=== PATIENT | male | born 1970 | race Caucasian/White ===

== ENCOUNTER → 2016-07-19 | Outpatient (CLI) | payer OTHER ==
--- NOTE | 2016-07-19 13:51 | REP ---
MRI LEFT SHOULDER: TECHNIQUE: Axial T2 fat sat, gradient echo, sagittal oblique T2 fat sat, coronal oblique T1, T2 fat sat. COMPARISON: 11/28/2015. There is ill-defined high signal in the supraspinatus tendon compatible with tendinopathy/tendonitis, appearing similar to the prior exam with probable fraying as well. This appears similar to the prior study. There is no other evidence of rotator cuff tendon tear. Acromioclavicular joint is well aligned. There is some diastasis likely postsurgical with mild fluid in the joint as seen on prior study. This is also unchanged. Biceps tendon is within the bicipital groove with mild surrounding fluid, unchanged. There is mild subacromial subdeltoid fluid unchanged. Deltoid muscle demonstrates no abnormal signal. There is no Hill-Sachs deformity. There is diffuse fraying of the entire labrum. This appears somewhat worse than on the prior study both anteriorly and posteriorly. Subchondral cystic changes are again seen in the humeral head. There is severe chondromalacia of the glenohumeral joint with mild subchondral marrow edema. There is a large spur of the inferior medial humeral head. Small joint effusion is seen at the glenohumeral joint. There is no paralabral cyst. IMPRESSION: Tendinopathy/tendonitis with fraying of the supraspinatus tendon unchanged. Acromioclavicular joint configuration is unchanged as well. There is again mild fluid around the biceps as well as subacromial subdeltoid fluid unchanged. There is diffuse fraying of the entire labrum, somewhat increased in the anterior and posterior labrum. Subchondral cystic changes humeral head. Severe chondromalacia again seen at the glenohumeral joint as on the prior study with subchondral marrow edema. Large spur of the humeral head again seen. Signed by Stefano Lindquist MD 07/19/2016 03:29 P
== END ==
LOC: M RAD 08:27
PROVIDERS: ATTEND Orthopaedic Surgery
DX: M75.02 Adhesive capsulitis of left shoulder (principal); M75.82 Other shoulder lesions, left shoulder; M94.212 Chondromalacia, left shoulder; M25.412 Effusion, left shoulder

== ENCOUNTER → 2016-07-20 | Outpatient (CLI) | payer OTHER ==
[2016-07-20 18:28] LABS: CHOLESTEROL LEVEL 183 MG/DL (<200); TRIGLYCERIDES LEVEL 333 MG/DL (<150)
== END ==
LOC: M WUC 09:47
PROVIDERS: ATTEND Family Medicine
DX: E78.5 Hyperlipidemia, unspecified (principal); E11.9 Type 2 diabetes mellitus without complications

== ENCOUNTER → 2016-07-30 | Outpatient (CLI) | payer OTHER | LOC: M WUC 18:14 | PROVIDERS: ATTEND Family Medicine | DX: R07.9 Chest pain, unspecified (principal) ==

== ENCOUNTER → 2016-12-15 | Outpatient (CLI) | payer OTHER ==
[2016-12-15 17:53] LABS: ALBUMIN 4.1 GM/DL (3.2-5.2); ALBUMIN/GLOBULIN RATIO 1.41 (1.00-1.93); ALKALINE PHOSPHATASE 97 U/L (45-117); ALT/SGPT 59 U/L (12-78); ANION GAP 8 MEQ/L (8-16); AST/SGOT 33 U/L (15-37); BILIRUBIN,TOTAL 0.4 MG/DL (0.2-1.0); BLOOD UREA NITROGEN 12 MG/DL (7-18); CALCIUM LEVEL 8.7 MG/DL (8.5-10.1); CARBON DIOXIDE LEVEL 30 MEQ/L (21-32); CHLORIDE LEVEL 104 MEQ/L (98-107); FERRITIN 52 NG/ML (26-388); GLOMERULAR FILTRATION RATE > 60.0 (>60); GLUCOSE, FASTING 101 MG/DL (70-105); PERCENT SATURATION 19.5 % (19.7-50.0); SODIUM LEVEL 142 MEQ/L (136-145); TOTAL IRON BINDING CAPACITY 343 UG/DL (250-450)
[2016-12-15 18:14] LABS: BASO % 0.7 % (0.0-1.0); EOS # 0.1 K/mm3 (0.0-0.50); EOS % 2.3 % (0.0-3.0); LARGE UNSTAINED CELL # 0.1 K/mm3 (0.0-0.4); LARGE UNSTAINED CELL % 2.6 % (0.0-4.0); LYMPH # 1.8 K/mm3 (1.5-4.5); LYMPH % 36.9 % (24.0-44.0); MEAN CORPUSCULAR HEMOGLOBIN 31.8 pg (27.0-33.0); MEAN CORPUSCULAR HGB CONC 34.1 g/dl (32.0-36.5); MEAN CORPUSCULAR VOLUME 93.3 fl (80.0-96.0); MONO # 0.3 K/mm3 (0.0-0.8); MONO % 6.3 % (0.0-5.0); NEUTROPHILS # 2.5 K/mm3 (1.8-7.7); NEUTROPHILS % 51.2 % (36.0-66.0); PLATELET COUNT, AUTOMATED 234 k/mm3 (150-450); RED CELL DISTRIBUTION WIDTH 13.3 % (11.5-14.5); WHITE BLOOD COUNT 4.9 K/mm3 (4.0-10.0)
[2016-12-16 10:17] LABS: VITAMIN B12 LEVEL 1008 PG/ML (247-911)
== END ==
LOC: M WUC 10:05
PROVIDERS: ATTEND Family Medicine
DX: I10 Essential (primary) hypertension (principal); E11.9 Type 2 diabetes mellitus without complications; E53.8 Deficiency of other specified B group vitamins

== ENCOUNTER → 2017-01-27 | Outpatient (CLI) | payer OTHER ==
--- NOTE | 2017-01-27 19:14 | REP ---
REASON: Cough times two weeks. COMPARISON: 03/10/2014. FINDINGS: The superior mediastinal structures are midline. The cardiac silhouette is unremarkable in size, shape, and position. The diaphragmatic surfaces of the lungs are regular, and the costophrenic angles are clear. The pulmonary ramirez are clear. The imaged osseous structures are intact. No significant change from the prior exam. IMPRESSION: There is no acute cardiopulmonary disease. Signed by Elgin Cedeño DO 01/27/2017 07:30 P
== END ==
LOC: M WUC 18:31
PROVIDERS: ATTEND Physician Assistant
DX: R05 Cough (principal)

== ENCOUNTER → 2017-04-28 | Outpatient (REF) | payer OTHER ==
[2017-04-28 14:10] LABS: C REACTIVE PROTEIN QUANTITATIV < 0.30 MG/DL (0.00-0.30); CHOLESTEROL LEVEL 194 MG/DL (<200); CHOLESTEROL RISK RATIO 5.878 (<5); CPK CREATINE PHOSPHOKINASE 335 U/L (39-308); FREE T4 0.83 NG/DL (0.76-1.46); HDL CHOLESTEROL 33 MG/DL (>40); MAGNESIUM LEVEL 2.1 MG/DL (1.8-2.4); NON-HDL-C 161 MG/DL; NT-PRO BNP < 5 PG/ML (<125); TRIGLYCERIDES LEVEL 419 MG/DL (<150)
[2017-04-28 14:48] LABS: ESTIMATED AVERAGE GLUCOSE 163 MG/DL (60-110); HEMOGLOBIN A1c 7.3 %
[2017-04-28 16:23] LABS: APPEARANCE, URINE CLEAR (CLEAR); BACTERIA, URINE AUTO NEGATIVE (NEGATIVE); BILIRUBIN, URINE AUTO NEGATIVE (NEGATIVE); BLOOD, URINE BLOOD NEGATIVE (NEGATIVE); COLOR, URINE YELLOW (YELLOW); GLUCOSE, URINE (UA) AUTO NEGATIVE (NEGATIVE); KETONE, URINE AUTO NEGATIVE (NEGATIVE); LEUKOCYTE ESTERASE, URINE AUTO TRACE (NEGATIVE); MUCUS, URINE SMALL (NEGATIVE); NITRITE, URINE AUTO NEGATIVE (NEGATIVE); PROTEIN, URINE AUTO NEGATIVE (NEGATIVE); RBC, URINE AUTO 4 /HPF (0-3); SPECIFIC GRAVITY URINE AUTO 1.026 (1.002-1.035); SQUAMOUS EPITHELIAL CELL UR AU 2 /HPF (0-6); UROBILINOGEN, URINE AUTO 0.2 mg/dL (0.0-2.0); WBC, URINE AUTO 6 /HPF (0-3)
[2017-04-28 16:48] LABS: MALB URINE SIEMENS 25.1 MG/L; MAU/CREAT RATIO 16.6 MCG/MG (0.0-30.0)
== END ==
LOC: M SFHCPLAZ 08:12
DX: E11.42 Type 2 diabetes mellitus with diabetic polyneuropathy (principal); E78.5 Hyperlipidemia, unspecified; E11.9 Type 2 diabetes mellitus without complications
CPT/HCPCS: 84443

== ENCOUNTER → 2017-06-13 | Outpatient (CLI) | payer OTHER | LOC: M PAIN 13:00 | DX: G89.29 Other chronic pain (principal); M47.816 Spondylosis without myelopathy or radiculopathy, lumbar region; M51.16 Intervertebral disc disorders with radiculopathy, lumbar region; E11.40 Type 2 diabetes mellitus with diabetic neuropathy, unspecified; I10 Essential (primary) hypertension; E78.5 Hyperlipidemia, unspecified; K21.9 Gastro-esophageal reflux disease without esophagitis; J44.9 Chronic obstructive pulmonary disease, unspecified; E66.01 Morbid (severe) obesity due to excess calories; Z68.42 Body mass index [BMI] 45.0-49.9, adult; I73.00 Raynaud's syndrome without gangrene; M19.049 Primary osteoarthritis, unspecified hand; J30.9 Allergic rhinitis, unspecified; Z79.82 Long term (current) use of aspirin; Z79.84 Long term (current) use of oral hypoglycemic drugs; Z79.1 Long term (current) use of non-steroidal anti-inflammatories (NSAID); Z79.899 Other long term (current) drug therapy; Z88.8 Allergy status to other drugs, medicaments and biological substances; Z87.891 Personal history of nicotine dependence | CPT/HCPCS: G0463 ==

== ENCOUNTER → 2017-07-14 | Outpatient (CLI) | payer OTHER ==
[~2017-07-14] MED LIST: ISOVUE-M 300 61% 15ML VIAL (Q9967) As Ordered; LIDOCAINE 1% SDV INJ 30 ML VIAL As Ordered; diazePAM 5 MG TAB As Ordered; methylPREDNISolone SUSP 40 MG/ML (DEPO-medrol) VIAL (J1030) As Ordered; oxyCODONE 5MG TAB As Ordered
[2017-07-14 10:25] LABS: BEDSIDE GLUCOSE 127 MG/DL (70-105)
== END ==
LOC: M PAIN 10:10
DX: G89.29 Other chronic pain (principal); M51.14 Intervertebral disc disorders with radiculopathy, thoracic region; I10 Essential (primary) hypertension; E11.9 Type 2 diabetes mellitus without complications; E78.5 Hyperlipidemia, unspecified; K21.9 Gastro-esophageal reflux disease without esophagitis; J44.9 Chronic obstructive pulmonary disease, unspecified; M19.012 Primary osteoarthritis, left shoulder; I73.00 Raynaud's syndrome without gangrene; M19.049 Primary osteoarthritis, unspecified hand; E66.01 Morbid (severe) obesity due to excess calories; Z68.42 Body mass index [BMI] 45.0-49.9, adult; Z79.82 Long term (current) use of aspirin; Z79.84 Long term (current) use of oral hypoglycemic drugs; Z79.899 Other long term (current) drug therapy; Z88.8 Allergy status to other drugs, medicaments and biological substances; Z87.891 Personal history of nicotine dependence
CPT/HCPCS: J1030

== ENCOUNTER → 2017-09-02 | Outpatient (REF) | payer OTHER ==
[2017-09-02 10:53] LABS: ESTIMATED AVERAGE GLUCOSE 166 MG/DL (60-110); HEMOGLOBIN A1c 7.4 %
[2017-09-02 11:09] LABS: ALBUMIN/GLOBULIN RATIO 1.33 (1.00-1.93); ALKALINE PHOSPHATASE 94 U/L (45-117); ALT/SGPT 54 U/L (12-78); ANION GAP 6 MEQ/L (8-16); AST/SGOT 34 U/L (7-37); BILIRUBIN,TOTAL 0.3 MG/DL (0.2-1.0); BLOOD UREA NITROGEN 13 MG/DL (7-18); CALCIUM LEVEL 8.7 MG/DL (8.5-10.1); CARBON DIOXIDE LEVEL 31 MEQ/L (21-32); CHLORIDE LEVEL 105 MEQ/L (98-107); CHOLESTEROL LEVEL 146 MG/DL (<200); CHOLESTEROL RISK RATIO 4.424 (<5); CPK CREATINE PHOSPHOKINASE 421 U/L (39-308); CREATININE FOR GFR 0.71 MG/DL (0.70-1.30); GLOMERULAR FILTRATION RATE > 60.0 (>60); GLUCOSE, FASTING 124 MG/DL (70-100); HDL CHOLESTEROL 33 MG/DL (>40); LDL CHOLESTEROL 63.8 MG/DL (<100); MAGNESIUM LEVEL 2.1 MG/DL (1.8-2.4); NON-HDL-C 113 MG/DL; POTASSIUM SERUM 4.6 MEQ/L (3.5-5.1); SODIUM LEVEL 142 MEQ/L (136-145); TRIGLYCERIDES LEVEL 246 MG/DL (<150)
== END ==
LOC: M SFHCPLAZ 08:12
DX: E78.5 Hyperlipidemia, unspecified (principal); I10 Essential (primary) hypertension; E11.8 Type 2 diabetes mellitus with unspecified complications

== ENCOUNTER → 2017-09-08 | Outpatient (CLI) | payer OTHER | LOC: M PAIN 10:30 | DX: M53.3 Sacrococcygeal disorders, not elsewhere classified (principal); M47.816 Spondylosis without myelopathy or radiculopathy, lumbar region; M54.6 Pain in thoracic spine; G89.29 Other chronic pain; E11.40 Type 2 diabetes mellitus with diabetic neuropathy, unspecified; I10 Essential (primary) hypertension; E78.5 Hyperlipidemia, unspecified; J44.9 Chronic obstructive pulmonary disease, unspecified; I73.00 Raynaud's syndrome without gangrene; M19.049 Primary osteoarthritis, unspecified hand; E66.01 Morbid (severe) obesity due to excess calories; Z68.42 Body mass index [BMI] 45.0-49.9, adult; Z79.82 Long term (current) use of aspirin; Z79.84 Long term (current) use of oral hypoglycemic drugs; Z79.891 Long term (current) use of opiate analgesic; Z79.899 Other long term (current) drug therapy; Z88.8 Allergy status to other drugs, medicaments and biological substances; Z87.891 Personal history of nicotine dependence | CPT/HCPCS: G0463 ==

== ENCOUNTER → 2017-09-24 | Outpatient (CLI) | payer OTHER ==
[~2017-09-24] MED LIST changes: +BUPIVACAINE HCL 0.25% 30 ML VIAL As Ordered; +TRIAMCINOLONE ACETONIDE SUSP 40 MG/ML VIAL (J3301) As Ordered; -methylPREDNISolone SUSP 40 MG/ML (DEPO-medrol) VIAL (J1030) As Ordered
== END ==
LOC: M PAIN 14:45
DX: G89.29 Other chronic pain (principal); M46.1 Sacroiliitis, not elsewhere classified; M53.88 Other specified dorsopathies, sacral and sacrococcygeal region; I10 Essential (primary) hypertension; E78.5 Hyperlipidemia, unspecified; J44.9 Chronic obstructive pulmonary disease, unspecified; E11.42 Type 2 diabetes mellitus with diabetic polyneuropathy; M19.012 Primary osteoarthritis, left shoulder; I73.00 Raynaud's syndrome without gangrene; M19.049 Primary osteoarthritis, unspecified hand; K21.9 Gastro-esophageal reflux disease without esophagitis; E66.01 Morbid (severe) obesity due to excess calories; Z68.42 Body mass index [BMI] 45.0-49.9, adult; Z79.82 Long term (current) use of aspirin; Z79.51 Long term (current) use of inhaled steroids; Z79.84 Long term (current) use of oral hypoglycemic drugs; Z88.8 Allergy status to other drugs, medicaments and biological substances; Z87.891 Personal history of nicotine dependence
CPT/HCPCS: J3301

== ENCOUNTER → 2017-10-13 | Outpatient (CLI) | payer OTHER | LOC: M CARPUL 14:54 | DX: J44.9 Chronic obstructive pulmonary disease, unspecified (principal); R06.09 Other forms of dyspnea | CPT/HCPCS: 94060 ==

== ENCOUNTER → 2017-11-17 | Outpatient (CLI) | payer OTHER | LOC: M PAIN 15:15 | DX: M54.2 Cervicalgia (principal); M53.3 Sacrococcygeal disorders, not elsewhere classified; M79.1 Myalgia; I10 Essential (primary) hypertension; E78.5 Hyperlipidemia, unspecified; E66.01 Morbid (severe) obesity due to excess calories; Z68.42 Body mass index [BMI] 45.0-49.9, adult; K21.9 Gastro-esophageal reflux disease without esophagitis; J44.9 Chronic obstructive pulmonary disease, unspecified; E11.42 Type 2 diabetes mellitus with diabetic polyneuropathy; I73.00 Raynaud's syndrome without gangrene; M51.36 Other intervertebral disc degeneration, lumbar region; M51.34 Other intervertebral disc degeneration, thoracic region; Z87.891 Personal history of nicotine dependence; Z90.49 Acquired absence of other specified parts of digestive tract; Z79.899 Other long term (current) drug therapy; Z79.84 Long term (current) use of oral hypoglycemic drugs; Z88.1 Allergy status to other antibiotic agents; Z88.8 Allergy status to other drugs, medicaments and biological substances | CPT/HCPCS: G0463 ==

== ENCOUNTER → 2017-12-22 | Outpatient (CLI) | payer OTHER | LOC: M SMT 09:04 | DX: M17.12 Unilateral primary osteoarthritis, left knee (principal) | CPT/HCPCS: 73564 ==

== ENCOUNTER → 2018-01-16 | Outpatient (CLI) | payer OTHER ==
[~2018-01-16] MED LIST changes: +BUPIVACAINE HCL 0.25% 10 ML VIAL As Ordered; -ISOVUE-M 300 61% 15ML VIAL (Q9967) As Ordered; -LIDOCAINE 1% SDV INJ 30 ML VIAL As Ordered
[2018-01-16 09:20] LABS: BEDSIDE GLUCOSE 136 MG/DL (70-105)
== END ==
LOC: M PAIN 09:00
DX: M79.18 Myalgia, other site (principal); M54.6 Pain in thoracic spine; I10 Essential (primary) hypertension; E78.5 Hyperlipidemia, unspecified; K21.9 Gastro-esophageal reflux disease without esophagitis; J44.9 Chronic obstructive pulmonary disease, unspecified; E11.42 Type 2 diabetes mellitus with diabetic polyneuropathy; M19.012 Primary osteoarthritis, left shoulder; I73.00 Raynaud's syndrome without gangrene; M19.049 Primary osteoarthritis, unspecified hand; E66.01 Morbid (severe) obesity due to excess calories; Z68.42 Body mass index [BMI] 45.0-49.9, adult; Z79.84 Long term (current) use of oral hypoglycemic drugs; Z79.891 Long term (current) use of opiate analgesic; Z79.51 Long term (current) use of inhaled steroids; Z79.82 Long term (current) use of aspirin; Z79.899 Other long term (current) drug therapy; Z88.8 Allergy status to other drugs, medicaments and biological substances; Z87.891 Personal history of nicotine dependence
CPT/HCPCS: J3301

== ENCOUNTER → 2018-02-02 | Outpatient (REF) | payer OTHER ==
[2018-02-02 12:01] LABS: BASO # 0.1 10^3/uL (0.0-0.2); BASO % 0.8 % (0.0-1.0); EOS # 0.1 10^3/uL (0.0-0.50); EOS % 1.3 % (0.0-3.0); HEMATOCRIT 45.5 % (42.0-52.0); IMMATURE GRANULOCYTE % 0.6 % (0-3.0); LYMPH # 2.4 10^3/uL (1.5-4.5); LYMPH % 34.5 % (24.0-44.0); MONO # 0.5 10^3/uL (0.0-0.8); MONO % 7.1 % (0.0-5.0); NEUTROPHILS # 3.9 10^3/uL (1.8-7.7); NEUTROPHILS % 55.7 % (36.0-66.0); PLATELET COUNT, AUTOMATED 290 10^3/uL (150-450); RED BLOOD COUNT 4.84 10^6/uL (4.30-6.10); RED CELL DISTRIBUTION WIDTH 13.2 % (11.5-14.5); RETIC HEMOGLOBIN EQUIVALENT 36.9 pg (24-36); RETICULOCYTE # 84.7 10^9/L (17-77); RETICULOCYTE % 1.8 % (0.5-1.5); WHITE BLOOD COUNT 7.1 10^3/uL (4.0-10.0)
[2018-02-02 12:37] LABS: ALBUMIN/GLOBULIN RATIO 1.21 (1.00-1.93); ALKALINE PHOSPHATASE 105 U/L (45-117); ALT/SGPT 52 U/L (12-78); ANION GAP 10 MEQ/L (8-16); AST/SGOT 27 U/L (7-37); BILIRUBIN,TOTAL 0.4 MG/DL (0.2-1.0); BLOOD UREA NITROGEN 17 MG/DL (7-18); CALCIUM LEVEL 9.2 MG/DL (8.5-10.1); CARBON DIOXIDE LEVEL 28 MEQ/L (21-32); CHLORIDE LEVEL 102 MEQ/L (98-107); CREATININE FOR GFR 0.73 MG/DL (0.70-1.30); GLOMERULAR FILTRATION RATE > 60.0 (>60); GLUCOSE, FASTING 110 MG/DL (70-100); MAGNESIUM LEVEL 1.7 MG/DL (1.8-2.4); POTASSIUM SERUM 4.3 MEQ/L (3.5-5.1); SODIUM LEVEL 140 MEQ/L (136-145); TOTAL PROTEIN 7.3 GM/DL (6.4-8.2); URIC ACID 5.2 MG/DL (3.5-7.2)
[2018-02-02 13:17] LABS: ESTIMATED AVERAGE GLUCOSE 154 MG/DL (60-110)
[2018-02-02 14:03] LABS: APPEARANCE, URINE CLEAR (CLEAR); BACTERIA, URINE AUTO NEGATIVE (NEGATIVE); BILIRUBIN, URINE AUTO NEGATIVE (NEGATIVE); BLOOD, URINE BLOOD NEGATIVE (NEGATIVE); CALCIUM OXALATE CRYSTALS SMALL; COLOR, URINE YELLOW (YELLOW); GLUCOSE, URINE (UA) AUTO NEGATIVE (NEGATIVE); KETONE, URINE AUTO NEGATIVE (NEGATIVE); LEUKOCYTE ESTERASE, URINE AUTO NEGATIVE (NEGATIVE); MUCUS, URINE SMALL (NEGATIVE); NITRITE, URINE AUTO NEGATIVE (NEGATIVE); PROTEIN, URINE AUTO NEGATIVE (NEGATIVE); RBC, URINE AUTO 0 /HPF (0-3); SPECIFIC GRAVITY URINE AUTO 1.021 (1.002-1.035); SQUAMOUS EPITHELIAL CELL UR AU 0 /HPF (0-6); UROBILINOGEN, URINE AUTO 0.2 mg/dL (0.0-2.0); WBC, URINE AUTO 0 /HPF (0-3)
[2018-02-02 14:27] LABS: MALB URINE SIEMENS 35.7 MG/L
[2018-02-02 14:30] LABS: MAU/CREAT RATIO 26.3 MCG/MG (0.0-30.0)
== END ==
LOC: M SFHCPLAZ 09:33
DX: E53.8 Deficiency of other specified B group vitamins (principal); I10 Essential (primary) hypertension; E11.8 Type 2 diabetes mellitus with unspecified complications

== ENCOUNTER → 2018-02-06 | Outpatient (CLI) | payer OTHER | LOC: M PAIN 10:00 | DX: M47.816 Spondylosis without myelopathy or radiculopathy, lumbar region (principal); E11.40 Type 2 diabetes mellitus with diabetic neuropathy, unspecified; I10 Essential (primary) hypertension; E78.5 Hyperlipidemia, unspecified; K21.9 Gastro-esophageal reflux disease without esophagitis; J44.9 Chronic obstructive pulmonary disease, unspecified; M19.012 Primary osteoarthritis, left shoulder; I73.00 Raynaud's syndrome without gangrene; M19.049 Primary osteoarthritis, unspecified hand; Z79.84 Long term (current) use of oral hypoglycemic drugs; Z79.82 Long term (current) use of aspirin; Z79.51 Long term (current) use of inhaled steroids; Z79.899 Other long term (current) drug therapy; Z88.8 Allergy status to other drugs, medicaments and biological substances; Z87.891 Personal history of nicotine dependence | CPT/HCPCS: G0463 ==

== ENCOUNTER → 2018-02-20 | Outpatient (CLI) | payer OTHER | LOC: M PLARAD 07:32 | DX: M50.21 Other cervical disc displacement, high cervical region (principal); M50.221 Other cervical disc displacement at C4-C5 level; M50.222 Other cervical disc displacement at C5-C6 level; M50.23 Other cervical disc displacement, cervicothoracic region; M48.02 Spinal stenosis, cervical region | CPT/HCPCS: 72141 ==

== ENCOUNTER → 2018-03-13 | Outpatient (CLI) | payer OTHER | LOC: M PLARAD 15:17 | DX: M17.11 Unilateral primary osteoarthritis, right knee (principal); S83.231A Complex tear of medial meniscus, current injury, right knee, initial encounter; X58.XXXA Exposure to other specified factors, initial encounter; Y92.9 Unspecified place or not applicable; M25.461 Effusion, right knee | CPT/HCPCS: 73721 ==

== ENCOUNTER → 2018-03-19 | Outpatient (CLI) | payer OTHER ==
[~2018-03-19] MED LIST changes: -BUPIVACAINE HCL 0.25% 10 ML VIAL As Ordered; -BUPIVACAINE HCL 0.25% 30 ML VIAL As Ordered; +BUPIVACAINE HCL 0.25% 30 ML VIAL As Ordered ONE; +ISOVUE-M 300 61% 15ML VIAL (Q9967) As Ordered ONE; +LIDOCAINE 1% SDV INJ 30 ML VIAL As Ordered ONE; -TRIAMCINOLONE ACETONIDE SUSP 40 MG/ML VIAL (J3301) As Ordered; -diazePAM 5 MG TAB As Ordered; -oxyCODONE 5MG TAB As Ordered
--- NOTE | 2018-03-19 13:54 | REP ---
Partial lumbar spine series: Three views . History: Injection procedure for pain. 35 seconds of fluoroscopy time is reported. Findings: A sequence of three fluoroscopically obtained last image hold procedural spot radiographs of the lumbar spine document needle position and contrast injection associated with injection procedure. Electronically Signed by Vern Goodrihc MD 03/19/2018 01:45 P
--- NOTE | 2018-04-08 | ECWPNPC ---
PATIENT NAME: SRINATH GUPTA : 1970 GENDER: MALE VISIT DATE: 03/19/2018 DISCHARGE DATE: 03/19/18 1143 VISIT LOCKED DATE TIME: PHYSICIAN: AGUEDA MORALES MD RESOURCE: AGUEDA MORALES MD REASON FOR APPOINTMENT 1. BILAT. L4/5-L5/S1 DIAGNOSTIC LUMBAR BLOCK HISTORY OF PRESENT ILLNESS DEPRESSION SCREENING: PHQ-2 IN LAST TWO WEEKS HAVE YOU BEEN BOTHERED BY LITTLE INTEREST OR PLEASURE IN DOING THINGSNO FEELING DOWN, DEPRESSED, OR HOPELESSNO HISTORY OF PRESENT ILLNESS: PAIN THE PATIENT DESCRIBES THE PAIN... FALL RISK SCREENING: SCREENING :NO FALLS IN THE PAST YEAR CURRENT MEDICATIONS TAKING ZANAFLEX 4 MG TABLET 1 TABLET NEEDED ORALLY FOR SPASMS AND PAIN EVERY 6 HOURS NEEDED MDD3, NOTES: 03/18/181999 TAKING GABAPENTIN 100MG CAPSULE 1 CAPSULE ORALLY THREE TIMES A DAY, NOTES: 03/18/181999 TAKING FLUOXETINE HCL 40MG CAPSULE 1 TABLET IN THE MORNING ORALLY ONCE A DAY, NOTES: 03/18/18329 TAKING METFORMIN HCL ER 500MG TABLET EXTENDED RELEASE 24 HOUR TAKE THREE TABLETS BY MOUTH IN THE MORNING AND TWO TABLETS IN THE EVENING ORALLY DIRECTED, NOTES: 03/18/181999 TAKING MULTIVITAMINS 1000 MG TABLET 1 TAB ORALLY ONCE A DAY, NOTES: 03/18/18329 TAKING ASPIRIN 81 MG TABLET DELAYED RELEASE 1 TABLET ORALLY ONCE A DAY, NOTES: 03/18/181999 TAKING VITAMIN B12 1 MG TABLET 1 TABLET ORALLY ONCE A DAY, NOTES: 03/18/18329 TAKING NASACORT ALLERGY 24HR 55 MCG/ACT AEROSOL 1 PUFF IN EACH NOSTRIL NASALLY ONCE A DAY, NOTES: WEEKS AGO TAKING COMBIVENT RESPIMAT 20-100 MCG/ACT AEROSOL 1 PUFF INHALATION FOUR TIMES DAILY, NEEDED, NOTES: 03/17/18 TAKING METHOCARBAMOL 500 MG TABLET 1.5 TABLETS ORALLY THREE TIMES A DAY, NOTES: 03/18/181999 TAKING TIZANIDINE HCL 4 MG TABLET 1 TABLET NEEDED ORALLY THREE TIMES A DAY, NOTES: 03/18/181999 TAKING CHLORTHALIDONE 25MG TABLET 1 TABLET IN THE MORNING WITH FOOD ORALLY EVERY MORNING, NOTES: 03/18/18329 TAKING LOSARTAN POTASSIUM 100 MG TABLET 1 TABLET ORALLY ONCE A DAY, NOTES: 03/18/18329 TAKING PEPCID 20MG TABLET 1 TABLET ORALLY TWICE A DAY, NOTES: 03/18/181999 TAKING ATORVASTATIN CALCIUM 80 MG TABLET 1 TABLET ORALLY ONCE A DAY, NOTES: 03/18/18329 TAKING NORCO 10-325 MG TABLET 1 TABLET NEEDED ORALLY FOR PAIN (THIS PRESCRIPTION SHOULD LAST 1 MONTH) EVERY 6 HOURS NEEDED MDD2, NOTES: 03/18/18329 TAKING INVOKANA 100 MG TABLET 1 TABLET ORALLY ONCE A DAY, NOTES: 03/18/18329 TAKING MELOXICAM 7.5 MG TABLET 1 TAB ORALLY BID, NOTES: 03/18/181999 TAKING ANORO ELLIPTA UMECLIDINIUM 62.5 MCG AND VILANTEROL 25 MCG INHALATION POWDER 1 INHALATION ORAL ONCE DAILY, NOTES: 03/18/18329 TAKING CYMBALTA 20 MG CAPSULE DELAYED RELEASE PARTICLES 1 CAPSULE ORALLY AT BEDTIME, NOTES: 03/18/181999 TAKING GLIMEPIRIDE 1 MG TABLET 1 TABLET ORALLY BID, NOTES: 03/18/181999 NOT-TAKING MAGNESIUM 250 MG TABLET 1 TABLET WITH A MEAL ORALLY ONCE A DAY NOT-TAKING DOXYCYCLINE MONOHYDRATE 100 MG CAPSULE 1 CAPSULE ORALLY BID NOT-TAKING NYSTATIN 382031 UNIT/GM POWDER 1 APPLICATION TO AFFECTED AREA EXTERNALLY TWICE A DAY NOT-TAKING MICONAZOLE NITRATE 2 % CREAM 1 APPLICATION TO AFFECTED AREA EXTERNALLY TWICE A DAY NOT-TAKING CANAGLIFLOZIN 300 MG TABLET 1 TABLET ORALLY EVERY MORNING, NOTES: DUPLICATE NOT-TAKING LIPITOR 80MG TABLET 1 TABLET ORALLY ONCE A DAY, NOTES: DUPLICATE MEDICATION LIST REVIEWED AND RECONCILED WITH THE PATIENT PAST MEDICAL HISTORY HYPERTENSION-08/2016 NST LOW RISK, GOOD EXERCISE TOLERANCE-ANTECOL/ MILD CONCENTRIC SSS-QHZ-ZPCIRAJ HYPERLIPIDEMIA 2B GERD COPD-02/2012 FEV1 3.83 OBESITY, MORBID PRIOR NICOTINE ADDICTION-SMOKED 20 YEARS 1 04/08 PPD, QUIT IN 2006 T2DM NID C PERIPHERAL NEUROPATHY BLE PERIPHERAL EDEMA 2 MEDICAL NON-COMPLIANCE L SHOULDER OA 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 -CHELSEA, -SSA/SSB BY XRAY L2/3, 4/5, / BULGES ALL C MINIMAL SAC COMPRESSION BY 03/2014 MRI THORACIC [id number] 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 CTS-08/10/14 BUE NCS C SEVERE R, MODERATE-SEVERE L CTS-ILDA S/P 10/2014 CTR-PETER VAN HAND OSTEOARTHRITIS ALLERGIC RHINITIS-03/2016 - ZONE 1 PANEL 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 COMPRESSION BY 11/2015 MRI-BOLLA MILD CONCENTRIC LVH, CVP 10, NORMAL VIRIDIANA/SYS FUNCTION BY 08/2016 TTE-ANTECOL ALLERGIES TRILIPIX: AGITATION: SIDE EFFECTS TRIPLE ANTIBIOTIC: RASH /SWELLING: ALLERGY NIACIN: BURNING: ALLERGY SURGICAL HISTORY CHOLECYSTECTOMY 2007 APPENDECTOMY 1993 L SHOULDER ATROSCOPIC DEBRIDEMENT, CAPSULAR RELEASE, ACROMIOPLASTY, SYNOVECTOMY-SETTER 11/25/13 UMBILCIAL HERNIA REPAIR-FANI 01/18/14 B CTR-SHAHIDA MARCUS 10/2014 FAMILY HISTORY FATHER: 68 YRS, T2DM, 2 COPD, DIAGNOSED WITH HYPERTENSION MOTHER: 61 YRS, CORONARY ARTERY DISEASE, STROKE, DIAGNOSED WITH HYPERTENSION SIBLINGS: 2 SISTERS WITH DIABETES ONE WITH HEMA, ONE BROTHER OF CIRRHOSIS MATERNAL GRAND FATHER: STROKE MATERNAL GRAND MOTHER: STROKE 1 BROTHER(S) , 4 SISTER(S) . SOCIAL HISTORY GENERAL: TOBACCO USE ARE YOU A:FORMER SMOKER HOW LONG HAS IT BEEN SINCE YOU LAST SMOKED?5-10 YEARS BMI CARE GOAL FOLLOW-UP ABOVE NORMAL BMI FOLLOW-UP GIVING ENCOURAGEMENT TO EXERCISE. ALCOHOL SCREENING DID YOU HAVE A DRINK CONTAINING ALCOHOL IN THE PAST YEAR?YES HOW OFTEN DID YOU HAVE SIX OR MORE DRINKS ON ONE OCCASION IN THE PAST YEAR?NEVER (0 POINTS) HOW MANY DRINKS DID YOU HAVE ON A TYPICAL DAY WHEN YOU WERE DRINKING IN THE PAST YEAR?1 OR 2 (0 POINTS) HOW OFTEN DID YOU HAVE A DRINK CONTAINING ALCOHOL IN THE PAST YEAR?MONTHLY OR LESS (1 POINT) POINTS1 INTERPRETATIONNEGATIVE RECREATIONAL DRUG USE DRUG USE?NO CAFFEINE CAFFEINE USE?YES SEXUAL HX HAD SEX IN THE LAST 12 MONTHS (VAGINAL, ORAL, OR ANAL)?NO HAVE YOU EVER HAD AN STD?NO HIV / HEP-C SCREENING HIV TEST OFFERED TO PATIENT:YES DATE OFFERED:07/30/2016 TEST ACCEPTED:NO HEP-C TEST OFFERED TO PATIENT:YES DATE OFFERED:07/30/2016 REASON:PATIENT DECLINED TEST ACCEPTED:NO REASON:PATIENT DECLINED CONFUCIANISM [id number] YAZIDISM LANGUAGE LANGUAGES SPOKEN:ESTONIAN EDUCATION LEVEL OF EDUCATION:NOT FINISHED HIGH SCHOOL 10TH GRADE LEARNING BARRIERS / SPECIAL NEEDS CHANGE FROM LAST VISIT?NO BARRIERS TO LEARNING?NO HEARING IMPAIRED?NO VISION IMPAIRED?NO COGNITIVELY IMPAIRED?NO READINESS TO LEARN?NO LEARNING PREFERENCES?NO LEARNING CAPABILITIES PRESENT?NO EMOTIONAL BARRIERS?NO SPECIAL DEVICES?NO CAR RESTORER NEEDED?NO DOMESTIC VIOLENCE DO YOU FEEL SAFE IN YOUR ENVIRONMENT?YES 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 DIET: SUPPOSED TO BEING A HEART HEALTHY DIET. EXERCISE: WALKS, BIKES. MARITAL STATUS: , ONE CHILD. PAIN CLINIC PFS, CLERGY, PUBLIC HEALTH REFERRALS HAS THE PATIENT BEEN EDUCATED REGARDING HIS/HER PLAN OF CARE?YES HAS THE PATIENT BEEN EDUCATED REGARDING PAIN, THE RISK FOR PAIN, THE IMPORTANCE OF EFFECTIVE PAIN MANAGEMENT, AND THE PAIN ASSESSMENT PROCESS?YES ADVANCE DIRECTIVE ADVANCE DIRECTIVE DISCUSSED WITH PATIENT:YES PT DECLINES HCP INFORMATION AT THIS TIME. 03/19/18924 JS MOVED FROM [facility] IN 2005-BORN THEREREVIEWED WITH PT 02/06/18 1031 BVREVIEWED WITH PATIENT 03/19/18924 IVONNE. HOSPITALIZATION/MAJOR DIAGNOSTIC PROCEDURE ABOVE REVIEW OF SYSTEMS REVIEWED BY: PROVIDER: . CONSTITUTIONAL: ANY CHANGE IN YOUR MEDICAL CONDITION? NO . CHILLS NO . FEVER NO . INFECTION: DO YOU HAVE NEW INFECTIONS? NO . DO YOU HAVE HISTORY OF MRSA? NO . MUSCULOSKELETAL: ANY NEW PATTERNS OF PAIN OR NUMBNESS? STATES PAIN TO LOWER BACK 6/10 AT THIS TIME. PAIN TO MID-BACK 7/10 AT THIS TIME . GASTROENTEROLOGY: ANY NEW CHANGE IN BOWEL CONTROL? NO . GENITOURINARY: ANY NEW CHANGE IN BLADDER CONTROL? NO . IS THERE A CHANCE YOU COULD BE ? NO . HEMATOLOGY/LYMPH: DO YOU TAKE ANY BLOOD THINNERS? (FOR EXAMPLE- COUMADIN, PLAVIX, AGGRENOX, PLATEL, PRADAXA, OR XARELTO) NO . WHEN WAS YOUR LAST DOSE? DATE: TIME: . NEUROLOGY: HAVE YOU FALLEN IN THE PAST 6 MONTHS? NO . ANY NEW EXTREMITY NUMBNESS OR WEAKNESS? NO . CARDIOLOGY: DO YOU HAVE A PACEMAKER OR DEFIBRILLATOR? NO . RESPIRATORY: HAVE YOU BEEN SICK IN THE PAST WEEK? NO . FEVER NO . FLU LIKE SYMPTOMS? NO . COUGH NO . INTEGUMENTARY: DO YOU HAVE ANY RASHES OR OPEN SORES? NO . ALLERGIC/IMMUNO: ARE YOU ALLERGIC TO SHELLFISH OR IV DYE? NO . ANY NEW ALLERGIES? NO . PSYCHIATRIC: DO YOU HAVE THOUGHTS OF HURTING YOURSELF OR SOMEONE ELSE? NO . ARE YOU ABUSED, NEGLECTED, OR IN AN UNSAFE ENVIRONMENT? NO . ENDOCRINOLOGY: ARE YOU DIABETIC? YES, FSBS 144 THIS AM . OTHER: DO YOU NEED ANY PRESCRIPTIONS? NO . IF YES, PLEASE LIST: ____ . ANY NEW PROBLEMS WITH YOUR MEDICATIONS? NO . WHEN DID YOU LAST EAT? ____03/18/182199 . WHEN DID YOU LAST DRINK? ____03/18/182199 . WHAT DID YOU LAST DRINK? ____COFFEE . NAME OF PERSON DRIVING YOU HOME? ____MARIANA GUPTA . DO YOU HAVE ANY OTHER QUESTIONS OR CONCERNS NO . VITAL SIGNS WT 337.6 LBS, HT 70.00", BMI 48.44 INDEX, BP 150/89 MM HG, HR 96 /MIN, RR 18 /MIN, TEMP 96.5 F, OXYGEN SAT % 96%, BLOOD GLUCOSE LEVEL 144 THIS AM, SAFE IN ENV? (Y/N) YES, NA INITIALS SC 09:09, REVIEWED BY: IVONNE. ASSESSMENTS SPONDYLOSIS OF LUMBAR REGION WITHOUT MYELOPATHY OR RADICULOPATHY - M47.816 (PRIMARY) SPONDYLOSIS OF LUMBOSACRAL REGION WITHOUT MYELOPATHY OR RADICULOPATHY - M47.817 PROCEDURES PN LUMBAR FACET BLOCK DIAGNOSTIC PRE PROCEDURE DIAGNOSIS 1. LUMBAR SPONDYLOSIS. 2. LUMBOSACRAL SPONDYLOSIS POST PROCEDURE DIAGNOSIS 1. LUMBAR SPONDYLOSIS. 2. LUMBOSACRAL SPONDYLOSIS PROCEDURE BILATERAL L4-L5 AND BILATERAL L5-S1 FACET DIAGNOSTIC BLOCK NUMBER [address] AGUEDA MORALES RAMP SERVICE MAN NONE ANESTHESIA LOCAL PRE PROCEDURE NOTE PATIENT WITH A HISTORY OF CHRONIC LOW BACK PAIN. I EVALUATED THE PATIENT AND REVIEWED THE CHART. I WENT OVER THE RISKS, ALTERNATIVES, AND BENEFITS ASSOCIATED WITH THIS PROCEDURE. THE PATIENT WOULD LIKE TO PROCEED AND GAVE CONSENT TO PERFORM THE PROCEDURE. AGREED WITH THE PATIENT WE ARE DOING THIS PROCEDURE TO DETERMINE IF THE PATIENT IS A CANDIDATE FOR A RADIOFREQUENCY ABLATION OF THE FACETS JOINTS. THE PATIENT DENIES UNEXPLAINABLE WEIGHT LOSS, FEVER, CHILLS, OR NEW CHANGES IN URINARY OR BOWEL CONTROL DESCRIPTION OF PROCEDURE THE PATIENT WAS BROUGHT TO THE PROCEDURE ROOM AND PLACED IN THE PRONE POSITION. THE LUMBOSACRAL AREA WAS CLEANED WITH CHLORAPREP SOLUTION AND DRAPED ASEPTICALLY. THE PROCEDURE WAS DONE UNDER STERILE CONDITIONS. I CHECKED LATERALITY AND THE LEVEL WHERE THE PROCEDURE WAS GOING TO BE PERFORMED WITH THE PATIENT AND THE SUPPORTING STAFF AT THE MOMENT OF THE TIME OUT IN THE PROCEDURE ROOM. UNDER FLUOROSCOPIC GUIDANCE, TARGETS WERE SELECTED AT THE INTERSECTION OF THE RIGHT AND LEFT TRANSVERSE PROCESS OF L4, L5 AND ALA OF S1 WITH ITS RESPECTIVE SUPERIOR ARTICULAR PROCESS. LIDOCAINE WAS USED TO NUMB THE SKIN AND THE SUBCUTANEOUS TISSUE BELOW IT. SPINAL NEEDLE, 22-GAUGE WAS ADVANCED UNDER FLUOROSCOPIC GUIDANCE AND FOLLOWING PATIENT FEEDBACK UNTIL THE TARGETS WERE REACHED. POSITION OF THE NEEDLES WAS VERIFIED WITH AP AND LATERAL VIEWS. AFTER PROPER POSITION OF THE NEEDLES WAS ACHIEVED, ISOVUE-M DYE 30% 0.1 ML WAS INJECTED AT EACH SITE SHOWING ADEQUATE SPREAD OF THE DYE. THEN A SOLUTION OF 0.4 ML OF BUPIVACAINE 0.25%, WAS INJECTED AT EACH SITE. THERE WAS NO EVIDENCE OF BLOOD, PARESTHESIA OR CEREBROSPINAL FLUID DURING THE PROCEDURE. THE PATIENT WAS SENT TO THE RECOVERY ROOM. THE PATIENT WAS MOVING THE EXTREMITIES AND DOING WELL. THERE WAS NO COMPLICATION DURING THE PROCEDURE. FLUOROSCOPY TIME WAS 35 SECONDS POST PROCEDURE NOTE THE PATIENT WILL DOCUMENT HIS PAIN LEVEL AND RESPONSE TO THIS PROCEDURE EVERY 30 MINUTES. THE PATIENT WILL BE SEEN IN A FOLLOW UP IN THE NEXT FEW WEEKS. FURTHER DETERMINATION FOR HIS CASE WILL BE DONE AT THE NEXT VISIT. INSTRUCTIONS WERE GIVEN, QUESTIONS WERE ANSWERED, AND THE PATIENT EXPRESSED UNDERSTANDING AND AGREED WITH THE PLAN. I, KHRIS MCGEE, DOCUMENTED THE ABOVE INFORMATION ACTING A SCRIBE FOR DR. MORALES. I HAVE REVIEWED THE ABOVE DOCUMENT, WRITTEN BY KHRIS MCGEE SCRIBE AND I VERIFY THAT IT IS ACCURATE DIAGNOSTIC IMAGING [facility] FACET BLOCK (PAIN)[id number] PROCEDURE CODES 6045F RADXPS IN END [id number] PXD 60079 INJ PARAVERT F JNT L/S 1 LEV, MODIFIERS: 50 [id number] INJ PARAVERT F JNT L/S 2 LEV, MODIFIERS: 50 DISPOSITION & COMMUNICATION FOLLOW UP 3 WEEKS ELECTRONICALLY SIGNED BY AGUEDA MORALES MD, MD ON 04/07/2018 AT 04:38 PM EST DISCLAIMER : THIS IS A VISIT SUMMARY EXTRACTED FROM THE [facility] CHART. IT IS NOT A COPY OF THE [employer] PROGRESS NOTE. MTDD
== END ==
LOC: M PAIN 08:45
PROVIDERS: ATTEND Anesthesiology
DX: M47.816 Spondylosis without myelopathy or radiculopathy, lumbar region (principal); M47.817 Spondylosis without myelopathy or radiculopathy, lumbosacral region; I10 Essential (primary) hypertension; E78.5 Hyperlipidemia, unspecified; K21.9 Gastro-esophageal reflux disease without esophagitis; J44.9 Chronic obstructive pulmonary disease, unspecified; E66.01 Morbid (severe) obesity due to excess calories; E11.42 Type 2 diabetes mellitus with diabetic polyneuropathy; I73.00 Raynaud's syndrome without gangrene; M19.012 Primary osteoarthritis, left shoulder; J30.2 Other seasonal allergic rhinitis; Z68.42 Body mass index [BMI] 45.0-49.9, adult; Z87.891 Personal history of nicotine dependence; Z79.84 Long term (current) use of oral hypoglycemic drugs; Z79.899 Other long term (current) drug therapy; Z79.82 Long term (current) use of aspirin; Z88.8 Allergy status to other drugs, medicaments and biological substances; Z88.1 Allergy status to other antibiotic agents
CPT/HCPCS: 64493; 64494; Q9967

== ENCOUNTER 2018-05-05 07:50 | Outpatient (RCR) | payer OTHER | END 2018-05-07 | LOC: M PT 07:50 | PROVIDERS: ATTEND Physician Assistant | DX: S83.232D Complex tear of medial meniscus, current injury, left knee, subsequent encounter (principal); X58.XXXD Exposure to other specified factors, subsequent encounter ==

== ENCOUNTER → 2018-06-12 | Outpatient (REF) | payer BC, OTHER ==
[2018-06-12 13:10] LABS: HEMOGLOBIN A1c 6.7 %
== END ==
LOC: M SFHCPLAZ 08:51
PROVIDERS: ATTEND Physician Assistant Medical
DX: E11.8 Type 2 diabetes mellitus with unspecified complications (principal); E53.8 Deficiency of other specified B group vitamins

== ENCOUNTER → 2018-07-08 | Outpatient (CLI) | payer BC, OTHER ==
[2018-07-08 13:17] LABS: BLOOD UREA NITROGEN 9 MG/DL (7-18); CALCIUM LEVEL 8.9 MG/DL (8.5-10.1); CARBON DIOXIDE LEVEL 28 MEQ/L (21-32); CHLORIDE LEVEL 105 MEQ/L (98-107); CREATININE FOR GFR 0.66 MG/DL (0.70-1.30); GLOMERULAR FILTRATION RATE > 60.0 (>60); GLUCOSE, FASTING 102 MG/DL (70-100); POTASSIUM SERUM 4.3 MEQ/L (3.5-5.1); SODIUM LEVEL 139 MEQ/L (136-145)
--- NOTE | 2018-07-08 13:44 | ECGEPIP ---
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
== END ==
LOC: M LAB 11:37
PROVIDERS: ATTEND Orthopaedic Surgery
DX: Z01.812 Encounter for preprocedural laboratory examination (principal); M17.12 Unilateral primary osteoarthritis, left knee

== ENCOUNTER → 2018-07-30 | Outpatient (CLI) | payer BC, OTHER | LOC: M PAIN 11:00 | PROVIDERS: ATTEND Nurse Practitioner Family | DX: M47.816 Spondylosis without myelopathy or radiculopathy, lumbar region (principal); M47.817 Spondylosis without myelopathy or radiculopathy, lumbosacral region; Z53.29 Procedure and treatment not carried out because of patient's decision for other reasons ==

== ENCOUNTER → 2018-08-06 | Outpatient (CLI) | payer BC, OTHER ==
--- NOTE | 2018-08-22 23:20 | ECWPNPC ---
PATIENT NAME: SRINATH GUPTA : 1970 GENDER: MALE VISIT DATE: 08/06/2018 DISCHARGE DATE: 08/06/18 1033 VISIT LOCKED DATE TIME: PHYSICIAN: BOOKER DEAN RESOURCE: BOOKER DEAN REASON FOR APPOINTMENT 1. ARMOND/ POST PROC HISTORY OF PRESENT ILLNESS GENERAL: HERE FOR POST PROCEDURE F/U.HAD BILAT.L4/5-L5/S1 DX LUMBAR FACET BLOCK ON 03/09/19.REPORTING >80 % REDUCTION IN PAIN FOR >24HRS.RATING PAIN VAS 5/10.DISCUSSED MEDICATION AND TREATMENT OPTIONS.DESCRIBES LOW BACK PAIN CONTINUOUS,ACHING AND SHARP.PAIN AWAKENS HIM FROM SLEEP. HISTORY OF PRESENT ILLNESS: PAIN THE PATIENT DESCRIBES THE PAIN... FALL RISK SCREENING: SCREENING :NO FALLS REPORTED IN THE LAST YEAR CURRENT MEDICATIONS TAKING ASPIRIN 81 MG TABLET DELAYED RELEASE 1 TABLET ORALLY ONCE A DAY TAKING ATORVASTATIN CALCIUM 80 MG TABLET 1 TABLET ORALLY ONCE A DAY TAKING METFORMIN HCL ER 500 MG TABLET EXTENDED RELEASE 24 HOUR 3 TABLETS IN AM, 2 IN PM ORALLY TWICE A DAY TAKING GLIMEPIRIDE 1 MG TABLET 1 TABLET ORALLY BID TAKING CANAGLIFLOZIN 300 MG TABLET 1 TABLET ORALLY EVERY MORNING, NOTES: (INVOKANA) TAKING COMBIVENT RESPIMAT 20-100 MCG/ACT AEROSOL 1 PUFF INHALATION FOUR TIMES DAILY, NEEDED TAKING PEPCID 20MG TABLET 1 TABLET ORALLY TWICE A DAY TAKING NASACORT ALLERGY 24HR 55 MCG/ACT AEROSOL 1 PUFF IN EACH NOSTRIL NASALLY ONCE A DAY TAKING MULTIVITAMINS 1000 MG TABLET 1 TAB ORALLY ONCE A DAY TAKING VITAMIN B12 1 MG TABLET 1 TABLET ORALLY ONCE A DAY TAKING GLUCOMETER DIRECTED _ ONCE DAILY TAKING GLUCOMETER 1 STRIP _ DAILY TAKING GLUCOMETER 1 LANCET SUBCUTANEOUSLY DAILY TAKING FLUOXETINE HCL 40MG CAPSULE 1 TABLET IN THE MORNING ORALLY ONCE A DAY TAKING METHOCARBAMOL 500 MG TABLET 1.5 TABLETS ORALLY THREE TIMES A DAY TAKING CYMBALTA 20 MG CAPSULE DELAYED RELEASE PARTICLES 1 CAPSULE ORALLY AT BEDTIME TAKING CHLORTHALIDONE 25MG TABLET 1 TABLET IN THE MORNING WITH FOOD ORALLY EVERY MORNING TAKING MELOXICAM 7.5 MG TABLET 1 TAB ORALLY BID TAKING ANORO ELLIPTA UMECLIDINIUM 62.5 MCG AND VILANTEROL 25 MCG INHALATION POWDER 1 INHALATION ORAL ONCE DAILY TAKING NORCO 10-325 MG TABLET 1 TABLET NEEDED ORALLY FOR PAIN (THIS PRESCRIPTION SHOULD LAST 1 MONTH) EVERY 6 HOURS NEEDED MDD2 TAKING TIZANIDINE HCL 4 MG TABLET 1 TABLET NEEDED ORALLY THREE TIMES A DAY TAKING LOSARTAN POTASSIUM 100 MG TABLET 1 TABLET ORALLY ONCE A DAY NOT-TAKING PHYSICAL THERAPY EVALUATE AND TREAT PHYSICAL THERAPY MECHANICAL EVAL & TX S83.232, MEDIAL MENISCAL TEAR (LEFT) 3 X/ X MEDICATION LIST REVIEWED AND RECONCILED WITH THE PATIENT PAST MEDICAL HISTORY HYPERTENSION-08/2016 NST LOW RISK, GOOD EXERCISE TOLERANCE-ANTECOL//08/2016 MILD CONCENTRIC [id number] HYPERLIPIDEMIA 2B GERD COPD-02/2012 FEV1 3.83 OBESITY, MORBID PRIOR NICOTINE ADDICTION-SMOKED 20 YEARS 1 04/08 PPD, QUIT IN 2006 T2DM NID C PERIPHERAL NEUROPATHY BLE PERIPHERAL EDEMA 2 MEDICAL NON-COMPLIANCE L SHOULDER OA 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 -[facility]HELSEA, -SSA/SSB BY XRAY L2/3, 4/5, 08/05 BULGES ALL C MINIMAL SAC COMPRESSION BY 03/2014 MRI THORACIC [id number] 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 CTS-08/10/14 BUE NCS C SEVERE R, MODERATE-SEVERE L CTS-GONSALES S/P 10/2014 [facility] HAND OSTEOARTHRITIS ALLERGIC RHINITIS-03/2016 - ZONE 1 PANEL 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 COMPRESSION BY 11/2015 MRI-[facility] MILD CONCENTRIC LVH, CVP 10, NORMAL VIRIDIANA/SYS FUNCTION BY 08/2016 TTE-ANTECOL ALLERGIES TRILIPIX: AGITATION - SIDE EFFECTS TRIPLE ANTIBIOTIC: RASH /SWELLING - ALLERGY NIACIN: BURNING - ALLERGY SURGICAL HISTORY CHOLECYSTECTOMY 2006 APPENDECTOMY 1993 L SHOULDER ATROSCOPIC DEBRIDEMENT, CAPSULAR RELEASE, ACROMIOPLASTY, SYNOVECTOMY-SETTER 11/25/13 UMBILCIAL HERNIA REPAIR-FANI 01/18/14 B [facility] 10/2014 LEFT KNEE TORN MANISCUS REPAIR 07/2018 FAMILY HISTORY FATHER: 68 YRS, T2DM, 2 COPD, DIAGNOSED WITH HYPERTENSION MOTHER: 61 YRS, CORONARY ARTERY DISEASE, STROKE, HYPERTENSION SIBLINGS: 2 SISTERS WITH DIABETES ONE WITH HEMA, ONE BROTHER OF CIRRHOSIS MATERNAL GRAND FATHER: STROKE MATERNAL GRAND MOTHER: STROKE 1 BROTHER(S) , 4 SISTER(S) . SOCIAL HISTORY GENERAL: TOBACCO USE ARE YOU A:FORMER SMOKER HOW LONG HAS IT BEEN SINCE YOU LAST SMOKED?5-10 YEARS HIV / HEP-C SCREENING HIV TEST OFFERED TO PATIENT:YES DATE OFFERED:07/30/2016 TEST ACCEPTED:NO REASON:PATIENT DECLINED HEP-C TEST OFFERED TO PATIENT:YES DATE OFFERED:07/30/2016 TEST ACCEPTED:NO REASON:PATIENT DECLINED EDUCATION LEVEL OF EDUCATION:NOT FINISHED HIGH SCHOOL 10TH GRADE DIET: SUPPOSED TO BEING A HEART HEALTHY DIET. LANGUAGE LANGUAGES SPOKEN:CYPRIOT DOMESTIC VIOLENCE DO YOU FEEL SAFE IN YOUR ENVIRONMENT?YES BMI CARE GOAL FOLLOW-UP ABOVE NORMAL BMI FOLLOW-UP GIVING ENCOURAGEMENT TO EXERCISE. RECREATIONAL DRUG USE DRUG USE?NO EXERCISE: WALKS, BIKES. LEARNING BARRIERS / SPECIAL NEEDS CHANGE FROM LAST VISIT?NO BARRIERS TO LEARNING?NO HEARING IMPAIRED?NO VISION IMPAIRED?NO COGNITIVELY IMPAIRED?NO READINESS TO LEARN?NO LEARNING PREFERENCES?NO LEARNING CAPABILITIES PRESENT?NO EMOTIONAL BARRIERS?NO SPECIAL DEVICES?NO WATCH PARTS INSPECTOR NEEDED?NO PAIN CLINIC PFS, CLERGY, PUBLIC HEALTH REFERRALS WAS THE PROVIDER NOTIFIED OF ANY PERTINENT INFO?YES HAS THE PATIENT BEEN EDUCATED REGARDING HIS/HER PLAN OF CARE?YES HAS THE PATIENT BEEN EDUCATED REGARDING PAIN, THE RISK FOR PAIN, THE IMPORTANCE OF EFFECTIVE PAIN MANAGEMENT, AND THE PAIN ASSESSMENT PROCESS?YES LATEX QUESTIONNAIRE LATEX ALLERGY : HAVE YOU EVER DEVELOPED ANY TYPE OF REACTION AFTER HANDLING LATEX PRODUCTS SUCH RUBBER GLOVES, CONDOMS, DIAPHRAGMS, BALLOONS, SOCKS, OR UNDERWEAR?NO LATEX ALLERGY : HAVE YOU EVER DEVELOPED ANY TYPE OF REACTION DURING OR AFTER DENTAL APPOINTMENT, VAGINAL/RECTAL EXAMINATION, SURGICAL PROCEDURE, OR ANY OTHER EXPOSURE?NO LATEX RISK : HAVE YOU EVER HAD ANY DIFFICULTY BREATHING OR HIVES AFTER EATING OR HANDLING ANY FRUITS, OR VEGETABLES; SUCH KIWI, BANANAS, STONE FRUITS, OR CHESTNUTSNO LATEX RISK : DO YOU HAVE A PREVIOUS PERSONAL HISTORY OF MORE THAN NINE SURGERIES, SPINA BIFIDA, OR REPEATED CATHERTIZATIONS? NO LATEX RISK : ARE YOU FREQUENTLY EXPOSED TO LATEX PRODUCTS IN YOUR OCCUPATION?NO DATE ASKED : 08/06/2018 CAFFEINE CAFFEINE USE?YES ADVANCE DIRECTIVE ADVANCE DIRECTIVE DISCUSSED WITH PATIENT:YES PT DECLINES HCP INFORMATION AT THIS TIME. 03/19/18 0925 CONGREGATION [id number] TENRIISM MARITAL STATUS: , ONE CHILD. 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 SEXUAL HX HAD SEX IN THE LAST 12 MONTHS (VAGINAL, ORAL, OR ANAL)?NO HAVE YOU EVER HAD AN STD?NO MOVED FROM [facility] IN 2005-BORN THEREREVIEWED WITH PT 02/06/18 1031 BVREVIEWED WITH PATIENT 03/19/18 0911 JS. HOSPITALIZATION/MAJOR DIAGNOSTIC PROCEDURE ABOVE REVIEW OF SYSTEMS REVIEWED BY: PROVIDER: BOOKER NIEVES . CONSTITUTIONAL: ANY CHANGE IN YOUR MEDICAL CONDITION? NO . CHILLS NO . FEVER NO . INFECTION: DO YOU HAVE NEW INFECTIONS? NO . DO YOU HAVE HISTORY OF MRSA? NO . MUSCULOSKELETAL: ANY NEW PATTERNS OF PAIN OR NUMBNESS? NO . GASTROENTEROLOGY: ANY NEW CHANGE IN BOWEL CONTROL? NO . GENITOURINARY: ANY NEW CHANGE IN BLADDER CONTROL? NO . IS THERE A CHANCE YOU COULD BE ? NO . HEMATOLOGY/LYMPH: DO YOU TAKE ANY BLOOD THINNERS? (FOR EXAMPLE- COUMADIN, PLAVIX, AGGRENOX, PLATEL, PRADAXA, OR XARELTO) NO . WHEN WAS YOUR LAST DOSE? DATE: TIME: . NEUROLOGY: HAVE YOU FALLEN IN THE PAST 12 MONTHS? NO . ANY NEW EXTREMITY NUMBNESS OR WEAKNESS? NO . CARDIOLOGY: DO YOU HAVE A PACEMAKER OR DEFIBRILLATOR? NO . RESPIRATORY: HAVE YOU BEEN SICK IN THE PAST WEEK? NO . FEVER NO . FLU LIKE SYMPTOMS? NO . COUGH NO . INTEGUMENTARY: DO YOU HAVE ANY RASHES OR OPEN SORES? NO . ALLERGIC/IMMUNO: ARE YOU ALLERGIC TO IV DYE? NO . ANY NEW ALLERGIES? NO . PSYCHIATRIC: DO YOU HAVE THOUGHTS OF HURTING YOURSELF OR SOMEONE ELSE? NO . ARE YOU ABUSED, NEGLECTED, OR IN AN UNSAFE ENVIRONMENT? NO . ENDOCRINOLOGY: ARE YOU DIABETIC? YES . OTHER: DO YOU NEED ANY PRESCRIPTIONS? NO . IF YES, PLEASE LIST: ____ . ANY NEW PROBLEMS WITH YOUR MEDICATIONS? NO . WHEN DID YOU LAST EAT? ____ . WHEN DID YOU LAST DRINK? ____ . WHAT DID YOU LAST DRINK? ____ . NAME OF PERSON DRIVING YOU HOME? ____ . DO YOU HAVE ANY OTHER QUESTIONS OR CONCERNS NO . VITAL SIGNS WT 329 LBS, HT 70.00", BMI 47.20 INDEX, BP 144/71 MM HG, HR 76 /MIN, RR 18 /MIN, TEMP 95.8 F, OXYGEN SAT % 97%, SAFE IN ENV? (Y/N) Y, NA INITIALS AW 0946, REVIEWED BY: MONSERRAT. EXAMINATION GENERAL EXAMINATION: GENERAL APPEARANCE: AWAKE,ALERT ,PLEAASANT . PSYCH AFFECT NORMAL . LUNGS: LUNG BACH ARE CLEAR TO AUSCULTATION BILATERALLY. GOOD MOVEMENT OF AIR . HEART: S1, S2 IN A REGULAR RATE AND RHYTHM. NO SIGNIFICANT MURMURS, RUBS OR GALLOPS NOTED . LUMBAR SACRAL SPINEPALPATION:TENDER OVER BILAT. L4/5-L5/S1 LUMBAR FACETS WITH FACET LOADING.. DIAGNOSTIC TESTS REVIEWED MRI L/S SPINE -03/10/14. ASSESSMENTS SPONDYLOSIS OF LUMBAR REGION WITHOUT MYELOPATHY OR RADICULOPATHY - M47.816 (PRIMARY) TREATMENT SPONDYLOSIS OF LUMBAR REGION WITHOUT MYELOPATHY OR RADICULOPATHY REFILL NORCO TABLET, 10-325 MG, 1 TABLET NEEDED, ORALLY FOR PAIN (THIS PRESCRIPTION SHOULD LAST 1 MONTH), EVERY 6 HOURS NEEDED MDD2, 30 DAYS, 60, REFILLS 0 NOTES: R VS L DX L4/5-L5/S1 LFB, ISTOP REGISTRY REVIEWED AND DEMONSTRATES COMPLLIANCE. (REF # [id number] ) BRINGS IN MEDICATIONS WHICH IS APPROPRIATE FOR WHAT WAS DISPENSED. RECENT URINE TOXICOLOGY REVIEWED. NO UNAUTHORIZED MEDICATIONS. NO ILLICIT SUBSTANCES AND PRESCRIBED MEDICATIONS WERE PRESENT. , RISKS AND BENEFITS OF NARCOTIC/OPIOD MEDICATIONS WERE REVIEWED WITH PATIENT - THIS INCLUDES BUT IS NOT LIMITED TO RISK OF DEPENDANCE/DEVELOPMENT OF ADDICTION, MOOD DISTURBANCE AND DEPRESSION, OSTEOPOROSIS, HORMONAL AND LABIDAL CHANGES, RESPIRATORY DEPRESSION AND . PATIENT IS ADVISED NOT TO DRIVE OR DRINK ALCOHOL WHILE ON THESE MEDICATIONS. PROCEDURE CODES FA211 ESTABILISHED PATIENT [facility] FACILITY CHARGE DISPOSITION & COMMUNICATION FOLLOW UP POST (REASON: R VS L DX L4/5-L5/S1 LFB) ELECTRONICALLY SIGNED BY LIZBETH GUTIERREZ ON 08/22/2018 AT 12:33 PM EDT DISCLAIMER : THIS IS A VISIT SUMMARY EXTRACTED FROM THE [employer] CHART. IT IS NOT A COPY OF THE [employer] PROGRESS NOTE. PAT
== END ==
LOC: M PAIN 09:30
PROVIDERS: ATTEND Nurse Practitioner Family
DX: M47.816 Spondylosis without myelopathy or radiculopathy, lumbar region (principal); I10 Essential (primary) hypertension; E78.5 Hyperlipidemia, unspecified; K21.9 Gastro-esophageal reflux disease without esophagitis; J44.9 Chronic obstructive pulmonary disease, unspecified; E11.9 Type 2 diabetes mellitus without complications; M19.90 Unspecified osteoarthritis, unspecified site; Z87.891 Personal history of nicotine dependence; Z88.1 Allergy status to other antibiotic agents; Z88.8 Allergy status to other drugs, medicaments and biological substances; E66.01 Morbid (severe) obesity due to excess calories; Z68.42 Body mass index [BMI] 45.0-49.9, adult; Z79.82 Long term (current) use of aspirin; Z79.84 Long term (current) use of oral hypoglycemic drugs; Z79.899 Other long term (current) drug therapy

== ENCOUNTER → 2018-08-28 | Outpatient (CLI) | payer BC, OTHER ==
--- NOTE | 2018-08-28 09:00 | REP ---
Chest two views HISTORY: Cough Comparison: 01/27/2017 The lungs are clear. The heart is normal in size. The pulmonary vasculature is normal in appearance. The bony structure is intact. IMPRESSION: No acute disease. Electronically Signed by Sean Colvin MD 08/28/2018 08:52 A
[2018-08-28 12:43] LABS: BASO # 0.1 10^3/uL (0.0-0.2); BASO % 0.9 % (0.0-1.0); EOS # 0.1 10^3/uL (0.0-0.50); EOS % 1.5 % (0.0-3.0); LYMPH # 2.6 10^3/uL (1.5-4.5); LYMPH % 37.9 % (24.0-44.0); MEAN CORPUSCULAR HEMOGLOBIN 31.4 pg (27.0-33.0); MEAN CORPUSCULAR HGB CONC 33.3 g/dl (32.0-36.5); MEAN CORPUSCULAR VOLUME 94.3 fl (80.0-96.0); MONO # 0.5 10^3/uL (0.0-0.8); MONO % 7.3 % (0.0-5.0); NEUTROPHILS # 3.5 10^3/uL (1.8-7.7); NEUTROPHILS % 52.1 % (36.0-66.0); PLATELET COUNT, AUTOMATED 282 10^3/uL (150-450); RED BLOOD COUNT 5.09 10^6/uL (4.30-6.10); WHITE BLOOD COUNT 6.8 10^3/uL (4.0-10.0)
[2018-08-28 12:52] LABS: ALBUMIN 4.1 GM/DL (3.2-5.2); ALT/SGPT 48 U/L (12-78); BILIRUBIN,TOTAL 0.3 MG/DL (0.2-1.0); BLOOD UREA NITROGEN 11 MG/DL (7-18); CALCIUM LEVEL 9.4 MG/DL (8.5-10.1); CARBON DIOXIDE LEVEL 32 MEQ/L (21-32); CHLORIDE LEVEL 102 MEQ/L (98-107); CHOLESTEROL LEVEL 169 MG/DL (<200); CPK CREATINE PHOSPHOKINASE 154 U/L (39-308); CREATININE FOR GFR 0.77 MG/DL (0.70-1.30); FREE T4 0.71 NG/DL (0.76-1.46); GLOMERULAR FILTRATION RATE > 60.0 (>60); GLUCOSE, FASTING 138 MG/DL (70-100); HDL CHOLESTEROL 34 MG/DL (>40); NON-HDL-C 135 MG/DL; SODIUM LEVEL 139 MEQ/L (136-145); TOTAL PROTEIN 7.4 GM/DL (6.4-8.2); TRIGLYCERIDES LEVEL 404 MG/DL (<150)
[2018-08-28 12:53] LABS: VITAMIN B12 LEVEL 972 PG/ML (247-911)
[2018-08-28 13:38] LABS: MALB URINE SIEMENS 78.7 MG/L; MAU/CREAT RATIO 27.3 MCG/MG (0.0-30.0)
== END ==
LOC: M WUC 08:30
PROVIDERS: ATTEND Physician Assistant Medical
DX: R05 Cough (principal); I10 Essential (primary) hypertension; F41.9 Anxiety disorder, unspecified; E11.8 Type 2 diabetes mellitus with unspecified complications; E53.8 Deficiency of other specified B group vitamins

== ENCOUNTER → 2018-12-21 | Outpatient (REF) | payer BC ==
[2018-12-21 11:13] LABS: BASO # 0.1 10^3/uL (0.0-0.2); EOS # 0.1 10^3/uL (0.0-0.5); HEMOGLOBIN 14.8 g/dl (13.5-17.5); LYMPH # 2.5 10^3/uL (1.5-5.0); LYMPH % 40.6 % (24.0-44.0); MEAN CORPUSCULAR HGB CONC 33.6 g/dl (32.0-36.5); MEAN CORPUSCULAR VOLUME 95.2 fl (80.0-96.0); MONO # 0.5 10^3/uL (0.0-0.8); MONO % 7.7 % (0.0-5.0); NEUTROPHILS % 48.4 % (36.0-66.0); PLATELET COUNT, AUTOMATED 271 10^3/uL (150-450); RED BLOOD COUNT 4.62 10^6/uL (4.30-6.10); WHITE BLOOD COUNT 6.1 10^3/uL (4.0-10.0)
[2018-12-21 11:45] LABS: HEMOGLOBIN A1c 6.6 %
== END ==
LOC: M SFHCPLAZ 08:45
PROVIDERS: ATTEND Physician Assistant Medical
DX: E11.8 Type 2 diabetes mellitus with unspecified complications (principal); I10 Essential (primary) hypertension

== ENCOUNTER → 2018-12-24 | Outpatient (CLI) | payer BC | LOC: M PAIN 14:30 | PROVIDERS: ATTEND Nurse Practitioner Family | DX: M47.816 Spondylosis without myelopathy or radiculopathy, lumbar region (principal); G89.29 Other chronic pain; I10 Essential (primary) hypertension; E78.5 Hyperlipidemia, unspecified; K21.9 Gastro-esophageal reflux disease without esophagitis; J44.9 Chronic obstructive pulmonary disease, unspecified; E11.42 Type 2 diabetes mellitus with diabetic polyneuropathy; Z87.891 Personal history of nicotine dependence; Z88.1 Allergy status to other antibiotic agents; Z88.8 Allergy status to other drugs, medicaments and biological substances; E66.01 Morbid (severe) obesity due to excess calories; Z68.42 Body mass index [BMI] 45.0-49.9, adult; Z79.82 Long term (current) use of aspirin; Z79.51 Long term (current) use of inhaled steroids; Z79.84 Long term (current) use of oral hypoglycemic drugs; Z79.899 Other long term (current) drug therapy ==

== ENCOUNTER → 2019-02-21 | Outpatient (CLI) | payer BC ==
[2019-02-21 17:55] LABS: ALBUMIN 4.2 GM/DL (3.2-5.2); ALT/SGPT 56 U/L (12-78); BILIRUBIN,TOTAL 0.4 MG/DL (0.2-1.0); BLOOD UREA NITROGEN 12 MG/DL (7-18); CALCIUM LEVEL 9.5 MG/DL (8.5-10.1); CARBON DIOXIDE LEVEL 31 MEQ/L (21-32); CHLORIDE LEVEL 105 MEQ/L (98-107); CPK CREATINE PHOSPHOKINASE 400 U/L (39-308); CREATININE FOR GFR 0.83 MG/DL (0.70-1.30); FREE T4 0.84 NG/DL (0.76-1.46); GLOMERULAR FILTRATION RATE > 60.0 (>60); GLUCOSE, FASTING 110 MG/DL (70-100); POTASSIUM SERUM 4.4 MEQ/L (3.5-5.1); SODIUM LEVEL 142 MEQ/L (136-145); THYROID STIMULATING HORMONE 0.971 uIU/ML (0.358-3.740); TOTAL PROTEIN 7.5 GM/DL (6.4-8.2)
== END ==
LOC: M WUC 12:14
PROVIDERS: ATTEND Physician Assistant Medical
DX: E78.5 Hyperlipidemia, unspecified (principal); F41.9 Anxiety disorder, unspecified

== ENCOUNTER → 2019-03-25 | Outpatient (CLI) | payer BC ==
--- NOTE | 2019-03-26 02:52 | ECWPNPC ---
PATIENT NAME: SRINATH GUPTA : 1970 GENDER: MALE VISIT DATE: 03/25/2019 DISCHARGE DATE: 03/25/19 1517 VISIT LOCKED DATE TIME: PHYSICIAN: BOOKER DEAN RESOURCE: BOOKER DEAN REASON FOR APPOINTMENT 1. NON COMP MEDS HISTORY OF PRESENT ILLNESS HISTORY OF PRESENT ILLNESS: PAIN THE PATIENT DESCRIBES THE PAIN... HERE FOR F/U OF CHRONIC LOW BACK PAIN/RIGHT POSTERIOR THIGH PAIN.CANCELLED 2ND LFBDX RIGHT ON 02/23/19.STATES THEY ARE HAVING INSURANCE ISSUES AND DOESNT WANT TO PURSUE RADIOFREQUENCY AT THIS TIME.FINDING MEDICATION SOMEWHAT EFFECTIVE.DENIES SIDE EFFECTS.F. FALL RISK SCREENING: SCREENING :NO FALLS REPORTED IN THE LAST YEAR CURRENT MEDICATIONS TAKING ASPIRIN 81 MG TABLET DELAYED RELEASE 1 TABLET ORALLY ONCE A DAY TAKING MULTIVITAMINS 1000 MG TABLET 1 TAB ORALLY ONCE A DAY TAKING GLUCOMETER 1 STRIP _ DAILY TAKING GLUCOMETER 1 LANCET SUBCUTANEOUSLY DAILY TAKING GLUCOMETER DIRECTED _ ONCE DAILY TAKING METHOCARBAMOL 500 MG TABLET 1.5 TABLETS ORALLY THREE TIMES A DAY TAKING MELOXICAM 7.5 MG TABLET 1 TAB ORALLY BID TAKING ATORVASTATIN CALCIUM 80 MG TABLET 1 TABLET ORALLY ONCE A DAY TAKING CYMBALTA 20 MG CAPSULE DELAYED RELEASE PARTICLES 1 CAPSULE ORALLY AT BEDTIME TAKING COMBIVENT RESPIMAT 20-100 MCG/ACT AEROSOL 1 PUFF INHALATION FOUR TIMES DAILY, NEEDED TAKING ANORO ELLIPTA UMECLIDINIUM 62.5 MCG AND VILANTEROL 25 MCG INHALATION POWDER 1 INHALATION ORAL ONCE DAILY TAKING CHLORTHALIDONE 25 MG TABLET 1 TABLET IN THE MORNING WITH FOOD ORALLY EVERY MORNING TAKING LOSARTAN POTASSIUM 100 MG TABLET 1 TABLET ORALLY ONCE A DAY TAKING METFORMIN HCL ER 500 MG TABLET EXTENDED RELEASE 24 HOUR 3 TABLETS IN AM, 2 IN PM ORALLY BID TAKING INVOKANA 100 MG TABLET 1 TABLET ORALLY ONCE A DAY TAKING DICLOFENAC SODIUM 1 % GEL 1 APPLICATION TO AFFECTED AREA TRANSDERMAL EVERY 4 HOURS NEEDED TAKING TIZANIDINE HCL 4 MG TABLET 1 TABLET NEEDED ORALLY THREE TIMES A DAY TAKING GLIMEPIRIDE 1 MG TABLET 1 TABLET ORALLY BID TAKING CHLORTHALIDONE 25MG TABLET 1 TABLET IN THE MORNING WITH FOOD ORALLY EVERY MORNING, NOTES: DUPLICATE TAKING FLUOXETINE HCL 40 MG CAPSULE 1 TABLET IN THE MORNING ORALLY ONCE A DAY TAKING NORCO 10-325 MG TABLET 1 TABLET NEEDED ORALLY FOR PAIN (THIS PRESCRIPTION SHOULD LAST 1 MONTH) EVERY 6 HOURS NEEDED MDD2 TAKING FAMOTIDINE 20 MG TABLET 1 TABLET AT BEDTIME NEEDED ORALLY ONCE A DAY NOT-TAKING VITAMIN B12 1 MG TABLET 1 TABLET ORALLY ONCE A DAY NOT-TAKING NASACORT ALLERGY 24HR 55 MCG/ACT AEROSOL 1 PUFF IN EACH NOSTRIL NASALLY ONCE A DAY NOT-TAKING PEPCID 20MG TABLET 1 TABLET ORALLY TWICE A DAY NOT-TAKING FLUOXETINE HCL 40MG CAPSULE 1 TABLET IN THE MORNING ORALLY ONCE A DAY, NOTES: DUPLICATE NOT-TAKING PEPCID 20MG TABLET 1 TABLET ORALLY TWICE A DAY, NOTES: DUPLICATE NOT-TAKING ATORVASTATIN CALCIUM 80 MG TABLET 1 TABLET ORALLY ONCE A DAY, NOTES: DUPLICATE MEDICATION LIST REVIEWED AND RECONCILED WITH THE PATIENT PAST MEDICAL HISTORY HYPERTENSION-08/2016 NST LOW RISK, GOOD EXERCISE TOLERANCE-ANTECOL//08/2016 MILD CONCENTRIC [id number] HYPERLIPIDEMIA 2B GERD COPD-02/2012 FEV1 3.83 OBESITY, MORBID PRIOR NICOTINE ADDICTION-SMOKED 20 YEARS 1 04/08 PPD, QUIT IN 2006 T2DM NID C PERIPHERAL NEUROPATHY BLE PERIPHERAL EDEMA 2 MEDICAL NON-COMPLIANCE L SHOULDER OA 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 -CHELSEA, -SSA/SSB BY XRAY/ L2/3, 4/5, 08/05 BULGES ALL C MINIMAL SAC COMPRESSION BY 03/2014 MRI THORACIC [id number] 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 CTS-08/10/14 BUE NCS C SEVERE R, MODERATE-SEVERE L CTS-GONSALES S/P 10/2014 [facility] HAND OSTEOARTHRITIS ALLERGIC RHINITIS-03/2016 - ZONE 1 PANEL 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 COMPRESSION BY 11/2015 MRI-[facility] MILD CONCENTRIC LVH, CVP 10, NORMAL VIRIDIANA/SYS FUNCTION BY 08/2016 TTE-ANTECOL ALLERGIES TRILIPIX: AGITATION - SIDE EFFECTS TRIPLE ANTIBIOTIC: RASH /SWELLING - ALLERGY NIACIN: BURNING - ALLERGY SURGICAL HISTORY CHOLECYSTECTOMY 2007 APPENDECTOMY 1993 L SHOULDER ATROSCOPIC DEBRIDEMENT, CAPSULAR RELEASE, ACROMIOPLASTY, SYNOVECTOMY-YESENIA 11/25/13 UMBILCIAL HERNIA REPAIR-FNAI 01/18/14 B [facility] 10/2014 LEFT KNEE TORN MANISCUS REPAIR 07/2018 FAMILY HISTORY FATHER: 68 YRS, T2DM, 2 COPD, DIAGNOSED WITH HYPERTENSION MOTHER: 61 YRS, CORONARY ARTERY DISEASE, STROKE, HYPERTENSION SIBLINGS: 2 SISTERS WITH DIABETES ONE WITH HEMA, ONE BROTHER OF CIRRHOSIS MATERNAL GRAND FATHER: STROKE MATERNAL GRAND MOTHER: STROKE 1 BROTHER(S) , 4 SISTER(S) . SOCIAL HISTORY GENERAL: TOBACCO USE ARE YOU A:FORMER SMOKER HOW LONG HAS IT BEEN SINCE YOU LAST SMOKED?5-10 YEARS HIV / HEP-C SCREENING HIV TEST OFFERED TO PATIENT:YES DATE OFFERED:07/30/2016 TEST ACCEPTED:NO HEP-C TEST OFFERED TO PATIENT:YES DATE OFFERED:07/30/2016 REASON:PATIENT DECLINED TEST ACCEPTED:NO REASON:PATIENT DECLINED EDUCATION LEVEL OF EDUCATION:NOT FINISHED HIGH SCHOOL 10TH GRADE DIET: SUPPOSED TO BEING A HEART HEALTHY DIET. LANGUAGE LANGUAGES SPOKEN:YAKUT DOMESTIC VIOLENCE DO YOU FEEL SAFE IN YOUR ENVIRONMENT?YES BMI CARE GOAL FOLLOW-UP ABOVE NORMAL BMI FOLLOW-UP GIVING ENCOURAGEMENT TO EXERCISE. RECREATIONAL DRUG USE DRUG USE?NO EXERCISE: WALKS, BIKES. LEARNING BARRIERS / SPECIAL NEEDS CHANGE FROM LAST VISIT?NO BARRIERS TO LEARNING?NO HEARING IMPAIRED?NO VISION IMPAIRED?NO COGNITIVELY IMPAIRED?NO READINESS TO LEARN?NO LEARNING PREFERENCES?NO LEARNING CAPABILITIES PRESENT?NO EMOTIONAL BARRIERS?NO SPECIAL DEVICES?NO AUTOMATIC TIRE TESTER NEEDED?NO PAIN CLINIC PFS, CLERGY, PUBLIC HEALTH REFERRALS WAS THE PROVIDER NOTIFIED OF ANY PERTINENT INFO?YES HAS THE PATIENT BEEN EDUCATED REGARDING HIS/HER PLAN OF CARE?YES HAS THE PATIENT BEEN EDUCATED REGARDING PAIN, THE RISK FOR PAIN, THE IMPORTANCE OF EFFECTIVE PAIN MANAGEMENT, AND THE PAIN ASSESSMENT PROCESS?YES LATEX QUESTIONNAIRE LATEX ALLERGY : HAVE YOU EVER DEVELOPED ANY TYPE OF REACTION AFTER HANDLING LATEX PRODUCTS SUCH RUBBER GLOVES, CONDOMS, DIAPHRAGMS, BALLOONS, SOCKS, OR UNDERWEAR?NO LATEX ALLERGY : HAVE YOU EVER DEVELOPED ANY TYPE OF REACTION DURING OR AFTER DENTAL APPOINTMENT, VAGINAL/RECTAL EXAMINATION, SURGICAL PROCEDURE, OR ANY OTHER EXPOSURE?NO DATE ASKED : 08/06/2018 LATEX RISK : HAVE YOU EVER HAD ANY DIFFICULTY BREATHING OR HIVES AFTER EATING OR HANDLING ANY FRUITS, OR VEGETABLES; SUCH KIWI, BANANAS, STONE FRUITS, OR CHESTNUTSNO LATEX RISK : DO YOU HAVE A PREVIOUS PERSONAL HISTORY OF MORE THAN NINE SURGERIES, SPINA BIFIDA, OR REPEATED CATHERIZATIONS? NO LATEX RISK : ARE YOU FREQUENTLY EXPOSED TO LATEX PRODUCTS IN YOUR OCCUPATION?NO CAFFEINE CAFFEINE USE?YES ADVANCE DIRECTIVE ADVANCE DIRECTIVE DISCUSSED WITH PATIENT:YES PT DECLINES HCP INFORMATION AT THIS TIME. BV SCIENTOLOGY [id number] LUTHERAN MARITAL STATUS: , ONE CHILD. 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 SEXUAL HX HAD SEX IN THE LAST 12 MONTHS (VAGINAL, ORAL, OR ANAL)?NO HAVE YOU EVER HAD AN STD?NO MOVED FROM [facility] IN 2005-BORN THEREREVIEWED WITH PT 02/06/18 1031 BVREVIEWED WITH PATIENT 03/19/18 0925 JSREVIEWED WITH PATIENT 12/24/18 1446 JSREVIEWED WITH PATIENT 03/25/19 1500 BV. HOSPITALIZATION/MAJOR DIAGNOSTIC PROCEDURE ABOVE REVIEW OF SYSTEMS REVIEWED BY: PROVIDER: BOOKER NIEVES . CONSTITUTIONAL: ANY CHANGE IN YOUR MEDICAL CONDITION? NO . CHILLS NO . FEVER NO . INFECTION: DO YOU HAVE NEW INFECTIONS? NO . DO YOU HAVE HISTORY OF MRSA? NO . MUSCULOSKELETAL: ANY NEW PATTERNS OF PAIN OR NUMBNESS? NO . GASTROENTEROLOGY: ANY NEW CHANGE IN BOWEL CONTROL? NO . GENITOURINARY: ANY NEW CHANGE IN BLADDER CONTROL? NO . IS THERE A CHANCE YOU COULD BE ? NO . HEMATOLOGY/LYMPH: DO YOU TAKE ANY BLOOD THINNERS? (FOR EXAMPLE- COUMADIN, PLAVIX, AGGRENOX, PLATEL, PRADAXA, OR XARELTO) NO . WHEN WAS YOUR LAST DOSE? DATE: TIME: . NEUROLOGY: HAVE YOU FALLEN IN THE PAST 12 MONTHS? NO . ANY NEW EXTREMITY NUMBNESS OR WEAKNESS? NO . CARDIOLOGY: DO YOU HAVE A PACEMAKER OR DEFIBRILLATOR? NO . RESPIRATORY: HAVE YOU BEEN SICK IN THE PAST WEEK? NO . FEVER NO . FLU LIKE SYMPTOMS? NO . COUGH NO . INTEGUMENTARY: DO YOU HAVE ANY RASHES OR OPEN SORES? NO . ALLERGIC/IMMUNO: ARE YOU ALLERGIC TO IV DYE? NO . ANY NEW ALLERGIES? NO . PSYCHIATRIC: DO YOU HAVE THOUGHTS OF HURTING YOURSELF OR SOMEONE ELSE? NO . ARE YOU ABUSED, NEGLECTED, OR IN AN UNSAFE ENVIRONMENT? NO . ENDOCRINOLOGY: ARE YOU DIABETIC? NO . OTHER: DO YOU NEED ANY PRESCRIPTIONS? NO . IF YES, PLEASE LIST: ____ . ANY NEW PROBLEMS WITH YOUR MEDICATIONS? NO . WHEN DID YOU LAST EAT? ____ . WHEN DID YOU LAST DRINK? ____ . WHAT DID YOU LAST DRINK? ____ . NAME OF PERSON DRIVING YOU HOME? ____ . DO YOU HAVE ANY OTHER QUESTIONS OR CONCERNS NO . VITAL SIGNS WT 326.6 LBS, HT 70.00", BMI 46.86 INDEX, BP 150/91 MM HG, HR 86 /MIN, RR 20 /MIN, TEMP 98.9 F, OXYGEN SAT % 97%, NA INITIALS SC 15:04. EXAMINATION GENERAL EXAMINATION: GENERAL AWAKE,ALERT ,PLEASANT . PSYCH AFFECT NORMAL . LUNGS: LUNG BACH ARE CLEAR TO AUSCULTATION BILATERALLY. GOOD MOVEMENT OF AIR . HEART: S1, S2 IN A REGULAR RATE AND RHYTHM. NO SIGNIFICANT MURMURS, RUBS OR GALLOPS NOTED . ASSESSMENTS SPONDYLOSIS OF LUMBAR REGION WITHOUT MYELOPATHY OR RADICULOPATHY - M47.816 TREATMENT SPONDYLOSIS OF LUMBAR REGION WITHOUT MYELOPATHY OR RADICULOPATHY CONTINUE METHOCARBAMOL TABLET, 500 MG, 1.5 TABLETS, ORALLY, THREE TIMES A DAY CONTINUE TIZANIDINE HCL TABLET, 4 MG, 1 TABLET NEEDED, ORALLY, THREE TIMES A DAY REFILL NORCO TABLET, 10-325 MG, 1 TABLET NEEDED, ORALLY FOR PAIN (THIS PRESCRIPTION SHOULD LAST 1 MONTH), EVERY 6 HOURS NEEDED MDD2, 30 DAYS, 60, REFILLS 0 NOTES: ISTOP REGISTRY REVIEWED AND DEMONSTRATES COMPLLIANCE. FORGOT TO BRING IN MEDICATION AND PATIENT WAS ADVISED TO BRING IN AT EVERY CLINIC VISIT WITH ME PER CLINIC POLICY. RECENT URINE TOXICOLOGY REVIEWED. NO UNAUTHORIZED MEDICATIONS. NO ILLICIT SUBSTANCES AND PRESCRIBED MEDICATIONS WERE PRESENT. PROCEDURE CODES FA211 ESTABILISHED PATIENT [facility] CHARGE DISPOSITION & COMMUNICATION FOLLOW UP 3 MONTHS (REASON: MEDICINE MANAGEMENT/LBP) ELECTRONICALLY SIGNED BY LIZBETH GUTIERREZ ON 03/25/2019 AT 03:38 PM EST DISCLAIMER : THIS IS A VISIT SUMMARY EXTRACTED FROM THE [employer] CHART. IT IS NOT A COPY OF THE [employer] PROGRESS NOTE. PAT
== END ==
LOC: M PAIN 14:30
PROVIDERS: ATTEND Nurse Practitioner Family
DX: M47.816 Spondylosis without myelopathy or radiculopathy, lumbar region (principal)

== ENCOUNTER → 2019-04-27 | Outpatient (REF) | payer BC ==
[2019-04-27 10:59] LABS: FREE T4 0.95 NG/DL (0.76-1.46); PROLACTIN 8.5 NG/ML (2.1-17.7); THYROID STIMULATING HORMONE 0.864 uIU/ML (0.358-3.740)
[2019-04-27 11:00] LABS: FOLLICLE STIMULATING HORMONE 7.6 mIU/mL (1.4-18.1)
[2019-04-29 00:07] LABS: TESTOSTERONE FREE (DIRECT) 7.4 pg/mL (6.8-21.5)
== END ==
LOC: M SFHCPLAZ 08:15
PROVIDERS: ATTEND Physician Assistant Medical
DX: E11.8 Type 2 diabetes mellitus with unspecified complications (principal); E78.5 Hyperlipidemia, unspecified; R68.82 Decreased libido

== ENCOUNTER → 2019-07-26 | Outpatient (CLI) | payer BC ==
--- NOTE | 2019-07-28 02:44 | ECWPNPC ---
PATIENT NAME: SRINATH GUPTA : 1970 GENDER: MALE VISIT DATE: 07/26/2019 DISCHARGE DATE: 07/26/19 1042 VISIT LOCKED DATE TIME: PHYSICIAN: BOOKER DEAN RESOURCE: BOOKER DEAN REASON FOR APPOINTMENT 1. LUMBAGO & LEG PAIN-[phone] HISTORY OF PRESENT ILLNESS HISTORY OF PRESENT ILLNESS: PATIENT HAS AGREED TO TELEMED VIRTUAL ZOOM VISIT. THIS IS A ROUTINE FOLLOW-UP OF CHRONIC LOW BACK PAIN. STATES PAIN HAS INCREASED OVER THE PAST FEW WEEKS. RATING PAIN LEVEL A 7/10 VAS. IS NOT GETTING MUCH RELIEF FROM HIS CURRENT CHRONIC PAIN MEDICATIONS HE USUALLY DOES. 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 PATIENT IS INTERESTED IN TRYING PROCEDURE. DENIES RECENT INJURY OR ILLNESS. DISCUSSED MEDICATION AND TREATMENT OPTIONS. PAIN THE PATIENT DESCRIBES THE PAIN... FALL RISK SCREENING: SCREENING :NO FALLS REPORTED IN THE LAST YEAR CURRENT MEDICATIONS TAKING PEPCID 20MG TABLET 1 TABLET ORALLY TWICE A DAY TAKING METHOCARBAMOL 500 MG TABLET 1.5 TABLETS ORALLY THREE TIMES A DAY TAKING TIZANIDINE HCL 4 MG TABLET 1 TABLET NEEDED ORALLY THREE TIMES A DAY TAKING COMBIVENT RESPIMAT 20-100 MCG/ACT AEROSOL 1 PUFF INHALATION FOUR TIMES DAILY, NEEDED TAKING METFORMIN HCL ER 500 MG TABLET EXTENDED RELEASE 24 HOUR 3 TABLETS IN AM, 2 IN PM ORALLY BID TAKING ASPIRIN 81 MG TABLET DELAYED RELEASE 1 TABLET ORALLY ONCE A DAY TAKING MULTIVITAMINS 1000 MG TABLET 1 TAB ORALLY ONCE A DAY TAKING GLUCOMETER 1 STRIP _ DAILY TAKING GLUCOMETER 1 LANCET SUBCUTANEOUSLY DAILY TAKING GLUCOMETER DIRECTED _ ONCE DAILY TAKING CHLORTHALIDONE 25MG TABLET 1 TABLET IN THE MORNING WITH FOOD ORALLY EVERY MORNING, NOTES: DUPLICATE TAKING FAMOTIDINE 20 MG TABLET 1 TABLET ORALLY TWICE DAILY TAKING DICLOFENAC SODIUM 1 % GEL 1 APPLICATION TO AFFECTED AREA TRANSDERMAL EVERY 4 HOURS NEEDED TAKING INVOKANA 100 MG TABLET 1 TABLET ORALLY ONCE A DAY TAKING ATORVASTATIN CALCIUM 80 MG TABLET 1 TABLET ORALLY ONCE A DAY TAKING LOSARTAN POTASSIUM 100 MG TABLET 1 TABLET ORALLY ONCE A DAY TAKING NYSTATIN 546127 UNIT/GM POWDER 1 APPLICATION TO AFFECTED AREA EXTERNALLY TWICE A DAY TAKING MICONAZOLE NITRATE 2 % CREAM 1 APPLICATION TO AFFECTED AREA EXTERNALLY TWICE A DAY TAKING FLUOXETINE HCL 20 MG TABLET 1 TABLET ORALLY ONCE A DAY TAKING CYMBALTA 30 MG CAPSULE DELAYED RELEASE PARTICLES 1 CAPSULE ORALLY ONCE A DAY TAKING GLIMEPIRIDE 1 MG TABLET 1 TABLET ORALLY BID TAKING ANORO ELLIPTA UMECLIDINIUM 62.5 MCG AND VILANTEROL 25 MCG INHALATION POWDER 1 INHALATION ORAL ONCE DAILY TAKING NORCO 10-325 MG TABLET 1 TABLET NEEDED ORALLY FOR PAIN (THIS PRESCRIPTION SHOULD LAST 1 MONTH) EVERY 6 HOURS NEEDED MDD2 TAKING MELOXICAM 7.5 MG TABLET 1 TAB ORALLY BID NOT-TAKING VITAMIN B12 1 MG TABLET 1 TABLET ORALLY ONCE A DAY NOT-TAKING NASACORT ALLERGY 24HR 55 MCG/ACT AEROSOL 1 PUFF IN EACH NOSTRIL NASALLY ONCE A DAY DISCONTINUED CHLORTHALIDONE 25 MG TABLET 1 TABLET IN THE MORNING WITH FOOD ORALLY EVERY MORNING MEDICATION LIST REVIEWED AND RECONCILED WITH THE PATIENT PAST MEDICAL HISTORY HYPERTENSION-08/2016 NST LOW RISK, GOOD EXERCISE TOLERANCE-ANTECOL//08/2016 MILD CONCENTRIC [id number] HYPERLIPIDEMIA 2B GERD COPD-02/2012 FEV1 3.83 OBESITY, MORBID PRIOR NICOTINE ADDICTION-SMOKED 20 YEARS 1 / PPD, QUIT IN 2006 T2DM NID C PERIPHERAL NEUROPATHY BLE PERIPHERAL EDEMA 2 MEDICAL NON-COMPLIANCE L SHOULDER OA 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 -[facility]HELSEA, -SSA/SSB BY XRAY L2/3, 4/5, 08/05 BULGES ALL C MINIMAL SAC COMPRESSION BY 03/2014 MRI THORACIC [id number] 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 CTS-08/10/14 BUE NCS C SEVERE R, MODERATE-SEVERE L CTS-GONSALES S/P 10/2014 [facility] HAND OSTEOARTHRITIS ALLERGIC RHINITIS-03/2016 - ZONE 1 PANEL 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 COMPRESSION BY 11/2015 MRI-[facility] MILD CONCENTRIC LVH, CVP 10, NORMAL VIRIDIANA/SYS FUNCTION BY 08/2016 TTE-ANTECOL ALLERGIES TRILIPIX: AGITATION - SIDE EFFECTS TRIPLE ANTIBIOTIC: RASH /SWELLING - ALLERGY NIACIN: BURNING - ALLERGY SURGICAL HISTORY CHOLECYSTECTOMY 2006 APPENDECTOMY 1993 L SHOULDER ATROSCOPIC DEBRIDEMENT, CAPSULAR RELEASE, ACROMIOPLASTY, SYNOVECTOMY-YESENIA 11/25/13 UMBILCIAL HERNIA REPAIR-FANI 01/18/14 B [facility] 10/2014 LEFT KNEE TORN MANISCUS REPAIR 07/2018 FAMILY HISTORY FATHER: 68 YRS, T2DM, 2 COPD, DIAGNOSED WITH HYPERTENSION MOTHER: 61 YRS, CORONARY ARTERY DISEASE, STROKE, HYPERTENSION SIBLINGS: 2 SISTERS WITH DIABETES ONE WITH HEMA, ONE BROTHER OF CIRRHOSIS MATERNAL GRAND FATHER: STROKE MATERNAL GRAND MOTHER: STROKE 1 BROTHER(S) , 4 SISTER(S) . SOCIAL HISTORY GENERAL: TOBACCO USE ARE YOU A:FORMER SMOKER HOW LONG HAS IT BEEN SINCE YOU LAST SMOKED?> 10 YEARS LATEX QUESTIONNAIRE LATEX ALLERGY : HAVE YOU EVER DEVELOPED ANY TYPE OF REACTION AFTER HANDLING LATEX PRODUCTS SUCH RUBBER GLOVES, CONDOMS, DIAPHRAGMS, BALLOONS, SOCKS, OR UNDERWEAR?NO LATEX ALLERGY : HAVE YOU EVER DEVELOPED ANY TYPE OF REACTION DURING OR AFTER DENTAL APPOINTMENT, VAGINAL/RECTAL EXAMINATION, SURGICAL PROCEDURE, OR ANY OTHER EXPOSURE?NO DATE ASKED : 08/06/2018 LATEX RISK : HAVE YOU EVER HAD ANY DIFFICULTY BREATHING OR HIVES AFTER EATING OR HANDLING ANY FRUITS, OR VEGETABLES; SUCH KIWI, BANANAS, STONE FRUITS, OR CHESTNUTSNO LATEX RISK : DO YOU HAVE A PREVIOUS PERSONAL HISTORY OF MORE THAN NINE SURGERIES, SPINA BIFIDA, OR REPEATED CATHERIZATIONS? NO LATEX RISK : ARE YOU FREQUENTLY EXPOSED TO LATEX PRODUCTS IN YOUR OCCUPATION?NO BMI CARE GOAL FOLLOW-UP ABOVE NORMAL BMI FOLLOW-UP GIVING ENCOURAGEMENT TO EXERCISE. ALCOHOL SCREENING DID YOU HAVE A DRINK CONTAINING ALCOHOL IN THE PAST YEAR?YES HOW OFTEN DID YOU HAVE SIX OR MORE DRINKS ON ONE OCCASION IN THE PAST YEAR?NEVER (0 POINTS) HOW MANY DRINKS DID YOU HAVE ON A TYPICAL DAY WHEN YOU WERE DRINKING IN THE PAST YEAR?1 OR 2 (0 POINTS) HOW OFTEN DID YOU HAVE A DRINK CONTAINING ALCOHOL IN THE PAST YEAR?MONTHLY OR LESS (1 POINT) POINTS1 INTERPRETATIONNEGATIVE RECREATIONAL DRUG USE DRUG USE?NO CAFFEINE CAFFEINE USE?YES SEXUAL HX HAD SEX IN THE LAST 12 MONTHS (VAGINAL, ORAL, OR ANAL)?NO HAVE YOU EVER HAD AN STD?NO HIV / HEP-C SCREENING HIV TEST OFFERED TO PATIENT:YES DATE OFFERED:07/30/2016 TEST ACCEPTED:NO HEP-C TEST OFFERED TO PATIENT:YES DATE OFFERED:07/30/2016 REASON:PATIENT DECLINED TEST ACCEPTED:NO REASON:PATIENT DECLINED SPIRITISM [id number] SCIENTOLOGIST LANGUAGE LANGUAGES SPOKEN:SAMI EDUCATION LEVEL OF EDUCATION:NOT FINISHED HIGH SCHOOL 10TH GRADE LEARNING BARRIERS / SPECIAL NEEDS CHANGE FROM LAST VISIT?NO BARRIERS TO LEARNING?NO HEARING IMPAIRED?NO VISION IMPAIRED?NO COGNITIVELY IMPAIRED?NO READINESS TO LEARN?NO LEARNING PREFERENCES?NO LEARNING CAPABILITIES PRESENT?NO EMOTIONAL BARRIERS?NO SPECIAL DEVICES?NO NETWORK OPERATIONS TECHNICIAN NEEDED?NO DOMESTIC VIOLENCE DO YOU FEEL SAFE IN YOUR ENVIRONMENT?YES 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 DIET: SUPPOSED TO BEING A HEART HEALTHY DIET. EXERCISE: WALKS, BIKES. MARITAL STATUS: , ONE CHILD. NEW PATIENT PAIN DIARY TODAY'S VISIT 07/26/19 PATIENT DESCRIBES PAIN :HAVE IT ALL THE TIME, STABBING FROM 0-10, WHAT LEVEL IS YOUR PAIN TODAY?7 PRECIPITATING FACTORS DRIVING, SITTING ALLEVIATING FACTORS STANDING, OR LAYING DOWN IMPACT ON FUNCTION YES PAIN CLINIC PFS, CLERGY, PUBLIC HEALTH REFERRALS WAS THE PROVIDER NOTIFIED OF ANY PERTINENT INFO?YES HAS THE PATIENT BEEN EDUCATED REGARDING HIS/HER PLAN OF CARE?YES HAS THE PATIENT BEEN EDUCATED REGARDING PAIN, THE RISK FOR PAIN, THE IMPORTANCE OF EFFECTIVE PAIN MANAGEMENT, AND THE PAIN ASSESSMENT PROCESS?YES ADVANCE DIRECTIVE ADVANCE DIRECTIVE DISCUSSED WITH PATIENT:YES PT DECLINES HCP INFORMATION AT THIS TIME. MOVED FROM [facility] IN 2005-BORN THEREREVIEWED WITH PT 02/06/18 1031 BVREVIEWED WITH PATIENT 03/19/18 0925 JSREVIEWED WITH PATIENT 12/24/18 1446 JSREVIEWED WITH PATIENT 03/25/19 1500 BV. HOSPITALIZATION/MAJOR DIAGNOSTIC PROCEDURE ABOVE REVIEW OF SYSTEMS REVIEWED BY: PROVIDER: BOOKER NIEVES . CONSTITUTIONAL: ANY CHANGE IN YOUR MEDICAL CONDITION? NO . CHILLS NO . FEVER NO . INFECTION: DO YOU HAVE NEW INFECTIONS? NO . DO YOU HAVE HISTORY OF MRSA? NO . MUSCULOSKELETAL: ANY NEW PATTERNS OF PAIN OR NUMBNESS? NO . GASTROENTEROLOGY: ANY NEW CHANGE IN BOWEL CONTROL? NO . GENITOURINARY: ANY NEW CHANGE IN BLADDER CONTROL? NO . IS THERE A CHANCE YOU COULD BE ? NO . HEMATOLOGY/LYMPH: DO YOU TAKE ANY BLOOD THINNERS? (FOR EXAMPLE- COUMADIN, PLAVIX, AGGRENOX, PLATEL, PRADAXA, OR XARELTO) NO . WHEN WAS YOUR LAST DOSE? DATE: TIME: . NEUROLOGY: HAVE YOU FALLEN IN THE PAST 12 MONTHS? NO . ANY NEW EXTREMITY NUMBNESS OR WEAKNESS? NO . CARDIOLOGY: DO YOU HAVE A PACEMAKER OR DEFIBRILLATOR? NO . RESPIRATORY: HAVE YOU BEEN SICK IN THE PAST WEEK? NO . FEVER NO . FLU LIKE SYMPTOMS? NO . COUGH NO . INTEGUMENTARY: DO YOU HAVE ANY RASHES OR OPEN SORES? NO . ALLERGIC/IMMUNO: ARE YOU ALLERGIC TO IV DYE? NO . ANY NEW ALLERGIES? NO . PSYCHIATRIC: DO YOU HAVE THOUGHTS OF HURTING YOURSELF OR SOMEONE ELSE? NO . ARE YOU ABUSED, NEGLECTED, OR IN AN UNSAFE ENVIRONMENT? NO . ENDOCRINOLOGY: ARE YOU DIABETIC? YES . OTHER: DO YOU NEED ANY PRESCRIPTIONS? YES, NORCO, TIZANIDINE . IF YES, PLEASE LIST: ____ . ANY NEW PROBLEMS WITH YOUR MEDICATIONS? NO . WHEN DID YOU LAST EAT? ____ . WHEN DID YOU LAST DRINK? ____ . WHAT DID YOU LAST DRINK? ____ . NAME OF PERSON DRIVING YOU HOME? ____ . DO YOU HAVE ANY OTHER QUESTIONS OR CONCERNS NO . EXAMINATION GENERAL EXAMINATION: GENERALNO ACUTE DISTRESS, WELL NOURISHED AND HYDRATED. PSYCHAPPROPRIATE MOOD AND AFFECT . FACE:UNREMARKABLE. ASSESSMENTS SPONDYLOSIS OF LUMBAR REGION WITHOUT MYELOPATHY OR RADICULOPATHY - M47.816 (PRIMARY) CHRONIC PRESCRIPTION OPIATE USE - Z79.891 TREATMENT SPONDYLOSIS OF LUMBAR REGION WITHOUT MYELOPATHY OR RADICULOPATHY REFILL TIZANIDINE HCL TABLET, 4 MG, 1 TABLET NEEDED, ORALLY, THREE TIMES A DAY, 30 DAYS, 90 TABLET, REFILLS 3 INCREASE CYMBALTA CAPSULE DELAYED RELEASE PARTICLES, 60 MG, 1 CAPSULE, ORALLY, ONCE A DAY, 30 DAY(S), 30, REFILLS 3 REFILL NORCO TABLET, 10-325 MG, 1 TABLET NEEDED, ORALLY FOR PAIN (THIS PRESCRIPTION SHOULD LAST 1 MONTH), EVERY 6 HOURS NEEDED MDD2, 30 DAYS, 60, REFILLS 0 CONTINUE MELOXICAM TABLET, 7.5 MG, 1 TAB, ORALLY, BID NOTES: WE WILL EVALUATE FOR PROCEDURE IN 4-6 WEEKS. TODAY DUE TO INCREASE IN PAIN I'VE ADVISED HIM TO INCREASE CYMBALTA TO 60 MG DAILY. TOTAL TIME SPENT DURING TELEMED VISIT WAS APPROXIMATELY 11 MINUTES. , ISTOP REGISTRY REVIEWED AND DEMONSTRATES COMPLLIANCE. RECENT URINE TOXICOLOGY REVIEWED. NO UNAUTHORIZED MEDICATIONS. NO ILLICIT SUBSTANCES AND PRESCRIBED MEDICATIONS WERE PRESENT. DISPOSITION & COMMUNICATION FOLLOW UP 4-6WKS PRE PROC IN OFFICE VISIT (REASON: LOW BACK PAIN) ELECTRONICALLY SIGNED BY LIZBETH GUTIERREZ ON 07/27/2019 AT 08:35 AM EDT DISCLAIMER : THIS IS A VISIT SUMMARY EXTRACTED FROM THE [employer] CHART. IT IS NOT A COPY OF THE [employer] PROGRESS NOTE. BRIED
== END ==
LOC: M PAIN 09:30 → M TMPAIN 09:30
PROVIDERS: ATTEND Nurse Practitioner Family
DX: M47.816 Spondylosis without myelopathy or radiculopathy, lumbar region (principal); E11.9 Type 2 diabetes mellitus without complications; I10 Essential (primary) hypertension; Z79.891 Long term (current) use of opiate analgesic; Z79.82 Long term (current) use of aspirin; Z79.84 Long term (current) use of oral hypoglycemic drugs; Z79.899 Other long term (current) drug therapy; Z88.8 Allergy status to other drugs, medicaments and biological substances; Z87.891 Personal history of nicotine dependence

== ENCOUNTER → 2019-10-05 | Outpatient (CLI) | payer BC ==
--- NOTE | 2019-10-08 01:45 | ECWPNPC ---
PATIENT NAME: SRINATH GUPTA : 1970 GENDER: MALE VISIT DATE: 10/05/2019 DISCHARGE DATE: 10/05/19 1519 VISIT LOCKED DATE TIME: PHYSICIAN: BOOKER DEAN RESOURCE: BOOKER DEAN REASON FOR APPOINTMENT 1. PRE PROC IN OFFICE. HISTORY OF PRESENT ILLNESS PAIN CENTER INTAKE QUESTIONS: DO YOU HAVE A HISTORY OF MRSA? :NO DO YOU TAKE A BLOOD THINNERS? :NO DO YOU HAVE ANY BLEEDING DISORDERS? :NO ANY NEW NUMBNESS OR WEAKNESS IN YOUR LEGS OR ARMS? :NO ANY PACEMAKER,DEFIBRILLATOR, OR DORSAL COLUMN STIMULATOR? :NO DO YOU HAVE ANY RASHES OR OPEN SORES? :NO ARE YOU ALLERGIC TO IV DYE? :NO ARE YOU DIABETIC? :NO ANY NEW PROBLEMS WITH YOUR MEDICATIONS? :NO HAVE YOU RECEIVED A VACCINE IN THE PAST 30 DAYS? :NO DO YOU PLAN TO RECEIVE A VACCINE IN THE NEXT 21 DAYS? :NO DO YOU NEED ANY PRESCRIPTION? :NO DO YOU TAKE ANY IMMUNOSUPPRESSIVE MEDICATIONS? :NO IS THERE A CHANCE YOU COULD BE ? :NO ARE YOU BREAST FEEDING? :NO GENERAL: PATIENT IS BEING SEEN TODAY ON AN URGENT BASIS TO CONSIDER INJECTION THERAPY FOR INCREASE IN HIS LOW BACK PAIN. FINDING IT DIFFICULT TO DO HIS JOB DUE TO SEVERE BACK PAIN. 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 REVIEWED MRI AND DISCUSSED TREATMENT OPTIONS. WE HAD DISCUSSED AT ONE POINT DOING RADIOFREQUENCY BUT UNFORTUNATELY THIS IS EXPENSIVE FOR HIM. STATES HIS INSURANCE DOES NOT COVER THIS PROCEDURE. -. FALL RISK SCREENING: SCREENING :NO FALLS REPORTED IN THE LAST YEAR PAIN SCREENING: PATIENT HAS A COMPLAINT OF ACUTE OR CHRONIC PAIN :YES LOCATION OF PAIN: OWER BACK INTENSITY OF PAIN (SCALE OF 1 TO 10):7 WHAT DOES YOUR PAIN FEEL LIKE:CONTINOUS, STABBING, THROBBING, SHOOTING PAIN IS INCREASED BY:OTHERS PROLONGED SITTIG IS THE WORSE NURSING NOTE: -. CURRENT MEDICATIONS TAKING NASACORT ALLERGY 24HR 55 MCG/ACT AEROSOL 1 PUFF IN EACH NOSTRIL NASALLY ONCE A DAY TAKING PEPCID 20MG TABLET 1 TABLET ORALLY TWICE A DAY TAKING METHOCARBAMOL 500 MG TABLET 1.5 TABLETS ORALLY THREE TIMES A DAY TAKING TIZANIDINE HCL 4 MG TABLET 1 TABLET NEEDED ORALLY THREE TIMES A DAY TAKING MELOXICAM 7.5 MG TABLET 1 TAB ORALLY BID TAKING CHLORTHALIDONE 25 MG TABLET 1 TABLET IN THE MORNING WITH FOOD ORALLY EVERY MORNING TAKING LOSARTAN POTASSIUM 100 MG TABLET 1 TABLET ORALLY ONCE A DAY TAKING METFORMIN HCL ER 500 MG TABLET EXTENDED RELEASE 24 HOUR 3 TABLETS IN AM, 2 IN PM ORALLY BID TAKING INVOKANA 100 MG TABLET 1 TABLET ORALLY ONCE A DAY TAKING DICLOFENAC SODIUM 1 % GEL 1 APPLICATION TO AFFECTED AREA TRANSDERMAL EVERY 4 HOURS NEEDED TAKING CYMBALTA 20 MG CAPSULE DELAYED RELEASE PARTICLES 2 CAPSULES ORALLY AT BEDTIME TAKING ASPIRIN 81 MG TABLET DELAYED RELEASE 1 TABLET ORALLY ONCE A DAY TAKING MULTIVITAMINS 1000 MG TABLET 1 TAB ORALLY ONCE A DAY TAKING GLUCOMETER 1 STRIP _ DAILY TAKING GLUCOMETER 1 LANCET SUBCUTANEOUSLY DAILY TAKING GLUCOMETER DIRECTED _ ONCE DAILY TAKING CHLORTHALIDONE 25MG TABLET 1 TABLET IN THE MORNING WITH FOOD ORALLY EVERY MORNING, NOTES: DUPLICATE TAKING NYSTATIN [id number] UNIT/GM POWDER 1 APPLICATION TO AFFECTED AREA EXTERNALLY TWICE A DAY TAKING MICONAZOLE NITRATE 2 % CREAM 1 APPLICATION TO AFFECTED AREA EXTERNALLY TWICE A DAY TAKING FLUOXETINE HCL 40 MG CAPSULE 1 TABLET ORALLY ONCE A DAY TAKING GLIMEPIRIDE 1 MG TABLET 1 TABLET ORALLY BID TAKING CYMBALTA 60 MG CAPSULE DELAYED RELEASE PARTICLES 1 CAPSULE ORALLY ONCE A DAY TAKING COMBIVENT RESPIMAT 20-100 MCG/ACT AEROSOL 1 PUFF INHALATION FOUR TIMES DAILY, NEEDED TAKING ANORO ELLIPTA UMECLIDINIUM 62.5 MCG AND VILANTEROL 25 MCG INHALATION POWDER 1 INHALATION ORAL ONCE DAILY TAKING MUCINEX 600 MG TABLET EXTENDED RELEASE 12 HOUR 1 TABLET NEEDED ORALLY EVERY 12 HRS TAKING SINGULAIR 10 MG TABLET 1 TABLET ORALLY QHS TAKING ALBUTEROL SULFATE (2.5 MG/3ML) 0.083% NEBULIZATION SOLUTION 3 ML NEEDED INHALATION EVERY 8 HRS TAKING OMEPRAZOLE 40 MG CAPSULE DELAYED RELEASE 1 CAPSULE 30 MINUTES BEFORE MORNING MEAL ORALLY ONCE A DAY TAKING MAY HAVE - - NEBULIZER FOR COPD EXACERBATION ORALLY EVERY 6 HOURS NEEDED TAKING NORCO 10-325 MG TABLET 1 TABLET NEEDED ORALLY FOR PAIN (THIS PRESCRIPTION SHOULD LAST 1 MONTH) EVERY 6 HOURS NEEDED MDD2 TAKING ATORVASTATIN CALCIUM 80 MG TABLET 1 TABLET ORALLY ONCE A DAY MEDICATION LIST REVIEWED AND RECONCILED WITH THE PATIENT PAST MEDICAL HISTORY HYPERTENSION-08/2016 NST LOW RISK, GOOD EXERCISE TOLERANCE-ANTECOL/ MILD CONCENTRIC [id number] HYPERLIPIDEMIA 2B GERD COPD-02/2012 FEV1 3.83 OBESITY, MORBID PRIOR NICOTINE ADDICTION-SMOKED 20 YEARS 1 04/08 PPD, QUIT IN 2007 T2DM NID C PERIPHERAL NEUROPATHY BLE PERIPHERAL EDEMA 2 MEDICAL NON-COMPLIANCE L SHOULDER OA 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 -CHELSEA, -SSA/SSB BY XRAY/03/2014 L2/3, 4/5, 5/1 BULGES ALL C MINIMAL SAC COMPRESSION BY 03/2014 MRI THORACIC [id number] 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 CTS-08/10/14 BUE NCS C SEVERE R, MODERATE-SEVERE L CTS-GONSALES S/P 10/2014 [facility] HAND OSTEOARTHRITIS ALLERGIC RHINITIS-03/2016 - ZONE 1 PANEL 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 COMPRESSION BY 11/2015 MRI-[facility] MILD CONCENTRIC LVH, CVP 10, NORMAL VIRIDIANA/SYS FUNCTION BY 08/2016 TTE-ANTECOL ALLERGIES TRILIPIX: AGITATION - SIDE EFFECTS TRIPLE ANTIBIOTIC: RASH /SWELLING - ALLERGY NIACIN: BURNING - ALLERGY SURGICAL HISTORY CHOLECYSTECTOMY 2006 APPENDECTOMY 1993 L SHOULDER ATROSCOPIC DEBRIDEMENT, CAPSULAR RELEASE, ACROMIOPLASTY, SYNOVECTOMY-SETTER 11/25/13 UMBILCIAL HERNIA REPAIR-FANI 01/18/14 B [facility] 10/2014 LEFT KNEE TORN MANISCUS REPAIR 07/2018 FAMILY HISTORY FATHER: 68 YRS, T2DM, 2 COPD, DIAGNOSED WITH HYPERTENSION MOTHER: 61 YRS, CORONARY ARTERY DISEASE, STROKE, HYPERTENSION SIBLINGS: 2 SISTERS WITH DIABETES ONE WITH HEMA, ONE BROTHER OF CIRRHOSIS MATERNAL GRAND FATHER: STROKE MATERNAL GRAND MOTHER: STROKE 1 BROTHER(S) , 4 SISTER(S) . HOSPITALIZATION/MAJOR DIAGNOSTIC PROCEDURE ABOVE REVIEW OF SYSTEMS CONSTITUTIONAL: ANY RECENT FEVER NO . CHILLS NO . WEIGHT CHANGE OF UNKNOWN REASONS NO . GASTROENTEROLOGY: NEW UNEXPLAINABLE CHANGES IN BOWEL CONTROL NO . CONSTIPATION NO . GENITOURINARY: ANY NEW CHANGE IN BLADDER CONTROL? NO . NEUROLOGY: NEW ONSET DIZZINESS OR NEUROLOGICAL CHANGES NOT MENTIONED NO . NEW NUMBNESS OR PAIN PATTERNS NOT MENTIONED AND PERTINENT TO TODAY'S VISIT NO . CARDIOLOGY: NEW CHEST PRESSURE NO . NEW CHEST PAIN NO . RESPIRATORY: UNEXPLAINABLE COUGH NO . NEW SHORTNESS OF BREATH NO . VITAL SIGNS WT 346.6 LBS, HT 70.00", BMI 49.73 INDEX, BP 161/75 MM HG, HR 77 /MIN, RR 18 /MIN, TEMP 96.0 F, OXYGEN SAT % 96%, NA INITIALS AW 1432. EXAMINATION GENERAL EXAMINATION: GENERAL AWAKE,ALERT ,PLEAASANT . PSYCH AFFECT NORMAL . LUNGS: LUNG BACH ARE CLEAR TO AUSCULTATION BILATERALLY. GOOD MOVEMENT OF AIR . HEART: S1, S2 IN A REGULAR RATE AND RHYTHM. NO SIGNIFICANT MURMURS, RUBS OR GALLOPS NOTED . LUMBAR:PALPATION:TENDER OVER BILAT. L4/5-L5/S1 L>R LUMBAR FACETS WITH FACET LOADING.. DIAGNOSTIC TESTS REVIEWEDMRI L/S SPINE -11/17/15. 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 BRINGS IN MEDICATIONS WHICH IS APPROPRIATE FOR WHAT WAS DISPENSED. RECENT URINE TOXICOLOGY REVIEWED. NO UNAUTHORIZED MEDICATIONS. NO ILLICIT SUBSTANCES AND PRESCRIBED MEDICATIONS WERE PRESENT. URINE TOX TODAY , RISKS OF NARCOTIC/OPIOD MEDICATIONS INCLUDES BUT IS NOT LIMITED TO RISK OF DEPENDANCE/DEVELOPMENT OF ADDICTION, MOOD DISTURBANCE AND DEPRESSION, OSTEOPOROSIS, HORMONAL AND LABIDAL CHANGES, RESPIRATORY DEPRESSION AND . PATIENT IS ADVISED NOT TO DRIVE OR DRINK ALCOHOL WHILE ON THESE MEDICATIONS. PROCEDURE CODES [id number] ESTABILISHED PATIENT [facility] FACILITY CHARGE DISPOSITION & COMMUNICATION FOLLOW UP POST PROC (REASON: BILATERAL L4-5, L5-S1 THERAPEUTIC LUMBAR FACET BLOCK) ELECTRONICALLY SIGNED BY LIZBETH GUTIERREZ ON 10/07/2019 AT 12:43 PM EDT DISCLAIMER : THIS IS A VISIT SUMMARY EXTRACTED FROM THE [employer] CHART. IT IS NOT A COPY OF THE [employer] PROGRESS NOTE. MTDD
== END ==
LOC: M PAIN 14:30
PROVIDERS: ATTEND Nurse Practitioner Family
DX: E78.5 Hyperlipidemia, unspecified (principal)

== ENCOUNTER → 2019-10-21 | Outpatient (CLI) | payer BC | LOC: M LABSMTC 14:10 | PROVIDERS: ATTEND Anesthesiology | DX: Z11.59 Encounter for screening for other viral diseases (principal) | CPT/HCPCS: C9803; U0003 ==

== ENCOUNTER → 2019-10-26 | Outpatient (CLI) | payer BC ==
[~2019-10-26] MED LIST changes: -BUPIVACAINE HCL 0.25% 30 ML VIAL As Ordered ONE; +BUPIVACAINE HCL 0.25% 30ML VIAL As Ordered ONE; -ISOVUE-M 300 61% 15ML VIAL (Q9967) As Ordered ONE; +ISOVUE-M 300 61% 15ML VIAL As Ordered ONE; +LIDOCAINE 1% SDV 30ML VIAL As Ordered ONE; -LIDOCAINE 1% SDV INJ 30 ML VIAL As Ordered ONE; +TRIAMCINOLONE ACETONIDE SUSP 40 MG/ML VIAL (J3301) As Ordered ONE; +diazePAM 5 MG TAB As Ordered ONE; +oxyCODONE 5MG TAB As Ordered ONE
--- NOTE | 2019-10-26 11:05 | REP ---
Partial lumbar spine series: Four views . History: Injection procedure for pain. 38 seconds of fluoroscopy time is reported. Findings: A sequence of four fluoroscopically obtained last image hold procedural spot radiographs of the lumbar spine document needle position and contrast injection associated with injection procedure. Electronically Signed by Vern Goodrich MD 10/26/2019 10:56 A
--- NOTE | 2019-10-27 01:36 | ECWPNPC ---
PATIENT NAME: SRINATH GUPTA : 1970 GENDER: MALE VISIT DATE: 10/26/2019 DISCHARGE DATE: 10/26/19 1014 VISIT LOCKED DATE TIME: PHYSICIAN: AGUEDA MORALES MD RESOURCE: AGUEDA MORALES MD REASON FOR APPOINTMENT 1. STACIA LFBT L4/L5, L5/S1- PAT COMPLETED WITH , STATES SHE WILL BE WITH PATIENT. HISTORY OF PRESENT ILLNESS GENERAL: - - -. FALL RISK SCREENING: SCREENING :NO FALLS REPORTED IN THE LAST YEAR PAIN SCREENING: PATIENT HAS A COMPLAINT OF ACUTE OR CHRONIC PAIN :YES LOCATION OF PAIN: LOW BACK, RADIATES TO LEFT/RIGHT LEG INTENSITY OF PAIN (SCALE OF 1 TO 10):5 WHAT DOES YOUR PAIN FEEL LIKE: "PAIN IN THE ASS" DURATION:INTERMITTENT, AWAKENS FROM SLEEP NURSING NOTE: - - -. PAIN CENTER INTAKE QUESTIONS: DO YOU HAVE A HISTORY OF MRSA? :NO DO YOU TAKE A BLOOD THINNERS? :NO DO YOU HAVE ANY BLEEDING DISORDERS? :NO ANY NEW NUMBNESS OR WEAKNESS IN YOUR LEGS OR ARMS? :NO ANY PACEMAKER,DEFIBRILLATOR, OR DORSAL COLUMN STIMULATOR? :NO DO YOU HAVE ANY RASHES OR OPEN SORES? :NO ARE YOU ALLERGIC TO IV DYE? :NO ARE YOU DIABETIC? :YES ANY NEW PROBLEMS WITH YOUR MEDICATIONS? :NO HAVE YOU RECEIVED A VACCINE IN THE PAST 30 DAYS? :NO DO YOU PLAN TO RECEIVE A VACCINE IN THE NEXT 21 DAYS? :NO DO YOU TAKE ANY IMMUNOSUPPRESSIVE MEDICATIONS? :NO ANY HISTORY OF SEIZURES? :NO ANY HISTORY OF CARDIAC ISSUES OR EVENTS? :NO DO YOU HAVE SLEEP APNEA? :NO ANY RECENT HEAD INJURY? :NO DO YOU HAVE ANY NEW INFECTIONS? :NO IS THERE A CHANCE YOU COULD BE ? :NO ARE YOU BREAST FEEDING? :NO WHEN DID YOU LAST EAT? : 10/25 1999 MAC AND CHEESE WHEN DID YOU LAST DRINK? : 10/25 1999 WHAT DID YOU LAST DRINK? : WATER WITH MEDICATIONS NAME OF PERSON DRIVING YOU HOME? : DO YOU HAVE ANY OTHER QUESTIONS OR CONCERNS? : NO CURRENT MEDICATIONS TAKING NASACORT ALLERGY 24HR 55 MCG/ACT AEROSOL 1 PUFF IN EACH NOSTRIL NASALLY ONCE A DAY, NOTES: 7 AM TAKING METHOCARBAMOL 500 MG TABLET 1.5 TABLETS ORALLY THREE TIMES A DAY, NOTES: 10/24 PM TAKING TIZANIDINE HCL 4 MG TABLET 1 TABLET NEEDED ORALLY THREE TIMES A DAY, NOTES: 10/24 PM TAKING CHLORTHALIDONE 25 MG TABLET 1 TABLET IN THE MORNING WITH FOOD ORALLY EVERY MORNING, NOTES: 10/24 PM TAKING LOSARTAN POTASSIUM 100 MG TABLET 1 TABLET ORALLY ONCE A DAY, NOTES: 10/24 PM TAKING METFORMIN HCL ER 500 MG TABLET EXTENDED RELEASE 24 HOUR 3 TABLETS IN AM, 2 IN PM ORALLY BID, NOTES: 10/24 PM TAKING DICLOFENAC SODIUM 1 % GEL 1 APPLICATION TO AFFECTED AREA TRANSDERMAL EVERY 4 HOURS NEEDED, NOTES: 10/24 PM TAKING CYMBALTA 20 MG CAPSULE DELAYED RELEASE PARTICLES 2 CAPSULES ORALLY AT BEDTIME, NOTES: 10/24 PM TAKING ASPIRIN 81 MG TABLET DELAYED RELEASE 1 TABLET ORALLY ONCE A DAY, NOTES: 10/24 PM TAKING MULTIVITAMINS 1000 MG TABLET 1 TAB ORALLY ONCE A DAY, NOTES: 10/24 PM TAKING GLUCOMETER 1 STRIP _ DAILY, NOTES: 10/24 PM TAKING GLUCOMETER 1 LANCET SUBCUTANEOUSLY DAILY, NOTES: 10/24 PM TAKING GLUCOMETER DIRECTED _ ONCE DAILY, NOTES: 10/24 PM TAKING NYSTATIN [id number] UNIT/GM POWDER 1 APPLICATION TO AFFECTED AREA EXTERNALLY TWICE A DAY, NOTES: FEW WEEKS AGO TAKING MICONAZOLE NITRATE 2 % CREAM 1 APPLICATION TO AFFECTED AREA EXTERNALLY TWICE A DAY, NOTES: FE WEEKS AGO TAKING GLIMEPIRIDE 1 MG TABLET 1 TABLET ORALLY BID, NOTES: 10/24 PM TAKING CYMBALTA 60 MG CAPSULE DELAYED RELEASE PARTICLES 1 CAPSULE ORALLY ONCE A DAY, NOTES: 10/24 PM TAKING COMBIVENT RESPIMAT 20-100 MCG/ACT AEROSOL 1 PUFF INHALATION FOUR TIMES DAILY, NEEDED, NOTES: 10/24 PM TAKING ANORO ELLIPTA UMECLIDINIUM 62.5 MCG AND VILANTEROL 25 MCG INHALATION POWDER 1 INHALATION ORAL ONCE DAILY, NOTES: 10/24 PM TAKING MUCINEX 600 MG TABLET EXTENDED RELEASE 12 HOUR 1 TABLET NEEDED ORALLY EVERY 12 HRS, NOTES: 10/24 PM TAKING ALBUTEROL SULFATE (2.5 MG/3ML) 0.083% NEBULIZATION SOLUTION 3 ML NEEDED INHALATION EVERY 8 HRS, NOTES: AWHILE TAKING MAY HAVE - - NEBULIZER FOR COPD EXACERBATION ORALLY EVERY 6 HOURS NEEDED, NOTES: AWHILE TAKING ATORVASTATIN CALCIUM 80 MG TABLET 1 TABLET ORALLY ONCE A DAY, NOTES: 10/24 PM TAKING PEPCID 20MG TABLET 1 TABLET ORALLY TWICE A DAY, NOTES: 10/24 PM TAKING OMEPRAZOLE 40 MG CAPSULE DELAYED RELEASE 1 CAPSULE 30 MINUTES BEFORE MORNING MEAL ORALLY ONCE A DAY, NOTES: 10/24 PM TAKING INVOKANA 100 MG TABLET 1 TABLET ORALLY ONCE A DAY, NOTES: 10/24 PM TAKING MELOXICAM 7.5 MG TABLET 1 TAB ORALLY BID, NOTES: 10/24 PM TAKING SINGULAIR 10 MG TABLET 1 TABLET ORALLY QHS, NOTES: 10/24 PM TAKING NORCO 10-325 MG TABLET 1 TABLET NEEDED ORALLY FOR PAIN (THIS PRESCRIPTION SHOULD LAST 1 MONTH) EVERY 6 HOURS NEEDED MDD2, NOTES: 10/24 PM NOT-TAKING FLUOXETINE HCL 40 MG CAPSULE 1 TABLET ORALLY ONCE A DAY DISCONTINUED CHLORTHALIDONE 25MG TABLET 1 TABLET IN THE MORNING WITH FOOD ORALLY EVERY MORNING, NOTES: DUPLICATE MEDICATION LIST REVIEWED AND RECONCILED WITH THE PATIENT PAST MEDICAL HISTORY HYPERTENSION-08/2016 NST LOW RISK, GOOD EXERCISE TOLERANCE-ANTECOL//08/2016 MILD CONCENTRIC [id number] HYPERLIPIDEMIA 2B GERD COPD-02/2012 FEV1 3.83 OBESITY, MORBID PRIOR NICOTINE ADDICTION-SMOKED 20 YEARS 1 1/2 PPD, QUIT IN 2006 T2DM NID C PERIPHERAL NEUROPATHY BLE PERIPHERAL EDEMA 2 MEDICAL NON-COMPLIANCE L SHOULDER OA 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 -CHELSEA, -SSA/SSB BY XRAY/ L2/3, 4/5, 08/05 BULGES ALL C MINIMAL SAC COMPRESSION BY 03/2014 MRI THORACIC [id number] 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 CTS-08/10/14 BUE NCS C SEVERE R, MODERATE-SEVERE L CTS-GONSALES S/P 10/2014 [facility] HAND OSTEOARTHRITIS ALLERGIC RHINITIS-03/2016 - ZONE 1 PANEL 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 COMPRESSION BY 11/2015 MRI-BOLL[facility] MILD CONCENTRIC LVH, CVP 10, NORMAL VIRIDIANA/SYS FUNCTION BY 08/2016 TTE-ANTECOL ALLERGIES TRILIPIX: AGITATION - SIDE EFFECTS TRIPLE ANTIBIOTIC: RASH /SWELLING - ALLERGY NIACIN: BURNING - ALLERGY SURGICAL HISTORY CHOLECYSTECTOMY 2007 APPENDECTOMY 1993 L SHOULDER ATROSCOPIC DEBRIDEMENT, CAPSULAR RELEASE, ACROMIOPLASTY, SYNOVECTOMY-SETTER 11/25/13 UMBILCIAL HERNIA REPAIR-FANI 01/18/14 B [facility] 10/2014 LEFT KNEE TORN MANISCUS REPAIR 07/2018 FAMILY HISTORY FATHER: 68 YRS, T2DM, 2 COPD, DIAGNOSED WITH HYPERTENSION MOTHER: 61 YRS, CORONARY ARTERY DISEASE, STROKE, HYPERTENSION SIBLINGS: 2 SISTERS WITH DIABETES ONE WITH HEMA, ONE BROTHER OF CIRRHOSIS MATERNAL GRAND FATHER: STROKE MATERNAL GRAND MOTHER: STROKE 1 BROTHER(S) , 4 SISTER(S) . SOCIAL HISTORY GENERAL: TOBACCO USE ARE YOU A:FORMER SMOKER HOW LONG HAS IT BEEN SINCE YOU LAST SMOKED?> 10 YEARS LATEX QUESTIONNAIRE LATEX ALLERGY : HAVE YOU EVER DEVELOPED ANY TYPE OF REACTION AFTER HANDLING LATEX PRODUCTS SUCH RUBBER GLOVES, CONDOMS, DIAPHRAGMS, BALLOONS, SOCKS, OR UNDERWEAR?NO LATEX ALLERGY : HAVE YOU EVER DEVELOPED ANY TYPE OF REACTION DURING OR AFTER DENTAL APPOINTMENT, VAGINAL/RECTAL EXAMINATION, SURGICAL PROCEDURE, OR ANY OTHER EXPOSURE?NO LATEX RISK : HAVE YOU EVER HAD ANY DIFFICULTY BREATHING OR HIVES AFTER EATING OR HANDLING ANY FRUITS, OR VEGETABLES; SUCH KIWI, BANANAS, STONE FRUITS, OR CHESTNUTSNO LATEX RISK : DO YOU HAVE A PREVIOUS PERSONAL HISTORY OF MORE THAN NINE SURGERIES, SPINA BIFIDA, OR REPEATED CATHERIZATIONS? NO LATEX RISK : ARE YOU FREQUENTLY EXPOSED TO LATEX PRODUCTS IN YOUR OCCUPATION?NO DATE ASKED : 10/25/2019 BMI CARE GOAL FOLLOW-UP ABOVE NORMAL BMI FOLLOW-UP GIVING ENCOURAGEMENT TO EXERCISE. ALCOHOL SCREENING DID YOU HAVE A DRINK CONTAINING ALCOHOL IN THE PAST YEAR?YES HOW OFTEN DID YOU HAVE SIX OR MORE DRINKS ON ONE OCCASION IN THE PAST YEAR?NEVER (0 POINTS) HOW MANY DRINKS DID YOU HAVE ON A TYPICAL DAY WHEN YOU WERE DRINKING IN THE PAST YEAR?1 OR 2 (0 POINTS) HOW OFTEN DID YOU HAVE A DRINK CONTAINING ALCOHOL IN THE PAST YEAR?MONTHLY OR LESS (1 POINT) POINTS1 INTERPRETATIONNEGATIVE RECREATIONAL DRUG USE DRUG USE?NO CAFFEINE CAFFEINE USE?YES SEXUAL HX HAD SEX IN THE LAST 12 MONTHS (VAGINAL, ORAL, OR ANAL)?NO HAVE YOU EVER HAD AN STD?NO HIV / HEP-C SCREENING HIV TEST OFFERED TO PATIENT:YES DATE OFFERED:07/30/2016 TEST ACCEPTED:NO HEP-C TEST OFFERED TO PATIENT:YES DATE OFFERED:07/30/2016 REASON:PATIENT DECLINED TEST ACCEPTED:NO REASON:PATIENT DECLINED MORAVIAN [id number] LANGUAGE LANGUAGES SPOKEN:[place] CITIZ[place] EDUCATION LEVEL OF EDUCATION:NOT FINISHED HIGH SCHOOL 10TH GRADE LEARNING BARRIERS / SPECIAL NEEDS CHANGE FROM LAST VISIT?NO BARRIERS TO LEARNING?NO HEARING IMPAIRED?NO VISION IMPAIRED?NO COGNITIVELY IMPAIRED?NO READINESS TO LEARN?NO LEARNING PREFERENCES?NO LEARNING CAPABILITIES PRESENT?NO EMOTIONAL BARRIERS?NO SPECIAL DEVICES?NO TECHNOLOGY TRAINING ASSOCIATE NEEDED?NO DOMESTIC VIOLENCE DO YOU FEEL SAFE IN YOUR ENVIRONMENT?YES OCCUPATION: [employer]. DIET: SUPPOSED TO BEING A HEART HEALTHY DIET. EXERCISE: WALKS, BIKES. MARITAL STATUS: , ONE CHILD. PAIN CLINIC PFS, CLERGY, PUBLIC HEALTH REFERRALS WAS THE PROVIDER NOTIFIED OF ANY PERTINENT INFO?YES HAS THE PATIENT BEEN EDUCATED REGARDING HIS/HER PLAN OF CARE?YES HAS THE PATIENT BEEN EDUCATED REGARDING PAIN, THE RISK FOR PAIN, THE IMPORTANCE OF EFFECTIVE PAIN MANAGEMENT, AND THE PAIN ASSESSMENT PROCESS?YES ADVANCE DIRECTIVE ADVANCE DIRECTIVE DISCUSSED WITH PATIENT:YES PT DECLINES HCP INFORMATION AT THIS TIME. MOVED FROM [facility] IN 2005-BORN THEREREVIEWED WITH PT 02/06/18 1031 BVREVIEWED WITH PATIENT 03/19/18 0925 JSREVIEWED WITH PATIENT 12/24/18 1446 JSREVIEWED WITH PATIENT 03/25/19 1500 BV. HOSPITALIZATION/MAJOR DIAGNOSTIC PROCEDURE ABOVE VITAL SIGNS WT 343.6 LBS, HT 70.00", BMI 49.30 INDEX, BP 161/88 MM HG, HR 83 /MIN, RR 18 /MIN, TEMP 96.2 F, OXYGEN SAT % 94%, NA INITIALS AW 0840, REVIEWED BY: MT. EXAMINATION GENERAL EXAMINATION: THE PATIENT IS ALERT, ORIENTED TIMES THREE AND COOPERATIVE. HEART SHOWS REGULAR RHYTHM, NO MURMURS AND NO GALLOPS. LUNGS ARE CLEAR TO AUSCULTATION. ASSESSMENTS SPONDYLOSIS WITHOUT MYELOPATHY OR RADICULOPATHY, LUMBAR REGION - M47.816 (PRIMARY) SPONDYLOSIS WITHOUT MYELOPATHY OR RADICULOPATHY, LUMBOSACRAL REGION - M47.817 TREATMENT SPONDYLOSIS WITHOUT MYELOPATHY OR RADICULOPATHY, LUMBAR REGION [facility] FACET BLOCK (PAIN)[id number] MEDICATION: VALIUM TAB 10MG ORALLY (DIAZEPAM)CARLA SUGGS RN 10/26/2019 9:11:54 AM > VERIFIED KARLI ORTIZ 10/26/2019 9:16:47 AM > VALIUM 10MG LOT# [id number]. EXP: 05/28. ADMINSTERED AT 0915. MEDICATION: OXYCODONE HCL TAB 10MG ORALLYCARLA SUGGS RN 10/26/2019 9:12:16 AM > VERIFIED KARLI ORTIZ 10/26/2019 9:15:02 AM > OXYCODONE 10MG LOT# [id number] EXP: 05/2021. ADMINISTERED AT 0915. SPONDYLOSIS WITHOUT MYELOPATHY OR RADICULOPATHY, LUMBOSACRAL REGION [facility] FACET BLOCK (PAIN)[id number] OTHERS NOTES: PRE PROCEDURE PHONE CALL COMPLETED WITH 10/25/2019 1605 NLJ. PROCEDURES PAIN NURSING RECORD PRE-PROCEDURE IV SITE N/A, PRE-PROCEDURE ORAL MEDICATIONS YES PATIENT GIVEN 10MG OF OXYCODONE AND VALIUM 10MG PROCEDURE IN ROOM 0922 , PHYSICIAN IN ROOM 0939, START 0943, FINISH 0951, PHYSICIAN OUT OF ROOM 0953, OUT OF ROOM 0957 , STEROID KENALOG, O2 RA, ECG NORMAL SINUS, PATIENT SHIELDED YES, SAFETY STRAP YES, PREP CHLOROPREP, IV INFUSED N/A, DRESSING TEGADERM LOC: KARLI ORTIZ 10/26/2019 9:40:11 AM > , 1. ALERT, ORIENTED RESP: KARLI ORTIZ 10/26/2019 9:40:15 AM > , 1. REGULAR, NO DYSPNEA COLOR: KARLI ORTIZ 10/26/2019 9:40:18 AM > , 1. PINK SKIN: KARLI ORTIZ 10/26/2019 9:40:21 AM > , 1. WARM, DRY POSITION: KARLI ORTIZ 10/26/2019 9:40:24 AM > , 1. PRONE VITALS: KARLI ORTIZ 10/26/2019 9:37:13 AM > 186/93, 79, 16, 94% RA KARLI ORTIZ 10/26/2019 9:39:41 AM > 173/89, 80, 16, 92% RA KARLI ORTIZ 10/26/2019 9:45:40 AM > 163/85, 79, 16, 93% RA KARLI ORTIZ 10/26/2019 9:51:09 AM > 160/87, 75, 16, 92% RA KARLI ORTIZ 10/26/2019 10:05:09 AM > POST PROCEDURE 132/97, 84, 16, 95% RA DISCHARGE: POST PAIN 05/17, DRESSING SITE DRY AND INTACT, IV N/A, GAIT STEADY, TEACHING COMPLETED, PATIENT ACKNOWLEDGES UNDERSTANDING YES, PATIENT DISCHARGED AT 1011 PN LUMBAR FACET BLOCK THERAPEUTIC PRE PROCEDURE DIAGNOSIS LUMBAR SPONDYLOSIS, LUMBOSACRAL SPONDYLOSIS POST PROCEDURE DIAGNOSIS LUMBAR SPONDYLOSIS, LUMBOSACRAL SPONDYLOSIS PROCEDURE BILATERAL L4-L5 AND BILATERAL L5-S1 LUMBAR FACET THERAPEUTIC BLOCK SURGEON DR. AGUEDA MORALES SYSTEMS DEVELOPER NONE ANESTHESIA LOCAL PRE PROCEDURE NOTE THE PATIENT HAS A HISTORY OF CHRONIC LOW BACK PAIN. I EVALUATED THE PATIENT AND REVIEWED THE CHART. I WENT OVER THE RISKS, ALTERNATIVES, AND BENEFITS ASSOCIATED WITH THIS PROCEDURE. I DISCUSSED THAT THE USE OF STEROIDS MAY CONTRIBUTE TO IMMUNOSUPPRESSION OF THE PATIENT'S BODY AGAINST INFECTIONS SUCH COVID-19. THE PATIENT IS AWARE OF THE POTENTIAL COMPLICATIONS ASSOCIATED WITH THIS VIRUS, INCLUDING, BUT NOT LIMITED TO, . I DISCUSSED THE USE OF DEXAMETHASONE INSTEAD OF KENALOG; HOWEVER, THE PATIENT WOULD LIKE TO MOVE FORWARD WITH KENALOG. THE PATIENT WOULD LIKE TO PROCEED AND GIVES CONSENT TO PERFORM THE PROCEDURE. THE PATIENT DENIES UNEXPLAINABLE WEIGHT LOSS, FEVER, CHILLS, OR NEW CHANGES IN URINARY OR BOWEL CONTROL. THE PATIENT IS COVID-19 NEGATIVE DESCRIPTION OF PROCEDURE THE PATIENT WAS BROUGHT TO THE PROCEDURE ROOM AND PLACED IN THE PRONE POSITION. THE LUMBOSACRAL AREA WAS CLEANED WITH CHLORAPREP SOLUTION AND DRAPED ASEPTICALLY. THE PROCEDURE WAS DONE UNDER STERILE CONDITIONS. A TIMEOUT WAS PERFORMED WHERE LATERALITY AND THE SITE OF THE PROCEDURE WERE CHECKED AND CONFIRMED WITH EVERYONE IN THE ROOM. UNDER FLUOROSCOPIC GUIDANCE, THE TARGET POINT WAS SELECTED AT THE RIGHT AND LEFT L4-L5 AND RIGHT AND LEFT L5-S1 FACET JOINTS. TARGET POINT WAS SELECTED AFTER LATERAL ROTATION AND TILT OF THE MAGNIFIER OF THE C-ARM. LIDOCAINE 0.5% WAS USED TO NUMB THE SKIN AND THE SUBCUTANEOUS TISSUE BELOW IT. SPINAL NEEDLES, 22-GAUGE, WERE ADVANCED UNDER FLUOROSCOPIC GUIDANCE AND FOLLOWING PATIENT FEEDBACK UNTIL THE TARGETS WERE TOUCHED. THE POSITION OF THE NEEDLES WAS VERIFIED WITH AP AND LATERAL VIEWS. AFTER PROPER POSITION OF THE NEEDLES WAS ACHIEVED, ISOVUE-M DYE 30%, 0.1 ML, WAS INJECTED SHOWING ADEQUATE SPREAD OF THE DYE. KENALOG 20 MG WAS INJECTED AT EACH SITE. THEN, A SOLUTION OF 1.0 ML OF BUPIVACAINE 0.125% OF WAS USED TO FLUSH EACH SITE. THE MEDICATION WAS VERIFIED WITH THE NURSE. THERE WAS NO EVIDENCE OF BLOOD, PARESTHESIA OR CEREBROSPINAL FLUID DURING THE PROCEDURE. THE PATIENT WAS SENT TO THE RECOVERY ROOM. THE PATIENT WAS MOVING THE EXTREMITIES AND DOING WELL. THERE WERE NO COMPLICATIONS DURING THE PROCEDURE. ESTIMATED BLOOD LOSS WAS LESS THAN 5 ML. FLUOROSCOPY TIME WAS 38 SECONDS POST PROCEDURE NOTE THE PATIENT WILL BE SEEN IN A FOLLOW UP IN THE NEXT FEW WEEKS. I AM LOOKING FOR LONG LASTING RELIEF FOR THE PATIENT WITH THIS INTERVENTION. INSTRUCTIONS WERE GIVEN, QUESTIONS WERE ANSWERED, AND THE PATIENT EXPRESSED UNDERSTANDING AND AGREES WITH THE PLAN. THE PATIENT IS AWARE TO STAY HOME FOR THE NEXT WEEK, IF POSSIBLE, DUE TO COVID-19. I, MOLLY DENTON, DOCUMENTED THE ABOVE INFORMATION ACTING A SCRIBE FOR DR. MORALES. I HAVE REVIEWED THE ABOVE DOCUMENT, WRITTEN BY MOLLY DENTON, LINE CAMERA OPERATOR, AND I VERIFY THAT IT IS ACCURATE PROCEDURE CODES [id number] INJ PARAVERT F JNT L/S 1 LEV, MODIFIERS: 50 [id number] INJ PARAVERT F JNT L/S 2 LEV, MODIFIERS: 50 DISPOSITION & COMMUNICATION FOLLOW UP F/UP WITH RECENTERER (REASON: POST LFBT STACIA L4-L5, L5-S1) ELECTRONICALLY SIGNED BY AGUEDA MORALES MD, ON 10/26/2019 AT 04:39 PM EDT DISCLAIMER : THIS IS A VISIT SUMMARY EXTRACTED FROM THE [employer] CHART. IT IS NOT A COPY OF THE [email or web address] PROGRESS NOTE. PAT
== END ==
LOC: M PAIN 08:30
PROVIDERS: ATTEND Anesthesiology
DX: M47.816 Spondylosis without myelopathy or radiculopathy, lumbar region (principal); M47.817 Spondylosis without myelopathy or radiculopathy, lumbosacral region
CPT/HCPCS: 64493; 64494; J3301; Q9967

== ENCOUNTER → 2019-11-11 | Outpatient (POV) | payer BC | LOC: M PAIN 09:00 | PROVIDERS: ATTEND Nurse Practitioner Family | DX: M46.1 Sacroiliitis, not elsewhere classified (principal) ==

== ENCOUNTER → 2019-12-17 | Outpatient (CLI) | payer BC | LOC: M PAIN 14:51 | PROVIDERS: ATTEND Nurse Practitioner Family | DX: M47.817 Spondylosis without myelopathy or radiculopathy, lumbosacral region (principal) ==

== ENCOUNTER → 2019-12-29 | Outpatient (CLI) | payer BC | LOC: M LABSMTC 13:51 | PROVIDERS: ATTEND Anesthesiology | DX: Z20.828 Contact with and (suspected) exposure to other viral communicable diseases (principal) | CPT/HCPCS: C9803; U0003 ==

== ENCOUNTER → 2020-01-03 | Outpatient (CLI) | payer BC ==
[~2020-01-03] MED LIST changes: -TRIAMCINOLONE ACETONIDE SUSP 40 MG/ML VIAL (J3301) As Ordered ONE; -diazePAM 5 MG TAB As Ordered ONE; -oxyCODONE 5MG TAB As Ordered ONE
--- NOTE | 2020-01-12 07:16 | REP ---
PARTIAL LUMBAR SPINE: 4-VIEWS HISTORY: Bilateral diagnostic facet block for pain. FLUROSCOPY TIME: 28 seconds reported. FINDINGS: A sequence of four [id number] fluoroscopically obtained spot radiographs of the lumbosacral spine document various needle positions and contrast injections associated with bilateral facet injection procedure. MTDD
== END ==
LOC: M PAIN 13:23
PROVIDERS: ATTEND Anesthesiology
DX: M47.816 Spondylosis without myelopathy or radiculopathy, lumbar region (principal); M47.817 Spondylosis without myelopathy or radiculopathy, lumbosacral region; G89.29 Other chronic pain; E11.40 Type 2 diabetes mellitus with diabetic neuropathy, unspecified; K21.9 Gastro-esophageal reflux disease without esophagitis; J44.9 Chronic obstructive pulmonary disease, unspecified; Z79.82 Long term (current) use of aspirin; Z79.51 Long term (current) use of inhaled steroids; Z79.84 Long term (current) use of oral hypoglycemic drugs; Z88.1 Allergy status to other antibiotic agents; Z88.8 Allergy status to other drugs, medicaments and biological substances
CPT/HCPCS: 64493; 64494; Q9967

== ENCOUNTER → 2020-01-18 | Outpatient (CLI) | payer BC ==
--- NOTE | 2020-01-21 04:41 | ECWPNPC ---
PATIENT NAME: SRINATH GUPTA : 1970 GENDER: MALE VISIT DATE: 01/18/2020 DISCHARGE DATE: 01/18/20 1159 VISIT LOCKED DATE TIME: PHYSICIAN: BOOKER DEAN PHYSICIAN PAGER NO: ACTIVE RESOURCE: BOOKER DEAN REASON FOR APPOINTMENT 1. POST PROC HISTORY OF PRESENT ILLNESS GENERAL: SRINATH IS BEING SEEN FOR POST PROCEDURE FOLLOW-UP. HAD BILATERAL DIAGNOSTIC LUMBAR FACET BLOCKS AT HIS LAST VISIT. REPORTING APPROXIMATELY 4 HOURS OF RIGHT LOW BACK PAIN IMPROVEMENT WHICH WAS SIGNIFICANT AND THEN PAIN RETURNED TO BASELINE. REPORTING NO IMPROVEMENT IN LEFT LOW BACK PAIN POST PROCEDURE. REVIEWED MRI AND DISCUSSED TREATMENT PLAN.-. FALL RISK SCREENING: SCREENING :NO FALLS REPORTED IN THE LAST YEAR PAIN SCREENING: PATIENT HAS A COMPLAINT OF ACUTE OR CHRONIC PAIN :NO NURSING NOTE: -. PAIN CENTER INTAKE QUESTIONS: DO YOU HAVE A HISTORY OF MRSA? :NO DO YOU TAKE A BLOOD THINNERS? :NO DO YOU HAVE ANY BLEEDING DISORDERS? :NO ANY NEW NUMBNESS OR WEAKNESS IN YOUR LEGS OR ARMS? :NO ANY PACEMAKER,DEFIBRILLATOR, OR DORSAL COLUMN STIMULATOR? :NO DO YOU HAVE ANY RASHES OR OPEN SORES? :NO ARE YOU ALLERGIC TO IV DYE? :NO ARE YOU DIABETIC? :YES ANY NEW PROBLEMS WITH YOUR MEDICATIONS? :NO HAVE YOU RECEIVED A VACCINE IN THE PAST 30 DAYS? :NO DO YOU PLAN TO RECEIVE A VACCINE IN THE NEXT 21 DAYS? :NO DO YOU NEED ANY PRESCRIPTION? :YES TIZANIDINE, HYDROCODONE DO YOU TAKE ANY IMMUNOSUPPRESSIVE MEDICATIONS? :NO IS THERE A CHANCE YOU COULD BE ? :NO ARE YOU BREAST FEEDING? :NO CURRENT MEDICATIONS TAKING NASACORT ALLERGY 24HR 55 MCG/ACT AEROSOL 1 PUFF IN EACH NOSTRIL NASALLY ONCE A DAY TAKING METHOCARBAMOL 500 MG TABLET 1.5 TABLETS ORALLY THREE TIMES A DAY TAKING TIZANIDINE HCL 4 MG TABLET 1 TABLET NEEDED ORALLY THREE TIMES A DAY TAKING CHLORTHALIDONE 25 MG TABLET 1 TABLET IN THE MORNING WITH FOOD ORALLY EVERY MORNING TAKING LOSARTAN POTASSIUM 100 MG TABLET 1 TABLET ORALLY ONCE A DAY TAKING METFORMIN HCL ER 500 MG TABLET EXTENDED RELEASE 24 HOUR 3 TABLETS IN AM, 2 IN PM ORALLY BID TAKING DICLOFENAC SODIUM 1 % GEL 1 APPLICATION TO AFFECTED AREA TRANSDERMAL EVERY 4 HOURS NEEDED TAKING CYMBALTA 20 MG CAPSULE DELAYED RELEASE PARTICLES 2 CAPSULES ORALLY AT BEDTIME TAKING ASPIRIN 81 MG TABLET DELAYED RELEASE 1 TABLET ORALLY ONCE A DAY TAKING MULTIVITAMINS 1000 MG TABLET 1 TAB ORALLY ONCE A DAY TAKING GLUCOMETER 1 STRIP _ DAILY TAKING GLUCOMETER 1 LANCET SUBCUTANEOUSLY DAILY TAKING GLUCOMETER DIRECTED _ ONCE DAILY TAKING NYSTATIN [id number] UNIT/GM POWDER 1 APPLICATION TO AFFECTED AREA EXTERNALLY TWICE A DAY TAKING MICONAZOLE NITRATE 2 % CREAM 1 APPLICATION TO AFFECTED AREA EXTERNALLY TWICE A DAY TAKING GLIMEPIRIDE 1 MG TABLET 1 TABLET ORALLY BID TAKING CYMBALTA 60 MG CAPSULE DELAYED RELEASE PARTICLES 1 CAPSULE ORALLY ONCE A DAY TAKING COMBIVENT RESPIMAT 20-100 MCG/ACT AEROSOL 1 PUFF INHALATION FOUR TIMES DAILY, NEEDED TAKING ANORO ELLIPTA UMECLIDINIUM 62.5 MCG AND VILANTEROL 25 MCG INHALATION POWDER 1 INHALATION ORAL ONCE DAILY TAKING MUCINEX 600 MG TABLET EXTENDED RELEASE 12 HOUR 1 TABLET NEEDED ORALLY EVERY 12 HRS TAKING ALBUTEROL SULFATE (2.5 MG/3ML) 0.083% NEBULIZATION SOLUTION 3 ML NEEDED INHALATION EVERY 8 HRS TAKING MAY HAVE - - NEBULIZER FOR COPD EXACERBATION ORALLY EVERY 6 HOURS NEEDED TAKING ATORVASTATIN CALCIUM 80 MG TABLET 1 TABLET ORALLY ONCE A DAY TAKING PEPCID 20MG TABLET 1 TABLET ORALLY TWICE A DAY TAKING OMEPRAZOLE 40 MG CAPSULE DELAYED RELEASE 1 CAPSULE 30 MINUTES BEFORE MORNING MEAL ORALLY ONCE A DAY TAKING INVOKANA 100 MG TABLET 1 TABLET ORALLY ONCE A DAY TAKING MELOXICAM 7.5 MG TABLET 1 TAB ORALLY BID TAKING SINGULAIR 10 MG TABLET 1 TABLET ORALLY QHS TAKING NORCO 10-325 MG TABLET 1 TABLET NEEDED ORALLY FOR PAIN (THIS PRESCRIPTION SHOULD LAST 1 MONTH) EVERY 6 HOURS NEEDED MDD2 NOT-TAKING FLUOXETINE HCL 40 MG CAPSULE 1 TABLET ORALLY ONCE A DAY MEDICATION LIST REVIEWED AND RECONCILED WITH THE PATIENT PAST MEDICAL HISTORY HYPERTENSION-08/2016 NST LOW RISK, GOOD EXERCISE TOLERANCE-ANTECOL/ MILD CONCENTRIC SQG-VLE-SDULXIF HYPERLIPIDEMIA 2B GERD COPD-02/2012 FEV1 3.83 OBESITY, MORBID PRIOR NICOTINE ADDICTION-SMOKED 20 YEARS 1 1/2 PPD, QUIT IN 2006 T2DM NID C PERIPHERAL NEUROPATHY BLE PERIPHERAL EDEMA 2 MEDICAL NON-COMPLIANCE L SHOULDER OA 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 -CHELSEA, -SSA/SSB BY XRAY L2/3, 4/5, 5/1 BULGES ALL C MINIMAL SAC COMPRESSION BY 03/2014 MRI THORACIC [id number] 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 CTS-08/10/14 BUE NCS C SEVERE R, MODERATE-SEVERE L CTS-GONSALES S/P 10/2014 [facility] HAND OSTEOARTHRITIS ALLERGIC RHINITIS-03/2016 - ZONE 1 PANEL 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 COMPRESSION BY 11/2015 MRI-[facility] MILD CONCENTRIC LVH, CVP 10, NORMAL VIRIDIANA/SYS FUNCTION BY 08/2016 TTE-ANTECOL ALLERGIES TRILIPIX: AGITATION - SIDE EFFECTS TRIPLE ANTIBIOTIC: RASH /SWELLING - ALLERGY NIACIN: BURNING - ALLERGY SURGICAL HISTORY CHOLECYSTECTOMY 2007 APPENDECTOMY 1993 L SHOULDER ATROSCOPIC DEBRIDEMENT, CAPSULAR RELEASE, ACROMIOPLASTY, SYNOVECTOMY-YESENIA 11/25/13 UMBILCIAL HERNIA REPAIR-FANI 01/18/14 B [facility] 10/2014 LEFT KNEE TORN MANISCUS REPAIR 07/2018 FAMILY HISTORY FATHER: 68 YRS, T2DM, 2 COPD, DIAGNOSED WITH HYPERTENSION MOTHER: 61 YRS, CORONARY ARTERY DISEASE, STROKE, HYPERTENSION SIBLINGS: 2 SISTERS WITH DIABETES ONE WITH HEMA, ONE BROTHER OF CIRRHOSIS MATERNAL GRAND FATHER: STROKE MATERNAL GRAND MOTHER: STROKE 1 BROTHER(S) , 4 SISTER(S) . SOCIAL HISTORY GENERAL: TOBACCO USE ARE YOU A:FORMER SMOKER HOW LONG HAS IT BEEN SINCE YOU LAST SMOKED?> 10 YEARS LATEX QUESTIONNAIRE LATEX ALLERGY : HAVE YOU EVER DEVELOPED ANY TYPE OF REACTION AFTER HANDLING LATEX PRODUCTS SUCH RUBBER GLOVES, CONDOMS, DIAPHRAGMS, BALLOONS, SOCKS, OR UNDERWEAR?NO LATEX ALLERGY : HAVE YOU EVER DEVELOPED ANY TYPE OF REACTION DURING OR AFTER DENTAL APPOINTMENT, VAGINAL/RECTAL EXAMINATION, SURGICAL PROCEDURE, OR ANY OTHER EXPOSURE?NO LATEX RISK : HAVE YOU EVER HAD ANY DIFFICULTY BREATHING OR HIVES AFTER EATING OR HANDLING ANY FRUITS, OR VEGETABLES; SUCH KIWI, BANANAS, STONE FRUITS, OR CHESTNUTSNO LATEX RISK : DO YOU HAVE A PREVIOUS PERSONAL HISTORY OF MORE THAN NINE SURGERIES, SPINA BIFIDA, OR REPEATED CATHERIZATIONS? NO LATEX RISK : ARE YOU FREQUENTLY EXPOSED TO LATEX PRODUCTS IN YOUR OCCUPATION?NO DATE ASKED : 01/18/2020 BMI CARE GOAL FOLLOW-UP ABOVE NORMAL BMI FOLLOW-UP GIVING ENCOURAGEMENT TO EXERCISE. ALCOHOL SCREENING DID YOU HAVE A DRINK CONTAINING ALCOHOL IN THE PAST YEAR?YES HOW OFTEN DID YOU HAVE SIX OR MORE DRINKS ON ONE OCCASION IN THE PAST YEAR?NEVER (0 POINTS) HOW MANY DRINKS DID YOU HAVE ON A TYPICAL DAY WHEN YOU WERE DRINKING IN THE PAST YEAR?1 OR 2 (0 POINTS) HOW OFTEN DID YOU HAVE A DRINK CONTAINING ALCOHOL IN THE PAST YEAR?MONTHLY OR LESS (1 POINT) POINTS1 INTERPRETATIONNEGATIVE RECREATIONAL DRUG USE DRUG USE?NO CAFFEINE CAFFEINE USE?YES SEXUAL HX HAD SEX IN THE LAST 12 MONTHS (VAGINAL, ORAL, OR ANAL)?NO HAVE YOU EVER HAD AN STD?NO HIV / HEP-C SCREENING HIV TEST OFFERED TO PATIENT:YES DATE OFFERED:07/30/2016 TEST ACCEPTED:NO HEP-C TEST OFFERED TO PATIENT:YES DATE OFFERED:07/30/2016 REASON:PATIENT DECLINED TEST ACCEPTED:NO REASON:PATIENT DECLINED TENRIISM [id number] JEWISH LANGUAGE LANGUAGES SPOKEN:CAMEROONIAN EDUCATION LEVEL OF EDUCATION:NOT FINISHED HIGH SCHOOL 10TH GRADE LEARNING BARRIERS / SPECIAL NEEDS CHANGE FROM LAST VISIT?NO BARRIERS TO LEARNING?NO HEARING IMPAIRED?NO VISION IMPAIRED?NO COGNITIVELY IMPAIRED?NO READINESS TO LEARN?NO LEARNING PREFERENCES?NO LEARNING CAPABILITIES PRESENT?NO EMOTIONAL BARRIERS?NO SPECIAL DEVICES?NO DAY HABILITATION SPECIALIST NEEDED?NO DOMESTIC VIOLENCE DO YOU FEEL SAFE IN YOUR ENVIRONMENT?YES 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 DIET: SUPPOSED TO BEING A HEART HEALTHY DIET. EXERCISE: WALKS, BIKES. MARITAL STATUS: , ONE CHILD. PAIN CLINIC PFS, CLERGY, PUBLIC HEALTH REFERRALS WAS THE PROVIDER NOTIFIED OF ANY PERTINENT INFO?YES HAS THE PATIENT BEEN EDUCATED REGARDING HIS/HER PLAN OF CARE?YES HAS THE PATIENT BEEN EDUCATED REGARDING PAIN, THE RISK FOR PAIN, THE IMPORTANCE OF EFFECTIVE PAIN MANAGEMENT, AND THE PAIN ASSESSMENT PROCESS?YES ADVANCE DIRECTIVE ADVANCE DIRECTIVE DISCUSSED WITH PATIENT:YES PT DECLINES HCP INFORMATION AT THIS TIME. MOVED FROM [facility] IN 2005-BORN THEREREVIEWED WITH PT 02/06/18 1031 BVREVIEWED WITH PATIENT 03/19/18 0925 JSREVIEWED WITH PATIENT 12/24/18 1446 JSREVIEWED WITH PATIENT 03/25/19 1500 BV. HOSPITALIZATION/MAJOR DIAGNOSTIC PROCEDURE ABOVE REVIEW OF SYSTEMS CONSTITUTIONAL: ANY RECENT FEVER NO . CHILLS NO . WEIGHT CHANGE OF UNKNOWN REASONS NO . GASTROENTEROLOGY: NEW UNEXPLAINABLE CHANGES IN BOWEL CONTROL NO . CONSTIPATION NO . GENITOURINARY: ANY NEW CHANGE IN BLADDER CONTROL? NO . NEUROLOGY: NEW ONSET DIZZINESS OR NEUROLOGICAL CHANGES NOT MENTIONED NO . NEW NUMBNESS OR PAIN PATTERNS NOT MENTIONED AND PERTINENT TO TODAY'S VISIT NO . CARDIOLOGY: NEW CHEST PRESSURE NO . NEW CHEST PAIN NO . RESPIRATORY: UNEXPLAINABLE COUGH NO . NEW SHORTNESS OF BREATH NO . VITAL SIGNS WT 341.8 LBS, HT 70.00", BMI 49.04 INDEX, BP 156/77 MM HG, HR 98 /MIN, RR 18 /MIN, TEMP 96.2 F, OXYGEN SAT % 94%, NA INITIALS AW 1121, REVIEWED BY: EM. EXAMINATION GENERAL EXAMINATION: GENERAL AWAKE,ALERT ,PLEAASANT . PSYCH AFFECT NORMAL . LUNGS: LUNG BACH ARE CLEAR TO AUSCULTATION BILATERALLY. GOOD MOVEMENT OF AIR . HEART: S1, S2 IN A REGULAR RATE AND RHYTHM. NO SIGNIFICANT MURMURS, RUBS OR GALLOPS NOTED . LUMBAR:PALPATION:TENDER OVER BILAT. L4/5-L5/S1 LUMBAR FACETS WITH FACET LOADING.. DIAGNOSTIC TESTS REVIEWEDMRI L/S SPINE -11/17/15. ASSESSMENTS SPONDYLOSIS OF LUMBAR REGION WITHOUT MYELOPATHY OR RADICULOPATHY - M47.816 (PRIMARY) TREATMENT SPONDYLOSIS OF LUMBAR REGION WITHOUT MYELOPATHY OR RADICULOPATHY REFILL TIZANIDINE HCL TABLET, 4 MG, 1 TABLET NEEDED, ORALLY, BEFORE BEDTIME, 30 DAYS, 30, REFILLS 0 REFILL NORCO TABLET, 10-325 MG, 1 TABLET NEEDED, ORALLY FOR PAIN (THIS PRESCRIPTION SHOULD LAST 1 MONTH), EVERY 6 HOURS NEEDED MDD2, 30 DAYS, 60, REFILLS 0 NOTES: RIGHT L4-5 L5-S1 LUMBAR FACET BLOCK DIAGNOSTIC #2 , ISTOP REGISTRY REVIEWED AND DEMONSTRATES COMPLLIANCE. (REF # ) BRINGS IN MEDICATIONS WHICH IS APPROPRIATE FOR WHAT WAS DISPENSED. RECENT URINE TOXICOLOGY REVIEWED. NO UNAUTHORIZED MEDICATIONS. NO ILLICIT SUBSTANCES AND PRESCRIBED MEDICATIONS WERE PRESENT. , RISKS OF NARCOTIC/OPIOD MEDICATIONS INCLUDES BUT IS NOT LIMITED TO RISK OF DEPENDANCE/DEVELOPMENT OF ADDICTION, MOOD DISTURBANCE AND DEPRESSION, OSTEOPOROSIS, HORMONAL AND LABIDAL CHANGES, RESPIRATORY DEPRESSION AND . PATIENT IS ADVISED NOT TO DRIVE OR DRINK ALCOHOL WHILE ON THESE MEDICATIONS. PROCEDURE CODES [id number] ESTABILISHED PATIENT [facility] FACILITY CHARGE DISPOSITION & COMMUNICATION FOLLOW UP POST PROCEDURE (REASON: RIGHT L4-5 L5-S1 LUMBAR FACET BLOCK DIAGNOSTIC #2) ELECTRONICALLY SIGNED BY LIZBETH GUTIERREZ ON 01/20/2020 AT 03:29 PM EDT DISCLAIMER : THIS IS A VISIT SUMMARY EXTRACTED FROM THE [facility] CHART. IT IS NOT A COPY OF THE [facility] PROGRESS NOTE. MTDD
== END ==
LOC: M PAIN 10:30
PROVIDERS: ATTEND Nurse Practitioner Family
DX: M47.816 Spondylosis without myelopathy or radiculopathy, lumbar region (principal); K21.9 Gastro-esophageal reflux disease without esophagitis; J44.9 Chronic obstructive pulmonary disease, unspecified; E11.40 Type 2 diabetes mellitus with diabetic neuropathy, unspecified; Z87.891 Personal history of nicotine dependence; Z88.1 Allergy status to other antibiotic agents; Z88.8 Allergy status to other drugs, medicaments and biological substances; E66.01 Morbid (severe) obesity due to excess calories; Z68.42 Body mass index [BMI] 45.0-49.9, adult; Z79.82 Long term (current) use of aspirin; Z79.51 Long term (current) use of inhaled steroids; Z79.84 Long term (current) use of oral hypoglycemic drugs; Z79.899 Other long term (current) drug therapy

== ENCOUNTER → 2020-01-21 | Outpatient (CLI) | payer BC ==
[2020-01-21 16:50] LABS: BASO # 0.1 10^3/uL (0.0-0.2); BASO % 1.3 % (0.0-1.0); EOS # 0.1 10^3/uL (0.0-0.5); EOS % 1.6 % (0.0-3.0); HEMATOCRIT 44.8 % (42.0-52.0); HEMOGLOBIN 14.6 g/dl (13.5-17.5); LYMPH # 2.1 10^3/uL (1.5-5.0); LYMPH % 34.7 % (24.0-44.0); MEAN CORPUSCULAR HEMOGLOBIN 31.2 pg (27.0-33.0); MEAN CORPUSCULAR HGB CONC 32.6 g/dl (32.0-36.5); MEAN CORPUSCULAR VOLUME 95.7 fl (80.0-96.0); MONO # 0.5 10^3/uL (0.0-0.8); MONO % 8.9 % (0.0-5.0); NEUTROPHILS # 3.2 10^3/uL (1.5-8.5); PLATELET COUNT, AUTOMATED 233 10^3/uL (150-450); RED BLOOD COUNT 4.68 10^6/uL (4.30-6.10); WHITE BLOOD COUNT 6.1 10^3/uL (4.0-10.0)
[2020-01-21 17:13] LABS: ALBUMIN 3.8 GM/DL (3.2-5.2); ALT/SGPT 68 U/L (12-78); BILIRUBIN,TOTAL 0.4 MG/DL (0.2-1.0); BLOOD UREA NITROGEN 13 MG/DL (7-18); CALCIUM LEVEL 8.9 MG/DL (8.5-10.1); CARBON DIOXIDE LEVEL 32 MEQ/L (21-32); CHLORIDE LEVEL 101 MEQ/L (98-107); CHOLESTEROL LEVEL 194 MG/DL (<200); CHOLESTEROL RISK RATIO 6.466 (<5); CREATININE FOR GFR 0.79 MG/DL (0.70-1.30); GLOMERULAR FILTRATION RATE > 60.0 (>60); GLUCOSE, FASTING 201 MG/DL (70-100); HDL CHOLESTEROL 30 MG/DL (>40); NON-HDL-C 164 MG/DL; POTASSIUM SERUM 4.5 MEQ/L (3.5-5.1); SODIUM LEVEL 140 MEQ/L (136-145); TOTAL PROTEIN 6.7 GM/DL (6.4-8.2); TRIGLYCERIDES LEVEL 910 MG/DL (<150)
[2020-01-21 17:16] LABS: HEMOGLOBIN A1c 7.4 %
== END ==
LOC: M WUC 10:45
PROVIDERS: ATTEND Physician Assistant Medical
DX: Z09 Encounter for follow-up examination after completed treatment for conditions other than malignant neoplasm (principal)

== ENCOUNTER → 2020-01-26 | Outpatient (CLI) | payer BC | LOC: M LABSMTC 14:19 | PROVIDERS: ATTEND Anesthesiology | DX: Z20.828 Contact with and (suspected) exposure to other viral communicable diseases (principal) | CPT/HCPCS: C9803; U0003 ==

== ENCOUNTER → 2020-01-31 | Outpatient (CLI) | payer BC ==
--- NOTE | 2020-01-31 17:51 | REP ---
INDICATION: RIGHT SIDED LUMBAR DIAGNOSTIC FACET BLOCK #2. COMPARISON: None. TECHNIQUE: Two views. 17.3 seconds of fluoroscopy time is reported. FINDINGS: A sequence of 2 last image hold fluoroscopically obtained spot radiographs of the lumbosacral junction document various needle positions and contrast injections associated with facet injection procedure. IMPRESSION: Procedural imaging. <Electronically signed by Christian Goodrich > 01/31/20 1952
--- NOTE | 2020-02-05 01:45 | ECWPNPC ---
PATIENT NAME: SRINATH GUPTA : 1970 GENDER: MALE VISIT DATE: 01/31/2020 DISCHARGE DATE: 01/31/201641 VISIT LOCKED DATE TIME: PHYSICIAN: AGUEDA MORALES MD PHYSICIAN PAGER NO: ACTIVE RESOURCE: AGUEDA MORALES MD REASON FOR APPOINTMENT 1. RIGHT L4-5 L5-S1 LUMBAR FACET BLOCK DIAGNOSTIC #2 HISTORY OF PRESENT ILLNESS GENERAL: -. FALL RISK SCREENING: SCREENING :ONE FALL WITH INJURY IN THE PAST YEAR LAST WINTER SLIPPED AND FELL ON ICE INJURING ANKLE AND KNEE. PAIN SCREENING: PATIENT HAS A COMPLAINT OF ACUTE OR CHRONIC PAIN :YES LOCATION OF PAIN:LOW BACK, LEG(S) BILATERAL LEG RIGHT GREATER THAN LEFT INTENSITY OF PAIN (SCALE OF 1 TO 10):7 WHAT DOES YOUR PAIN FEEL LIKE:ACHING, BURNING, CONTINOUS, SHARP, STABBING DURATION:CONTINOUS PAIN IS INCREASED BY:PROLONGED STANDING, ACTIVITIES PAIN IS DECREASED BY:OTHERS NOTHING MAKES THE PAIN BETTER PLAN/GOALS/TREATMENT/INTERVENTION/FOLLOW UP:SEE PLAN NURSING NOTE: -. PAIN CENTER INTAKE QUESTIONS: DO YOU HAVE A HISTORY OF MRSA? :NO DO YOU TAKE A BLOOD THINNERS? :NO DO YOU HAVE ANY BLEEDING DISORDERS? :NO ANY NEW NUMBNESS OR WEAKNESS IN YOUR LEGS OR ARMS? :NO ANY PACEMAKER,DEFIBRILLATOR, OR DORSAL COLUMN STIMULATOR? :NO DO YOU HAVE ANY RASHES OR OPEN SORES? :NO ARE YOU ALLERGIC TO IV DYE? :NO ARE YOU DIABETIC? :YES ANY NEW PROBLEMS WITH YOUR MEDICATIONS? :NO HAVE YOU RECEIVED A VACCINE IN THE PAST 30 DAYS? :NO DO YOU PLAN TO RECEIVE A VACCINE IN THE NEXT 21 DAYS? :NO DO YOU TAKE ANY IMMUNOSUPPRESSIVE MEDICATIONS? :NO ANY HISTORY OF SEIZURES? :NO ANY HISTORY OF CARDIAC ISSUES OR EVENTS? :NO DO YOU HAVE SLEEP APNEA? :NO ANY RECENT HEAD INJURY? :NO DO YOU HAVE ANY NEW INFECTIONS? :NO IS THERE A CHANCE YOU COULD BE ? :NO ARE YOU BREAST FEEDING? :NO WHEN DID YOU LAST EAT? : 01/31/2020 0100 WHEN DID YOU LAST DRINK? : 01/31/2020 0800 WHAT DID YOU LAST DRINK? : WATER NAME OF PERSON DRIVING YOU HOME? : MARIANA () DO YOU HAVE ANY OTHER QUESTIONS OR CONCERNS? : - CURRENT MEDICATIONS TAKING ASPIRIN 81 MG TABLET DELAYED RELEASE 1 TABLET ORALLY ONCE A DAY, NOTES: 01/31/202099 TAKING MULTIVITAMINS 1000 MG TABLET 1 TAB ORALLY ONCE A DAY, NOTES: 01/31/202099 TAKING GLUCOMETER 1 STRIP _ DAILY TAKING GLUCOMETER 1 LANCET SUBCUTANEOUSLY DAILY TAKING GLUCOMETER DIRECTED _ ONCE DAILY TAKING NYSTATIN [id number] UNIT/GM POWDER 1 APPLICATION TO AFFECTED AREA EXTERNALLY TWICE A DAY, NOTES: PRN TAKING MICONAZOLE NITRATE 2 % CREAM 1 APPLICATION TO AFFECTED AREA EXTERNALLY TWICE A DAY, NOTES: PRN TAKING GLIMEPIRIDE 1 MG TABLET 1 TABLET ORALLY BID, NOTES: 01/30/2020 1800 TAKING VITAMIN B12 1 MG TABLET 1 TABLET ORALLY ONCE A DAY, NOTES: 01/31/202099 TAKING NASACORT ALLERGY 24HR 55 MCG/ACT AEROSOL 1 PUFF IN EACH NOSTRIL NASALLY ONCE A DAY, NOTES: PRN TAKING METHOCARBAMOL 750 MG TABLET 1 TABLET ORALLY THREE TIMES A DAY, NOTES: 01/31/202099 TAKING NORCO 10-325 MG TABLET 1 TABLET NEEDED ORALLY FOR PAIN (THIS PRESCRIPTION SHOULD LAST 1 MONTH) EVERY 6 HOURS NEEDED MDD2, NOTES: 01/30/20202199 TAKING TIZANIDINE HCL 4 MG TABLET 1 TABLET NEEDED ORALLY THREE TIMES A DAY, NOTES: 01/29/20202199 TAKING MELOXICAM 7.5 MG TABLET 1 TAB ORALLY BID, NOTES: 01/29/20202199 TAKING FLUOXETINE HCL 40 MG CAPSULE 1 TABLET IN THE MORNING ORALLY ONCE A DAY, NOTES: 01/31/202099 TAKING CHLORTHALIDONE 25 MG TABLET 1 TABLET IN THE MORNING WITH FOOD ORALLY EVERY MORNING, NOTES: 01/31/202099 TAKING LOSARTAN POTASSIUM 100 MG TABLET 1 TABLET ORALLY ONCE A DAY, NOTES: 01/31/202099 TAKING DICLOFENAC SODIUM 1 % GEL 1 APPLICATION TO AFFECTED AREA TRANSDERMAL EVERY 4 HOURS NEEDED, NOTES: PRN TAKING COMBIVENT RESPIMAT 20-100 MCG/ACT AEROSOL 1 PUFF INHALATION FOUR TIMES DAILY, NEEDED, NOTES: 01/31/2020 0800 TAKING ANORO ELLIPTA UMECLIDINIUM 62.5 MCG AND VILANTEROL 25 MCG INHALATION POWDER 1 INHALATION ORAL ONCE DAILY, NOTES: 01/31/2020799 TAKING MUCINEX 600 MG TABLET EXTENDED RELEASE 12 HOUR 1 TABLET NEEDED ORALLY EVERY 12 HRS, NOTES: PRN TAKING SINGULAIR 10 MG TABLET 1 TABLET ORALLY QHS, NOTES: 01/30/20202199 TAKING ALBUTEROL SULFATE (2.5 MG/3ML) 0.083% NEBULIZATION SOLUTION 3 ML NEEDED INHALATION EVERY 8 HRS, NOTES: PRN TAKING MAY HAVE - - NEBULIZER FOR COPD EXACERBATION ORALLY EVERY 6 HOURS NEEDED TAKING PEPCID 20MG TABLET 1 TABLET ORALLY TWICE A DAY, NOTES: 01/31/202099 TAKING OMEPRAZOLE 40 MG CAPSULE DELAYED RELEASE 1 CAPSULE 30 MINUTES BEFORE MORNING MEAL ORALLY ONCE A DAY, NOTES: 01/31/202099 TAKING ATORVASTATIN CALCIUM 80 MG TABLET 1 TABLET ORALLY ONCE A DAY, NOTES: 01/31/202099 TAKING METFORMIN HCL ER 500 MG TABLET EXTENDED RELEASE 24 HOUR 3 TABLETS IN AM, 2 IN PM ORALLY BID, NOTES: 01/30/2020 1800 TAKING INVOKANA 100 MG TABLET 1 TABLET ORALLY ONCE A DAY, NOTES: 01/30/2020 0800 TAKING TRULICITY 0.75 MG/0.5ML SOLUTION PEN-INJECTOR 1 INJECTION SUBCUTANEOUS WEEK, NOTES: 01/30/2020 1800 TAKING GEMFIBROZIL 600 MG TABLET 1 TABLET 30 MINUTES BEFORE MORNING AND EVENING MEALS ORALLY TWICE A DAY, NOTES: 01/31/202099 TAKING DULOXETINE HCL 60 MG CAPSULE DELAYED RELEASE PARTICLES 1 CAPSULE ORALLY ONCE A DAY, NOTES: 01/31/202099 NOT-TAKING CYMBALTA 20 MG CAPSULE DELAYED RELEASE PARTICLES 2 CAPSULES ORALLY AT BEDTIME NOT-TAKING MAY HAVE - - DIRECTED 1 UNIT ORALLY EVERY 6 HOURS NEEDED MEDICATION LIST REVIEWED AND RECONCILED WITH THE PATIENT PAST MEDICAL HISTORY HYPERTENSION-08/2016 NST LOW RISK, GOOD EXERCISE TOLERANCE-ANTECOL/ MILD CONCENTRIC [id number] HYPERLIPIDEMIA 2B GERD COPD-02/2012 FEV1 3.83 OBESITY, MORBID PRIOR NICOTINE ADDICTION-SMOKED 20 YEARS 1 1/2 PPD, QUIT IN 2006 T2DM NID C PERIPHERAL NEUROPATHY BLE PERIPHERAL EDEMA 2 MEDICAL NON-COMPLIANCE L SHOULDER OA 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 -CHELSEA, -SSA/SSB BY XRAY L2/3, 4/5, 5/ BULGES ALL C MINIMAL SAC COMPRESSION BY 03/2014 MRI THORACIC [id number] 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 CTS-08/10/14 BUE NCS C SEVERE R, MODERATE-SEVERE L CTS-ILDA S/P 10/2014 [facility] [email or web address] OSTEOARTHRITIS ALLERGIC RHINITIS-03/2016 - ZONE 1 PANEL 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 COMPRESSION BY 11/2015 MRI-[facility] MILD CONCENTRIC LVH, CVP 10, NORMAL VIRIDIANA/SYS FUNCTION BY 08/2016 TTE-ANTECOL ALLERGIES TRILIPIX: AGITATION - SIDE EFFECTS TRIPLE ANTIBIOTIC: RASH /SWELLING - ALLERGY NIACIN: BURNING - ALLERGY SURGICAL HISTORY CHOLECYSTECTOMY 2007 APPENDECTOMY 1993 L SHOULDER ATROSCOPIC DEBRIDEMENT, CAPSULAR RELEASE, ACROMIOPLASTY, SYNOVECTOMY-YESENIA 11/25/13 UMBILCIAL HERNIA REPAIR-FANI 01/18/14 B [facility] 10/2014 LEFT KNEE TORN MANISCUS REPAIR 07/2018 FAMILY HISTORY FATHER: 68 YRS, T2DM, 2 COPD, DIAGNOSED WITH HYPERTENSION MOTHER: 61 YRS, CORONARY ARTERY DISEASE, STROKE, HYPERTENSION SIBLINGS: 2 SISTERS WITH DIABETES ONE WITH HEMA, ONE BROTHER OF CIRRHOSIS MATERNAL GRAND FATHER: STROKE MATERNAL GRAND MOTHER: STROKE 1 BROTHER(S) , 4 SISTER(S) . SOCIAL HISTORY GENERAL: TOBACCO USE ARE YOU A:FORMER SMOKER HOW LONG HAS IT BEEN SINCE YOU LAST SMOKED?> 10 YEARS LATEX QUESTIONNAIRE LATEX ALLERGY : HAVE YOU EVER DEVELOPED ANY TYPE OF REACTION AFTER HANDLING LATEX PRODUCTS SUCH RUBBER GLOVES, CONDOMS, DIAPHRAGMS, BALLOONS, SOCKS, OR UNDERWEAR?NO LATEX ALLERGY : HAVE YOU EVER DEVELOPED ANY TYPE OF REACTION DURING OR AFTER DENTAL APPOINTMENT, VAGINAL/RECTAL EXAMINATION, SURGICAL PROCEDURE, OR ANY OTHER EXPOSURE?NO DATE ASKED : 01/18/2020 LATEX RISK : HAVE YOU EVER HAD ANY DIFFICULTY BREATHING OR HIVES AFTER EATING OR HANDLING ANY FRUITS, OR VEGETABLES; SUCH KIWI, BANANAS, STONE FRUITS, OR CHESTNUTSNO LATEX RISK : DO YOU HAVE A PREVIOUS PERSONAL HISTORY OF MORE THAN NINE SURGERIES, SPINA BIFIDA, OR REPEATED CATHERIZATIONS? NO LATEX RISK : ARE YOU FREQUENTLY EXPOSED TO LATEX PRODUCTS IN YOUR OCCUPATION?NO BMI CARE GOAL FOLLOW-UP ABOVE NORMAL BMI FOLLOW-UP GIVING ENCOURAGEMENT TO EXERCISE. ALCOHOL SCREENING DID YOU HAVE A DRINK CONTAINING ALCOHOL IN THE PAST YEAR?YES HOW OFTEN DID YOU HAVE SIX OR MORE DRINKS ON ONE OCCASION IN THE PAST YEAR?NEVER (0 POINTS) HOW MANY DRINKS DID YOU HAVE ON A TYPICAL DAY WHEN YOU WERE DRINKING IN THE PAST YEAR?1 OR 2 (0 POINTS) HOW OFTEN DID YOU HAVE A DRINK CONTAINING ALCOHOL IN THE PAST YEAR?MONTHLY OR LESS (1 POINT) POINTS1 INTERPRETATIONNEGATIVE RECREATIONAL DRUG USE DRUG USE?NO CAFFEINE CAFFEINE USE?YES SEXUAL HX HAD SEX IN THE LAST 12 MONTHS (VAGINAL, ORAL, OR ANAL)?NO HAVE YOU EVER HAD AN STD?NO HIV / HEP-C SCREENING HIV TEST OFFERED TO PATIENT:YES DATE OFFERED:07/30/2016 TEST ACCEPTED:NO HEP-C TEST OFFERED TO PATIENT:YES DATE OFFERED:07/30/2016 REASON:PATIENT DECLINED TEST ACCEPTED:NO REASON:PATIENT DECLINED RASTAFARI [id number] MU-ISM LANGUAGE LANGUAGES SPOKEN:ESTONIAN EDUCATION LEVEL OF EDUCATION:NOT FINISHED HIGH SCHOOL 10TH GRADE LEARNING BARRIERS / SPECIAL NEEDS CHANGE FROM LAST VISIT?NO BARRIERS TO LEARNING?NO HEARING IMPAIRED?NO VISION IMPAIRED?NO COGNITIVELY IMPAIRED?NO READINESS TO LEARN?NO LEARNING PREFERENCES?NO LEARNING CAPABILITIES PRESENT?NO EMOTIONAL BARRIERS?NO SPECIAL DEVICES?NO SERVICE OR WORK DISPATCHER CHIEF NEEDED?NO DOMESTIC VIOLENCE DO YOU FEEL SAFE IN YOUR ENVIRONMENT?YES 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 DIET: SUPPOSED TO BEING A HEART HEALTHY DIET. EXERCISE: WALKS, BIKES. MARITAL STATUS: , ONE CHILD. PAIN CLINIC PFS, CLERGY, PUBLIC HEALTH REFERRALS WAS THE PROVIDER NOTIFIED OF ANY PERTINENT INFO?YES HAS THE PATIENT BEEN EDUCATED REGARDING HIS/HER PLAN OF CARE?YES HAS THE PATIENT BEEN EDUCATED REGARDING PAIN, THE RISK FOR PAIN, THE IMPORTANCE OF EFFECTIVE PAIN MANAGEMENT, AND THE PAIN ASSESSMENT PROCESS?YES ADVANCE DIRECTIVE ADVANCE DIRECTIVE DISCUSSED WITH PATIENT:YES PT DECLINES HCP INFORMATION AT THIS TIME. MOVED FROM [facility] IN 2005-BORN THEREREVIEWED WITH PT 02/06/18 1031 BVREVIEWED WITH PATIENT 03/19/18 0925 JSREVIEWED WITH PATIENT 12/24/18 1446 JSREVIEWED WITH PATIENT 03/25/19 1500 BV. HOSPITALIZATION/MAJOR DIAGNOSTIC PROCEDURE ABOVE VITAL SIGNS WT 329.4 LBS, HT 70.00", BMI 47.26 INDEX, BP 139/88 MM HG, HR 77 /MIN, RR 18 /MIN, TEMP 96.2 F, OXYGEN SAT % 96%, BLOOD GLUCOSE LEVEL 145, SAFE IN ENV? (Y/N) YES, NA INITIALS KS 14:43, REVIEWED BY: MIGUELITO. 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 PROCEDURES PAIN NURSING RECORD PRE-PROCEDURE IV SITE N/A PROCEDURE IN ROOM 1550, PHYSICIAN IN ROOM 1606, START 1613, FINISH 1618, PHYSICIAN OUT OF ROOM 1618, OUT OF ROOM 1624, STEROID N/A, O2 RA, ECG NORMAL SINUS, PATIENT SHIELDED YES, SAFETY STRAP YES, PREP CHLOROPREP BY Anastasiya DANIELLE RN, IV INFUSED N/A, DRESSING TEGADERM BY DR MORALES LOC: PEGGY CORREIALE 01/31/2020 3:52:12 PM > , 1. ALERT, ORIENTED RESP: PEGGY CORREIALE 01/31/2020 3:52:16 PM > , 1. REGULAR, NO DYSPNEA COLOR: PEGGY CORREIALE 01/31/2020 3:52:20 PM > , 1. PINK SKIN: BRENMIRELLA 01/31/2020 3:59:10 PM > , 1. WARM, DRY, POSITION: BRENMIRELLA 01/31/2020 3:59:58 PM > , 1. PRONE VITALS: PEGGY CORREIALE 01/31/2020 4:00:03 PM > 189/[id number]% RA MIRELLA CORREIA 01/31/2020 1629 PM> 154/84 (MANUAL)- 84-18-97% DISCHARGE: POST PAIN 5 LOWER BACK, DRESSING SITE DRY AND INTACT LOWER BACK, IV N/A, GAIT STEADY, TEACHING COMPLETED, PATIENT ACKNOWLEDGES UNDERSTANDING YES PATIENT VERBALIZES UNDERSTANDING OF DISCHARGE INSTRUCTIONS REVIEWED.NLJ, PATIENT DISCHARGED AT 1635 PN LUMBAR FACET BLOCK DIAGNOSTIC PRE PROCEDURE DIAGNOSIS LUMBAR SPONDYLOSIS, LUMBOSACRAL SPONDYLOSIS POST PROCEDURE DIAGNOSIS LUMBAR SPONDYLOSIS, LUMBOSACRAL SPONDYLOSIS PROCEDURE RIGHT L4-L5 AND RIGHT L5-S1 FACET BLOCK DIAGNOSTIC NUMBER [address] AGUEDA MORALES SADDLE TREE STITCHER NONE ANESTHESIA LOCAL PRE PROCEDURE NOTE THE PATIENT WITH HISTORY OF CHRONIC LOW BACK PAIN. I EVALUATED THE PATIENT AND REVIEWED THE CHART. I WENT OVER THE RISKS, ALTERNATIVES, AND BENEFITS ASSOCIATED WITH THIS PROCEDURE. THE PATIENT WOULD LIKE TO PROCEED AND GAVE CONSENT TO PERFORM THE PROCEDURE. AGREED WITH THE PATIENT, WE ARE DOING THIS PROCEDURE TO DETERMINE IF THE PATIENT IS A CANDIDATE FOR A RADIOFREQUENCY ABLATION OF THE FACETS JOINTS. THE PATIENT DENIES UNEXPLAINABLE WEIGHT LOSS, FEVER, CHILLS, OR NEW CHANGES IN URINARY OR BOWEL CONTROL. THE PATIENT IS COVID-19 NEGATIVE DESCRIPTION OF PROCEDURE THE PATIENT WAS BROUGHT TO THE PROCEDURE ROOM AND PLACED IN THE PRONE POSITION. THE LUMBOSACRAL AREA WAS CLEANED WITH CHLORAPREP SOLUTION AND DRAPED ASEPTICALLY. THE PROCEDURE WAS DONE UNDER STERILE CONDITIONS. A TIMEOUT WAS PERFORMED WHERE LATERALITY AND THE SITE OF THE PROCEDURE WERE CHECKED AND CONFIRMED WITH EVERYONE IN THE ROOM. UNDER FLUOROSCOPIC GUIDANCE, TARGETS WERE SELECTED AT THE INTERSECTION OF THE RIGHT TRANSVERSE PROCESS OF L4, L5 AND ALA OF S1 WITH ITS RESPECTIVE SUPERIOR ARTICULAR PROCESS. I CONFIRMED AGAIN WITH EVERYONE IN THE ROOM THE LATERALITY OF THE TARGET. LIDOCAINE WAS USED TO NUMB THE SKIN AND THE SUBCUTANEOUS TISSUE BELOW IT. SPINAL NEEDLE, 22-GAUGE, WAS ADVANCED UNDER FLUOROSCOPIC GUIDANCE AND FOLLOWING PATIENT FEEDBACK UNTIL THE TARGETS WERE REACHED. POSITION OF THE NEEDLES WAS VERIFIED WITH AP AND LATERAL VIEWS. AFTER PROPER POSITION OF THE NEEDLES WAS ACHIEVED, ISOVUE-M DYE 30%, 0.1 ML, WAS INJECTED AT EACH SITE SHOWING ADEQUATE SPREAD OF THE DYE. THEN, A SOLUTION OF 0.5 ML OF BUPIVACAINE 0.25% WAS INJECTED AT EACH SITE. THE MEDICATIONS WERE VERIFIED WITH THE NURSE. THERE WAS NO EVIDENCE OF BLOOD, PARESTHESIA OR CEREBROSPINAL FLUID DURING THE PROCEDURE. THE PATIENT WAS SENT TO THE RECOVERY ROOM. THE PATIENT WAS MOVING THE EXTREMITIES AND DOING WELL. THERE WERE NO COMPLICATIONS DURING THE PROCEDURE. ESTIMATED BLOOD LOSS WAS LESS THAN 5 ML. FLUOROSCOPY TIME WAS 17 SECONDS POST PROCEDURE NOTE THE PATIENT WILL DOCUMENT THE PAIN LEVEL AND RESPONSE TO THIS PROCEDURE PER PAIN DIARY. THE PATIENT WILL BE SEEN IN A FOLLOW UP IN THE NEXT FEW WEEKS. FURTHER DETERMINATION FOR THE PATIENT'S CASE WILL BE DONE AT THE NEXT VISIT. INSTRUCTIONS WERE GIVEN, QUESTIONS WERE ANSWERED, AND THE PATIENT EXPRESSED UNDERSTANDING AND AGREED WITH THE PLAN. I, MOLLY DENTON, DOCUMENTED THE ABOVE INFORMATION ACTING A SCRIBE FOR DR. MORALES. I HAVE REVIEWED THE ABOVE DOCUMENT, WRITTEN BY MOLLY DENTON, SIZE ROLLER OPERATOR, AND I VERIFY THAT IT IS ACCURATE PROCEDURE CODES 25081 INJ PARAVERT F JNT L/S 1 LEV, [place]IFIERS: [place] [id number] INJ PARAVERT F JNT L/S 2 LEV, MODIFIERS: RT DISPOSITION & COMMUNICATION FOLLOW UP FOLLOW UP WITH ENGINEERING INSTRUCTOR (REASON: POST DIAGNOSTIC #2 FACET BLOCK RIGHT L4-L5, L5-S1) ELECTRONICALLY SIGNED BY AGUEDA MORALES MD, MD ON 02/04/2020 AT 04:35 PM EDT DISCLAIMER : THIS IS A VISIT SUMMARY EXTRACTED FROM THE [email or web address] CHART. IT IS NOT A COPY OF THE [facility] [email or web address] PROGRESS NOTE. PAT
== END ==
LOC: M PAIN 14:30
PROVIDERS: ATTEND Anesthesiology
DX: M47.816 Spondylosis without myelopathy or radiculopathy, lumbar region (principal); M47.817 Spondylosis without myelopathy or radiculopathy, lumbosacral region; I10 Essential (primary) hypertension; E78.5 Hyperlipidemia, unspecified; K21.9 Gastro-esophageal reflux disease without esophagitis; J44.9 Chronic obstructive pulmonary disease, unspecified; E66.01 Morbid (severe) obesity due to excess calories; Z68.42 Body mass index [BMI] 45.0-49.9, adult; E11.42 Type 2 diabetes mellitus with diabetic polyneuropathy; Z87.891 Personal history of nicotine dependence; Z79.82 Long term (current) use of aspirin; Z79.899 Other long term (current) drug therapy; Z79.84 Long term (current) use of oral hypoglycemic drugs; Z88.8 Allergy status to other drugs, medicaments and biological substances; Z88.1 Allergy status to other antibiotic agents
CPT/HCPCS: 64493; 64494; Q9967

== ENCOUNTER → 2020-02-24 | Outpatient (CLI) | payer BC ==
--- NOTE | 2020-02-29 01:15 | ECWPNPC ---
PATIENT NAME: SRINATH GUPTA : 1970 GENDER: MALE VISIT DATE: 02/24/2020 DISCHARGE DATE: 02/24/20 1538 VISIT LOCKED DATE TIME: PHYSICIAN: BOOKER DEAN PHYSICIAN PAGER NO: ACTIVE RESOURCE: BOOKER DEAN REASON FOR APPOINTMENT 1. POST DIAGNOSTIC #2 FACET BLOCK RIGHT L4-L5, L5-S1 HISTORY OF PRESENT ILLNESS GENERAL: HERE FOR POST PROCEDURE FOLLOW-UP. HAD RIGHT L4-5, L5-S1 LUMBAR FACET BLOCK DIAGNOSTIC #2 ON 01/31/2020. REPORTING MARKED REDUCTION IN PAIN FOR 48 HOURS POSTPROCEDURE THEN PAIN RETURNED TO BASELINE. DISCUSSED RADIOFREQUENCY PROCEDURE. PATIENT WOULD LIKE TO PROCEED. -. FALL RISK SCREENING: SCREENING :NO FALLS REPORTED IN THE LAST YEAR PAIN SCREENING: PATIENT HAS A COMPLAINT OF ACUTE OR CHRONIC PAIN :YES LOCATION OF PAIN:BACK INTENSITY OF PAIN (SCALE OF 1 TO 10):7 WHAT DOES YOUR PAIN FEEL LIKE:SHOOTING "PAIN" DURATION:CONTINOUS, AWAKENS FROM SLEEP PAIN IS INCREASED BY:ACTIVITIES, PROLONGED STANDING PLAN/GOALS/TREATMENT/INTERVENTION/FOLLOW UP:SEE PLAN NURSING NOTE: -. PAIN CENTER INTAKE QUESTIONS: DO YOU HAVE A HISTORY OF MRSA? :NO DO YOU TAKE A BLOOD THINNERS? :NO DO YOU HAVE ANY BLEEDING DISORDERS? :NO ANY NEW NUMBNESS OR WEAKNESS IN YOUR LEGS OR ARMS? :NO ANY PACEMAKER,DEFIBRILLATOR, OR DORSAL COLUMN STIMULATOR? :NO DO YOU HAVE ANY RASHES OR OPEN SORES? :NO ARE YOU ALLERGIC TO IV DYE? :NO ARE YOU DIABETIC? :YES ANY NEW PROBLEMS WITH YOUR MEDICATIONS? :NO HAVE YOU RECEIVED A VACCINE IN THE PAST 30 DAYS? :NO DO YOU PLAN TO RECEIVE A VACCINE IN THE NEXT 21 DAYS? :NO DO YOU NEED ANY PRESCRIPTION? :NO DO YOU TAKE ANY IMMUNOSUPPRESSIVE MEDICATIONS? :NO IS THERE A CHANCE YOU COULD BE ? :NO ARE YOU BREAST FEEDING? :NO CURRENT MEDICATIONS TAKING ASPIRIN 81 MG TABLET DELAYED RELEASE 1 TABLET ORALLY ONCE A DAY, NOTES: 01/31/202099 TAKING MULTIVITAMINS 1000 MG TABLET 1 TAB ORALLY ONCE A DAY, NOTES: 01/31/202099 TAKING GLUCOMETER 1 STRIP _ DAILY TAKING GLUCOMETER 1 LANCET SUBCUTANEOUSLY DAILY TAKING GLUCOMETER DIRECTED _ ONCE DAILY TAKING NYSTATIN 437480 UNIT/GM POWDER 1 APPLICATION TO AFFECTED AREA EXTERNALLY TWICE A DAY, NOTES: PRN TAKING MICONAZOLE NITRATE 2 % CREAM 1 APPLICATION TO AFFECTED AREA EXTERNALLY TWICE A DAY, NOTES: PRN TAKING VITAMIN B12 1 MG TABLET 1 TABLET ORALLY ONCE A DAY, NOTES: 01/31/202099 TAKING NASACORT ALLERGY 24HR 55 MCG/ACT AEROSOL 1 PUFF IN EACH NOSTRIL NASALLY ONCE A DAY, NOTES: PRN TAKING METHOCARBAMOL 750 MG TABLET 1 TABLET ORALLY THREE TIMES A DAY, NOTES: 01/31/202099 TAKING TIZANIDINE HCL 4 MG TABLET 1 TABLET NEEDED ORALLY THREE TIMES A DAY, NOTES: 01/29/20202199 TAKING MELOXICAM 7.5 MG TABLET 1 TAB ORALLY BID, NOTES: 01/29/20202199 TAKING FLUOXETINE HCL 40 MG CAPSULE 1 TABLET IN THE MORNING ORALLY ONCE A DAY, NOTES: 01/31/202099 TAKING LOSARTAN POTASSIUM 100 MG TABLET 1 TABLET ORALLY ONCE A DAY, NOTES: 01/31/202099 TAKING DICLOFENAC SODIUM 1 % GEL 1 APPLICATION TO AFFECTED AREA TRANSDERMAL EVERY 4 HOURS NEEDED, NOTES: PRN TAKING COMBIVENT RESPIMAT 20-100 MCG/ACT AEROSOL 1 PUFF INHALATION FOUR TIMES DAILY, NEEDED, NOTES: 01/31/2020799 TAKING ANORO ELLIPTA UMECLIDINIUM 62.5 MCG AND VILANTEROL 25 MCG INHALATION POWDER 1 INHALATION ORAL ONCE DAILY, NOTES: 01/31/2020799 TAKING MUCINEX 600 MG TABLET EXTENDED RELEASE 12 HOUR 1 TABLET NEEDED ORALLY EVERY 12 HRS, NOTES: PRN TAKING SINGULAIR 10 MG TABLET 1 TABLET ORALLY QHS, NOTES: 01/30/20202199 TAKING ALBUTEROL SULFATE (2.5 MG/3ML) 0.083% NEBULIZATION SOLUTION 3 ML NEEDED INHALATION EVERY 8 HRS, NOTES: PRN TAKING MAY HAVE - - NEBULIZER FOR COPD EXACERBATION ORALLY EVERY 6 HOURS NEEDED TAKING PEPCID 20MG TABLET 1 TABLET ORALLY TWICE A DAY, NOTES: 01/31/202099 TAKING OMEPRAZOLE 40 MG CAPSULE DELAYED RELEASE 1 CAPSULE 30 MINUTES BEFORE MORNING MEAL ORALLY ONCE A DAY, NOTES: 01/31/202099 TAKING ATORVASTATIN CALCIUM 80 MG TABLET 1 TABLET ORALLY ONCE A DAY, NOTES: 01/31/202099 TAKING INVOKANA 100 MG TABLET 1 TABLET ORALLY ONCE A DAY, NOTES: 01/30/2020799 TAKING TRULICITY 0.75 MG/0.5ML SOLUTION PEN-INJECTOR 1 INJECTION SUBCUTANEOUS WEEK, NOTES: 01/30/2020 1800 TAKING GEMFIBROZIL 600 MG TABLET 1 TABLET 30 MINUTES BEFORE MORNING AND EVENING MEALS ORALLY TWICE A DAY, NOTES: 01/31/2020 0100 TAKING DULOXETINE HCL 60 MG CAPSULE DELAYED RELEASE PARTICLES 1 CAPSULE ORALLY ONCE A DAY, NOTES: 01/31/2020 010 TAKING GLIMEPIRIDE 1 MG TABLET 1 TABLET ORALLY BID TAKING METFORMIN HCL ER 500 MG TABLET EXTENDED RELEASE 24 HOUR TAKE 3 TABLETS BY MOUTH ONCE DAILY IN THE MORNING AND 2 TABLETS IN THE EVENING TAKING NORCO 10-325 MG TABLET 1 TABLET NEEDED ORALLY FOR PAIN (THIS PRESCRIPTION SHOULD LAST 1 MONTH) EVERY 6 HOURS NEEDED MDD2, NOTES: 01/30/2020 2200 TAKING CHLORTHALIDONE 25MG TABLET 1 TABLET IN THE MORNING WITH FOOD ORALLY EVERY MORNING NOT-TAKING CYMBALTA 20 MG CAPSULE DELAYED RELEASE PARTICLES 2 CAPSULES ORALLY AT BEDTIME NOT-TAKING MAY HAVE - - DIRECTED 1 UNIT ORALLY EVERY 6 HOURS NEEDED MEDICATION LIST REVIEWED AND RECONCILED WITH THE PATIENT PAST MEDICAL HISTORY HYPERTENSION-08/2016 NST LOW RISK, GOOD EXERCISE TOLERANCE-ANTECOL//08/2016 MILD CONCENTRIC [id number] HYPERLIPIDEMIA 2B GERD COPD-02/2012 FEV1 3.83 OBESITY, MORBID PRIOR NICOTINE ADDICTION-SMOKED 20 YEARS 1 1/2 PPD, QUIT IN 2006 T2DM NID C PERIPHERAL NEUROPATHY BLE PERIPHERAL EDEMA 2 MEDICAL NON-COMPLIANCE L SHOULDER OA 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 -CHELSEA, -SSA/SSB BY XRAY L2/3, 4/5, 5/1 BULGES ALL C MINIMAL SAC COMPRESSION BY 03/2014 MRI THORACIC [id number] 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 CTS-08/10/14 BUE NCS C SEVERE R, MODERATE-SEVERE L CTS-GONSALES S/P 10/2014 [facility] HAND OSTEOARTHRITIS ALLERGIC RHINITIS-03/2016 - ZONE 1 PANEL 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 COMPRESSION BY 11/2015 MRI-[facility] MILD CONCENTRIC LVH, CVP 10, NORMAL VIRIDIANA/SYS FUNCTION BY 08/2016 TTE-ANTECOL ALLERGIES TRILIPIX: AGITATION - SIDE EFFECTS TRIPLE ANTIBIOTIC: RASH /SWELLING - ALLERGY NIACIN: BURNING - ALLERGY SURGICAL HISTORY CHOLECYSTECTOMY 2007 APPENDECTOMY 1993 L SHOULDER ATROSCOPIC DEBRIDEMENT, CAPSULAR RELEASE, ACROMIOPLASTY, SYNOVECTOMY-SETTER 11/25/13 UMBILCIAL HERNIA REPAIR-FANI 01/18/14 B [facility] 10/2014 LEFT KNEE TORN MANISCUS REPAIR 07/2018 FAMILY HISTORY FATHER: 68 YRS, T2DM, 2 COPD, DIAGNOSED WITH HYPERTENSION MOTHER: 61 YRS, CORONARY ARTERY DISEASE, STROKE, HYPERTENSION SIBLINGS: 2 SISTERS WITH DIABETES ONE WITH HEMA, ONE BROTHER OF CIRRHOSIS MATERNAL GRAND FATHER: STROKE MATERNAL GRAND MOTHER: STROKE 1 BROTHER(S) , 4 SISTER(S) . SOCIAL HISTORY GENERAL: TOBACCO USE ARE YOU A:FORMER SMOKER HOW LONG HAS IT BEEN SINCE YOU LAST SMOKED?> 10 YEARS LATEX QUESTIONNAIRE LATEX ALLERGY : HAVE YOU EVER DEVELOPED ANY TYPE OF REACTION AFTER HANDLING LATEX PRODUCTS SUCH RUBBER GLOVES, CONDOMS, DIAPHRAGMS, BALLOONS, SOCKS, OR UNDERWEAR?NO LATEX ALLERGY : HAVE YOU EVER DEVELOPED ANY TYPE OF REACTION DURING OR AFTER DENTAL APPOINTMENT, VAGINAL/RECTAL EXAMINATION, SURGICAL PROCEDURE, OR ANY OTHER EXPOSURE?NO LATEX RISK : HAVE YOU EVER HAD ANY DIFFICULTY BREATHING OR HIVES AFTER EATING OR HANDLING ANY FRUITS, OR VEGETABLES; SUCH KIWI, BANANAS, STONE FRUITS, OR CHESTNUTSNO LATEX RISK : DO YOU HAVE A PREVIOUS PERSONAL HISTORY OF MORE THAN NINE SURGERIES, SPINA BIFIDA, OR REPEATED CATHERIZATIONS? NO LATEX RISK : ARE YOU FREQUENTLY EXPOSED TO LATEX PRODUCTS IN YOUR OCCUPATION?NO DATE ASKED : 02/24/2020 BMI CARE GOAL FOLLOW-UP ABOVE NORMAL BMI FOLLOW-UP GIVING ENCOURAGEMENT TO EXERCISE. ALCOHOL SCREENING DID YOU HAVE A DRINK CONTAINING ALCOHOL IN THE PAST YEAR?YES HOW OFTEN DID YOU HAVE SIX OR MORE DRINKS ON ONE OCCASION IN THE PAST YEAR?NEVER (0 POINTS) HOW MANY DRINKS DID YOU HAVE ON A TYPICAL DAY WHEN YOU WERE DRINKING IN THE PAST YEAR?1 OR 2 (0 POINTS) HOW OFTEN DID YOU HAVE A DRINK CONTAINING ALCOHOL IN THE PAST YEAR?MONTHLY OR LESS (1 POINT) POINTS1 INTERPRETATIONNEGATIVE RECREATIONAL DRUG USE DRUG USE?NO CAFFEINE CAFFEINE USE?YES SEXUAL HX HAD SEX IN THE LAST 12 MONTHS (VAGINAL, ORAL, OR ANAL)?NO HAVE YOU EVER HAD AN STD?NO HIV / HEP-C SCREENING HIV TEST OFFERED TO PATIENT:YES DATE OFFERED:07/30/2016 TEST ACCEPTED:NO HEP-C TEST OFFERED TO PATIENT:YES DATE OFFERED:07/30/2016 REASON:PATIENT DECLINED TEST ACCEPTED:NO REASON:PATIENT DECLINED YARSANI [id number] LANGUAGE LANGUAGES SPOKEN:PORTUGUESE EDUCATION LEVEL OF EDUCATION:NOT FINISHED HIGH SCHOOL 10TH GRADE LEARNING BARRIERS / SPECIAL NEEDS CHANGE FROM LAST VISIT?NO BARRIERS TO LEARNING?NO HEARING IMPAIRED?NO VISION IMPAIRED?NO COGNITIVELY IMPAIRED?NO READINESS TO LEARN?NO LEARNING PREFERENCES?NO LEARNING CAPABILITIES PRESENT?NO EMOTIONAL BARRIERS?NO SPECIAL DEVICES?NO SWITCHBOARD AND CONTROL ROOM OPERATOR NEEDED?NO DOMESTIC VIOLENCE DO YOU FEEL SAFE IN YOUR ENVIRONMENT?YES 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 DIET: SUPPOSED TO BEING A HEART HEALTHY DIET. EXERCISE: WALKS, BIKES. MARITAL STATUS: , ONE CHILD. PAIN CLINIC PFS, CLERGY, PUBLIC HEALTH REFERRALS WAS THE PROVIDER NOTIFIED OF ANY PERTINENT INFO?YES HAS THE PATIENT BEEN EDUCATED REGARDING HIS/HER PLAN OF CARE?YES HAS THE PATIENT BEEN EDUCATED REGARDING PAIN, THE RISK FOR PAIN, THE IMPORTANCE OF EFFECTIVE PAIN MANAGEMENT, AND THE PAIN ASSESSMENT PROCESS?YES ADVANCE DIRECTIVE ADVANCE DIRECTIVE DISCUSSED WITH PATIENT:YES PT DECLINES HCP INFORMATION AT THIS TIME. MOVED FROM [facility] IN 2005-BORN THEREREVIEWED WITH PT 02/06/18 1031 BVREVIEWED WITH PATIENT 03/19/18 0925 JSREVIEWED WITH PATIENT 12/24/18 1446 JSREVIEWED WITH PATIENT 03/25/19 1500 BV. HOSPITALIZATION/MAJOR DIAGNOSTIC PROCEDURE ABOVE REVIEW OF SYSTEMS CONSTITUTIONAL: ANY RECENT FEVER NO . CHILLS NO . WEIGHT CHANGE OF UNKNOWN REASONS NO . GASTROENTEROLOGY: NEW UNEXPLAINABLE CHANGES IN BOWEL CONTROL NO . CONSTIPATION NO . GENITOURINARY: ANY NEW CHANGE IN BLADDER CONTROL? NO . NEUROLOGY: NEW ONSET DIZZINESS OR NEUROLOGICAL CHANGES NOT MENTIONED NO . NEW NUMBNESS OR PAIN PATTERNS NOT MENTIONED AND PERTINENT TO TODAY'S VISIT NO . CARDIOLOGY: NEW CHEST PRESSURE NO . NEW CHEST PAIN NO . RESPIRATORY: UNEXPLAINABLE COUGH NO . NEW SHORTNESS OF BREATH NO . VITAL SIGNS WT 338 LBS, HT 70.00", BMI 48.49 INDEX, BP 134/71 MM HG, HR 78 /MIN, RR 20 /MIN, TEMP 96.7 F, OXYGEN SAT % 96% RA, SAFE IN ENV? (Y/N) YES, NA INITIALS MT 1500, REVIEWED BY: CRAIG ORTIZ RN BSN. EXAMINATION GENERAL EXAMINATION: GENERAL AWAKE,ALERT ,PLEAASANT . PSYCH AFFECT NORMAL . LUNGS: LUNG BACH ARE CLEAR TO AUSCULTATION BILATERALLY. GOOD MOVEMENT OF AIR . HEART: S1, S2 IN A REGULAR RATE AND RHYTHM. NO SIGNIFICANT MURMURS, RUBS OR GALLOPS NOTED . LUMBAR:PALPATION:TENDER OVER RIGHT. L4/5-L5/S1 LUMBAR FACETS WITH FACET LOADING.. DIAGNOSTIC TESTS REVIEWEDMRI L/S SPINE -11/17/15. ASSESSMENTS OTHER CHRONIC PAIN - G89.29 (PRIMARY) SPONDYLOSIS WITHOUT MYELOPATHY OR RADICULOPATHY, LUMBAR REGION - M47.816 TREATMENT OTHER CHRONIC PAIN PAIN PROCEDURE LOGDATE OF [id number]/20PROCEDURE:POST DIAGNOSTIC #2 FACET BLOCK RIGHT L4-L5, L5-L6PKZFXY OF PRE SEDATEDIAGNOSTIC PROCEDURE NO PRESEDATERESULT:48 HOURS OF GREATER THAN 80% REDUCTION IN PAIN POST PROCEDURE NOTES: RIGHT L4-5, L5-S1 RF. PROCEDURE CODES FA211 ESTABILISHED PATIENT [facility] CHARGE DISPOSITION & COMMUNICATION FOLLOW UP POST PROCEDURE (REASON: RIGHT L4-5, L5-S1 RF) ELECTRONICALLY SIGNED BY LIZBETH GUTIERREZ ON 02/28/2020 AT 01:35 PM EST DISCLAIMER : THIS IS A VISIT SUMMARY EXTRACTED FROM THE [employer] CHART. IT IS NOT A COPY OF THE [employer] PROGRESS NOTE. PAT
== END ==
LOC: M PAIN 14:45
PROVIDERS: ATTEND Nurse Practitioner Family
DX: G89.29 Other chronic pain (principal); M47.816 Spondylosis without myelopathy or radiculopathy, lumbar region; I10 Essential (primary) hypertension; E78.5 Hyperlipidemia, unspecified; K21.9 Gastro-esophageal reflux disease without esophagitis; E66.01 Morbid (severe) obesity due to excess calories; I73.00 Raynaud's syndrome without gangrene; J30.9 Allergic rhinitis, unspecified; Z87.891 Personal history of nicotine dependence; E11.42 Type 2 diabetes mellitus with diabetic polyneuropathy; Z68.42 Body mass index [BMI] 45.0-49.9, adult; Z79.82 Long term (current) use of aspirin; Z79.84 Long term (current) use of oral hypoglycemic drugs; Z79.899 Other long term (current) drug therapy; Z88.1 Allergy status to other antibiotic agents; Z88.8 Allergy status to other drugs, medicaments and biological substances

== ENCOUNTER → 2020-02-25 | Outpatient (CLI) | payer BC ==
--- NOTE | 2020-02-25 15:54 | REPPI ---
INDICATION: THORACIC SPONDYLOSIS COMPARISON: None. TECHNIQUE: AP, lateral, and swimmers views. FINDINGS: Alignment and kyphosis is maintained. Vertebral bodies intact and without acute fracture/compression injury or subluxation. Moderate multilevel degenerative changes include moderate multilevel osteophytosis and minimal endplate sclerosis/disc space narrowing. IMPRESSION: Moderate multilevel degenerative changes suggested. <Electronically signed by Jacob Olson > 02/25/20 3635
== END ==
LOC: M PLAIMG 14:55
PROVIDERS: ATTEND Family Medicine
DX: M47.814 Spondylosis without myelopathy or radiculopathy, thoracic region (principal); M25.78 Osteophyte, vertebrae

== ENCOUNTER → 2020-03-17 | Outpatient (CLI) | payer BC ==
--- NOTE | 2020-03-17 13:58 | REPVR ---
PROCEDURE INFORMATION: Exam: MR Thoracic Spine Without Contrast Exam date and time: 03/17/2020 12:31 PM Age: 50 years old Clinical indication: Pain in thoracic spine; Without myelpathy or radiculopathy; Patient HX: Mid back pain; Additional info: Thoracic spondylosis TECHNIQUE: Imaging protocol: Multiplanar magnetic resonance images of the thoracic spine without intravenous contrast. COMPARISON: MRI-Spine,Thoracic without con 11/17/2015 10:57 AM FINDINGS: Vertebrae: There is mild straightening of the normal thoracic kyphosis. There is no fracture or listhesis. Spinal cord: Normal signal. No cord compression. T1-T2: There is shallow disc bulging. There is mild facet hypertrophy. There is mild left neural foraminal narrowing. T2-T3: There is diffuse disc bulging. There is mild facet hypertrophy. There is mild bilateral neural foraminal narrowing. T3-T4: There is diffuse disc bulging with a superimposed right subarticular protrusion. There is mild facet hypertrophy. There is mild bilateral neural foraminal narrowing. T4-T5: There is diffuse disc bulging. There is mild facet hypertrophy. There is mild canal stenosis. T5-T6: There is diffuse disc bulging. There is mild facet hypertrophy. There is mild canal stenosis. T6-T7: There is disc bulging with a superimposed left paracentral/subarticular protrusion. There is mild facet hypertrophy. The neural foramina are patent. T7-T8: There is shallow disc bulging. There is mild facet hypertrophy. The spinal canal and neural foramina are patent. T8-T9: There is shallow disc bulging. There is mild facet hypertrophy. The spinal canal and neural foramina are patent. T9-T10: There is diffuse disc bulging. There is moderate facet hypertrophy. There is moderate canal stenosis. There is mild right and severe left neural foraminal narrowing. T10-T11: There is shallow disc bulging. There is mild facet hypertrophy. The spinal canal and neural foramina are patent. T11-T12: There is shallow disc bulging. There is mild facet hypertrophy. There is severe right and moderate to severe left neural foraminal narrowing. Soft tissues: Unremarkable. IMPRESSION: Degenerative disc disease and spondylosis as described. Changes have progressed as compared to preceding examination. Electronically signed by: Margarita Alba On 03/17/2020 13:57:55 PM
== END ==
LOC: M PLARAD 10:44
PROVIDERS: ATTEND Family Medicine
DX: M47.814 Spondylosis without myelopathy or radiculopathy, thoracic region (principal); M51.34 Other intervertebral disc degeneration, thoracic region

== ENCOUNTER → 2020-04-16 | Outpatient (CLI) | payer BC | LOC: M LABSMTC 11:44 | PROVIDERS: ATTEND Anesthesiology | DX: Z01.812 Encounter for preprocedural laboratory examination (principal); Z20.822 Contact with and (suspected) exposure to COVID-19 ==

== ENCOUNTER → 2020-04-20 | Outpatient (CLI) | payer BC ==
[~2020-04-20] MED LIST changes: -ISOVUE-M 300 61% 15ML VIAL As Ordered ONE; +dexameTHASONE 10MG/1ML VIAL PRES.FREE (J1100 PER 1MG) As Ordered ONE
--- NOTE | 2020-04-21 09:43 | REP ---
INDICATION: RIGHT STANDARD RADIOFREQUENCY L4-L5, L5-S1. COMPARISON: None. TECHNIQUE: Three views lower lumbar spine performed. FINDINGS: [place] are seen along the lower lumbar spine. IMPRESSION: 58 seconds fluoroscopy time utilized. <Electronically signed by Stefano Lindquist > 04/21/20 0991
--- NOTE | 2020-04-22 00:01 | ECWPNPC ---
PATIENT NAME: SRINATH GUPTA : 1970 GENDER: MALE VISIT DATE: 04/20/2020 DISCHARGE DATE: 04/20/20 1509 VISIT LOCKED DATE TIME: PHYSICIAN: AGUEDA MORALES MD PHYSICIAN PAGER NO: ACTIVE RESOURCE: AGUEDA MORALES MD REASON FOR APPOINTMENT 1. RIGHT STANDARD RADIOFREQUENCY L4-5, L5-S1 HISTORY OF PRESENT ILLNESS GENERAL: -. FALL RISK SCREENING: SCREENING :NO FALLS REPORTED IN THE LAST YEAR NURSING NOTE: -. PAIN CENTER INTAKE QUESTIONS: DO YOU HAVE A HISTORY OF MRSA? :NO DO YOU TAKE A BLOOD THINNERS? :NO DO YOU HAVE ANY BLEEDING DISORDERS? :NO ANY NEW NUMBNESS OR WEAKNESS IN YOUR LEGS OR ARMS? :NO ANY PACEMAKER,DEFIBRILLATOR, OR DORSAL COLUMN STIMULATOR? :NO DO YOU HAVE ANY RASHES OR OPEN SORES? :NO ARE YOU ALLERGIC TO IV DYE? :NO ARE YOU DIABETIC? :YES ANY NEW PROBLEMS WITH YOUR MEDICATIONS? :NO HAVE YOU RECEIVED A VACCINE IN THE PAST 30 DAYS? :NO DO YOU PLAN TO RECEIVE A VACCINE IN THE NEXT 21 DAYS? :NO DO YOU TAKE ANY IMMUNOSUPPRESSIVE MEDICATIONS? :NO ANY HISTORY OF SEIZURES? :NO ANY HISTORY OF CARDIAC ISSUES OR EVENTS? :NO DO YOU HAVE SLEEP APNEA? :NO ANY RECENT HEAD INJURY? :NO DO YOU HAVE ANY NEW INFECTIONS? :NO IS THERE A CHANCE YOU COULD BE ? :NO ARE YOU BREAST FEEDING? :NO WHEN DID YOU LAST EAT? : 04/20/20299 WHEN DID YOU LAST DRINK? : 04/20/20299 WHAT DID YOU LAST DRINK? : COFFEE BLACK NAME OF PERSON DRIVING YOU HOME? : YEN DO YOU HAVE ANY OTHER QUESTIONS OR CONCERNS? : - PAIN SCREENING: PATIENT HAS A COMPLAINT OF ACUTE OR CHRONIC PAIN :YES LOCATION OF PAIN:LOW BACK, LEG(S) INTENSITY OF PAIN (SCALE OF 1 TO 10):6 WHAT DOES YOUR PAIN FEEL LIKE:BURNING, SHOOTING DURATION:CONTINOUS, CONSTANT PAIN IS INCREASED BY:ACTIVITIES SITTING PAIN IS DECREASED BY:USE OF PAIN MEDICATIONS TREATMENT/MEDICATIONS USED TO MANAGE PAIN:OPIOIDS LEVEL OF RELIEF FROM PAIN TREATMENTS IN THE PAST:50% PAIN HAS INTERFERED WITH THE FOLLOWING:BATHING/DRESSING, WALKING ABILITY, HOUSEWORK, SLEEP, TRANSPORTATION, TOILETING CURRENT MEDICATIONS TAKING ASPIRIN 81 MG TABLET DELAYED RELEASE 1 TABLET ORALLY ONCE A DAY TAKING MULTIVITAMINS 1000 MG TABLET 1 TAB ORALLY ONCE A DAY TAKING GLUCOMETER DIRECTED _ ONCE DAILY TAKING NYSTATIN [id number] UNIT/GM POWDER 1 APPLICATION TO AFFECTED AREA EXTERNALLY TWICE A DAY TAKING MICONAZOLE NITRATE 2 % CREAM 1 APPLICATION TO AFFECTED AREA EXTERNALLY TWICE A DAY TAKING NASACORT ALLERGY 24HR 55 MCG/ACT AEROSOL 1 PUFF IN EACH NOSTRIL NASALLY ONCE A DAY TAKING FLUOXETINE HCL 40 MG CAPSULE 1 TABLET IN THE MORNING ORALLY ONCE A DAY TAKING LOSARTAN POTASSIUM 100 MG TABLET 1 TABLET ORALLY ONCE A DAY, NOTES: 04/20/20 0300 TAKING DICLOFENAC SODIUM 1 % GEL 1 APPLICATION TO AFFECTED AREA TRANSDERMAL EVERY 4 HOURS NEEDED TAKING COMBIVENT RESPIMAT 20-100 MCG/ACT AEROSOL 1 PUFF INHALATION FOUR TIMES DAILY, NEEDED TAKING MUCINEX 600 MG TABLET EXTENDED RELEASE 12 HOUR 1 TABLET NEEDED ORALLY EVERY 12 HRS TAKING SINGULAIR 10 MG TABLET 1 TABLET ORALLY QHS TAKING ALBUTEROL SULFATE (2.5 MG/3ML) 0.083% NEBULIZATION SOLUTION 3 ML NEEDED INHALATION EVERY 8 HRS TAKING MAY HAVE - - NEBULIZER FOR COPD EXACERBATION ORALLY EVERY 6 HOURS NEEDED TAKING OMEPRAZOLE 40 MG CAPSULE DELAYED RELEASE 1 CAPSULE 30 MINUTES BEFORE MORNING MEAL ORALLY ONCE A DAY TAKING ATORVASTATIN CALCIUM 80 MG TABLET 1 TABLET ORALLY ONCE A DAY, NOTES: 04/20/20 0300 TAKING TRULICITY 0.75 MG/0.5ML SOLUTION PEN-INJECTOR 1 INJECTION SUBCUTANEOUS WEEK, NOTES: LAST FRIDAY TAKING DULOXETINE HCL 60 MG CAPSULE DELAYED RELEASE PARTICLES 1 CAPSULE ORALLY ONCE A DAY TAKING CHLORTHALIDONE 25MG TABLET 1 TABLET IN THE MORNING WITH FOOD ORALLY EVERY MORNING TAKING PEPCID 20MG TABLET 1 TABLET ORALLY TWICE A DAY TAKING GLIMEPIRIDE 1 MG TABLET 1 TABLET ORALLY BID, NOTES: 04/19/20 TAKING ANORO ELLIPTA UMECLIDINIUM 62.5 MCG AND VILANTEROL 25 MCG INHALATION POWDER 1 INHALATION ORAL ONCE DAILY TAKING TIZANIDINE HCL 4 MG TABLET 1 TABLET NEEDED ORALLY THREE TIMES A DAY TAKING MELOXICAM 7.5 MG TABLET 1 TAB ORALLY BID TAKING ANORO ELLIPTA 62.5-25 MCG/INH AEROSOL POWDER BREATH ACTIVATED INHALE 1 PUFF BY MOUTH ONCE DAILY TAKING INVOKANA 100 MG TABLET 1 TABLET ORALLY ONCE A DAY, NOTES: 04/19/20 TAKING METFORMIN HCL ER 500 MG TABLET EXTENDED RELEASE 24 HOUR TAKE 3 TABLETS BY MOUTH ONCE DAILY IN THE MORNING AND 2 TABLETS IN THE EVENING , NOTES: 04/19/20 TAKING METHOCARBAMOL 500 MG TABLET 1.5 TABLETS ORALLY THREE TIMES A DAY TAKING GEMFIBROZIL 600 MG TABLET 1 TABLET 30 MINUTES BEFORE MORNING AND EVENING MEALS ORALLY TWICE A DAY TAKING NORCO 10-325 MG TABLET 1 TABLET NEEDED ORALLY FOR PAIN (THIS PRESCRIPTION SHOULD LAST 1 MONTH) EVERY 6 HOURS NEEDED MDD2, NOTES: 04/19/20 MEDICATION LIST REVIEWED AND RECONCILED WITH THE PATIENT PAST MEDICAL HISTORY HYPERTENSION-08/2016 NST LOW RISK, GOOD EXERCISE TOLERANCE-ANTECOL/ MILD CONCENTRIC EGR-IHN-CFYUPDE HYPERLIPIDEMIA 2B GERD COPD-02/2012 FEV1 3.83 OBESITY, MORBID PRIOR NICOTINE ADDICTION-SMOKED 20 YEARS 1 04/08 PPD, QUIT IN 2006 T2DM NID C PERIPHERAL NEUROPATHY BLE PERIPHERAL EDEMA 2 MEDICAL NON-COMPLIANCE L SHOULDER OA 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 -CHELSEA, -SSA/SSB BY XRAY L2/3, 4/5, 5/ BULGES ALL C MINIMAL SAC COMPRESSION BY 03/2014 MRI THORACIC CQF-[id number] 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 CTS-08/10/14 BUE NCS C SEVERE R, MODERATE-SEVERE L CTS-GONSALES S/P 10/2014 [facility] HAND OSTEOARTHRITIS ALLERGIC RHINITIS-03/2016 - ZONE 1 PANEL 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 COMPRESSION BY 11/2015 MRI-[facility] MILD CONCENTRIC LVH, CVP 10, NORMAL VIRIDIANA/SYS FUNCTION BY 08/2016 TTE-ANTECOL ALLERGIES TRILIPIX: AGITATION - SIDE EFFECTS TRIPLE ANTIBIOTIC: RASH /SWELLING - ALLERGY NIACIN: BURNING - ALLERGY SURGICAL HISTORY CHOLECYSTECTOMY 2006 APPENDECTOMY 1993 L SHOULDER ATROSCOPIC DEBRIDEMENT, CAPSULAR RELEASE, ACROMIOPLASTY, SYNOVECTOMY-SETTER 11/25/13 UMBILCIAL HERNIA REPAIR-FANI 01/18/14 B [facility] 10/2014 LEFT KNEE TORN MANISCUS REPAIR 07/2018 FAMILY HISTORY FATHER: 68 YRS, T2DM, 2 COPD, DIAGNOSED WITH HYPERTENSION MOTHER: 61 YRS, CORONARY ARTERY DISEASE, STROKE, HYPERTENSION SIBLINGS: 2 SISTERS WITH DIABETES ONE WITH HEMA, ONE BROTHER OF CIRRHOSIS MATERNAL GRAND FATHER: STROKE MATERNAL GRAND MOTHER: STROKE 1 BROTHER(S) , 4 SISTER(S) . SOCIAL HISTORY GENERAL: TOBACCO USE ARE YOU A:FORMER SMOKER HOW LONG HAS IT BEEN SINCE YOU LAST SMOKED?> 10 YEARS LATEX QUESTIONNAIRE LATEX ALLERGY : HAVE YOU EVER DEVELOPED ANY TYPE OF REACTION AFTER HANDLING LATEX PRODUCTS SUCH RUBBER GLOVES, CONDOMS, DIAPHRAGMS, BALLOONS, SOCKS, OR UNDERWEAR?NO LATEX ALLERGY : HAVE YOU EVER DEVELOPED ANY TYPE OF REACTION DURING OR AFTER DENTAL APPOINTMENT, VAGINAL/RECTAL EXAMINATION, SURGICAL PROCEDURE, OR ANY OTHER EXPOSURE?NO DATE ASKED : 02/24/2020 LATEX RISK : HAVE YOU EVER HAD ANY DIFFICULTY BREATHING OR HIVES AFTER EATING OR HANDLING ANY FRUITS, OR VEGETABLES; SUCH KIWI, BANANAS, STONE FRUITS, OR CHESTNUTSNO LATEX RISK : DO YOU HAVE A PREVIOUS PERSONAL HISTORY OF MORE THAN NINE SURGERIES, SPINA BIFIDA, OR REPEATED CATHERIZATIONS? NO LATEX RISK : ARE YOU FREQUENTLY EXPOSED TO LATEX PRODUCTS IN YOUR OCCUPATION?NO BMI CARE GOAL FOLLOW-UP ABOVE NORMAL BMI FOLLOW-UP GIVING ENCOURAGEMENT TO EXERCISE. ALCOHOL SCREENING DID YOU HAVE A DRINK CONTAINING ALCOHOL IN THE PAST YEAR?YES HOW OFTEN DID YOU HAVE SIX OR MORE DRINKS ON ONE OCCASION IN THE PAST YEAR?NEVER (0 POINTS) HOW MANY DRINKS DID YOU HAVE ON A TYPICAL DAY WHEN YOU WERE DRINKING IN THE PAST YEAR?1 OR 2 (0 POINTS) HOW OFTEN DID YOU HAVE A DRINK CONTAINING ALCOHOL IN THE PAST YEAR?MONTHLY OR LESS (1 POINT) POINTS1 INTERPRETATIONNEGATIVE RECREATIONAL DRUG USE DRUG USE?NO CAFFEINE CAFFEINE USE?YES SEXUAL HX HAD SEX IN THE LAST 12 MONTHS (VAGINAL, ORAL, OR ANAL)?NO HAVE YOU EVER HAD AN STD?NO HIV / HEP-C SCREENING HIV TEST OFFERED TO PATIENT:YES DATE OFFERED:07/30/2016 TEST ACCEPTED:NO HEP-C TEST OFFERED TO PATIENT:YES DATE OFFERED:07/30/2016 REASON:PATIENT DECLINED TEST ACCEPTED:NO REASON:PATIENT DECLINED ANGLICAN [id number] SAMARITAN LANGUAGE LANGUAGES SPOKEN:URDU EDUCATION LEVEL OF EDUCATION:NOT FINISHED HIGH SCHOOL 10TH GRADE LEARNING BARRIERS / SPECIAL NEEDS CHANGE FROM LAST VISIT?NO BARRIERS TO LEARNING?NO HEARING IMPAIRED?NO VISION IMPAIRED?NO COGNITIVELY IMPAIRED?NO READINESS TO LEARN?NO LEARNING PREFERENCES?NO LEARNING CAPABILITIES PRESENT?NO EMOTIONAL BARRIERS?NO SPECIAL DEVICES?NO CRIMINALIST TECHNICIAN NEEDED?NO DOMESTIC VIOLENCE DO YOU FEEL SAFE IN YOUR ENVIRONMENT?YES 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 DIET: SUPPOSED TO BEING A HEART HEALTHY DIET. EXERCISE: WALKS, BIKES. MARITAL STATUS: , ONE CHILD. PAIN CLINIC PFS, CLERGY, PUBLIC HEALTH REFERRALS WAS THE PROVIDER NOTIFIED OF ANY PERTINENT INFO?YES HAS THE PATIENT BEEN EDUCATED REGARDING HIS/HER PLAN OF CARE?YES HAS THE PATIENT BEEN EDUCATED REGARDING PAIN, THE RISK FOR PAIN, THE IMPORTANCE OF EFFECTIVE PAIN MANAGEMENT, AND THE PAIN ASSESSMENT PROCESS?YES ADVANCE DIRECTIVE ADVANCE DIRECTIVE DISCUSSED WITH PATIENT:YES PT DECLINES HCP INFORMATION AT THIS TIME. MOVED FROM [facility] IN 2006-BORN THERE. HOSPITALIZATION/MAJOR DIAGNOSTIC PROCEDURE ABOVE VITAL SIGNS WT 326.8 LBS, HT 70.00", BMI 46.89 INDEX, BP 139/93 MM HG, HR 70 /MIN, RR 18 /MIN, TEMP 98.7 F, OXYGEN SAT % 95%, SAFE IN ENV? (Y/N) Y, NA INITIALS SC 13:09, REVIEWED BY: EM. ASSESSMENTS SPONDYLOSIS WITHOUT MYELOPATHY OR RADICULOPATHY, LUMBAR REGION - M47.816 (PRIMARY) SPONDYLOSIS WITHOUT MYELOPATHY OR RADICULOPATHY, LUMBOSACRAL REGION - M47.817 TREATMENT SPONDYLOSIS WITHOUT MYELOPATHY OR RADICULOPATHY, LUMBAR REGION SMC FACET BLOCK (PAIN)[id number] SPONDYLOSIS WITHOUT MYELOPATHY OR RADICULOPATHY, LUMBOSACRAL REGION SMC FACET BLOCK (PAIN)[id number] PROCEDURES PAIN NURSING RECORD PROCEDURE IN ROOM 1350, PHYSICIAN IN ROOM 1427, START 1430, FINISH 1453, PHYSICIAN OUT OF ROOM 1500, OUT OF ROOM 1505, ECG NORMAL SINUS, PATIENT SHIELDED NO, SAFETY STRAP NO, PREP CHLOROPREP, DRESSING TEGADERM DR MORALES LOC: 1. ALERT, ORIENTED, DERRICK VELAZQUEZ 04/20/2020 2:31:35 PM > RESP: 1. REGULAR, NO DYSPNEA, DERRICK VELAZQUEZ 04/20/2020 2:31:56 PM > COLOR: 1. PINKMARCUS ELIZABETH 04/20/2020 2:32:00 PM > SKIN: 1. WARM, DRY, DERRICK VELAZQUEZ 04/20/2020 2:32:04 PM > POSITION: 1. PRONEMARCUS ELIZABETH 04/20/2020 2:32:07 PM > VITALS: 151/81, 78, 16, 95% DERRICK VELAZQUEZ 04/20/2020 2:07:29 PM > 145/81, 78, 16, 94% DERRICK VELAZQUEZ 04/20/2020 2:15:10 PM > , 145/74, 83, 16, 95%, DERRICK VELAZQUEZ 04/20/2020 2:30:35 PM > 169/81, 81, 16, 92%, DERRICK VELAZQUEZ 04/20/2020 2:45:57 PM > 146/86M 76,18, 98%, DERRICK VELAZQUEZ 04/20/2020 3:10:42 PM > NOTES 18G 145CM PROBES USED DISCHARGE: POST PAIN 2, DRESSING SITE DRY AND INTACT, IV N/A, GAIT STEADY, TEACHING COMPLETED, PATIENT ACKNOWLEDGES UNDERSTANDING YES, PATIENT DISCHARGED AT 1515 PN RADIOFREQUENCY DATE OF PROCEDURE 04/20/2020 THERMO LESION RADIOFREQUENCY > 80 DEGREES : STANDARD - THERMO LESION > 80*. CURVE NEEDLE SIDE: : RIGHT LEVELS: : L4-L5, L5-S1 NEEDLE/CATHETER/GAUGE: : 18 CANULA LENGTH: : 145 MM ACTIVE TIP: : 10 MM GROUNDING PAD PLACED ON AFFECTED SIDE (MUSCULAR AREA): : LUMBAR (POSTERIOR UPPER THIGH) RIGHT UPPER THIGH 1 ST LEVEL: : L3, INITAL POSTIVE SENSORY RESPONE (50 HZ) OTHER 0.2, MOTOR RESPONSE (2 HZ-UP TO 3 VOLTS) 3.0, PRE-LOCAL IMPEDENCE READING OHMS 157, POST-LOCAL IMPEDENCE READING OHMS 112, DURING RF IMPEDENCE READING OHMS 95, LESION PARAMETERS: STANDARD SECONDS: 90 2 ND LEVEL: : L4, INITIAL POSITIVE SENSORY RESPONSE (50 HZ) OTHER 0.6, MOTOR RESPONSE (2 HZ- UP TO 3 VOLTS) 3.0, PRE-LOCAL IMPEDENCE READING OHMS 146, POST-LOCAL IMEPEDENCE READING OHMS 146, DURING RF IMPEDENCE READING OHMS 126, LESION PARAMETERS: STANDARD SECONDS: [address] LEVEL: : L5, INITIAL POSITIVE SENSORY RESPONSE (50 HZ) OTHER 0.3, MOTOR RESPONSE (2HZ- UP TO 3 VOLTS) 3.0, PRE- LOCAL IMPEDENCE READING OHMS 163, POST-LOCAL IMPEDENCE READING OHMS 153, DURING RF IMPEDENCE READING OHMS 130, LESION PARAMETERS: STANDARD SECONDS: 90 PRE PROCEDURE DIAGNOSES 1. LUMBAR SPONDYLOSIS. 2. LUMBOSACRAL SPONDYLOSIS POST PROCEDURE DIAGNOSES 1. LUMBAR SPONDYLOSIS. 2. LUMBOSACRAL SPONDYLOSIS PROCEDURE RIGHT L4-L5 AND RIGHT L5-S1 STANDARD LUMBAR FACET RADIOFREQUENCY SURGEON DR. AGUEDA MORALES SOFTWARE ENGINEERING MANAGER NONE ANESTHESIA LOCAL PRE PROCEDURE REPORT THE PATIENT HAS HISTORY OF CHRONIC LOW BACK PAIN. I EVALUATED THE PATIENT AND REVIEWED THE CHART. I WENT OVER THE RISKS, ALTERNATIVES, AND BENEFITS ASSOCIATED WITH THIS PROCEDURE. THE PATIENT WOULD LIKE TO PROCEED AND GIVE CONSENT TO PERFORMED THE PROCEDURE. THE PATIENT DENIES UNEXPLAINABLE WEIGHT LOSS, FEVER, CHILLS, OR NEW CHANGES IN URINARY OR BOWEL CONTROL. THE PATIENT IS COVID-19 NEGATIVE DESCRIPTION OF PROCEDURE THE PATIENT WAS BROUGHT TO THE PROCEDURE ROOM AND PLACED IN THE PRONE POSITION. THE LUMBOSACRAL AREA WAS CLEANED WITH CHLORAPREP SOLUTION AND DRAPED ASEPTICALLY. THE PROCEDURE WAS DONE UNDER STERILE CONDITIONS. I CHECKED LATERALITY AND THE LEVEL WHERE THE PROCEDURE WAS GOING TO BE PERFORMED WITH THE PATIENT AND THE SUPPORTING STAFF AT THE MOMENT OF THE TIME OUT IN THE PROCEDURE ROOM. UNDER FLUOROSCOPIC GUIDANCE, TARGETS WERE SELECTED AT THE INTERSECTION OF THE RIGHT TRANSVERSE PROCESS OF L4, L5 AND ALA OF S1 WITH ITS RESPECTIVE SUPERIOR ARTICULAR PROCESS. A SECOND TIMEOUT WAS PERFORMED WHERE THE LATERALITY AND SITE OF THE PROCEDURE WAS CONFIRMED WITH EVERYONE IN THE ROOM AT 1430. I CONFIRMED AGAIN WITH RADIOLOGY THE LATERALITY AND SITE OF THE TARGET AT 1430. LIDOCAINE WAS USED TO NUMB THE SKIN AND THE SUBCUTANEOUS TISSUE BELOW IT. RADIOFREQUENCY NEEDLES 18-GAUGE, 145 MM, LONG WITH 10 MM ACTIVE CURVE TIP WERE ADVANCED UNDER FLUOROSCOPIC GUIDANCE AND FOLLOWING PATIENT FEEDBACK UNTIL THE TARGET AREA WAS REACHED. POSITION OF THE NEEDLES WAS VERIFIED WITH AP AND LATERAL VIEWS. AFTER PROPER POSITION OF THE NEEDLE WAS ACHIEVED, WE WORKED WITH THE RIGHT SELECTED MEDIAN BRANCHES OF L3, L4 AND THE DORSAL RAMI OF L5. WE MEASURED THE CORRESPONDING IMPEDANCES, SENSORY STIMULATION AND MOTOR RESPONSES INDICATED IN THE RADIOFREQUENCY WORKSHEET. POSITION OF THE NEEDLES WAS VERIFIED AGAIN WITH AP AND LATERAL VIEWS. LIDOCAINE 1%, 2 ML, WAS INJECTED AT EACH LEVEL. RADIOFREQUENCY WAS DONE AT EACH LEVEL AT 80 DEGREES FOR 90 SECONDS. AFTER RADIOFREQUENCY WAS DONE, THE PATIENT RECEIVED BUPIVACAINE 0.125%, 1 ML, WITH DEXAMETHASONE 3 MG AT EACH SITE. THE MEDICATIONS WERE VERIFIED WITH THE NURSE. THERE WAS NO EVIDENCE OF BLOOD, PARESTHESIA OR CEREBROSPINAL FLUID DURING THE PROCEDURE. THE PATIENT WAS SENT TO THE RECOVERY ROOM. THE PATIENT WAS MOVING THE EXTREMITIES AND DOING WELL. THERE WAS NO COMPLICATION DURING THE PROCEDURE. ESTIMATED BLOOD LOSS WAS LESS THAN 5 ML. FLUOROSCOPY TIME WAS 57 SECONDS POST PROCEDURE NOTE THE PROCEDURE DONE WAS DISCUSSED WITH THE PATIENT. THE PATIENT WILL BE SEEN IN A FOLLOW UP IN THE NEXT FEW WEEKS. I AM LOOKING FOR LONG LASTING PAIN RELIEF FOR THE PATIENT WITH THIS INTERVENTION. INSTRUCTIONS WERE GIVEN, QUESTIONS WERE ANSWERED, AND THE PATIENT EXPRESSED UNDERSTANDING AND AGREES WITH THE PLAN. I, MOLLY DENTON, DOCUMENTED THE ABOVE INFORMATION ACTING A SCRIBE FOR DR. MORALES. I HAVE REVIEWED THE ABOVE DOCUMENT, WRITTEN BY MOLLY DENTON, NEWSPAPER PRESS OPERATOR APPRENTICE, AND I VERIFY THAT IT IS ACCURATE PROCEDURE CODES 49937 DESTROY LUMB/SAC FACET JNT, [place]IF[place]: [place] [id number] DESTROY L/S FACET JNT ADDL, MODIFIERS: RT DISPOSITION & COMMUNICATION FOLLOW UP FOLLOW UP WITH SENIOR JAVASCRIPT ENGINEER (REASON: POST RIGHT STANDARD LUMBAR RADIOFREQUENCY L4-L5, L5-S1) ELECTRONICALLY SIGNED BY AGUEDA MORALES MD, MD ON 04/21/2020 AT 01:23 PM EST DISCLAIMER : THIS IS A VISIT SUMMARY EXTRACTED FROM THE [employer] CHART. IT IS NOT A COPY OF THE [employer] PROGRESS NOTE. PAT
== END ==
LOC: M PAIN 13:00
PROVIDERS: ATTEND Anesthesiology
DX: M47.816 Spondylosis without myelopathy or radiculopathy, lumbar region (principal); M47.817 Spondylosis without myelopathy or radiculopathy, lumbosacral region; I10 Essential (primary) hypertension; E78.5 Hyperlipidemia, unspecified; K21.9 Gastro-esophageal reflux disease without esophagitis; J44.9 Chronic obstructive pulmonary disease, unspecified; E66.01 Morbid (severe) obesity due to excess calories; Z68.42 Body mass index [BMI] 45.0-49.9, adult; I73.00 Raynaud's syndrome without gangrene; E11.42 Type 2 diabetes mellitus with diabetic polyneuropathy; Z87.891 Personal history of nicotine dependence; Z79.82 Long term (current) use of aspirin; Z79.84 Long term (current) use of oral hypoglycemic drugs; Z79.891 Long term (current) use of opiate analgesic; Z79.899 Other long term (current) drug therapy; Z88.8 Allergy status to other drugs, medicaments and biological substances
CPT/HCPCS: 64635; 64636; J1100

== ENCOUNTER → 2020-04-26 | Outpatient (REF) | payer BC ==
[2020-04-26 13:53] LABS: BASO % 0.5 % (0.0-1.0); EOS # 0.4 10^3/uL (0.0-0.5); EOS % 4.4 % (0.0-3.0); HEMATOCRIT 45.7 % (42.0-52.0); HEMOGLOBIN 15.2 g/dl (13.5-17.5); LYMPH # 1.7 10^3/uL (1.5-5.0); LYMPH % 20.4 % (24.0-44.0); MEAN CORPUSCULAR HGB CONC 33.3 g/dl (32.0-36.5); MEAN CORPUSCULAR VOLUME 93.1 fl (80.0-96.0); MONO # 0.4 10^3/uL (0.0-0.8); MONO % 4.6 % (0.0-5.0); NEUTROPHILS # 5.7 10^3/uL (1.5-8.5); NEUTROPHILS % 69.5 % (36.0-66.0); PLATELET COUNT, AUTOMATED 298 10^3/uL (150-450); RED BLOOD COUNT 4.91 10^6/uL (4.30-6.10); WHITE BLOOD COUNT 8.3 10^3/uL (4.0-10.0)
[2020-04-26 14:26] LABS: ALT/SGPT 47 U/L (12-78); BILIRUBIN,TOTAL 0.4 MG/DL (0.2-1.0); BLOOD UREA NITROGEN 14 MG/DL (7-18); CALCIUM LEVEL 9.6 MG/DL (8.5-10.1); CARBON DIOXIDE LEVEL 32 MEQ/L (21-32); CHLORIDE LEVEL 102 MEQ/L (98-107); CHOLESTEROL LEVEL 129 MG/DL (<200); CHOLESTEROL RISK RATIO 4.607 (<5); CPK CREATINE PHOSPHOKINASE 149 U/L (39-308); CREATININE FOR GFR 0.94 MG/DL (0.70-1.30); GLOMERULAR FILTRATION RATE > 60.0 (>60); GLUCOSE, FASTING 259 MG/DL (70-100); HDL CHOLESTEROL 28 MG/DL (>40); LDL CHOLESTEROL 36 MG/DL (<100); NON-HDL-C 101 MG/DL; POTASSIUM SERUM 4.9 MEQ/L (3.5-5.1); SODIUM LEVEL 137 MEQ/L (136-145); TOTAL PROTEIN 6.8 GM/DL (6.4-8.2); TRIGLYCERIDES LEVEL 325 MG/DL (<150)
[2020-04-26 14:35] LABS: VITAMIN B12 LEVEL 485 PG/ML (247-911)
== END ==
LOC: M SFHCPLAZ 10:07
PROVIDERS: ATTEND Physician Assistant Medical
DX: E11.8 Type 2 diabetes mellitus with unspecified complications (principal); E78.5 Hyperlipidemia, unspecified; I10 Essential (primary) hypertension; E53.8 Deficiency of other specified B group vitamins

== ENCOUNTER → 2020-05-01 | Outpatient (CLI) | payer BC ==
--- NOTE | 2020-05-02 00:05 | ECWPNPC ---
PATIENT NAME: SRINATH GUPTA : 1970 GENDER: MALE VISIT DATE: 05/01/2020 DISCHARGE DATE: 05/01/20908 VISIT LOCKED DATE TIME: PHYSICIAN: BOOKER DEAN PHYSICIAN PAGER NO: ACTIVE RESOURCE: BOOKER DEAN REASON FOR APPOINTMENT 1. 30 MIN NBP THORACIC SPINE HISTORY OF PRESENT ILLNESS GENERAL: HERE FOR EVALUATION OF NEW BODY PAIN-THORACIC REGION.THIS BEGAN SEVERAL YEARS AGO WITHOUT PRECIPITATING EVENT.-PAIN IS LOCATED RIGHT MID THORACIC REGION THAT RADIATES TO MID AXILLARY REGION. PAIN IS AGGRAVATED WITH USE OF HIS RIGHT ARM. PAIN IS RELIEVED SOMETIMES WITH POSITION CHANGE. 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 DENIES RECENT ILLNESS OR SUDDEN WEIGHT LOSS. DENIES WEAKNESS IN HIS ARMS OR SIX SIGMA BLACK TRAINER STRENGTH IN HIS HANDS. FALL RISK SCREENING: SCREENING :NO FALLS REPORTED IN THE LAST YEAR PAIN SCREENING: PATIENT HAS A COMPLAINT OF ACUTE OR CHRONIC PAIN :YES LOCATION OF PAIN:MID BACK INTENSITY OF PAIN (SCALE OF 1 TO 10):8 WHAT DOES YOUR PAIN FEEL LIKE:ACHING, SHOOTING DURATION:CONTINOUS, CONSTANT PAIN IS INCREASED BY:OTHERS SLEEPING PAIN IS DECREASED BY:USE OF PAIN MEDICATIONS TOUCHING CHIN TO CHEST HELPS TREATMENT/MEDICATIONS USED TO MANAGE PAIN:OPIOIDS LEVEL OF RELIEF FROM PAIN TREATMENTS IN THE PAST:50% PAIN HAS INTERFERED WITH THE FOLLOWING:BATHING/DRESSING, WALKING ABILITY, HOUSEWORK, SLEEP, TRANSPORTATION, TOILETING NURSING NOTE: -. PAIN CENTER INTAKE QUESTIONS: DO YOU HAVE A HISTORY OF MRSA? :NO DO YOU TAKE A BLOOD THINNERS? :NO DO YOU HAVE ANY BLEEDING DISORDERS? :NO ANY NEW NUMBNESS OR WEAKNESS IN YOUR LEGS OR ARMS? :NO ANY PACEMAKER,DEFIBRILLATOR, OR DORSAL COLUMN STIMULATOR? :NO DO YOU HAVE ANY RASHES OR OPEN SORES? :NO ARE YOU ALLERGIC TO IV DYE? :NO ARE YOU DIABETIC? :YES ANY NEW PROBLEMS WITH YOUR MEDICATIONS? :NO HAVE YOU RECEIVED A VACCINE IN THE PAST 30 DAYS? :NO DO YOU PLAN TO RECEIVE A VACCINE IN THE NEXT 21 DAYS? :NO DO YOU NEED ANY PRESCRIPTION? :NO DO YOU TAKE ANY IMMUNOSUPPRESSIVE MEDICATIONS? :NO IS THERE A CHANCE YOU COULD BE ? :NO ARE YOU BREAST FEEDING? :NO CURRENT MEDICATIONS TAKING ASPIRIN 81 MG TABLET DELAYED RELEASE 1 TABLET ORALLY ONCE A DAY TAKING MULTIVITAMINS 1000 MG TABLET 1 TAB ORALLY ONCE A DAY TAKING GLUCOMETER DIRECTED _ ONCE DAILY TAKING NYSTATIN [id number] UNIT/GM POWDER 1 APPLICATION TO AFFECTED AREA EXTERNALLY TWICE A DAY TAKING MICONAZOLE NITRATE 2 % CREAM 1 APPLICATION TO AFFECTED AREA EXTERNALLY TWICE A DAY TAKING MAY HAVE - - NEBULIZER FOR COPD EXACERBATION ORALLY EVERY 6 HOURS NEEDED TAKING DULOXETINE HCL 60 MG CAPSULE DELAYED RELEASE PARTICLES 1 CAPSULE ORALLY ONCE A DAY TAKING CHLORTHALIDONE 25MG TABLET 1 TABLET IN THE MORNING WITH FOOD ORALLY EVERY MORNING TAKING GLIMEPIRIDE 1 MG TABLET 1 TABLET ORALLY BID, NOTES: 04/19/20 TAKING ANORO ELLIPTA 62.5-25 MCG/INH AEROSOL POWDER BREATH ACTIVATED INHALE 1 PUFF BY MOUTH ONCE DAILY TAKING METFORMIN HCL ER 500 MG TABLET EXTENDED RELEASE 24 HOUR TAKE 3 TABLETS BY MOUTH ONCE DAILY IN THE MORNING AND 2 TABLETS IN THE EVENING , NOTES: 04/19/20 TAKING METHOCARBAMOL 500 MG TABLET 1.5 TABLETS ORALLY THREE TIMES A DAY TAKING GEMFIBROZIL 600 MG TABLET 1 TABLET 30 MINUTES BEFORE MORNING AND EVENING MEALS ORALLY TWICE A DAY TAKING VITAMIN B12 1 MG TABLET 1 TABLET ORALLY ONCE A DAY TAKING NASACORT ALLERGY 24HR 55 MCG/ACT AEROSOL 1 PUFF IN EACH NOSTRIL NASALLY ONCE A DAY TAKING METHOCARBAMOL 500 MG TABLET 1.5 TABLETS ORALLY THREE TIMES A DAY TAKING NORCO 10-325 MG TABLET 1 TABLET NEEDED ORALLY FOR PAIN (THIS PRESCRIPTION SHOULD LAST 1 MONTH) EVERY 6 HOURS NEEDED MDD2 TAKING TIZANIDINE HCL 4 MG TABLET 1 TABLET NEEDED ORALLY THREE TIMES A DAY TAKING MELOXICAM 7.5 MG TABLET 1 TAB ORALLY BID TAKING FLUOXETINE HCL 40 MG CAPSULE 1 TABLET IN THE MORNING ORALLY ONCE A DAY TAKING LOSARTAN POTASSIUM 100 MG TABLET 1 TABLET ORALLY ONCE A DAY TAKING DICLOFENAC SODIUM 1 % GEL 1 APPLICATION TO AFFECTED AREA TRANSDERMAL EVERY 4 HOURS NEEDED TAKING CYMBALTA 20 MG CAPSULE DELAYED RELEASE PARTICLES 2 CAPSULES ORALLY AT BEDTIME TAKING PEPCID 20MG TABLET 1 TABLET ORALLY TWICE A DAY TAKING OMEPRAZOLE 40 MG CAPSULE DELAYED RELEASE 1 CAPSULE 30 MINUTES BEFORE MORNING MEAL ORALLY ONCE A DAY TAKING METFORMIN HCL ER 500 MG TABLET EXTENDED RELEASE 24 HOUR 3 TABLETS IN AM, 2 IN PM ORALLY BID TAKING INVOKANA 100 MG TABLET 1 TABLET ORALLY ONCE A DAY TAKING TRULICITY 0.75 MG/0.5ML SOLUTION PEN-INJECTOR 1 INJECTION SUBCUTANEOUS WEEK TAKING COMBIVENT RESPIMAT 20-100 MCG/ACT AEROSOL 1 PUFF INHALATION FOUR TIMES DAILY, NEEDED TAKING ANORO ELLIPTA UMECLIDINIUM 62.5 MCG AND VILANTEROL 25 MCG INHALATION POWDER 1 INHALATION ORAL ONCE DAILY TAKING MUCINEX 600 MG TABLET EXTENDED RELEASE 12 HOUR 1 TABLET NEEDED ORALLY EVERY 12 HRS TAKING SINGULAIR 10 MG TABLET 1 TABLET ORALLY QHS TAKING ALBUTEROL SULFATE (2.5 MG/3ML) 0.083% NEBULIZATION SOLUTION 3 ML NEEDED INHALATION EVERY 8 HRS TAKING ATORVASTATIN CALCIUM 80 MG TABLET 1 TABLET ORALLY ONCE A DAY TAKING ZETIA 10 MG TABLET 1 TABLET ORALLY ONCE A DAY NOT-TAKING CHLORTHALIDONE 25 MG TABLET 1 TABLET IN THE MORNING WITH FOOD ORALLY EVERY MORNING MEDICATION LIST REVIEWED AND RECONCILED WITH THE PATIENT PAST MEDICAL HISTORY HYPERTENSION-08/2016 NST LOW RISK, GOOD EXERCISE TOLERANCE-ANTECOL//08/2016 MILD CONCENTRIC [id number] HYPERLIPIDEMIA 2B GERD COPD-02/2012 FEV1 3.83 OBESITY, MORBID PRIOR NICOTINE ADDICTION-SMOKED 20 YEARS 1 04/08 PPD, QUIT IN 2006 T2DM NID C PERIPHERAL NEUROPATHY BLE PERIPHERAL EDEMA 2 MEDICAL NON-COMPLIANCE L SHOULDER OA 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 -[facility]HEL[facility], -SSA/SSB BY XRAY/ L2/3, 4/5, 08/05 BULGES ALL C MINIMAL SAC COMPRESSION BY 03/2014 MRI THORACIC [id number] 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 CTS-08/10/14 BUE NCS C SEVERE R, MODERATE-SEVERE L CTS-GONSALES S/P 10/2014 [facility] OSTEOARTHRITIS ALLERGIC RHINITIS-03/2016 - ZONE 1 PANEL 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 COMPRESSION BY 11/2015 MRI-[facility] MILD CONCENTRIC LVH, CVP 10, NORMAL VIRIDIANA/SYS FUNCTION BY 08/2016 TTE-ANTECOL ALLERGIES TRILIPIX: AGITATION - SIDE EFFECTS TRIPLE ANTIBIOTIC: RASH /SWELLING - ALLERGY NIACIN: BURNING - ALLERGY SOCIAL HISTORY GENERAL: TOBACCO USE ARE YOU A:FORMER SMOKER HOW LONG HAS IT BEEN SINCE YOU LAST SMOKED?> 10 YEARS LATEX QUESTIONNAIRE LATEX ALLERGY : HAVE YOU EVER DEVELOPED ANY TYPE OF REACTION AFTER HANDLING LATEX PRODUCTS SUCH RUBBER GLOVES, CONDOMS, DIAPHRAGMS, BALLOONS, SOCKS, OR UNDERWEAR?NO LATEX ALLERGY : HAVE YOU EVER DEVELOPED ANY TYPE OF REACTION DURING OR AFTER DENTAL APPOINTMENT, VAGINAL/RECTAL EXAMINATION, SURGICAL PROCEDURE, OR ANY OTHER EXPOSURE?NO DATE ASKED : 04/26/2020 LATEX RISK : HAVE YOU EVER HAD ANY DIFFICULTY BREATHING OR HIVES AFTER EATING OR HANDLING ANY FRUITS, OR VEGETABLES; SUCH KIWI, BANANAS, STONE FRUITS, OR CHESTNUTSNO LATEX RISK : DO YOU HAVE A PREVIOUS PERSONAL HISTORY OF MORE THAN NINE SURGERIES, SPINA BIFIDA, OR REPEATED CATHERIZATIONS? NO LATEX RISK : ARE YOU FREQUENTLY EXPOSED TO LATEX PRODUCTS IN YOUR OCCUPATION?NO BMI CARE GOAL FOLLOW-UP ABOVE NORMAL BMI FOLLOW-UP GIVING ENCOURAGEMENT TO EXERCISE. ALCOHOL SCREENING DID YOU HAVE A DRINK CONTAINING ALCOHOL IN THE PAST YEAR?YES HOW OFTEN DID YOU HAVE SIX OR MORE DRINKS ON ONE OCCASION IN THE PAST YEAR?NEVER (0 POINTS) HOW MANY DRINKS DID YOU HAVE ON A TYPICAL DAY WHEN YOU WERE DRINKING IN THE PAST YEAR?1 OR 2 (0 POINTS) HOW OFTEN DID YOU HAVE A DRINK CONTAINING ALCOHOL IN THE PAST YEAR?MONTHLY OR LESS (1 POINT) POINTS1 INTERPRETATIONNEGATIVE RECREATIONAL DRUG USE DRUG USE?NO CAFFEINE CAFFEINE USE?YES SEXUAL HX HAD SEX IN THE LAST 12 MONTHS (VAGINAL, ORAL, OR ANAL)?NO HAVE YOU EVER HAD AN STD?NO HIV / HEP-C SCREENING HIV TEST OFFERED TO PATIENT:YES DATE OFFERED:07/30/2016 TEST ACCEPTED:NO HEP-C TEST OFFERED TO PATIENT:YES DATE OFFERED:07/30/2016 REASON:PATIENT DECLINED TEST ACCEPTED:NO REASON:PATIENT DECLINED [id number] LANGUAGE LANGUAGES SPOKEN:CHINESE EDUCATION LEVEL OF EDUCATION:NOT FINISHED 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 DIET: SUPPOSED TO BEING A HEART HEALTHY DIET. EXERCISE: WALKS, BIKES. MARITAL STATUS: , ONE CHILD. - WAS THE PROVIDER NOTIFIED OF ANY PERTINENT INFO?YES HAS THE PATIENT BEEN EDUCATED REGARDING HIS/HER PLAN OF CARE?YES HAS THE PATIENT BEEN EDUCATED REGARDING PAIN, THE RISK FOR PAIN, THE IMPORTANCE OF EFFECTIVE PAIN MANAGEMENT, AND THE PAIN ASSESSMENT PROCESS?YES ADVANCE DIRECTIVE ADVANCE DIRECTIVE DISCUSSED WITH PATIENT:YES PT DECLINES HCP INFORMATION AT THIS TIME. MOVED FROM [facility] IN 2006-BORN THERE. REVIEW OF SYSTEMS CONSTITUTIONAL: ANY RECENT FEVER NO . CHILLS NO . WEIGHT CHANGE OF UNKNOWN REASONS NO . GASTROENTEROLOGY: NEW UNEXPLAINABLE CHANGES IN BOWEL CONTROL NO . CONSTIPATION NO . GENITOURINARY: ANY NEW CHANGE IN BLADDER CONTROL? NO . NEUROLOGY: NEW ONSET DIZZINESS OR NEUROLOGICAL CHANGES NOT MENTIONED NO . NEW NUMBNESS OR PAIN PATTERNS NOT MENTIONED AND PERTINENT TO TODAY'S VISIT NO . CARDIOLOGY: NEW CHEST PRESSURE NO . NEW CHEST PAIN NO . RESPIRATORY: UNEXPLAINABLE COUGH NO . NEW SHORTNESS OF BREATH NO . VITAL SIGNS WT 328 LBS, HT 70.00", BMI 47.06 INDEX, BP 124/65 MM HG, HR 87 /MIN, RR 16 /MIN, TEMP 96.4 F, OXYGEN SAT % 96, SAFE IN ENV? (Y/N) Y, REVIEWED BY: EM. EXAMINATION GENERAL EXAMINATION: GENERALNO ACUTE DISTRESS, WELL NOURISHED AND HYDRATED. PSYCHAPPROPRIATE MOOD AND AFFECT . NECK:NO LYMPHADENOPATHY, SUPPLE, NO THYROMEGALLY. LUNGS:CLEAR TO AUSCULTATION BILATERALLY, NO WHEEZES, RHONCHI, RALES. HEART:NO MURMURS, REGULAR RATE AND RHYTHM. MUSCULOSKELETAL:NORMAL RANGE OF MOTION. THORACIC SPINE:SPECIFIC POINT TENDERNESS NOTED OVER MID THORACIC SPINE. TENDERNESS NOTED OVER RIGHT MID THORACIC PARASPINAL REGION . DIAGNOSTIC TESTS REVIEWEDMRI THORACIC SPINE 03/2020 . 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 PROCEDURE CODES FA211 ESTABILISHED PATIENT [facility] FACILITY CHARGE DISPOSITION & COMMUNICATION FOLLOW UP POST PROCEDURE (REASON: THORACIC EPIDURAL STEROID INJECTION T6/7) ELECTRONICALLY SIGNED BY LIZBETH GUTIERREZ ON 05/01/2020 AT 03:40 PM EST DISCLAIMER : THIS IS A VISIT SUMMARY EXTRACTED FROM THE [employer] CHART. IT IS NOT A COPY OF THE [employer] PROGRESS NOTE. MTDD
== END ==
LOC: M PAIN 08:15
PROVIDERS: ATTEND Nurse Practitioner Family
DX: M51.24 Other intervertebral disc displacement, thoracic region (principal); I10 Essential (primary) hypertension; E78.5 Hyperlipidemia, unspecified; K21.9 Gastro-esophageal reflux disease without esophagitis; J44.9 Chronic obstructive pulmonary disease, unspecified; E66.01 Morbid (severe) obesity due to excess calories; Z68.42 Body mass index [BMI] 45.0-49.9, adult; E11.42 Type 2 diabetes mellitus with diabetic polyneuropathy; I73.00 Raynaud's syndrome without gangrene; Z87.891 Personal history of nicotine dependence; Z79.82 Long term (current) use of aspirin; Z79.84 Long term (current) use of oral hypoglycemic drugs; Z79.891 Long term (current) use of opiate analgesic; Z79.899 Other long term (current) drug therapy; Z88.1 Allergy status to other antibiotic agents; Z88.8 Allergy status to other drugs, medicaments and biological substances

== ENCOUNTER → 2020-05-04 | Outpatient (CLI) | payer BC ==
--- NOTE | 2020-05-10 02:14 | ECWPNPC ---
PATIENT NAME: SRINATH GUPTA : 1970 GENDER: MALE VISIT DATE: 05/04/2020 DISCHARGE DATE: 05/04/20 1037 VISIT LOCKED DATE TIME: PHYSICIAN: BOOKER DEAN PHYSICIAN PAGER NO: ACTIVE RESOURCE: BOOKER DEAN REASON FOR APPOINTMENT 1. POST RIGHT STANDARD LUMBAR RADIOFREQUENCY L4-L5, L5-S1 HISTORY OF PRESENT ILLNESS GENERAL: HERE FOR POST PROCEDURE FOLLOW-UP. HAD RIGHT L4-5 L5-S1 STANDARD RADIOFREQUENCY ON 04/20/2020. REPORTING MARKED REDUCTION IN PAIN IN RIGHT LOW BACK REGION SINCE PROCEDURE. CHIEF AREA OF PAIN IS LEFT LOW BACK. NO RECENT MRI IMAGING OF LUMBAR SPINE. DISCUSSED TREATMENT PLAN. -. FALL RISK SCREENING: SCREENING :NO FALLS REPORTED IN THE LAST YEAR PAIN SCREENING: PATIENT HAS A COMPLAINT OF ACUTE OR CHRONIC PAIN :YES LOCATION OF PAIN:RIGHT HIP RIGHT BUTTOCK INTENSITY OF PAIN (SCALE OF 1 TO 10):4 WHAT DOES YOUR PAIN FEEL LIKE:OTHER DULL, CRAMPING DURATION:CONTINOUS, CONSTANT, ALL DAY, AWAKENS FROM SLEEP PAIN IS INCREASED BY:ACTIVITIES SITTING AND BENDING PAIN IS DECREASED BY:USE OF PAIN MEDICATIONS NORCO HEPS WITH PAIN. TANAZIDINE HELPS WITH SLEEP. TREATMENT/MEDICATIONS USED TO MANAGE PAIN:NSAIDS LEVEL OF RELIEF FROM PAIN TREATMENTS IN THE PAST:25% NURSING NOTE: -. PAIN CENTER INTAKE QUESTIONS: DO YOU HAVE A HISTORY OF MRSA? :NO DO YOU TAKE A BLOOD THINNERS? :NO DO YOU HAVE ANY BLEEDING DISORDERS? :NO ANY NEW NUMBNESS OR WEAKNESS IN YOUR LEGS OR ARMS? :NO ANY PACEMAKER,DEFIBRILLATOR, OR DORSAL COLUMN STIMULATOR? :NO DO YOU HAVE ANY RASHES OR OPEN SORES? :NO ARE YOU ALLERGIC TO IV DYE? :NO ARE YOU DIABETIC? :YES ANY NEW PROBLEMS WITH YOUR MEDICATIONS? :NO HAVE YOU RECEIVED A VACCINE IN THE PAST 30 DAYS? :NO DO YOU PLAN TO RECEIVE A VACCINE IN THE NEXT 21 DAYS? :NO DO YOU NEED ANY PRESCRIPTION? :NO DO YOU TAKE ANY IMMUNOSUPPRESSIVE MEDICATIONS? :NO IS THERE A CHANCE YOU COULD BE ? :NO ARE YOU BREAST FEEDING? :NO CURRENT MEDICATIONS TAKING ASPIRIN 81 MG TABLET DELAYED RELEASE 1 TABLET ORALLY ONCE A DAY TAKING MULTIVITAMINS 1000 MG TABLET 1 TAB ORALLY ONCE A DAY TAKING GLUCOMETER DIRECTED _ ONCE DAILY TAKING NYSTATIN [id number] UNIT/GM POWDER 1 APPLICATION TO AFFECTED AREA EXTERNALLY TWICE A DAY TAKING MAY HAVE - - NEBULIZER FOR COPD EXACERBATION ORALLY EVERY 6 HOURS NEEDED TAKING DULOXETINE HCL 60 MG CAPSULE DELAYED RELEASE PARTICLES 1 CAPSULE ORALLY ONCE A DAY TAKING CHLORTHALIDONE 25MG TABLET 1 TABLET IN THE MORNING WITH FOOD ORALLY EVERY MORNING TAKING GLIMEPIRIDE 1 MG TABLET 1 TABLET ORALLY BID, NOTES: 04/19/20 TAKING ANORO ELLIPTA 62.5-25 MCG/INH AEROSOL POWDER BREATH ACTIVATED INHALE 1 PUFF BY MOUTH ONCE DAILY TAKING METFORMIN HCL ER 500 MG TABLET EXTENDED RELEASE 24 HOUR TAKE 3 TABLETS BY MOUTH ONCE DAILY IN THE MORNING AND 2 TABLETS IN THE EVENING , NOTES: 04/19/20 TAKING METHOCARBAMOL 500 MG TABLET 1.5 TABLETS ORALLY THREE TIMES A DAY TAKING GEMFIBROZIL 600 MG TABLET 1 TABLET 30 MINUTES BEFORE MORNING AND EVENING MEALS ORALLY TWICE A DAY TAKING METHOCARBAMOL 750 MG TABLET 1.5 TABLETS ORALLY THREE TIMES DAILY TAKING NORCO 10-325 MG TABLET 1 TABLET NEEDED ORALLY FOR PAIN (THIS PRESCRIPTION SHOULD LAST 1 MONTH) EVERY 6 HOURS NEEDED MDD2 TAKING TIZANIDINE HCL 4 MG TABLET 1 TABLET NEEDED ORALLY THREE TIMES A DAY TAKING MELOXICAM 7.5 MG TABLET 1 TAB ORALLY BID TAKING FLUOXETINE HCL 40 MG CAPSULE 1 TABLET IN THE MORNING ORALLY ONCE A DAY TAKING LOSARTAN POTASSIUM 100 MG TABLET 1 TABLET ORALLY ONCE A DAY TAKING DICLOFENAC SODIUM 1 % GEL 1 APPLICATION TO AFFECTED AREA TRANSDERMAL EVERY 4 HOURS NEEDED TAKING CYMBALTA 20 MG CAPSULE DELAYED RELEASE PARTICLES 2 CAPSULES ORALLY AT BEDTIME TAKING PEPCID 20MG TABLET 1 TABLET ORALLY TWICE A DAY TAKING OMEPRAZOLE 40 MG CAPSULE DELAYED RELEASE 1 CAPSULE 30 MINUTES BEFORE MORNING MEAL ORALLY ONCE A DAY TAKING METFORMIN HCL ER 500 MG TABLET EXTENDED RELEASE 24 HOUR 3 TABLETS IN AM, 2 IN PM ORALLY BID TAKING INVOKANA 100 MG TABLET 1 TABLET ORALLY ONCE A DAY TAKING TRULICITY 0.75 MG/0.5ML SOLUTION PEN-INJECTOR 1 INJECTION SUBCUTANEOUS WEEK TAKING COMBIVENT RESPIMAT 20-100 MCG/ACT AEROSOL 1 PUFF INHALATION FOUR TIMES DAILY, NEEDED TAKING ANORO ELLIPTA UMECLIDINIUM 62.5 MCG AND VILANTEROL 25 MCG INHALATION POWDER 1 INHALATION ORAL ONCE DAILY TAKING MUCINEX 600 MG TABLET EXTENDED RELEASE 12 HOUR 1 TABLET NEEDED ORALLY EVERY 12 HRS TAKING SINGULAIR 10 MG TABLET 1 TABLET ORALLY QHS TAKING ALBUTEROL SULFATE (2.5 MG/3ML) 0.083% NEBULIZATION SOLUTION 3 ML NEEDED INHALATION EVERY 8 HRS TAKING ATORVASTATIN CALCIUM 80 MG TABLET 1 TABLET ORALLY ONCE A DAY TAKING ZETIA 10 MG TABLET 1 TABLET ORALLY ONCE A DAY NOT-TAKING MICONAZOLE NITRATE 2 % CREAM 1 APPLICATION TO AFFECTED AREA EXTERNALLY TWICE A DAY NOT-TAKING VITAMIN B12 1 MG TABLET 1 TABLET ORALLY ONCE A DAY NOT-TAKING NASACORT ALLERGY 24HR 55 MCG/ACT AEROSOL 1 PUFF IN EACH NOSTRIL NASALLY ONCE A DAY NOT-TAKING CHLORTHALIDONE 25 MG TABLET 1 TABLET IN THE MORNING WITH FOOD ORALLY EVERY MORNING MEDICATION LIST REVIEWED AND RECONCILED WITH THE PATIENT PAST MEDICAL HISTORY HYPERTENSION-08/2016 NST LOW RISK, GOOD EXERCISE TOLERANCE-ANTECOL//08/2016 MILD CONCENTRIC [id number] HYPERLIPIDEMIA 2B GERD COPD-02/2012 FEV1 3.83 OBESITY, MORBID PRIOR NICOTINE ADDICTION-SMOKED 20 YEARS 1 04/08 PPD, QUIT IN 2006 T2DM NID C PERIPHERAL NEUROPATHY BLE PERIPHERAL EDEMA 2 MEDICAL NON-COMPLIANCE L SHOULDER OA 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 -[facility], -SSA/SSB BY XRAY/ L2/3, 4/5, 08/05 BULGES ALL C MINIMAL SAC COMPRESSION BY 03/2014 MRI THORACIC [id number] 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 CTS-08/10/14 BUE NCS C SEVERE R, MODERATE-SEVERE L CTS-ILDA S/P 10/2014 [facility] OSTEOARTHRITIS ALLERGIC RHINITIS-03/2016 - ZONE 1 PANEL 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 COMPRESSION BY 11/2015 MRI-[facility] MILD CONCENTRIC LVH, CVP 10, NORMAL VIRIDIANA/SYS FUNCTION BY 08/2016 TTE-ANTECOL ALLERGIES TRILIPIX: AGITATION - SIDE EFFECTS TRIPLE ANTIBIOTIC: RASH /SWELLING - ALLERGY NIACIN: BURNING - ALLERGY SOCIAL HISTORY GENERAL: TOBACCO USE ARE YOU A:FORMER SMOKER HOW LONG HAS IT BEEN SINCE YOU LAST SMOKED?> 10 YEARS LATEX QUESTIONNAIRE LATEX ALLERGY : HAVE YOU EVER DEVELOPED ANY TYPE OF REACTION AFTER HANDLING LATEX PRODUCTS SUCH RUBBER GLOVES, CONDOMS, DIAPHRAGMS, BALLOONS, SOCKS, OR UNDERWEAR?NO LATEX ALLERGY : HAVE YOU EVER DEVELOPED ANY TYPE OF REACTION DURING OR AFTER DENTAL APPOINTMENT, VAGINAL/RECTAL EXAMINATION, SURGICAL PROCEDURE, OR ANY OTHER EXPOSURE?NO LATEX RISK : HAVE YOU EVER HAD ANY DIFFICULTY BREATHING OR HIVES AFTER EATING OR HANDLING ANY FRUITS, OR VEGETABLES; SUCH KIWI, BANANAS, STONE FRUITS, OR CHESTNUTSNO LATEX RISK : DO YOU HAVE A PREVIOUS PERSONAL HISTORY OF MORE THAN NINE SURGERIES, SPINA BIFIDA, OR REPEATED CATHERIZATIONS? NO LATEX RISK : ARE YOU FREQUENTLY EXPOSED TO LATEX PRODUCTS IN YOUR OCCUPATION?NO DATE ASKED : 05/04/2020 ALCOHOL USE: NO. BMI CARE GOAL FOLLOW-UP ABOVE NORMAL BMI FOLLOW-UP GIVING ENCOURAGEMENT TO EXERCISE. ALCOHOL SCREENING DID YOU HAVE A DRINK CONTAINING ALCOHOL IN THE PAST YEAR?YES HOW OFTEN DID YOU HAVE SIX OR MORE DRINKS ON ONE OCCASION IN THE PAST YEAR?NEVER (0 POINTS) HOW MANY DRINKS DID YOU HAVE ON A TYPICAL DAY WHEN YOU WERE DRINKING IN THE PAST YEAR?1 OR 2 (0 POINTS) HOW OFTEN DID YOU HAVE A DRINK CONTAINING ALCOHOL IN THE PAST YEAR?MONTHLY OR LESS (1 POINT) POINTS1 INTERPRETATIONNEGATIVE RECREATIONAL DRUG USE DRUG USE?NO CAFFEINE CAFFEINE USE?YES SEXUAL HX HAD SEX IN THE LAST 12 MONTHS (VAGINAL, ORAL, OR ANAL)?NO HAVE YOU EVER HAD AN STD?NO HIV / HEP-C SCREENING HIV TEST OFFERED TO PATIENT:YES DATE OFFERED:07/30/2016 TEST ACCEPTED:NO HEP-C TEST OFFERED TO PATIENT:YES DATE OFFERED:07/30/2016 REASON:PATIENT DECLINED TEST ACCEPTED:NO REASON:PATIENT DECLINED ANA[employer]IST [id number]AZIDISM LANGUAGE LANGUAGES SPOKEN:PORTUGUESE EDUCATION LEVEL OF EDUCATION:NOT FINISHED HIGH SCHOOL 10TH GRADE LEARNING BARRIERS / SPECIAL NEEDS CHANGE FROM LAST VISIT?NO BARRIERS TO LEARNING?NO HEARING IMPAIRED?NO VISION IMPAIRED?NO COGNITIVELY IMPAIRED?NO READINESS TO LEARN?NO LEARNING PREFERENCES?NO LEARNING CAPABILITIES PRESENT?NO EMOTIONAL BARRIERS?NO SPECIAL DEVICES?NO CLEANER AND PRESSER NEEDED?NO DOMESTIC VIOLENCE DO YOU FEEL SAFE IN YOUR ENVIRONMENT?YES 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 DIET: SUPPOSED TO BEING A HEART HEALTHY DIET. EXERCISE: WALKS, BIKES. MARITAL STATUS: , ONE CHILD. - WAS THE PROVIDER NOTIFIED OF ANY PERTINENT INFO?YES HAS THE PATIENT BEEN EDUCATED REGARDING HIS/HER PLAN OF CARE?YES HAS THE PATIENT BEEN EDUCATED REGARDING PAIN, THE RISK FOR PAIN, THE IMPORTANCE OF EFFECTIVE PAIN MANAGEMENT, AND THE PAIN ASSESSMENT PROCESS?YES ADVANCE DIRECTIVE ADVANCE DIRECTIVE DISCUSSED WITH PATIENT:YES PT DECLINES HCP INFORMATION AT THIS TIME. MOVED FROM [facility] IN 2005-BORN THERE. REVIEW OF SYSTEMS CONSTITUTIONAL: ANY RECENT FEVER NO . CHILLS NO . WEIGHT CHANGE OF UNKNOWN REASONS NO . GASTROENTEROLOGY: NEW UNEXPLAINABLE CHANGES IN BOWEL CONTROL NO . CONSTIPATION NO . GENITOURINARY: ANY NEW CHANGE IN BLADDER CONTROL? NO . NEUROLOGY: NEW ONSET DIZZINESS OR NEUROLOGICAL CHANGES NOT MENTIONED NO . NEW NUMBNESS OR PAIN PATTERNS NOT MENTIONED AND PERTINENT TO TODAY'S VISIT NO . CARDIOLOGY: NEW CHEST PRESSURE NO . NEW CHEST PAIN NO . RESPIRATORY: UNEXPLAINABLE COUGH NO . NEW SHORTNESS OF BREATH NO . VITAL SIGNS WT 334.2 LBS, HT 70.00", BMI 47.95 INDEX, BP 122/61 MM HG, HR 76 /MIN, RR 20 /MIN, TEMP 97.9 F, OXYGEN SAT % 97%, SAFE IN ENV? (Y/N) YES, REVIEWED BY: ISAC BURT MA. EXAMINATION GENERAL EXAMINATION: GENERAL AWAKE,ALERT ,PLEAASANT . PSYCH AFFECT NORMAL . LUNGS: LUNG BACH ARE CLEAR TO AUSCULTATION BILATERALLY. GOOD MOVEMENT OF AIR . HEART: S1, S2 IN A REGULAR RATE AND RHYTHM. NO SIGNIFICANT MURMURS, RUBS OR GALLOPS NOTED . LUMBAR:PALPATION:TENDER OVER LEFT. L4/5-L5/S1 LUMBAR FACETS WITH FACET LOADING.. DIAGNOSTIC TESTS REVIEWEDMRI L/S SPINE -11/17/15. ASSESSMENTS OTHER CHRONIC PAIN - G89.29 (PRIMARY) SPONDYLOSIS WITHOUT MYELOPATHY OR RADICULOPATHY, LUMBAR REGION - M47.816 TREATMENT OTHER CHRONIC PAIN REFILL NORCO TABLET, 10-325 MG, 1 TABLET NEEDED, ORALLY FOR PAIN (THIS PRESCRIPTION SHOULD LAST 1 MONTH), EVERY 6 HOURS NEEDED MDD2, 30 DAYS, 60, REFILLS 0 [facility] MRI LUMBAR W/O CONTRAST (CPT [id number] PAIN PROCEDURE LOGDATE OF PROCEDURE04/20/20PROCEDURE:RIGHT STANDARD RADIOFREQUENCYAMOUNT OF PRE SEDATENONERESULT:MARKED REDUCTION IN RIGHT LUMBAR PAIN NOTES: ISTOP REGISTRY REVIEWED AND DEMONSTRATES COMPLLIANCE. RECENT URINE TOXICOLOGY REVIEWED. NO UNAUTHORIZED MEDICATIONS. NO ILLICIT SUBSTANCES AND PRESCRIBED MEDICATIONS WERE PRESENT. URINE TOX TODAY REMINDED PATIENT TO BRING MEDICATION IN TO ALL APPOINTMENTS IN THE FUTURE PER CLINIC POLICY , RISKS OF NARCOTIC/OPIOD MEDICATIONS INCLUDES BUT IS NOT LIMITED TO RISK OF DEPENDANCE/DEVELOPMENT OF ADDICTION, MOOD DISTURBANCE AND DEPRESSION, OSTEOPOROSIS, HORMONAL AND LABIDAL CHANGES, RESPIRATORY DEPRESSION AND . PATIENT IS ADVISED NOT TO DRIVE OR DRINK ALCOHOL WHILE ON THESE MEDICATIONS. PROCEDURE CODES FA211 ESTABILISHED PATIENT [facility] CHARGE DISPOSITION & COMMUNICATION FOLLOW UP POST THORACIC INJECTION (REASON: REVIEW MRI L/S SPINE) ELECTRONICALLY SIGNED BY LIZBETH GUTIERREZ ON 05/09/2020 AT 01:41 PM EST DISCLAIMER : THIS IS A VISIT SUMMARY EXTRACTED FROM THE [employer] CHART. IT IS NOT A COPY OF THE [employer] PROGRESS NOTE. BRIED
== END ==
LOC: M PAIN 09:45
PROVIDERS: ATTEND Nurse Practitioner Family
DX: M47.816 Spondylosis without myelopathy or radiculopathy, lumbar region (principal); G89.29 Other chronic pain; E11.40 Type 2 diabetes mellitus with diabetic neuropathy, unspecified; K21.9 Gastro-esophageal reflux disease without esophagitis; J44.9 Chronic obstructive pulmonary disease, unspecified; Z87.891 Personal history of nicotine dependence; Z88.1 Allergy status to other antibiotic agents; Z88.8 Allergy status to other drugs, medicaments and biological substances; E66.01 Morbid (severe) obesity due to excess calories; Z68.42 Body mass index [BMI] 45.0-49.9, adult; Z79.82 Long term (current) use of aspirin; Z79.51 Long term (current) use of inhaled steroids; Z79.84 Long term (current) use of oral hypoglycemic drugs; Z79.899 Other long term (current) drug therapy

== ENCOUNTER → 2020-05-06 | Outpatient (CLI) | payer BC | LOC: M LABSMTC 11:55 | PROVIDERS: ATTEND Anesthesiology | DX: Z20.822 Contact with and (suspected) exposure to COVID-19 (principal) ==

== ENCOUNTER → 2020-05-11 | Outpatient (CLI) | payer BC ==
[~2020-05-11] MED LIST changes: -BUPIVACAINE HCL 0.25% 30ML VIAL As Ordered ONE; +ISOVUE-M 300 61% 15ML VIAL As Ordered ONE; -dexameTHASONE 10MG/1ML VIAL PRES.FREE (J1100 PER 1MG) As Ordered ONE; +diazePAM 5MG TABLET As Ordered ONE; +methylPREDNISolone SUSP 40MG/ML 1ML VIAL (DEPO MEDROL) As Ordered ONE; +oxyCODONE 5MG TAB As Ordered ONE
--- NOTE | 2020-05-11 13:40 | REP ---
INDICATION: R/O PNEUMO COMPARISON: 08/28/2018. TECHNIQUE: PA/Lateral FINDINGS: Lungs: There is poor ventilation. There are bibasilar atelectatic changes of a mild degree. There is no pneumothorax. Heart: Cardiac silhouette appears magnified. Mediastinum: Mediastinal silhouette unremarkable. Pleural angles: Unremarkable.. Bones and soft tissues: There is an old healed fracture of the mid shaft of the right clavicle. There are degenerative changes of the spine. IMPRESSION: Poor ventilation with bibasilar atelectatic change. No pneumothorax. <Electronically signed by Stefano Lindquist > 05/11/20 [id number]
--- NOTE | 2020-05-11 15:02 | REP ---
INDICATION: THORACIC EPIDURAL STEROID INJECTION. COMPARISON: None. TECHNIQUE: Three views. 129.8 seconds of fluoroscopy time is reported. FINDINGS: A sequence of 3 last image hold fluoroscopically obtained spot radiograph(s) of the thoracic spine document(s) needle position(s) and contrast injection associated with injection procedure. IMPRESSION: Procedural imaging. <Electronically signed by Christian Goodrich > 05/11/20 [id number]
--- NOTE | 2020-05-13 01:45 | ECWPNPC ---
PATIENT NAME: SRINATH GUPTA : 1970 GENDER: MALE VISIT DATE: 05/11/2020 DISCHARGE DATE: 05/11/20 1355 VISIT LOCKED DATE TIME: PHYSICIAN: AGUEDA MORALES MD PHYSICIAN PAGER NO: ACTIVE RESOURCE: AGUEDA MORALES MD REASON FOR APPOINTMENT 1. THORACIC EPIDURAL STEROID INJECTION HISTORY OF PRESENT ILLNESS GENERAL: -. FALL RISK SCREENING: SCREENING :NO FALLS REPORTED IN THE LAST YEAR PAIN SCREENING: PATIENT HAS A COMPLAINT OF ACUTE OR CHRONIC PAIN :YES LOCATION OF PAIN:CHEST, UPPER BACK INTENSITY OF PAIN (SCALE OF 1 TO 10):7 AVERAGE 6 WHAT DOES YOUR PAIN FEEL LIKE:ACHING, CONTINOUS, SHARP, TENDER, SORE, SHOOTING, OTHER TINGLING DURATION:CONTINOUS, CONSTANT, AWAKENS FROM SLEEP PAIN IS INCREASED BY:ACTIVITIES, OTHERS SITTING, BENDING PAIN IS DECREASED BY:USE OF PAIN MEDICATIONS, OTHERS HEAT PAIN HAS INTERFERED WITH THE FOLLOWING: EVERYTHING NURSING NOTE: -. PAIN CENTER INTAKE QUESTIONS: DO YOU HAVE A HISTORY OF MRSA? :NO DO YOU TAKE A BLOOD THINNERS? :NO DO YOU HAVE ANY BLEEDING DISORDERS? :NO ANY NEW NUMBNESS OR WEAKNESS IN YOUR LEGS OR ARMS? :NO ANY PACEMAKER,DEFIBRILLATOR, OR DORSAL COLUMN STIMULATOR? :NO DO YOU HAVE ANY RASHES OR OPEN SORES? :NO ARE YOU ALLERGIC TO IV DYE? :NO ARE YOU DIABETIC? :YES 141 ANY NEW PROBLEMS WITH YOUR MEDICATIONS? :NO HAVE YOU RECEIVED A VACCINE IN THE PAST 30 DAYS? :NO DO YOU PLAN TO RECEIVE A VACCINE IN THE NEXT 21 DAYS? :NO DO YOU TAKE ANY IMMUNOSUPPRESSIVE MEDICATIONS? :NO ANY HISTORY OF SEIZURES? :NO ANY HISTORY OF CARDIAC ISSUES OR EVENTS? :NO DO YOU HAVE SLEEP APNEA? :NO ANY RECENT HEAD INJURY? :NO DO YOU HAVE ANY NEW INFECTIONS? :NO IS THERE A CHANCE YOU COULD BE ? :NO ARE YOU BREAST FEEDING? :NO WHEN DID YOU LAST EAT? : 05/10/2020 1900 WHEN DID YOU LAST DRINK? : 05/11/2020 0600 WHAT DID YOU LAST DRINK? : WATER NAME OF PERSON DRIVING YOU HOME? : YEN DO YOU HAVE ANY OTHER QUESTIONS OR CONCERNS? : NONE CURRENT MEDICATIONS TAKING ASPIRIN 81 MG TABLET DELAYED RELEASE 1 TABLET ORALLY ONCE A DAY TAKING MULTIVITAMINS 1000 MG TABLET 1 TAB ORALLY ONCE A DAY TAKING GLUCOMETER DIRECTED _ ONCE DAILY TAKING NYSTATIN [id number] UNIT/GM POWDER 1 APPLICATION TO AFFECTED AREA EXTERNALLY TWICE A DAY TAKING MAY HAVE - - NEBULIZER FOR COPD EXACERBATION ORALLY EVERY 6 HOURS NEEDED TAKING DULOXETINE HCL 60 MG CAPSULE DELAYED RELEASE PARTICLES 1 CAPSULE ORALLY ONCE A DAY TAKING CHLORTHALIDONE 25MG TABLET 1 TABLET IN THE MORNING WITH FOOD ORALLY EVERY MORNING TAKING GLIMEPIRIDE 1 MG TABLET 1 TABLET ORALLY BID, NOTES: 05/10/2020 090 TAKING ANORO ELLIPTA 62.5-25 MCG/INH AEROSOL POWDER BREATH ACTIVATED INHALE 1 PUFF BY MOUTH ONCE DAILY TAKING METFORMIN HCL ER 500 MG TABLET EXTENDED RELEASE 24 HOUR TAKE 3 TABLETS BY MOUTH ONCE DAILY IN THE MORNING AND 2 TABLETS IN THE EVENING , NOTES: 05/10/2020 1800 TAKING GEMFIBROZIL 600 MG TABLET 1 TABLET 30 MINUTES BEFORE MORNING AND EVENING MEALS ORALLY TWICE A DAY TAKING METHOCARBAMOL 750 MG TABLET 1.5 TABLETS ORALLY THREE TIMES DAILY, NOTES: 05/10/2020 TAKING TIZANIDINE HCL 4 MG TABLET 1 TABLET NEEDED ORALLY THREE TIMES A DAY, NOTES: A COUPLE DAYS TAKING MELOXICAM 7.5 MG TABLET 1 TAB ORALLY BID, NOTES: 05/11/2020 0600 TAKING FLUOXETINE HCL 60 MG TABLET 1 TABLET IN THE MORNING ORALLY ONCE A DAY TAKING LOSARTAN POTASSIUM 100 MG TABLET 1 TABLET ORALLY ONCE A DAY TAKING DICLOFENAC SODIUM 1 % GEL 1 APPLICATION TO AFFECTED AREA TRANSDERMAL EVERY 4 HOURS NEEDED TAKING CYMBALTA 20 MG CAPSULE DELAYED RELEASE PARTICLES 2 CAPSULES ORALLY AT BEDTIME TAKING PEPCID 20MG TABLET 1 TABLET ORALLY TWICE A DAY TAKING OMEPRAZOLE 40 MG CAPSULE DELAYED RELEASE 1 CAPSULE 30 MINUTES BEFORE MORNING MEAL ORALLY ONCE A DAY TAKING INVOKANA 100 MG TABLET 1 TABLET ORALLY ONCE A DAY, NOTES: 05/10/2020 AM TAKING TRULICITY 0.75 MG/0.5ML SOLUTION PEN-INJECTOR 1 INJECTION SUBCUTANEOUS WEEK, NOTES: FRIDAY TAKING COMBIVENT RESPIMAT 20-100 MCG/ACT AEROSOL 1 PUFF INHALATION FOUR TIMES DAILY, NEEDED TAKING MUCINEX 600 MG TABLET EXTENDED RELEASE 12 HOUR 1 TABLET NEEDED ORALLY EVERY 12 HRS TAKING SINGULAIR 10 MG TABLET 1 TABLET ORALLY QHS TAKING ALBUTEROL SULFATE (2.5 MG/3ML) 0.083% NEBULIZATION SOLUTION 3 ML NEEDED INHALATION EVERY 8 HRS TAKING ATORVASTATIN CALCIUM 80 MG TABLET 1 TABLET ORALLY ONCE A DAY TAKING NORCO 10-325 MG TABLET 1 TABLET NEEDED ORALLY FOR PAIN (THIS PRESCRIPTION SHOULD LAST 1 MONTH) EVERY 6 HOURS NEEDED MDD2, NOTES: 05/10/2020 1800 TAKING ZETIA 10 MG TABLET 1 TABLET ORALLY ONCE A DAY, NOTES: HASN'T STARTED YET NOT-TAKING METHOCARBAMOL 500 MG TABLET 1.5 TABLETS ORALLY THREE TIMES A DAY NOT-TAKING MICONAZOLE NITRATE 2 % CREAM 1 APPLICATION TO AFFECTED AREA EXTERNALLY TWICE A DAY NOT-TAKING VITAMIN B12 1 MG TABLET 1 TABLET ORALLY ONCE A DAY NOT-TAKING NASACORT ALLERGY 24HR 55 MCG/ACT AEROSOL 1 PUFF IN EACH NOSTRIL NASALLY ONCE A DAY NOT-TAKING CHLORTHALIDONE 25 MG TABLET 1 TABLET IN THE MORNING WITH FOOD ORALLY EVERY MORNING MEDICATION LIST REVIEWED AND RECONCILED WITH THE PATIENT PAST MEDICAL HISTORY HYPERTENSION-08/2016 NST LOW RISK, GOOD EXERCISE TOLERANCE-ANTECOL//08/2016 MILD CONCENTRIC OCD-[id number]-[id number] HYPERLIPIDEMIA 2B GERD COPD-02/2012 FEV1 3.83 OBESITY, MORBID PRIOR NICOTINE ADDICTION-SMOKED 20 YEARS 1 1/2 PPD, QUIT IN 2006 T2DM NID C PERIPHERAL NEUROPATHY BLE PERIPHERAL EDEMA 2 MEDICAL NON-COMPLIANCE L SHOULDER OA 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 -CHELSEA, -SSA/SSB BY XRAY/ L2/3, 4/5, / BULGES ALL C MINIMAL SAC COMPRESSION BY 03/2014 MRI THORACIC [id number] 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 CTS-08/10/14 BUE NCS C SEVERE R, MODERATE-SEVERE L CTS-GONSALES S/P 10/2014 CTR-[facility] V[facility] HAND OSTEOARTHRITIS ALLERGIC RHINITIS-03/2016 - ZONE 1 PANEL 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 COMPRESSION BY 11/2015 MRI-BOLLA MILD CONCENTRIC LVH, CVP 10, NORMAL VIRIDIANA/SYS FUNCTION BY 08/2016 TTE-ANTECOL ALLERGIES TRILIPIX: AGITATION - SIDE EFFECTS TRIPLE ANTIBIOTIC: RASH /SWELLING - ALLERGY NIACIN: BURNING - ALLERGY SOCIAL HISTORY GENERAL: TOBACCO USE ARE YOU A:FORMER SMOKER HOW LONG HAS IT BEEN SINCE YOU LAST SMOKED?> 10 YEARS LATEX QUESTIONNAIRE LATEX ALLERGY : HAVE YOU EVER DEVELOPED ANY TYPE OF REACTION AFTER HANDLING LATEX PRODUCTS SUCH RUBBER GLOVES, CONDOMS, DIAPHRAGMS, BALLOONS, SOCKS, OR UNDERWEAR?NO LATEX ALLERGY : HAVE YOU EVER DEVELOPED ANY TYPE OF REACTION DURING OR AFTER DENTAL APPOINTMENT, VAGINAL/RECTAL EXAMINATION, SURGICAL PROCEDURE, OR ANY OTHER EXPOSURE?NO LATEX RISK : HAVE YOU EVER HAD ANY DIFFICULTY BREATHING OR HIVES AFTER EATING OR HANDLING ANY FRUITS, OR VEGETABLES; SUCH KIWI, BANANAS, STONE FRUITS, OR CHESTNUTSNO LATEX RISK : DO YOU HAVE A PREVIOUS PERSONAL HISTORY OF MORE THAN NINE SURGERIES, SPINA BIFIDA, OR REPEATED CATHERIZATIONS? NO LATEX RISK : ARE YOU FREQUENTLY EXPOSED TO LATEX PRODUCTS IN YOUR OCCUPATION?NO DATE ASKED : 05/10/2020 ALCOHOL USE: NO. BMI CARE GOAL FOLLOW-UP ABOVE NORMAL BMI FOLLOW-UP GIVING ENCOURAGEMENT TO EXERCISE. ALCOHOL SCREENING DID YOU HAVE A DRINK CONTAINING ALCOHOL IN THE PAST YEAR?YES HOW OFTEN DID YOU HAVE SIX OR MORE DRINKS ON ONE OCCASION IN THE PAST YEAR?NEVER (0 POINTS) HOW MANY DRINKS DID YOU HAVE ON A TYPICAL DAY WHEN YOU WERE DRINKING IN THE PAST YEAR?1 OR 2 (0 POINTS) HOW OFTEN DID YOU HAVE A DRINK CONTAINING ALCOHOL IN THE PAST YEAR?MONTHLY OR LESS (1 POINT) POINTS1 INTERPRETATIONNEGATIVE RECREATIONAL DRUG USE DRUG USE?NO CAFFEINE CAFFEINE USE?YES SEXUAL HX HAD SEX IN THE LAST 12 MONTHS (VAGINAL, ORAL, OR ANAL)?NO HAVE YOU EVER HAD AN STD?NO HIV / HEP-C SCREENING HIV TEST OFFERED TO PATIENT:YES DATE OFFERED:07/30/2016 TEST ACCEPTED:NO HEP-C TEST OFFERED TO PATIENT:YES DATE OFFERED:07/30/2016 REASON:PATIENT DECLINED TEST ACCEPTED:NO REASON:PATIENT DECLINED ORIENTAL ORTHODOX [id number] CATHOLIC LANGUAGE LANGUAGES SPOKEN:[place] EDUCATION LEVEL OF EDUCATION:NOT FINISHED HIGH SCHOOL 10TH GRADE LEARNING BARRIERS / SPECIAL NEEDS CHANGE FROM LAST VISIT?NO BARRIERS TO LEARNING?NO HEARING IMPAIRED?NO VISION IMPAIRED?NO COGNITIVELY IMPAIRED?NO READINESS TO LEARN?NO LEARNING PREFERENCES?NO LEARNING CAPABILITIES PRESENT?NO EMOTIONAL BARRIERS?NO SPECIAL DEVICES?NO [place] NEEDED?NO DOMESTIC VIOLENCE DO YOU FEEL SAFE IN YOUR ENVIRONMENT?YES 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 DIET: SUPPOSED TO BEING A HEART HEALTHY DIET. EXERCISE: WALKS, BIKES. MARITAL STATUS: , ONE CHILD. - HAS THE PATIENT BEEN EDUCATED REGARDING HIS/HER PLAN OF CARE?YES HAS THE PATIENT BEEN EDUCATED REGARDING PAIN, THE RISK FOR PAIN, THE IMPORTANCE OF EFFECTIVE PAIN MANAGEMENT, AND THE PAIN ASSESSMENT PROCESS?YES ADVANCE DIRECTIVE ADVANCE DIRECTIVE DISCUSSED WITH PATIENT:YES 05/10/20 PT STATES HE DOESN'T HAVE ANY ADVANCED DIRECTIVES AND HE DECLINES HCP INFORMATION AT THIS TIME. MOVED FROM [facility] 2006-BORN THERE. VITAL SIGNS WT 327.6 LBS, HT 70.00", BMI 47.00 INDEX, BP 142/90 MM HG, HR 83 /MIN, RR 18 /MIN, TEMP 97.9 F, OXYGEN SAT % 93%, BLOOD GLUCOSE LEVEL 141, SAFE IN ENV? (Y/N) YES, NA INITIALS SC 10:31, REVIEWED BY: Jonah AUSTIN RN. EXAMINATION GENERAL EXAMINATION: THE PATIENT IS ALERT, ORIENTED TIMES THREE AND COOPERATIVE. LUNGS ARE CLEAR TO AUSCULTATION. HEART SHOWS REGULAR RHYTHM, NO MURMURS AND NO GALLOPS. 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 PATIENT TOLERATED IV START WELL. MEDICATION: VALIUM TAB 10MG ORALLY (DIAZEPAM)DERRICK VELAZQUEZ 05/11/2020 11:06:36 AM > VERIFIED PETER ORELLANA 05/11/2020 11:08:40 AM > ADMINISTERED MEDICATION: OXYCODONE HCL TAB 10MG ORALLYDERRICK VELAZQUEZ 05/11/2020 11:06:48 AM > VERIFIED PETER ORELLANA 05/11/2020 11:09:10 AM > ADMINISTERED COMPLETION OF PROCEDURAL VISIT WHEN MEETS CRITERIA OTHERS NOTES: 05/10/20 1400 PRE-PROCEDURE CALL COMPLETED. PT DENIES CHANGES IN SURGICAL, HOSPITALIZATION OR FAMILY MEDICAL HISTORY. Berto DANIELLE RN. PROCEDURES PAIN NURSING RECORD PROCEDURE IN ROOM 1135, PHYSICIAN IN ROOM 1152, START 1206, FINISH 1240, PHYSICIAN OUT OF ROOM 1245, OUT OF ROOM 1250, ECG NORMAL SINUS, PATIENT SHIELDED YES, SAFETY STRAP YES, PREP BETADINE BY Tyler ORELLANA RN, DRESSING TEGADERM BY DR MORALES LOC: IN ROOM 1135, PHYSICIAN IN ROOM 1152, START 1206, FINISH 1240, PHYSICIAN OUT OF ROOM 1245, ECG NORMAL SINUS, PATIENT SHIELDED YES, SAFETY STRAP YES, PREP BETADINE BY Tyler ORELLANA RN, DRESSING TEGADERM BY DR MORALES RESP: PETER ORELLANA 05/11/2020 11:23:55 AM > , 1. ALERT, ORIENTED COLOR: PETER ORELLANA 05/11/2020 11:24:14 AM > , 1. PINK SKIN: PETER ORELLANA 05/11/2020 11:24:19 AM > , 1. WARM, DRY POSITION: 1. PRONE VITALS: PETER ORELLANA 05/11/2020 11:40:07 AM > 168/86 HR 81 16 96% R/A , PETER ORELLANA 05/11/2020 11:55:46 PM > 153/86 HR 79 16 92% R/A , PETER ORELLANA 05/11/2020 12:10:00 PM > 152/91 HR 79 16 93% R/A , PETER ORELLANA 05/11/2020 12:25:30 PM > 162/95 HR 80 16 92% R/A , PETER ORELLANA 05/11/2020 12:40:41 PM > 152/91 HR 79 16 96% R/A , PETER ORELLANA 05/11/2020 1:46:35 PM >117/72 HR 79 16 93% R/A D/C V/S NOTES 12:[address] MORALES TO MAINTAIN STERILITY. 1315 PATIENT TO RADIOLOGY VIA WHEELCHAIR FOR CHEST XRAY POST PROCEDURE PER MD ORDER WITH THIS NURSE. 1345 PRELIMINARY CHEST XRAY REPORT REVIEWED WITH DR MORALES. PATIENT CLEARED FOR DISCHARGE HOME PER DR MORALES COMPLETION OF PROCEDURE APPOINTMENT: POST PAIN 2, DRESSING SITE DRY AND INTACT, IV DISCONTINUED, SITE CLEAR, CATHETER INTACT, GAIT STEADY, TEACHING COMPLETED, PATIENT ACKNOWLEDGES UNDERSTANDING YES, PROCEDURE APPOINTMENT COMPLETED AT 1346 PN THORACIC EPIDURAL PRE PROCEDURE DIAGNOSIS THORACIC DISC DISORDER WITH RADICULOPATHY POST PROCEDURE DIAGNOSIS THORACIC DISC DISORDER WITH RADICULOPATHY PROCEDURE THORACIC EPIDURAL STEROID INJECTION UNDER FLUOROSCOPIC GUIDANCE SURGEON DR. AGUEDA MORALES COMPUGRAPH OPERATOR NONE ANESTHESIA LOCAL PRE PROCEDURE NOTE THE PATIENT HAS A HISTORY OF CHRONIC THORACIC PAIN. I EVALUATED THE PATIENT AND REVIEWED THE CHART. I WENT OVER THE RISKS, ALTERNATIVES, AND BENEFITS ASSOCIATED WITH THIS PROCEDURE. THE PATIENT WOULD LIKE TO PROCEED AND GIVE CONSENT TO PERFORMED THE PROCEDURE. THE PATIENT DENIES UNEXPLAINABLE WEIGHT LOSS, FEVER, CHILLS, OR NEW CHANGES IN URINARY OR BOWEL CONTROL. THE PATIENT IS COVID-19 NEGATIVE. DESCRIPTION OF PROCEDURE THE PATIENT WAS BROUGHT TO THE PROCEDURE ROOM AND PLACED IN THE PRONE POSITION. THE THORACIC AREA WAS CLEANED WITH BETADINE SOLUTION AND DRAPED ASEPTICALLY. THE PROCEDURE WAS DONE UNDER STERILE CONDITIONS. A TIMEOUT WAS PERFORMED WHERE THE CONSENTED SITE WAS VERIFIED WITH EVERYONE IN THE ROOM. UNDER FLUOROSCOPIC GUIDANCE, THE TARGET POINT WAS SELECTED AT THE INTERLAMINAR LEVEL OF T6-T7. I TRIED TO GET TO THE EPIDURAL SPACE AT MULTIPLE LEVELS INCLUDING T11-T12 AND T12-L1. I REACHED THE EPIDURAL SPACE, BUT WHEN I TRIED ADVANCING A CATHETER IT WAS EITHER GOING TO THE LEFT OR THERE WAS TOO MUCH RESISTANCE. I TRIED GOING TO THE POSTERIOR ASPECT OF THE EPIDURAL SPACE. I CONFIRMED AGAIN THE SITE OF THE TARGET. LIDOCAINE WAS USED TO NUMB THE SKIN AND THE SUBCUTANEOUS TISSUE BELOW IT. EPIDURAL TUOHY NEEDLE, 18-GAUGE, WAS ADVANCED UNDER FLUOROSCOPIC GUIDANCE AND FOLLOWING PATIENT FEEDBACK UNTIL THE EPIDURAL SPACE WAS REACHED BY THE LOSS OF RESISTANCE TECHNIQUE. ISOVUE-M DYE 30%, 7 ML, WAS INJECTED SHOWING ADEQUATE SPREAD OF THE DYE. THEN, A SOLUTION OF 3 ML OF NORMAL SALINE WITH DEPO-MEDROL 40 MG WAS INJECTED SLOWLY FOLLOWING PATIENT FEEDBACK. THERE WAS NO EVIDENCE OF BLOOD, PARESTHESIA OR CEREBROSPINAL FLUID DURING THE PROCEDURE. THE PATIENT WAS SENT TO THE RECOVERY ROOM. THE PATIENT WAS MOVING THE EXTREMITIES AND DOING WELL. THERE WAS NO COMPLICATION DURING THE PROCEDURE. EBL LESS THAN 5 ML. FLUOROSCOPY TIME WAS 2 MINUTES 10 SECONDS POST PROCEDURE NOTE THE PATIENT WILL HAVE A STAT CHEST X-RAY, FLEXION AND EXTENSION ON INSPIRATION AND EXPIRATION TO RULE OUT PNEUMOTHORAX. THE PROCEDURE DONE WAS DISCUSSED WITH THE PATIENT. THE PATIENT WILL BE SEEN IN A FOLLOW UP IN THE NEXT FEW WEEKS. I AM LOOKING FOR LONG LASTING PAIN RELIEF FOR THE PATIENT WITH THIS INTERVENTION. INSTRUCTIONS WERE GIVEN, QUESTIONS WERE ANSWERED, AND THE PATIENT EXPRESSED UNDERSTANDING AND AGREES WITH THE PLAN. I, MOLLY DENTON, DOCUMENTED THE ABOVE INFORMATION ACTING A SCRIBE FOR DR. MORALES. I HAVE REVIEWED THE ABOVE DOCUMENT, WRITTEN BY MOLLY DENTON, STRATEGIC MARKETING SPECIALIST, AND I VERIFY THAT IT IS ACCURATE PROCEDURE CODES 58297 CERVICAL/THORACIC W/ IMAGING DISPOSITION & COMMUNICATION FOLLOW UP FOLLOW UP WITH RN FACULTY (REASON: POST THORACIC EPIDURAL STEROID INJECTION ) ELECTRONICALLY SIGNED BY AGUEDA MORALES MD, MD ON 05/12/2020 AT 01:31 PM EST DISCLAIMER : THIS IS A VISIT SUMMARY EXTRACTED FROM THE [employer] CHART. IT IS NOT A COPY OF THE [employer] PROGRESS NOTE. MTDD
--- NOTE | 2020-05-13 01:47 | ECWPNPC ---
PATIENT NAME: SRINATH GUPTA : 1970 GENDER: MALE VISIT DATE: 05/11/2020 DISCHARGE DATE: 05/11/20 1355 VISIT LOCKED DATE TIME: PHYSICIAN: AGUEDA MORALES MD PHYSICIAN PAGER NO: ACTIVE RESOURCE: AGUEDA MORALES MD REASON FOR APPOINTMENT 1. THORACIC EPIDURAL STEROID INJECTION HISTORY OF PRESENT ILLNESS GENERAL: -. FALL RISK SCREENING: SCREENING :NO FALLS REPORTED IN THE LAST YEAR PAIN SCREENING: PATIENT HAS A COMPLAINT OF ACUTE OR CHRONIC PAIN :YES LOCATION OF PAIN:CHEST, UPPER BACK INTENSITY OF PAIN (SCALE OF 1 TO 10):7 AVERAGE 6 WHAT DOES YOUR PAIN FEEL LIKE:ACHING, CONTINOUS, SHARP, TENDER, SORE, SHOOTING, OTHER TINGLING DURATION:CONTINOUS, CONSTANT, AWAKENS FROM SLEEP PAIN IS INCREASED BY:ACTIVITIES, OTHERS SITTING, BENDING PAIN IS DECREASED BY:USE OF PAIN MEDICATIONS, OTHERS HEAT PAIN HAS INTERFERED WITH THE FOLLOWING: EVERYTHING NURSING NOTE: -. PAIN CENTER INTAKE QUESTIONS: DO YOU HAVE A HISTORY OF MRSA? :NO DO YOU TAKE A BLOOD THINNERS? :NO DO YOU HAVE ANY BLEEDING DISORDERS? :NO ANY NEW NUMBNESS OR WEAKNESS IN YOUR LEGS OR ARMS? :NO ANY PACEMAKER,DEFIBRILLATOR, OR DORSAL COLUMN STIMULATOR? :NO DO YOU HAVE ANY RASHES OR OPEN SORES? :NO ARE YOU ALLERGIC TO IV DYE? :NO ARE YOU DIABETIC? :YES 141 ANY NEW PROBLEMS WITH YOUR MEDICATIONS? :NO HAVE YOU RECEIVED A VACCINE IN THE PAST 30 DAYS? :NO DO YOU PLAN TO RECEIVE A VACCINE IN THE NEXT 21 DAYS? :NO DO YOU TAKE ANY IMMUNOSUPPRESSIVE MEDICATIONS? :NO ANY HISTORY OF SEIZURES? :NO ANY HISTORY OF CARDIAC ISSUES OR EVENTS? :NO DO YOU HAVE SLEEP APNEA? :NO ANY RECENT HEAD INJURY? :NO DO YOU HAVE ANY NEW INFECTIONS? :NO IS THERE A CHANCE YOU COULD BE ? :NO ARE YOU BREAST FEEDING? :NO WHEN DID YOU LAST EAT? : 05/10/2020 1900 WHEN DID YOU LAST DRINK? : 05/11/2020 0600 WHAT DID YOU LAST DRINK? : WATER NAME OF PERSON DRIVING YOU HOME? : YEN DO YOU HAVE ANY OTHER QUESTIONS OR CONCERNS? : NONE CURRENT MEDICATIONS TAKING ASPIRIN 81 MG TABLET DELAYED RELEASE 1 TABLET ORALLY ONCE A DAY TAKING MULTIVITAMINS 1000 MG TABLET 1 TAB ORALLY ONCE A DAY TAKING GLUCOMETER DIRECTED _ ONCE DAILY TAKING NYSTATIN [id number] UNIT/GM POWDER 1 APPLICATION TO AFFECTED AREA EXTERNALLY TWICE A DAY TAKING MAY HAVE - - NEBULIZER FOR COPD EXACERBATION ORALLY EVERY 6 HOURS NEEDED TAKING DULOXETINE HCL 60 MG CAPSULE DELAYED RELEASE PARTICLES 1 CAPSULE ORALLY ONCE A DAY TAKING CHLORTHALIDONE 25MG TABLET 1 TABLET IN THE MORNING WITH FOOD ORALLY EVERY MORNING TAKING GLIMEPIRIDE 1 MG TABLET 1 TABLET ORALLY BID, NOTES: 05/10/2020 090 TAKING ANORO ELLIPTA 62.5-25 MCG/INH AEROSOL POWDER BREATH ACTIVATED INHALE 1 PUFF BY MOUTH ONCE DAILY TAKING METFORMIN HCL ER 500 MG TABLET EXTENDED RELEASE 24 HOUR TAKE 3 TABLETS BY MOUTH ONCE DAILY IN THE MORNING AND 2 TABLETS IN THE EVENING , NOTES: 05/10/2020 1800 TAKING GEMFIBROZIL 600 MG TABLET 1 TABLET 30 MINUTES BEFORE MORNING AND EVENING MEALS ORALLY TWICE A DAY TAKING METHOCARBAMOL 750 MG TABLET 1.5 TABLETS ORALLY THREE TIMES DAILY, NOTES: 05/10/2020 TAKING TIZANIDINE HCL 4 MG TABLET 1 TABLET NEEDED ORALLY THREE TIMES A DAY, NOTES: A COUPLE DAYS TAKING MELOXICAM 7.5 MG TABLET 1 TAB ORALLY BID, NOTES: 05/11/2020 0600 TAKING FLUOXETINE HCL 60 MG TABLET 1 TABLET IN THE MORNING ORALLY ONCE A DAY TAKING LOSARTAN POTASSIUM 100 MG TABLET 1 TABLET ORALLY ONCE A DAY TAKING DICLOFENAC SODIUM 1 % GEL 1 APPLICATION TO AFFECTED AREA TRANSDERMAL EVERY 4 HOURS NEEDED TAKING CYMBALTA 20 MG CAPSULE DELAYED RELEASE PARTICLES 2 CAPSULES ORALLY AT BEDTIME TAKING PEPCID 20MG TABLET 1 TABLET ORALLY TWICE A DAY TAKING OMEPRAZOLE 40 MG CAPSULE DELAYED RELEASE 1 CAPSULE 30 MINUTES BEFORE MORNING MEAL ORALLY ONCE A DAY TAKING INVOKANA 100 MG TABLET 1 TABLET ORALLY ONCE A DAY, NOTES: 05/10/2020 AM TAKING TRULICITY 0.75 MG/0.5ML SOLUTION PEN-INJECTOR 1 INJECTION SUBCUTANEOUS WEEK, NOTES: FRIDAY TAKING COMBIVENT RESPIMAT 20-100 MCG/ACT AEROSOL 1 PUFF INHALATION FOUR TIMES DAILY, NEEDED TAKING MUCINEX 600 MG TABLET EXTENDED RELEASE 12 HOUR 1 TABLET NEEDED ORALLY EVERY 12 HRS TAKING SINGULAIR 10 MG TABLET 1 TABLET ORALLY QHS TAKING ALBUTEROL SULFATE (2.5 MG/3ML) 0.083% NEBULIZATION SOLUTION 3 ML NEEDED INHALATION EVERY 8 HRS TAKING ATORVASTATIN CALCIUM 80 MG TABLET 1 TABLET ORALLY ONCE A DAY TAKING NORCO 10-325 MG TABLET 1 TABLET NEEDED ORALLY FOR PAIN (THIS PRESCRIPTION SHOULD LAST 1 MONTH) EVERY 6 HOURS NEEDED MDD2, NOTES: 05/10/2020 1800 TAKING ZETIA 10 MG TABLET 1 TABLET ORALLY ONCE A DAY, NOTES: HASN'T STARTED YET NOT-TAKING METHOCARBAMOL 500 MG TABLET 1.5 TABLETS ORALLY THREE TIMES A DAY NOT-TAKING MICONAZOLE NITRATE 2 % CREAM 1 APPLICATION TO AFFECTED AREA EXTERNALLY TWICE A DAY NOT-TAKING VITAMIN B12 1 MG TABLET 1 TABLET ORALLY ONCE A DAY NOT-TAKING NASACORT ALLERGY 24HR 55 MCG/ACT AEROSOL 1 PUFF IN EACH NOSTRIL NASALLY ONCE A DAY NOT-TAKING CHLORTHALIDONE 25 MG TABLET 1 TABLET IN THE MORNING WITH FOOD ORALLY EVERY MORNING MEDICATION LIST REVIEWED AND RECONCILED WITH THE PATIENT PAST MEDICAL HISTORY HYPERTENSION-08/2016 NST LOW RISK, GOOD EXERCISE TOLERANCE-ANTECOL//08/2016 MILD CONCENTRIC QAX-RWM-HUXBMNY HYPERLIPIDEMIA 2B GERD COPD-02/2012 FEV1 3.83 OBESITY, MORBID PRIOR NICOTINE ADDICTION-SMOKED 20 YEARS 1 1/2 PPD, QUIT IN 2006 T2DM NID C PERIPHERAL NEUROPATHY BLE PERIPHERAL EDEMA 2 MEDICAL NON-COMPLIANCE L SHOULDER OA 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 -CHELSEA, -SSA/SSB BY XRAY/ L2/3, 4/5, / BULGES ALL C MINIMAL SAC COMPRESSION BY 03/2014 MRI THORACIC RPX-EVZC-AEGTPEIK 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 CTS-08/10/14 BUE NCS C SEVERE R, MODERATE-SEVERE L CTS-GONSALES S/P 10/2014 CTR-[facility] VAN HAND OSTEOARTHRITIS ALLERGIC RHINITIS-03/2016 - ZONE 1 PANEL 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 COMPRESSION BY 11/2015 MRI-BOLLA MILD CONCENTRIC LVH, CVP 10, NORMAL VIRIDIANA/SYS FUNCTION BY 08/2016 TTE-ANTECOL ALLERGIES TRILIPIX: AGITATION - SIDE EFFECTS TRIPLE ANTIBIOTIC: RASH /SWELLING - ALLERGY NIACIN: BURNING - ALLERGY SOCIAL HISTORY GENERAL: TOBACCO USE ARE YOU A:FORMER SMOKER HOW LONG HAS IT BEEN SINCE YOU LAST SMOKED?> 10 YEARS LATEX QUESTIONNAIRE LATEX ALLERGY : HAVE YOU EVER DEVELOPED ANY TYPE OF REACTION AFTER HANDLING LATEX PRODUCTS SUCH RUBBER GLOVES, CONDOMS, DIAPHRAGMS, BALLOONS, SOCKS, OR UNDERWEAR?NO LATEX ALLERGY : HAVE YOU EVER DEVELOPED ANY TYPE OF REACTION DURING OR AFTER DENTAL APPOINTMENT, VAGINAL/RECTAL EXAMINATION, SURGICAL PROCEDURE, OR ANY OTHER EXPOSURE?NO LATEX RISK : HAVE YOU EVER HAD ANY DIFFICULTY BREATHING OR HIVES AFTER EATING OR HANDLING ANY FRUITS, OR VEGETABLES; SUCH KIWI, BANANAS, STONE FRUITS, OR CHESTNUTSNO LATEX RISK : DO YOU HAVE A PREVIOUS PERSONAL HISTORY OF MORE THAN NINE SURGERIES, SPINA BIFIDA, OR REPEATED CATHERIZATIONS? NO LATEX RISK : ARE YOU FREQUENTLY EXPOSED TO LATEX PRODUCTS IN YOUR OCCUPATION?NO DATE ASKED : 05/10/2020 ALCOHOL USE: NO. BMI CARE GOAL FOLLOW-UP ABOVE NORMAL BMI FOLLOW-UP GIVING ENCOURAGEMENT TO EXERCISE. ALCOHOL SCREENING DID YOU HAVE A DRINK CONTAINING ALCOHOL IN THE PAST YEAR?YES HOW OFTEN DID YOU HAVE SIX OR MORE DRINKS ON ONE OCCASION IN THE PAST YEAR?NEVER (0 POINTS) HOW MANY DRINKS DID YOU HAVE ON A TYPICAL DAY WHEN YOU WERE DRINKING IN THE PAST YEAR?1 OR 2 (0 POINTS) HOW OFTEN DID YOU HAVE A DRINK CONTAINING ALCOHOL IN THE PAST YEAR?MONTHLY OR LESS (1 POINT) POINTS1 INTERPRETATIONNEGATIVE RECREATIONAL DRUG USE DRUG USE?NO CAFFEINE CAFFEINE USE?YES SEXUAL HX HAD SEX IN THE LAST 12 MONTHS (VAGINAL, ORAL, OR ANAL)?NO HAVE YOU EVER HAD AN STD?NO HIV / HEP-C SCREENING HIV TEST OFFERED TO PATIENT:YES DATE OFFERED:07/30/2016 TEST ACCEPTED:NO HEP-C TEST OFFERED TO PATIENT:YES DATE OFFERED:07/30/2016 REASON:PATIENT DECLINED TEST ACCEPTED:NO REASON:PATIENT DECLINED ALEVISM [id number] EVANGELICAL LANGUAGE LANGUAGES SPOKEN:BANGLADESHI EDUCATION LEVEL OF EDUCATION:NOT FINISHED HIGH SCHOOL 10TH GRADE LEARNING BARRIERS / SPECIAL NEEDS CHANGE FROM LAST VISIT?NO BARRIERS TO LEARNING?NO HEARING IMPAIRED?NO VISION IMPAIRED?NO COGNITIVELY IMPAIRED?NO READINESS TO LEARN?NO LEARNING PREFERENCES?NO LEARNING CAPABILITIES PRESENT?NO EMOTIONAL BARRIERS?NO SPECIAL DEVICES?NO DIGITAL MARKETING PROJECT MANAGER NEEDED?NO DOMESTIC VIOLENCE DO YOU FEEL SAFE IN YOUR ENVIRONMENT?YES 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 DIET: SUPPOSED TO BEING A HEART HEALTHY DIET. EXERCISE: WALKS, BIKES. MARITAL STATUS: , ONE CHILD. - HAS THE PATIENT BEEN EDUCATED REGARDING HIS/HER PLAN OF CARE?YES HAS THE PATIENT BEEN EDUCATED REGARDING PAIN, THE RISK FOR PAIN, THE IMPORTANCE OF EFFECTIVE PAIN MANAGEMENT, AND THE PAIN ASSESSMENT PROCESS?YES ADVANCE DIRECTIVE ADVANCE DIRECTIVE DISCUSSED WITH PATIENT:YES 05/10/20 PT STATES HE DOESN'T HAVE ANY ADVANCED DIRECTIVES AND HE DECLINES HCP INFORMATION AT THIS TIME. MOVED FROM [facility] IN 2006-BORN THERE. VITAL SIGNS WT 327.6 LBS, HT 70.00", BMI 47.00 INDEX, BP 142/90 MM HG, HR 83 /MIN, RR 18 /MIN, TEMP 97.9 F, OXYGEN SAT % 93%, BLOOD GLUCOSE LEVEL 141, SAFE IN ENV? (Y/N) YES, NA INITIALS SC 10:31, REVIEWED BY: Jonah AUSTIN RN. EXAMINATION GENERAL EXAMINATION: THE PATIENT IS ALERT, ORIENTED TIMES THREE AND COOPERATIVE. LUNGS ARE CLEAR TO AUSCULTATION. HEART SHOWS REGULAR RHYTHM, NO MURMURS AND NO GALLOPS. 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 PATIENT TOLERATED IV START WELL. MEDICATION: VALIUM TAB 10MG ORALLY (DIAZEPAM)DERRICK VELAZQUEZ 05/11/2020 11:06:36 AM > VERIFIED PETER ORELLANA 05/11/2020 11:08:40 AM > ADMINISTERED MEDICATION: OXYCODONE HCL TAB 10MG ORALLYDERRICK VELAZQUEZ 05/11/2020 11:06:48 AM > VERIFIED PETER ORELLANA 05/11/2020 11:09:10 AM > ADMINISTERED COMPLETION OF PROCEDURAL VISIT WHEN MEETS CRITERIA OTHERS NOTES: 05/10/20 1400 PRE-PROCEDURE CALL COMPLETED. PT DENIES CHANGES IN SURGICAL, HOSPITALIZATION OR FAMILY MEDICAL HISTORY. Berto DANIELLE RN. PROCEDURES PAIN NURSING RECORD PROCEDURE IN ROOM 1135, PHYSICIAN IN ROOM 1152, START 1206, FINISH 1240, PHYSICIAN OUT OF ROOM 1245, OUT OF ROOM 1250, ECG NORMAL SINUS, PATIENT SHIELDED YES, SAFETY STRAP YES, PREP BETADINE BY Tyler ORELLANA RN, DRESSING TEGADERM BY DR MORALES LOC: IN ROOM 1135, PHYSICIAN IN ROOM 1152, START 1206, FINISH 1240, PHYSICIAN OUT OF ROOM 1245, ECG NORMAL SINUS, PATIENT SHIELDED YES, SAFETY STRAP YES, PREP BETADINE BY Tyler ORELLANA RN, DRESSING TEGADERM BY DR MORALES RESP: PETER ORELLANA 05/11/2020 11:23:55 AM > , 1. ALERT, ORIENTED COLOR: PETER ORELLANA 05/11/2020 11:24:14 AM > , 1. PINK SKIN: PETER ORELLANA 05/11/2020 11:24:19 AM > , 1. WARM, DRY POSITION: 1. PRONE VITALS: PETER ORELLANA 05/11/2020 11:40:07 AM > 168/86 HR 81 16 96% R/A , PETER ORELLANA 05/11/2020 11:55:46 PM > 153/86 HR 79 16 92% R/A , PETER ORELLANA 05/11/2020 12:10:00 PM > 152/91 HR 79 16 93% R/A , PETER ORELLANA 05/11/2020 12:25:30 PM > 162/95 HR 80 16 92% R/A , PETER ORELLANA 05/11/2020 12:40:41 PM > 152/91 HR 79 16 96% R/A , PETER ORELLANA 05/11/2020 1:46:35 PM >117/72 HR 79 16 93% R/A D/C V/S NOTES 12:[address] MORALES TO MAINTAIN STERILITY. 1315 PATIENT TO RADIOLOGY VIA WHEELCHAIR FOR CHEST XRAY POST PROCEDURE PER MD ORDER WITH THIS NURSE. 1345 PRELIMINARY CHEST XRAY REPORT REVIEWED WITH DR MORALES. PATIENT CLEARED FOR DISCHARGE HOME PER DR MORALES COMPLETION OF PROCEDURE APPOINTMENT: POST PAIN 2, DRESSING SITE DRY AND INTACT, IV DISCONTINUED, SITE CLEAR, CATHETER INTACT, GAIT STEADY, TEACHING COMPLETED, PATIENT ACKNOWLEDGES UNDERSTANDING YES, PROCEDURE APPOINTMENT COMPLETED AT 1346 PN THORACIC EPIDURAL PRE PROCEDURE DIAGNOSIS THORACIC DISC DISORDER WITH RADICULOPATHY POST PROCEDURE DIAGNOSIS THORACIC DISC DISORDER WITH RADICULOPATHY PROCEDURE THORACIC EPIDURAL STEROID INJECTION UNDER FLUOROSCOPIC GUIDANCE SURGEON DR. AGUEDA MORALES CAD DRAFTER NONE ANESTHESIA LOCAL PRE PROCEDURE NOTE THE PATIENT HAS A HISTORY OF CHRONIC THORACIC PAIN. I EVALUATED THE PATIENT AND REVIEWED THE CHART. I WENT OVER THE RISKS, ALTERNATIVES, AND BENEFITS ASSOCIATED WITH THIS PROCEDURE. THE PATIENT WOULD LIKE TO PROCEED AND GIVE CONSENT TO PERFORMED THE PROCEDURE. THE PATIENT DENIES UNEXPLAINABLE WEIGHT LOSS, FEVER, CHILLS, OR NEW CHANGES IN URINARY OR BOWEL CONTROL. THE PATIENT IS COVID-19 NEGATIVE. DESCRIPTION OF PROCEDURE THE PATIENT WAS BROUGHT TO THE PROCEDURE ROOM AND PLACED IN THE PRONE POSITION. THE THORACIC AREA WAS CLEANED WITH BETADINE SOLUTION AND DRAPED ASEPTICALLY. THE PROCEDURE WAS DONE UNDER STERILE CONDITIONS. A TIMEOUT WAS PERFORMED WHERE THE CONSENTED SITE WAS VERIFIED WITH EVERYONE IN THE ROOM. UNDER FLUOROSCOPIC GUIDANCE, THE TARGET POINT WAS SELECTED AT THE INTERLAMINAR LEVEL OF T6-T7. I TRIED TO GET TO THE EPIDURAL SPACE AT MULTIPLE LEVELS INCLUDING T11-T12 AND T12-L1. I REACHED THE EPIDURAL SPACE, BUT WHEN I TRIED ADVANCING A CATHETER IT WAS EITHER GOING TO THE LEFT OR THERE WAS TOO MUCH RESISTANCE. I TRIED GOING TO THE POSTERIOR ASPECT OF THE EPIDURAL SPACE. I CONFIRMED AGAIN THE SITE OF THE TARGET. LIDOCAINE WAS USED TO NUMB THE SKIN AND THE SUBCUTANEOUS TISSUE BELOW IT. EPIDURAL TUOHY NEEDLE, 18-GAUGE, WAS ADVANCED UNDER FLUOROSCOPIC GUIDANCE AND FOLLOWING PATIENT FEEDBACK UNTIL THE EPIDURAL SPACE WAS REACHED BY THE LOSS OF RESISTANCE TECHNIQUE. ISOVUE-M DYE 30%, 7 ML, WAS INJECTED SHOWING ADEQUATE SPREAD OF THE DYE. THEN, A SOLUTION OF 3 ML OF NORMAL SALINE WITH DEPO-MEDROL 40 MG WAS INJECTED SLOWLY FOLLOWING PATIENT FEEDBACK. THERE WAS NO EVIDENCE OF BLOOD, PARESTHESIA OR CEREBROSPINAL FLUID DURING THE PROCEDURE. THE PATIENT WAS SENT TO THE RECOVERY ROOM. THE PATIENT WAS MOVING THE EXTREMITIES AND DOING WELL. THERE WAS NO COMPLICATION DURING THE PROCEDURE. EBL LESS THAN 5 ML. FLUOROSCOPY TIME WAS 2 MINUTES 10 SECONDS POST PROCEDURE NOTE THE PATIENT WILL HAVE A STAT CHEST X-RAY, FLEXION AND EXTENSION ON INSPIRATION AND EXPIRATION TO RULE OUT PNEUMOTHORAX. THE PROCEDURE DONE WAS DISCUSSED WITH THE PATIENT. THE PATIENT WILL BE SEEN IN A FOLLOW UP IN THE NEXT FEW WEEKS. I AM LOOKING FOR LONG LASTING PAIN RELIEF FOR THE PATIENT WITH THIS INTERVENTION. INSTRUCTIONS WERE GIVEN, QUESTIONS WERE ANSWERED, AND THE PATIENT EXPRESSED UNDERSTANDING AND AGREES WITH THE PLAN. I, MOLLY DENTON, DOCUMENTED THE ABOVE INFORMATION ACTING A SCRIBE FOR DR. MORALES. I HAVE REVIEWED THE ABOVE DOCUMENT, WRITTEN BY MOLLY DENTON, TUMBLING AND ROLLING SUPERVISOR, AND I VERIFY THAT IT IS ACCURATE PROCEDURE CODES [id number] CERVICAL/THORACIC W/ IMAGING DISPOSITION & COMMUNICATION FOLLOW UP FOLLOW UP WITH THERAPEUTIC RECREATION LEADER (REASON: POST THORACIC EPIDURAL STEROID INJECTION ) ELECTRONICALLY SIGNED BY AGUEDA MORALES MD, MD ON 05/12/2020 AT 01:31 PM EST DISCLAIMER : THIS IS A VISIT SUMMARY EXTRACTED FROM THE [employer] CHART. IT IS NOT A COPY OF THE [employer] PROGRESS NOTE. MTDD
== END ==
LOC: M PAIN 10:00
PROVIDERS: ATTEND Anesthesiology
DX: M51.14 Intervertebral disc disorders with radiculopathy, thoracic region (principal); E11.40 Type 2 diabetes mellitus with diabetic neuropathy, unspecified; K21.9 Gastro-esophageal reflux disease without esophagitis; J44.9 Chronic obstructive pulmonary disease, unspecified; Z87.891 Personal history of nicotine dependence; Z88.1 Allergy status to other antibiotic agents; Z88.8 Allergy status to other drugs, medicaments and biological substances; E66.01 Morbid (severe) obesity due to excess calories; Z68.42 Body mass index [BMI] 45.0-49.9, adult; Z79.82 Long term (current) use of aspirin; Z79.51 Long term (current) use of inhaled steroids; Z79.84 Long term (current) use of oral hypoglycemic drugs; Z79.899 Other long term (current) drug therapy
CPT/HCPCS: 62321; 71046; J1030; Q9967

== ENCOUNTER → 2020-05-12 | Outpatient (CLI) | payer BC ==
--- NOTE | 2020-05-12 19:26 | REPVR ---
PROCEDURE INFORMATION: Exam: MR Lumbar Spine Without Contrast. Exam date and time: 05/12/2020 6:37 PM Age: 50 years old Clinical indication: Low back pain; Additional info: Spondylosis L region TECHNIQUE: Imaging protocol: Multiplanar magnetic resonance images of the lumbar spine without intravenous contrast. COMPARISON: MRI-Spine, L.S. without con 03/10/2014 2:44 PM FINDINGS: Vertebrae: Unremarkable. Spinal cord: Normal signal. No cord compression. L1-L2: No significant disc disease. No significant spinal canal stenosis. No neural foraminal stenosis. L2-L3: No significant disc disease. No significant spinal canal stenosis. No neural foraminal stenosis. L3-L4: No significant disc disease. No significant spinal canal stenosis. No neural foraminal stenosis. L4-L5: Mild facet joint arthropathy L4-L5 with fluid in both facet joints, findings which may suggest the presence of a synovitis. L5-S1: Mild annular bulge and small right posterolateral disc protrusion at L4-L5 results in mild effacement of the right side of the thecal sac with possible impingement on the traversing right L5 nerve root. Sacrum/coccyx: Bulging annulus L5-S1 with right paracentral disc protrusion resulting in minimal impingement of the thecal sac and touches but not significantly compressing the right S1 nerve root as it exits from the thecal sac. Mild bilateral facet joint arthropathy. Soft tissues: Unremarkable. IMPRESSION: 1. Small right paracentral disc protrusion L4-L5 with possible impingement on the traversing right L5 nerve root. Mild facet joint arthropathy L4-L5 with fluid in both facet joints, findings which may suggest the presence of a synovitis. 2. Bulging annulus L5-S1 with right paracentral disc protrusion resulting in minimal impingement of the thecal sac and touches but not significantly compressing the right S1 nerve root as it exits from the thecal sac. Electronically signed by: Glenn Alva On 05/12/2020 19:26:32 PM
== END ==
LOC: M RAD 17:10
PROVIDERS: ATTEND Nurse Practitioner Family
DX: M51.26 Other intervertebral disc displacement, lumbar region (principal); M51.27 Other intervertebral disc displacement, lumbosacral region; G89.29 Other chronic pain

== ENCOUNTER → 2020-05-25 | Outpatient (CLI) | payer BC ==
--- NOTE | 2020-05-28 23:59 | ECWPNPC ---
PATIENT NAME: SRINATH GUPTA : 1970 GENDER: MALE VISIT DATE: 05/25/2020 DISCHARGE DATE: 05/25/20 1129 VISIT LOCKED DATE TIME: PHYSICIAN: BOOKER DEAN PHYSICIAN PAGER NO: ACTIVE RESOURCE: BOOKER DEAN REASON FOR APPOINTMENT 1. POST THORACIC EPIDURAL STEROID INJECTION T6-T7/ MRI LUMBAR SPINE REVIEW HISTORY OF PRESENT ILLNESS GENERAL: HERE FOR POST PROCEDURE FOLLOW-UP. HAD THORACIC EPIDURAL STEROID INJECTION ON 05/11/2020. REPORTING NO IMPROVEMENT POST PROCEDURE. CONTINUES TO HAVE MID SCAPULAR BACK PAIN. ALSO TODAY I HAVE REVIEWED MRI I ORDERED OF THE LUMBOSACRAL SPINE. PATIENT REPORTS EPISODES OF SEVERE LOW BACK PAIN THAT RADIATES INTO POSTERIOR THIGHS. FINDS CURRENT CHRONIC PAIN MEDICATION HELPFUL WITHOUT SIDE EFFECTS. DISCUSSED SACROILIAC JOINT BLOCK. - -. FALL RISK SCREENING: SCREENING :NO FALLS REPORTED IN THE LAST YEAR PAIN SCREENING: PATIENT HAS A COMPLAINT OF ACUTE OR CHRONIC PAIN :YES LOCATION OF PAIN:MID BACK INTENSITY OF PAIN (SCALE OF 1 TO 10):7 WHAT DOES YOUR PAIN FEEL LIKE:BURNING, CONTINOUS, SHARP, STABBING, SORE DURATION:CONTINOUS, CONSTANT, AWAKENS FROM SLEEP PAIN IS INCREASED BY:ACTIVITIES, PROLONGED STANDING PAIN IS DECREASED BY:OTHERS LITTLE RELIEF FROM PAIN MEDS NURSING NOTE: - -. PAIN CENTER INTAKE QUESTIONS: DO YOU HAVE A HISTORY OF MRSA? :NO DO YOU TAKE A BLOOD THINNERS? :NO DO YOU HAVE ANY BLEEDING DISORDERS? :NO ANY NEW NUMBNESS OR WEAKNESS IN YOUR LEGS OR ARMS? :NO ANY PACEMAKER,DEFIBRILLATOR, OR DORSAL COLUMN STIMULATOR? :NO DO YOU HAVE ANY RASHES OR OPEN SORES? :NO ARE YOU ALLERGIC TO IV DYE? :NO ARE YOU DIABETIC? :YES ANY NEW PROBLEMS WITH YOUR MEDICATIONS? :NO HAVE YOU RECEIVED A VACCINE IN THE PAST 30 DAYS? :NO DO YOU PLAN TO RECEIVE A VACCINE IN THE NEXT 21 DAYS? :NO DO YOU NEED ANY PRESCRIPTION? :NO DO YOU TAKE ANY IMMUNOSUPPRESSIVE MEDICATIONS? :NO IS THERE A CHANCE YOU COULD BE ? :NO ARE YOU BREAST FEEDING? :NO CURRENT MEDICATIONS TAKING HYDROCODONE-ACETAMINOPHEN 10-325 MG TABLET 1 TABLET NEEDED ORALLY EVERY 6 HRS PRN MDD2 #60 TABS SHOULD LAST 30 DAYS TAKING ASPIRIN 81 MG TABLET DELAYED RELEASE 1 TABLET ORALLY ONCE A DAY TAKING MULTIVITAMINS 1000 MG TABLET 1 TAB ORALLY ONCE A DAY TAKING GLUCOMETER DIRECTED _ ONCE DAILY TAKING NYSTATIN [id number] UNIT/GM POWDER 1 APPLICATION TO AFFECTED AREA EXTERNALLY TWICE A DAY TAKING MAY HAVE - - NEBULIZER FOR COPD EXACERBATION ORALLY EVERY 6 HOURS NEEDED TAKING DULOXETINE HCL 60 MG CAPSULE DELAYED RELEASE PARTICLES 1 CAPSULE ORALLY ONCE A DAY TAKING CHLORTHALIDONE 25MG TABLET 1 TABLET IN THE MORNING WITH FOOD ORALLY EVERY MORNING TAKING GLIMEPIRIDE 1 MG TABLET 1 TABLET ORALLY BID, NOTES: 05/10/2020 090 TAKING ANORO ELLIPTA 62.5-25 MCG/INH AEROSOL POWDER BREATH ACTIVATED INHALE 1 PUFF BY MOUTH ONCE DAILY TAKING METFORMIN HCL ER 500 MG TABLET EXTENDED RELEASE 24 HOUR TAKE 3 TABLETS BY MOUTH ONCE DAILY IN THE MORNING AND 2 TABLETS IN THE EVENING , NOTES: 05/10/2020 1800 TAKING GEMFIBROZIL 600 MG TABLET 1 TABLET 30 MINUTES BEFORE MORNING AND EVENING MEALS ORALLY TWICE A DAY TAKING METHOCARBAMOL 750 MG TABLET 1.5 TABLETS ORALLY THREE TIMES DAILY, NOTES: 05/10/2020 TAKING TIZANIDINE HCL 4 MG TABLET 1 TABLET NEEDED ORALLY THREE TIMES A DAY, NOTES: A COUPLE DAYS TAKING MELOXICAM 7.5 MG TABLET 1 TAB ORALLY BID, NOTES: 05/11/2020 0600 TAKING FLUOXETINE HCL 60 MG TABLET 1 TABLET IN THE MORNING ORALLY ONCE A DAY TAKING LOSARTAN POTASSIUM 100 MG TABLET 1 TABLET ORALLY ONCE A DAY TAKING DICLOFENAC SODIUM 1 % GEL 1 APPLICATION TO AFFECTED AREA TRANSDERMAL EVERY 4 HOURS NEEDED TAKING CYMBALTA 20 MG CAPSULE DELAYED RELEASE PARTICLES 2 CAPSULES ORALLY AT BEDTIME TAKING PEPCID 20MG TABLET 1 TABLET ORALLY TWICE A DAY TAKING OMEPRAZOLE 40 MG CAPSULE DELAYED RELEASE 1 CAPSULE 30 MINUTES BEFORE MORNING MEAL ORALLY ONCE A DAY TAKING INVOKANA 100 MG TABLET 1 TABLET ORALLY ONCE A DAY, NOTES: 05/10/2020 AM TAKING TRULICITY 0.75 MG/0.5ML SOLUTION PEN-INJECTOR 1 INJECTION SUBCUTANEOUS WEEK, NOTES: FRIDAY TAKING COMBIVENT RESPIMAT 20-100 MCG/ACT AEROSOL 1 PUFF INHALATION FOUR TIMES DAILY, NEEDED TAKING MUCINEX 600 MG TABLET EXTENDED RELEASE 12 HOUR 1 TABLET NEEDED ORALLY EVERY 12 HRS TAKING ALBUTEROL SULFATE (2.5 MG/3ML) 0.083% NEBULIZATION SOLUTION 3 ML NEEDED INHALATION EVERY 8 HRS TAKING ATORVASTATIN CALCIUM 80 MG TABLET 1 TABLET ORALLY ONCE A DAY TAKING ZETIA 10 MG TABLET 1 TABLET ORALLY ONCE A DAY, NOTES: HASN'T STARTED YET TAKING SINGULAIR 10 MG TABLET 1 TABLET ORALLY QHS TAKING METHOCARBAMOL 500 MG TABLET 1.5 TABLETS ORALLY THREE TIMES A DAY TAKING MICONAZOLE NITRATE 2 % CREAM 1 APPLICATION TO AFFECTED AREA EXTERNALLY TWICE A DAY TAKING VITAMIN B12 1 MG TABLET 1 TABLET ORALLY ONCE A DAY TAKING CHLORTHALIDONE 25 MG TABLET 1 TABLET IN THE MORNING WITH FOOD ORALLY EVERY MORNING NOT-TAKING NASACORT ALLERGY 24HR 55 MCG/ACT AEROSOL 1 PUFF IN EACH NOSTRIL NASALLY ONCE A DAY MEDICATION LIST REVIEWED AND RECONCILED WITH THE PATIENT PAST MEDICAL HISTORY HYPERTENSION-08/2016 NST LOW RISK, GOOD EXERCISE TOLERANCE-ANTECOL//08/2016 MILD CONCENTRIC HCN-GUN-CGBCR[facility] HYPERLIPIDEMIA 2B GERD COPD-02/2012 FEV1 3.83 OBESITY, MORBID PRIOR NICOTINE ADDICTION-SMOKED 20 YEARS 1 04/08 PPD, QUIT IN 2006 T2DM NID C PERIPHERAL NEUROPATHY BLE PERIPHERAL EDEMA 2 MEDICAL NON-COMPLIANCE L SHOULDER OA 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 -CHELSEA, -SSA/SSB BY XRAY/ L2/3, 4/5, 08/05 BULGES ALL C MINIMAL SAC COMPRESSION BY 03/2014 MRI THORACIC [id number] 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 CTS-08/10/14 BUE NCS C SEVERE R, MODERATE-SEVERE L CTS-ILDA S/P 10/2014 [facility] OSTEOARTHRITIS ALLERGIC RHINITIS-03/2016 - ZONE 1 PANEL 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 COMPRESSION BY 11/2015 MRI-BOLLA MILD CONCENTRIC LVH, CVP 10, NORMAL VIRIDIANA/SYS FUNCTION BY 08/2016 TTE-ANTECOL ALLERGIES TRILIPIX: AGITATION - SIDE EFFECTS TRIPLE ANTIBIOTIC: RASH /SWELLING - ALLERGY NIACIN: BURNING - ALLERGY SOCIAL HISTORY GENERAL: TOBACCO USE ARE YOU A:FORMER SMOKER HOW LONG HAS IT BEEN SINCE YOU LAST SMOKED?> 10 YEARS LATEX QUESTIONNAIRE LATEX ALLERGY : HAVE YOU EVER DEVELOPED ANY TYPE OF REACTION AFTER HANDLING LATEX PRODUCTS SUCH RUBBER GLOVES, CONDOMS, DIAPHRAGMS, BALLOONS, SOCKS, OR UNDERWEAR?NO LATEX ALLERGY : HAVE YOU EVER DEVELOPED ANY TYPE OF REACTION DURING OR AFTER DENTAL APPOINTMENT, VAGINAL/RECTAL EXAMINATION, SURGICAL PROCEDURE, OR ANY OTHER EXPOSURE?NO DATE ASKED : 05/10/2020 LATEX RISK : HAVE YOU EVER HAD ANY DIFFICULTY BREATHING OR HIVES AFTER EATING OR HANDLING ANY FRUITS, OR VEGETABLES; SUCH KIWI, BANANAS, STONE FRUITS, OR CHESTNUTSNO LATEX RISK : DO YOU HAVE A PREVIOUS PERSONAL HISTORY OF MORE THAN NINE SURGERIES, SPINA BIFIDA, OR REPEATED CATHERIZATIONS? NO LATEX RISK : ARE YOU FREQUENTLY EXPOSED TO LATEX PRODUCTS IN YOUR OCCUPATION?NO ALCOHOL USE: NO. BMI CARE GOAL FOLLOW-UP ABOVE NORMAL BMI FOLLOW-UP GIVING ENCOURAGEMENT TO EXERCISE. ALCOHOL SCREENING DID YOU HAVE A DRINK CONTAINING ALCOHOL IN THE PAST YEAR?YES HOW OFTEN DID YOU HAVE SIX OR MORE DRINKS ON ONE OCCASION IN THE PAST YEAR?NEVER (0 POINTS) HOW MANY DRINKS DID YOU HAVE ON A TYPICAL DAY WHEN YOU WERE DRINKING IN THE PAST YEAR?1 OR 2 (0 POINTS) HOW OFTEN DID YOU HAVE A DRINK CONTAINING ALCOHOL IN THE PAST YEAR?MONTHLY OR LESS (1 POINT) POINTS1 INTERPRETATIONNEGATIVE RECREATIONAL DRUG USE DRUG USE?NO CAFFEINE CAFFEINE USE?YES SEXUAL HX HAD SEX IN THE LAST 12 MONTHS (VAGINAL, ORAL, OR ANAL)?NO HAVE YOU EVER HAD AN STD?NO HIV / HEP-C SCREENING HIV TEST OFFERED TO PATIENT:YES DATE OFFERED:07/30/2016 TEST ACCEPTED:NO HEP-C TEST OFFERED TO PATIENT:YES DATE OFFERED:07/30/2016 REASON:PATIENT DECLINED TEST ACCEPTED:NO REASON:PATIENT DECLINED ALEVISM [id number] RASTAFARIAN LANGUAGE LANGUAGES SPOKEN:BENGALI EDUCATION LEVEL OF EDUCATION:NOT FINISHED HIGH SCHOOL 10TH GRADE LEARNING BARRIERS / SPECIAL NEEDS CHANGE FROM LAST VISIT?NO BARRIERS TO LEARNING?NO HEARING IMPAIRED?NO VISION IMPAIRED?YES :CORRECTIVE LENSES COGNITIVELY IMPAIRED?NO READINESS TO LEARN?NO LEARNING PREFERENCES?NO LEARNING CAPABILITIES PRESENT?NO EMOTIONAL BARRIERS?NO SPECIAL DEVICES?NO KITCHEN LEAD NEEDED?NO DOMESTIC VIOLENCE DO YOU FEEL SAFE IN YOUR ENVIRONMENT?YES 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 DIET: SUPPOSED TO BEING A HEART HEALTHY DIET. EXERCISE: WALKS, BIKES. MARITAL STATUS: , ONE CHILD. - HAS THE PATIENT BEEN EDUCATED REGARDING HIS/HER PLAN OF CARE?YES HAS THE PATIENT BEEN EDUCATED REGARDING PAIN, THE RISK FOR PAIN, THE IMPORTANCE OF EFFECTIVE PAIN MANAGEMENT, AND THE PAIN ASSESSMENT PROCESS?YES ADVANCE DIRECTIVE ADVANCE DIRECTIVE DISCUSSED WITH PATIENT:YES 05/10/20 PT STATES HE DOESN'T HAVE ANY ADVANCED DIRECTIVES AND HE DECLINES HCP INFORMATION AT THIS TIME. MOVED FROM [facility] IN 2006-BORN THERE. REVIEW OF SYSTEMS CONSTITUTIONAL: ANY RECENT FEVER NO . CHILLS NO . WEIGHT CHANGE OF UNKNOWN REASONS NO . GASTROENTEROLOGY: NEW UNEXPLAINABLE CHANGES IN BOWEL CONTROL NO . CONSTIPATION NO . GENITOURINARY: ANY NEW CHANGE IN BLADDER CONTROL? NO . NEUROLOGY: NEW ONSET DIZZINESS OR NEUROLOGICAL CHANGES NOT MENTIONED NO . NEW NUMBNESS OR PAIN PATTERNS NOT MENTIONED AND PERTINENT TO TODAY'S VISIT NO . CARDIOLOGY: NEW CHEST PRESSURE NO . NEW CHEST PAIN NO . RESPIRATORY: UNEXPLAINABLE COUGH NO . NEW SHORTNESS OF BREATH NO . VITAL SIGNS WT 333.4 LBS, HT 70.00", BMI 47.83 INDEX, BP 130/63 MM HG, HR 93 /MIN, RR 18 /MIN, TEMP 96.0 F, OXYGEN SAT % 97%, SAFE IN ENV? (Y/N) YES, NA INITIALS AW 1053TANNER BURT MA. EXAMINATION GENERAL EXAMINATION: GENERAL ALERT,NO DISTRESS . PSYCH AFFECT NORMAL . LUNGS: LUNG SOUNDS ARE CLEAR . HEART: HEART RATE REGULAR . MUSCULOSKELETAL: MST 5/5 BILAT. LOWER EXTREMITIES . LUMBAR: TENDERNESS BILAT. SIJ . POSITIVE ECHO'S TESTING BILATERAL LOWER EXTREMITIES. DIAGNOSTIC TESTS REVIEWEDMRI L/S SPINE TO 05/12/2020. 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 CLINICAL NOTES: 05/25/2020 PREPROCEDURE AND PROCEDURE INFORMATION PROVIDED TO PATIENT. PATIENT VERBALIZED UNDERSTANDING. TANNER BURT MA. PROCEDURE CODES [id number] ESTABILISHED PATIENT [facility] FACILITY CHARGE DISPOSITION & COMMUNICATION FOLLOW UP POST PROCEDURE (REASON: BILATERAL SACROILIAC JOINT BLOCK) ELECTRONICALLY SIGNED BY LIZBETH GUTIERREZ ON 05/28/2020 AT 08:26 PM EST DISCLAIMER : THIS IS A VISIT SUMMARY EXTRACTED FROM THE [employer] CHART. IT IS NOT A COPY OF THE [employer] PROGRESS NOTE. PAT
== END ==
LOC: M PAIN 10:45
PROVIDERS: ATTEND Nurse Practitioner Family
DX: G89.29 Other chronic pain (principal); M46.1 Sacroiliitis, not elsewhere classified; I10 Essential (primary) hypertension; E78.5 Hyperlipidemia, unspecified; K21.9 Gastro-esophageal reflux disease without esophagitis; J44.9 Chronic obstructive pulmonary disease, unspecified; E66.01 Morbid (severe) obesity due to excess calories; Z68.42 Body mass index [BMI] 45.0-49.9, adult; E11.42 Type 2 diabetes mellitus with diabetic polyneuropathy; R60.0 Localized edema; I73.00 Raynaud's syndrome without gangrene; M19.012 Primary osteoarthritis, left shoulder; M51.36 Other intervertebral disc degeneration, lumbar region; M51.34 Other intervertebral disc degeneration, thoracic region; Z87.891 Personal history of nicotine dependence; Z79.891 Long term (current) use of opiate analgesic; Z79.899 Other long term (current) drug therapy; Z79.84 Long term (current) use of oral hypoglycemic drugs; Z88.8 Allergy status to other drugs, medicaments and biological substances; Z88.1 Allergy status to other antibiotic agents

== ENCOUNTER → 2020-05-31 | Outpatient (CLI) | payer BC | LOC: M LABSMTC 09:55 | PROVIDERS: ATTEND Anesthesiology | DX: Z20.822 Contact with and (suspected) exposure to COVID-19 (principal) ==

== ENCOUNTER → 2020-06-05 | Outpatient (CLI) | payer BC ==
[~2020-06-05] MED LIST changes: +BUPIVACAINE HCL 0.25% 30ML VIAL As Ordered ONE; +TRIAMCINOLONE ACETONIDE SUSP 40 MG/ML VIAL (J3301) As Ordered ONE; -methylPREDNISolone SUSP 40MG/ML 1ML VIAL (DEPO MEDROL) As Ordered ONE
--- NOTE | 2020-06-05 11:51 | REP ---
INDICATION: BILATERAL SACROILIAC JOINT BLOCK. COMPARISON: None. TECHNIQUE: Four C-arm views sacroiliac joints. FINDINGS: A needle overlies each sacroiliac joint. A small amount of contrast is injected. IMPRESSION: 39 seconds of fluoroscopy time was utilized. <Electronically signed by Stefano Lindquist > 06/05/20 1143
--- NOTE | 2020-06-06 00:21 | ECWPNPC ---
PATIENT NAME: SRINATH GUPTA : 1970 GENDER: MALE VISIT DATE: 06/05/2020 DISCHARGE DATE: 06/05/20 1128 VISIT LOCKED DATE TIME: PHYSICIAN: AGUEDA MORALES MD PHYSICIAN PAGER NO: ACTIVE RESOURCE: AGUEDA MORALES MD REASON FOR APPOINTMENT 1. BILATERAL SACROILIAC JOINT BLOCK HISTORY OF PRESENT ILLNESS GENERAL: -. FALL RISK SCREENING: SCREENING :NO FALLS REPORTED IN THE LAST YEAR PAIN SCREENING: PATIENT HAS A COMPLAINT OF ACUTE OR CHRONIC PAIN :YES LOCATION OF PAIN:LOW BACK, OTHER: ACCROSS BILATERAL BUTTOCKS INTENSITY OF PAIN (SCALE OF 1 TO 10):7 WHAT DOES YOUR PAIN FEEL LIKE:ACHING, INTERMITTENT, SHARP DURATION:PERIODIC PAIN IS INCREASED BY:OTHERS SITTING PAIN IS DECREASED BY:OTHERS NOTHING REALLY HELPS RIGHT NOW NURSING NOTE: -. PAIN CENTER INTAKE QUESTIONS: DO YOU HAVE A HISTORY OF MRSA? :NO DO YOU TAKE A BLOOD THINNERS? :NO DO YOU HAVE ANY BLEEDING DISORDERS? :NO ANY NEW NUMBNESS OR WEAKNESS IN YOUR LEGS OR ARMS? :NO ANY PACEMAKER,DEFIBRILLATOR, OR DORSAL COLUMN STIMULATOR? :NO DO YOU HAVE ANY RASHES OR OPEN SORES? :NO ARE YOU ALLERGIC TO IV DYE? :NO ARE YOU DIABETIC? :YES ANY NEW PROBLEMS WITH YOUR MEDICATIONS? :NO HAVE YOU RECEIVED A VACCINE IN THE PAST 30 DAYS? :NO DO YOU PLAN TO RECEIVE A VACCINE IN THE NEXT 21 DAYS? :NO DO YOU TAKE ANY IMMUNOSUPPRESSIVE MEDICATIONS? :NO ANY HISTORY OF SEIZURES? :NO ANY HISTORY OF CARDIAC ISSUES OR EVENTS? :NO DO YOU HAVE SLEEP APNEA? :NO ANY RECENT HEAD INJURY? :NO DO YOU HAVE ANY NEW INFECTIONS? :NO IS THERE A CHANCE YOU COULD BE ? :NO ARE YOU BREAST FEEDING? :NO WHEN DID YOU LAST EAT? : 06/04/20201999 WHEN DID YOU LAST DRINK? : 06/05/2020 07 WHAT DID YOU LAST DRINK? : WATER NAME OF PERSON DRIVING YOU HOME? : MARIANA () DO YOU HAVE ANY OTHER QUESTIONS OR CONCERNS? : NO CURRENT MEDICATIONS TAKING HYDROCODONE-ACETAMINOPHEN 10-325 MG TABLET 1 TABLET NEEDED ORALLY EVERY 6 HRS PRN MDD2 #60 TABS SHOULD LAST 30 DAYS, NOTES: 06/04/2020 TAKING ASPIRIN 81 MG TABLET DELAYED RELEASE 1 TABLET ORALLY ONCE A DAY, NOTES: 06/04/2020 TAKING MULTIVITAMINS 1000 MG TABLET 1 TAB ORALLY ONCE A DAY TAKING GLUCOMETER DIRECTED _ ONCE DAILY TAKING NYSTATIN [id number] UNIT/GM POWDER 1 APPLICATION TO AFFECTED AREA EXTERNALLY TWICE A DAY TAKING MAY HAVE - - NEBULIZER FOR COPD EXACERBATION ORALLY EVERY 6 HOURS NEEDED TAKING CHLORTHALIDONE 25MG TABLET 1 TABLET IN THE MORNING WITH FOOD ORALLY EVERY MORNING TAKING GLIMEPIRIDE 1 MG TABLET 1 TABLET ORALLY BID, NOTES: 06/04/2020 TAKING ANORO ELLIPTA 62.5-25 MCG/INH AEROSOL POWDER BREATH ACTIVATED INHALE 1 PUFF BY MOUTH ONCE DAILY TAKING METFORMIN HCL ER 500 MG TABLET EXTENDED RELEASE 24 HOUR TAKE 3 TABLETS BY MOUTH ONCE DAILY IN THE MORNING AND 2 TABLETS IN THE EVENING , NOTES: 06/04/2020 TAKING GEMFIBROZIL 600 MG TABLET 1 TABLET 30 MINUTES BEFORE MORNING AND EVENING MEALS ORALLY TWICE A DAY TAKING METHOCARBAMOL 750 MG TABLET 1.5 TABLETS ORALLY THREE TIMES DAILY TAKING TIZANIDINE HCL 4 MG TABLET 1 TABLET NEEDED ORALLY THREE TIMES A DAY, NOTES: 06/04/2020 TAKING MELOXICAM 7.5 MG TABLET 1 TAB ORALLY BID, NOTES: 06/04/2020 TAKING FLUOXETINE HCL 60 MG TABLET 1 TABLET IN THE MORNING ORALLY ONCE A DAY TAKING LOSARTAN POTASSIUM 100 MG TABLET 1 TABLET ORALLY ONCE A DAY, NOTES: 06/05/2020 0700 TAKING DICLOFENAC SODIUM 1 % GEL 1 APPLICATION TO AFFECTED AREA TRANSDERMAL EVERY 4 HOURS NEEDED TAKING CYMBALTA 20 MG CAPSULE DELAYED RELEASE PARTICLES 2 CAPSULES ORALLY AT BEDTIME TAKING PEPCID 20MG TABLET 1 TABLET ORALLY TWICE A DAY TAKING OMEPRAZOLE 40 MG CAPSULE DELAYED RELEASE 1 CAPSULE 30 MINUTES BEFORE MORNING MEAL ORALLY ONCE A DAY TAKING INVOKANA 100 MG TABLET 1 TABLET ORALLY ONCE A DAY, NOTES: 06/04/2020 TAKING TRULICITY 0.75 MG/0.5ML SOLUTION PEN-INJECTOR 1 INJECTION SUBCUTANEOUS WEEK, NOTES: FRIDAY TAKING COMBIVENT RESPIMAT 20-100 MCG/ACT AEROSOL 1 PUFF INHALATION FOUR TIMES DAILY, NEEDED TAKING MUCINEX 600 MG TABLET EXTENDED RELEASE 12 HOUR 1 TABLET NEEDED ORALLY EVERY 12 HRS TAKING ALBUTEROL SULFATE (2.5 MG/3ML) 0.083% NEBULIZATION SOLUTION 3 ML NEEDED INHALATION EVERY 8 HRS TAKING ATORVASTATIN CALCIUM 80 MG TABLET 1 TABLET ORALLY ONCE A DAY TAKING ZETIA 10 MG TABLET 1 TABLET ORALLY ONCE A DAY, NOTES: HASN'T STARTED YET TAKING SINGULAIR 10 MG TABLET 1 TABLET ORALLY QHS TAKING METHOCARBAMOL 500 MG TABLET 1.5 TABLETS ORALLY THREE TIMES A DAY TAKING MICONAZOLE NITRATE 2 % CREAM 1 APPLICATION TO AFFECTED AREA EXTERNALLY TWICE A DAY TAKING VITAMIN B12 1 MG TABLET 1 TABLET ORALLY ONCE A DAY TAKING CHLORTHALIDONE 25 MG TABLET 1 TABLET IN THE MORNING WITH FOOD ORALLY EVERY MORNING TAKING DULOXETINE HCL 60 MG CAPSULE DELAYED RELEASE PARTICLES TAKE 1 CAPSULE BY MOUTH AT BEDTIME NOT-TAKING NASACORT ALLERGY 24HR 55 MCG/ACT AEROSOL 1 PUFF IN EACH NOSTRIL NASALLY ONCE A DAY MEDICATION LIST REVIEWED AND RECONCILED WITH THE PATIENT PAST MEDICAL HISTORY HYPERTENSION-08/2016 NST LOW RISK, GOOD EXERCISE TOLERANCE-ANTECOL//08/2016 MILD CONCENTRIC [id number] HYPERLIPIDEMIA 2B GERD COPD-02/2012 FEV1 3.83 OBESITY, MORBID PRIOR NICOTINE ADDICTION-SMOKED 20 YEARS 1 04/08 PPD, QUIT IN 2006 T2DM NID C PERIPHERAL NEUROPATHY BLE PERIPHERAL EDEMA 2 MEDICAL NON-COMPLIANCE L SHOULDER OA 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 -CHELSEA, -SSA/SSB BY XRAY/ L2/3, 4/5, 08/05 BULGES ALL C MINIMAL SAC COMPRESSION BY 03/2014 MRI THORACIC [id number] 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 CTS-08/10/14 BUE NCS C SEVERE R, MODERATE-SEVERE L CTS-ILDA S/P 10/2014 [facility] OSTEOARTHRITIS ALLERGIC RHINITIS-03/2016 - ZONE 1 PANEL 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 COMPRESSION BY 11/2015 MRI-[facility] MILD CONCENTRIC LVH, CVP 10, NORMAL VIRIDIANA/SYS FUNCTION BY 08/2016 TTE-ANTECOL ALLERGIES TRILIPIX: AGITATION - SIDE EFFECTS TRIPLE ANTIBIOTIC: RASH /SWELLING - ALLERGY NIACIN: BURNING - ALLERGY SOCIAL HISTORY GENERAL: TOBACCO USE ARE YOU A:FORMER SMOKER HOW LONG HAS IT BEEN SINCE YOU LAST SMOKED?> 10 YEARS LATEX QUESTIONNAIRE LATEX ALLERGY : HAVE YOU EVER DEVELOPED ANY TYPE OF REACTION AFTER HANDLING LATEX PRODUCTS SUCH RUBBER GLOVES, CONDOMS, DIAPHRAGMS, BALLOONS, SOCKS, OR UNDERWEAR?NO LATEX ALLERGY : HAVE YOU EVER DEVELOPED ANY TYPE OF REACTION DURING OR AFTER DENTAL APPOINTMENT, VAGINAL/RECTAL EXAMINATION, SURGICAL PROCEDURE, OR ANY OTHER EXPOSURE?NO LATEX RISK : HAVE YOU EVER HAD ANY DIFFICULTY BREATHING OR HIVES AFTER EATING OR HANDLING ANY FRUITS, OR VEGETABLES; SUCH KIWI, BANANAS, STONE FRUITS, OR CHESTNUTSNO LATEX RISK : DO YOU HAVE A PREVIOUS PERSONAL HISTORY OF MORE THAN NINE SURGERIES, SPINA BIFIDA, OR REPEATED CATHERIZATIONS? NO LATEX RISK : ARE YOU FREQUENTLY EXPOSED TO LATEX PRODUCTS IN YOUR OCCUPATION?NO DATE ASKED : 06/02/2020 ALCOHOL USE: NO. BMI CARE GOAL FOLLOW-UP ABOVE NORMAL BMI FOLLOW-UP GIVING ENCOURAGEMENT TO EXERCISE. ALCOHOL SCREENING DID YOU HAVE A DRINK CONTAINING ALCOHOL IN THE PAST YEAR?YES HOW OFTEN DID YOU HAVE SIX OR MORE DRINKS ON ONE OCCASION IN THE PAST YEAR?NEVER (0 POINTS) HOW MANY DRINKS DID YOU HAVE ON A TYPICAL DAY WHEN YOU WERE DRINKING IN THE PAST YEAR?1 OR 2 (0 POINTS) HOW OFTEN DID YOU HAVE A DRINK CONTAINING ALCOHOL IN THE PAST YEAR?MONTHLY OR LESS (1 POINT) POINTS1 INTERPRETATIONNEGATIVE RECREATIONAL DRUG USE DRUG USE?NO CAFFEINE CAFFEINE USE?YES SEXUAL HX HAD SEX IN THE LAST 12 MONTHS (VAGINAL, ORAL, OR ANAL)?NO HAVE YOU EVER HAD AN STD?NO HIV / HEP-C SCREENING HIV TEST OFFERED TO PATIENT:YES DATE OFFERED:07/30/2016 TEST ACCEPTED:NO HEP-C TEST OFFERED TO PATIENT:YES DATE OFFERED:07/30/2016 REASON:PATIENT DECLINED TEST ACCEPTED:NO REASON:PATIENT DECLINED MUSLIM [id number] EPISCOPALIAN LANGUAGE LANGUAGES SPOKEN:CHILEAN EDUCATION LEVEL OF EDUCATION:NOT FINISHED HIGH SCHOOL 10TH GRADE LEARNING BARRIERS / SPECIAL NEEDS CHANGE FROM LAST VISIT?NO BARRIERS TO LEARNING?NO HEARING IMPAIRED?NO VISION IMPAIRED?YES COGNITIVELY IMPAIRED?NO :CORRECTIVE LENSES READINESS TO LEARN?NO LEARNING PREFERENCES?NO LEARNING CAPABILITIES PRESENT?NO EMOTIONAL BARRIERS?NO SPECIAL DEVICES?NO MANAGER OF NETWORK NEEDED?NO DOMESTIC VIOLENCE DO YOU FEEL SAFE IN YOUR ENVIRONMENT?YES 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 DIET: SUPPOSED TO BEING A HEART HEALTHY DIET. EXERCISE: WALKS, BIKES. MARITAL STATUS: , ONE CHILD. - HAS THE PATIENT BEEN EDUCATED REGARDING HIS/HER PLAN OF CARE?YES HAS THE PATIENT BEEN EDUCATED REGARDING PAIN, THE RISK FOR PAIN, THE IMPORTANCE OF EFFECTIVE PAIN MANAGEMENT, AND THE PAIN ASSESSMENT PROCESS?YES ADVANCE DIRECTIVE ADVANCE DIRECTIVE DISCUSSED WITH PATIENT:YES 05/10/20 PT STATES HE DOESN'T HAVE ANY ADVANCED DIRECTIVES AND HE DECLINES HCP INFORMATION AT THIS TIME. MOVED FROM [facility] IN 2005-BORN THERE. VITAL SIGNS WT 333.4 LBS, HT 70.00", BMI 47.83 INDEX, BP 119/75 MM HG, HR 68 /MIN, RR 18 /MIN, TEMP 97.1 F, OXYGEN SAT % 94%, BLOOD GLUCOSE LEVEL 110, SAFE IN ENV? (Y/N) YES, NA INITIALS SC 10:21, REVIEWED BY: Jonah AUSTIN RN. EXAMINATION GENERAL EXAMINATION: THE PATIENT IS ALERT, ORIENTED TIMES THREE AND COOPERATIVE. LUNGS ARE CLEAR TO AUSCULTATION. HEART SHOWS REGULAR RHYTHM, NO MURMURS AND NO GALLOPS. ASSESSMENTS SACROILIITIS, NOT ELSEWHERE CLASSIFIED - M46.1 (PRIMARY) TREATMENT SACROILIITIS, NOT ELSEWHERE CLASSIFIED LAB: FINGERSTICK BLOOD SUGAR (ORDERED FOR 06/05/2020) MIRELLA CORREIA 06/05/2020 10:48:26 AM > FSBS [facility] FLUORO GUIDANCE (PAIN)[id number] MEDICATION: VALIUM TAB 10MG ORALLY (DIAZEPAM)MIRELLA CORREIA 06/05/2020 10:33:37 AM > VERIFIED SHELLY DARLING RN 06/05/2020 10:35:37 AM > ADMINISTERED. SHELLY DARLING RN 06/05/2020 11:16:56 AM > LOT #[id number]. EXPIRES 01/26. MEDICATION: OXYCODONE HCL TAB 10MG ORALLYMIRELLA CORREIA 06/05/2020 10:33:53 AM > VERIFIED SHELLY DARLING RN 06/05/2020 10:35:55 AM > ADMINISTERED. SHELLY DARLING RN 06/05/2020 11:17:50 AM > LOT #[id number]. EXPIRES 06/26. COMPLETION OF PROCEDURAL VISIT WHEN MEETS CRITERIAMIRELLA CORREIA 06/05/2020 11:28:09 AM > CRITERIA MET OTHERS NOTES: 06/02/20 1346 PAT COMPLETED WITH . Rafaela ORTIZ LUMITE INJECTOR. PROCEDURES PAIN NURSING RECORD PROCEDURE IN ROOM 1053, PHYSICIAN IN ROOM 1104, START 1108, FINISH 1113, PHYSICIAN OUT OF ROOM 1115, OUT OF ROOM 1122 VIA STRETCHER, ECG NORMAL SINUS, PATIENT SHIELDED YES, SAFETY STRAP YES, PREP CHLOROPREP BY Jonah AUSTIN RN, DRESSING TEGADERM BY DR MORALES LOC: MIRELLA CORREIA 06/05/2020 11:00:41 AM > , 1. ALERT, ORIENTED RESP: MIRELLA CORREIA 06/05/2020 11:00:47 AM > , 1. REGULAR, NO DYSPNEA COLOR: MIRELLA CORREIA 06/05/2020 11:00:52 AM > , 1. PINK SKIN: MIRELLA CORREIA 06/05/2020 11:00:54 AM > , 1. WARM, DRY POSITION: MIRELLA CORREIA 06/05/2020 11:00:57 AM > , 1. PRONE VITALS: MIRELLA CORREIA 06/05/2020 11:01:02 AM > 148/95-63-18-92% , MIRELLA CORREIA 06/05/2020 11:13:38 AM > 156/96-67-18-94% NOTES Renea AUSTIN RN MEDICATIONS PREPARED BY Anastasiya COLLINS RN. MEDICATION AND DOSES CONFIRMED. Jonah AUSTIN RN COMPLETION OF PROCEDURE APPOINTMENT: POST PAIN 4 BILATERAL LOWER BACK, DRESSING SITE DRY AND INTACT BILATERAL LOWER BACK, IV N/A, GAIT STEADY, TEACHING COMPLETED, PATIENT ACKNOWLEDGES UNDERSTANDING YES, PROCEDURE APPOINTMENT COMPLETED AT 1128 BY: Renea AUSTIN RN PN SI PRE PROCEDURE DIAGNOSIS SACROILIITIS, SACROILIAC JOINT DYSFUNCTION POST PROCEDURE DIAGNOSIS SACROILIITIS, SACROILIAC JOINT DYSFUNCTION PROCEDURE BILATERAL SACROILIAC JOINT BLOCK SURGEON DR. AGUEDA MORALES OUTDOOR STUDIES PROFESSOR NONE ANESTHESIA LOCAL PRE PROCEDURE NOTE THE PATIENT WITH HISTORY OF CHRONIC LOW BACK PAIN. I EVALUATED THE PATIENT AND REVIEWED THE CHART. I WENT OVER THE RISKS, ALTERNATIVES, AND BENEFITS ASSOCIATED WITH THIS PROCEDURE. THE PATIENT WOULD LIKE TO PROCEED AND GAVE CONSENT TO PERFORM THE PROCEDURE. THE PATIENT DENIES UNEXPLAINABLE WEIGHT LOSS, FEVER, CHILLS, OR NEW CHANGES IN URINARY OR BOWEL CONTROL. THE PATIENT IS COVID-19 NEGATIVE DESCRIPTION OF PROCEDURE THE PATIENT WAS BROUGHT TO THE PROCEDURE ROOM AND PLACED IN THE PRONE POSITION. THE LUMBOSACRAL AREA WAS CLEANED WITH CHLORAPREP SOLUTION AND DRAPED ASEPTICALLY. THE PROCEDURE WAS DONE UNDER STERILE CONDITIONS. A TIMEOUT WAS PERFORMED WHERE THE CONSENTED SITE WAS VERIFIED WITH EVERYONE IN THE ROOM. UNDER FLUOROSCOPIC GUIDANCE, THE TARGET POINT WAS SELECTED AT THE LOWER BORDER OF THE RIGHT AND LEFT SACROILIAC JOINT. TARGET POINT WAS SELECTED AFTER MEDIAL ROTATION AND TILT OF THE MAGNIFIER OR THE C-ARM. I CONFIRMED AGAIN THE SITE OF TARGET. LIDOCAINE 0.5% WAS USED TO NUMB THE SKIN AND THE SUBCUTANEOUS TISSUE BELOW IT. SPINAL NEEDLES, 22-GAUGE, WERE ADVANCED UNDER FLUOROSCOPIC GUIDANCE AND FOLLOWING PATIENT FEEDBACK UNTIL THE TARGETS WERE TOUCHED. THE POSITION OF THE NEEDLES WAS VERIFIED WITH AP AND OBLIQUE VIEWS. AFTER PROPER POSITION OF THE NEEDLES WAS ACHIEVED, ISOVUE-M DYE 30%, 0.1 ML, WAS INJECTED SHOWING ADEQUATE SPREAD OF THE DYE. KENALOG 20 MG WAS INJECTED AT EACH SITE. THEN, A SOLUTION OF 3.0 ML OF BUPIVACAINE 0.125% WAS USED TO FLUSH EACH NEEDLE. THE MEDICATIONS WERE VERIFIED WITH THE NURSE. THERE WAS NO EVIDENCE OF BLOOD, PARESTHESIA OR CEREBROSPINAL FLUID DURING THE PROCEDURE. THE PATIENT WAS SENT TO THE RECOVERY ROOM. THE PATIENT WAS MOVING THE EXTREMITIES AND DOING WELL. THERE WERE NO COMPLICATIONS DURING THE PROCEDURE. ESTIMATED BLOOD LOSS WAS LESS THAN 5 ML. FLUOROSCOPIC TIME WAS 38 SECONDS. POST PROCEDURE NOTE THE PROCEDURE DONE WAS DISCUSSED WITH THE PATIENT. THE PATIENT WILL BE SEEN IN A FOLLOW UP IN THE NEXT FEW WEEKS. I AM LOOKING FOR LONG LASTING PAIN RELIEF FOR THE PATIENT WITH THIS INTERVENTION. INSTRUCTIONS WERE GIVEN, QUESTIONS WERE ANSWERED, AND THE PATIENT EXPRESSED UNDERSTANDING AND AGREES WITH THE PLAN. I, MOLLY DENTON, DOCUMENTED THE ABOVE INFORMATION ACTING A SCRIBE FOR DR. MORALES. I HAVE REVIEWED THE ABOVE DOCUMENT, WRITTEN BY MOLLY DENTON, CORPORATE SPECIALIST, AND I VERIFY THAT IT IS ACCURATE PROCEDURE CODES 10380 INJECT SACROILIAC JOINT, MODIFIERS: 50 DISPOSITION & COMMUNICATION FOLLOW UP FOLLOW UP WITH CARDIAC CATH TECHNICIAN (REASON: POST BILATERAL SACROILIAC JOINT BLOCK) ELECTRONICALLY SIGNED BY AGUEDA MORALES MD, MD ON 06/05/2020 AT 04:36 PM EST DISCLAIMER : THIS IS A VISIT SUMMARY EXTRACTED FROM THE [employer] CHART. IT IS NOT A COPY OF THE [employer] PROGRESS NOTE. MTDMaria Fernanda
== END ==
LOC: M PAIN 10:20
PROVIDERS: ATTEND Anesthesiology
DX: M46.1 Sacroiliitis, not elsewhere classified (principal); E11.40 Type 2 diabetes mellitus with diabetic neuropathy, unspecified; K21.9 Gastro-esophageal reflux disease without esophagitis; J44.9 Chronic obstructive pulmonary disease, unspecified; Z87.891 Personal history of nicotine dependence; Z88.1 Allergy status to other antibiotic agents; Z88.8 Allergy status to other drugs, medicaments and biological substances; E66.01 Morbid (severe) obesity due to excess calories; Z68.42 Body mass index [BMI] 45.0-49.9, adult; Z79.82 Long term (current) use of aspirin; Z79.51 Long term (current) use of inhaled steroids; Z79.84 Long term (current) use of oral hypoglycemic drugs; Z79.899 Other long term (current) drug therapy
CPT/HCPCS: G0260; J3301; Q9967

== ENCOUNTER → 2020-06-21 | Outpatient (CLI) | payer BC, OTHER ==
--- NOTE | 2020-06-21 10:32 | REP ---
INDICATION: UNILATERAL PRIMARY OSTEOARTHRITIS, LEFT KNEE. COMPARISON: Comparison MRI study of the left knee is from 13 March 2018. Comparison left knee radiographs are from 22 December 2017.. TECHNIQUE: Axial, coronal, and sagittal imaging planes utilized. T1, proton density, and T2 weighted scans are included with and without fat saturation in the usual fashion. FINDINGS: There is marrow edema on either side of the medial compartment of the tibiofemoral joint. Otherwise, cortical and medullary bone signal intensity remain normal. There is a fairly large Payne's cyst, up to 6.5 cm in length. There is a small to moderate amount of intra-articular joint fluid. There is progressive severe chondromalacia in the medial compartment with large areas of full-thickness articular cartilage loss on the tibial plateau and medial femoral condyle. Marrow edema and some subcortical cyst formation is seen. Medial osteophytes are noted without with outward, medial, bowing of the medial collateral ligament. Much of the body of the medial meniscus is extruded medially. There is complex tear pattern in the body and posterior horn of the medial meniscus somewhat more pronounced than on the prior study. No definite displaced meniscal material is seen. There is again noted to be evidence of a a ossific loose body posteriorly. 1.1 cm in greatest diameter. There is also focal full-thickness articular cartilage loss in the lateral femoral condyle and to a lesser extent on the lateral tibial plateau. This is also more pronounced than on the prior MRI study. There is some fraying of the inner free margin of the lateral meniscus but no lyn lateral meniscal tear is seen. There is well established osteoarthritic spurring laterally. Patellofemoral spurring is seen in there is mild patellar cartilage chondromalacia. There is a full-thickness linear fissure in the trochlear articular cartilage anteriorly. Medial and lateral patellar retinacular structures appear intact. Patellar and quadriceps tendon 7 intact appearance. There is thickening and increased signal intensity in the anterior cruciate ligament but no lyn ACL disruption is seen. The posterior cruciate ligament has an intact appearance. There is medial bowing of the medial collateral ligament as referenced above associated with spurring and extruded meniscal material. The medial collateral ligament appears intact. There is no evidence of lateral collateral ligament disruption. IMPRESSION: Advanced osteoarthritis and degenerative change most pronounced affecting the medial compartment. There is evidence of progression since March 13, 2018. A loose body is suspected. Joint effusion and Payne's cyst seen. Degenerative tear pattern medial meniscus with medial meniscal extrusion. <Electronically signed by Christian Goodrich > 06/21/20 6048
== END ==
LOC: M RAD 09:09
PROVIDERS: ATTEND Physician Assistant
DX: M17.12 Unilateral primary osteoarthritis, left knee (principal)

== ENCOUNTER → 2020-06-26 | Outpatient (CLI) | payer BC ==
--- NOTE | 2020-06-28 05:02 | ECWPNPC ---
PATIENT NAME: SRINATH GUPTA : 1970 GENDER: MALE VISIT DATE: 06/26/2020 DISCHARGE DATE: 06/26/20 1051 VISIT LOCKED DATE TIME: PHYSICIAN: BOOKER EDAN PHYSICIAN PAGER NO: ACTIVE RESOURCE: BOOKER DEAN REASON FOR APPOINTMENT 1. POST BILATERAL SACROILIAC JOINT BLOCK HISTORY OF PRESENT ILLNESS GENERAL: HERE FOR POST PROCEDURE FOLLOW-UP. HAD BILATERAL SACROILIAC JOINT BLOCK AT HIS LAST VISIT. REPORTING MARKED REDUCTION IN PAIN THAT CONTINUES TODAY. STATES HE IS ABLE TO TOLERATE PROLONGED SITTING AND MOVEMENT ASSOCIATED WITH HIS JOB WITH LESS PAIN. DISCUSSED HOME EXERCISE AND STRETCHING. -. FALL RISK SCREENING: SCREENING : NO FALLS REPORTED IN THE LAST YEAR. PAIN SCREENING: PATIENT HAS A COMPLAINT OF ACUTE OR CHRONIC PAIN :YES LOCATION OF PAIN:LOW BACK INTENSITY OF PAIN (SCALE OF 1 TO 10):2 WHAT DOES YOUR PAIN FEEL LIKE:ACHING, SHOOTING DURATION:INTERMITTENT PAIN IS INCREASED BY:OTHERS SITTING DOWN PAIN IS DECREASED BY:OTHERS STANDING NURSING NOTE: -. PAIN CENTER INTAKE QUESTIONS: DO YOU HAVE A HISTORY OF MRSA? :NO DO YOU TAKE A BLOOD THINNERS? :NO DO YOU HAVE ANY BLEEDING DISORDERS? :NO ANY NEW NUMBNESS OR WEAKNESS IN YOUR LEGS OR ARMS? :NO ANY PACEMAKER,DEFIBRILLATOR, OR DORSAL COLUMN STIMULATOR? :NO DO YOU HAVE ANY RASHES OR OPEN SORES? :NO ARE YOU ALLERGIC TO IV DYE? :NO ARE YOU DIABETIC? :YES ANY NEW PROBLEMS WITH YOUR MEDICATIONS? :NO HAVE YOU RECEIVED A VACCINE IN THE PAST 30 DAYS? :YES IF SO WHAT VACCINE AND WHEN? 1ST COVID 06/16/2020 DO YOU PLAN TO RECEIVE A VACCINE IN THE NEXT 21 DAYS? :YES 2ND COVID 07/07/2020 DO YOU NEED ANY PRESCRIPTION? :NO DO YOU TAKE ANY IMMUNOSUPPRESSIVE MEDICATIONS? :NO IS THERE A CHANCE YOU COULD BE ? :NO ARE YOU BREAST FEEDING? :NO CURRENT MEDICATIONS TAKING ASPIRIN 81 MG TABLET DELAYED RELEASE 1 TABLET ORALLY ONCE A DAY, NOTES: 06/04/2020 TAKING MULTIVITAMINS 1000 MG TABLET 1 TAB ORALLY ONCE A DAY TAKING GLUCOMETER DIRECTED _ ONCE DAILY TAKING NYSTATIN [id number] UNIT/GM POWDER 1 APPLICATION TO AFFECTED AREA EXTERNALLY TWICE A DAY TAKING MAY HAVE - - NEBULIZER FOR COPD EXACERBATION ORALLY EVERY 6 HOURS NEEDED TAKING GLIMEPIRIDE 1 MG TABLET 1 TABLET ORALLY BID, NOTES: 06/04/2020 TAKING METHOCARBAMOL 750 MG TABLET 1.5 TABLETS ORALLY THREE TIMES DAILY TAKING TIZANIDINE HCL 4 MG TABLET 1 TABLET NEEDED ORALLY THREE TIMES A DAY, NOTES: 06/04/2020 TAKING FLUOXETINE HCL 60 MG TABLET 1 TABLET IN THE MORNING ORALLY ONCE A DAY TAKING DICLOFENAC SODIUM 1 % GEL 1 APPLICATION TO AFFECTED AREA TRANSDERMAL EVERY 4 HOURS NEEDED TAKING CYMBALTA 20 MG CAPSULE DELAYED RELEASE PARTICLES 2 CAPSULES ORALLY AT BEDTIME TAKING PEPCID 20MG TABLET 1 TABLET ORALLY TWICE A DAY TAKING MUCINEX 600 MG TABLET EXTENDED RELEASE 12 HOUR 1 TABLET NEEDED ORALLY EVERY 12 HRS TAKING ALBUTEROL SULFATE (2.5 MG/3ML) 0.083% NEBULIZATION SOLUTION 3 ML NEEDED INHALATION EVERY 8 HRS TAKING ATORVASTATIN CALCIUM 80 MG TABLET 1 TABLET ORALLY ONCE A DAY TAKING ZETIA 10 MG TABLET 1 TABLET ORALLY ONCE A DAY, NOTES: HASN'T STARTED YET TAKING SINGULAIR 10 MG TABLET 1 TABLET ORALLY QHS TAKING METHOCARBAMOL 500 MG TABLET 1.5 TABLETS ORALLY THREE TIMES A DAY TAKING MICONAZOLE NITRATE 2 % CREAM 1 APPLICATION TO AFFECTED AREA EXTERNALLY TWICE A DAY TAKING DULOXETINE HCL 60 MG CAPSULE DELAYED RELEASE PARTICLES TAKE 1 CAPSULE BY MOUTH AT BEDTIME TAKING LOSARTAN POTASSIUM 100 MG TABLET 1 TABLET ORALLY ONCE A DAY TAKING TRULICITY 0.75 MG/0.5ML SOLUTION PEN-INJECTOR 1 INJECTION SUBCUTANEOUS WEEK TAKING COMBIVENT RESPIMAT 20-100 MCG/ACT AEROSOL 1 PUFF INHALATION FOUR TIMES DAILY, NEEDED TAKING INVOKANA 100 MG TABLET 1 TABLET ORALLY ONCE A DAY, NOTES: 06/04/2020 TAKING OMEPRAZOLE 40 MG CAPSULE DELAYED RELEASE 1 CAPSULE 30 MINUTES BEFORE MORNING MEAL ORALLY ONCE A DAY TAKING MELOXICAM 7.5 MG TABLET 1 TAB ORALLY BID, NOTES: 06/04/2020 TAKING CHLORTHALIDONE 25MG TABLET 1 TABLET IN THE MORNING WITH FOOD ORALLY EVERY MORNING TAKING GABAPENTIN 300 MG CAPSULE 1 CAPSULE ORALLY BID TAKING GEMFIBROZIL 600 MG TABLET 1 TABLET 30 MINUTES BEFORE MORNING AND EVENING MEALS ORALLY TWICE A DAY TAKING METFORMIN HCL ER 500 MG TABLET EXTENDED RELEASE 24 HOUR TAKE 3 TABLETS BY MOUTH ONCE DAILY IN THE MORNING AND 2 TABLETS IN THE EVENING ORALLY DAILY, NOTES: 06/04/2020 TAKING ANORO ELLIPTA 62.5-25 MCG/INH AEROSOL POWDER BREATH ACTIVATED INHALE 1 PUFF BY MOUTH ONCE DAILY INHALATION DAILY TAKING HYDROCODONE-ACETAMINOPHEN 10-325 MG TABLET 1 TABLET NEEDED ORALLY EVERY 6 HRS PRN MDD2 #60 TABS SHOULD LAST 30 DAYS, NOTES: 06/04/2020 NOT-TAKING VITAMIN B12 1 MG TABLET 1 TABLET ORALLY ONCE A DAY NOT-TAKING NASACORT ALLERGY 24HR 55 MCG/ACT AEROSOL 1 PUFF IN EACH NOSTRIL NASALLY ONCE A DAY MEDICATION LIST REVIEWED AND RECONCILED WITH THE PATIENT PAST MEDICAL HISTORY HYPERTENSION-08/2016 NST LOW RISK, GOOD EXERCISE TOLERANCE-ANTECOL//08/2016 MILD CONCENTRIC [id number] HYPERLIPIDEMIA 2B GERD COPD-02/2012 FEV1 3.83 OBESITY, MORBID PRIOR NICOTINE ADDICTION-SMOKED 20 YEARS 1 04/08 PPD, QUIT IN 2006 T2DM NID C PERIPHERAL NEUROPATHY BLE PERIPHERAL EDEMA 2 MEDICAL NON-COMPLIANCE L SHOULDER OA 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 -[facility]HELSEA, -SSA/SSB BY XRAY L2/3, 4/5, 5/ BULGES ALL C MINIMAL SAC COMPRESSION BY 03/2014 MRI THORACIC [id number] 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 CTS-08/10/14 BUE NCS C SEVERE R, MODERATE-SEVERE L CTS-GONSALES S/P 10/2014 CTR-[facility] HAND OSTEOARTHRITIS ALLERGIC RHINITIS-03/2016 - ZONE 1 PANEL 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 COMPRESSION BY 11/2015 MRI-[facility] MILD CONCENTRIC LVH, CVP 10, NORMAL VIRIDIANA/SYS FUNCTION BY 08/2016 TTE-ANTECOL ALLERGIES TRILIPIX: AGITATION - SIDE EFFECTS TRIPLE ANTIBIOTIC: RASH /SWELLING - ALLERGY NIACIN: BURNING - ALLERGY SOCIAL HISTORY GENERAL: TOBACCO USE ARE YOU A:FORMER SMOKER HOW LONG HAS IT BEEN SINCE YOU LAST SMOKED?> 10 YEARS LATEX QUESTIONNAIRE LATEX ALLERGY : HAVE YOU EVER DEVELOPED ANY TYPE OF REACTION AFTER HANDLING LATEX PRODUCTS SUCH RUBBER GLOVES, CONDOMS, DIAPHRAGMS, BALLOONS, SOCKS, OR UNDERWEAR?NO LATEX ALLERGY : HAVE YOU EVER DEVELOPED ANY TYPE OF REACTION DURING OR AFTER DENTAL APPOINTMENT, VAGINAL/RECTAL EXAMINATION, SURGICAL PROCEDURE, OR ANY OTHER EXPOSURE?NO LATEX RISK : HAVE YOU EVER HAD ANY DIFFICULTY BREATHING OR HIVES AFTER EATING OR HANDLING ANY FRUITS, OR VEGETABLES; SUCH KIWI, BANANAS, STONE FRUITS, OR CHESTNUTSNO LATEX RISK : DO YOU HAVE A PREVIOUS PERSONAL HISTORY OF MORE THAN NINE SURGERIES, SPINA BIFIDA, OR REPEATED CATHERIZATIONS? NO LATEX RISK : ARE YOU FREQUENTLY EXPOSED TO LATEX PRODUCTS IN YOUR OCCUPATION?NO DATE ASKED : 06/26/2020 ALCOHOL USE: YES, VERY LITTLE. BMI CARE GOAL FOLLOW-UP ABOVE NORMAL BMI FOLLOW-UP GIVING ENCOURAGEMENT TO EXERCISE. ALCOHOL SCREENING DID YOU HAVE A DRINK CONTAINING ALCOHOL IN THE PAST YEAR?YES HOW OFTEN DID YOU HAVE SIX OR MORE DRINKS ON ONE OCCASION IN THE PAST YEAR?NEVER (0 POINTS) HOW MANY DRINKS DID YOU HAVE ON A TYPICAL DAY WHEN YOU WERE DRINKING IN THE PAST YEAR?1 OR 2 (0 POINTS) HOW OFTEN DID YOU HAVE A DRINK CONTAINING ALCOHOL IN THE PAST YEAR?MONTHLY OR LESS (1 POINT) POINTS1 INTERPRETATIONNEGATIVE RECREATIONAL DRUG USE DRUG USE?NO CAFFEINE CAFFEINE USE?YES SEXUAL HX HAD SEX IN THE LAST 12 MONTHS (VAGINAL, ORAL, OR ANAL)?NO HAVE YOU EVER HAD AN STD?NO HIV / HEP-C SCREENING HIV TEST OFFERED TO PATIENT:YES DATE OFFERED:07/30/2016 TEST ACCEPTED:NO HEP-C TEST OFFERED TO PATIENT:YES DATE OFFERED:07/30/2016 REASON:PATIENT DECLINED TEST ACCEPTED:NO REASON:PATIENT DECLINED JEHOVAH'S WITNESS [id number] CONGREGATION LANGUAGE LANGUAGES SPOKEN:GEORGIAN EDUCATION LEVEL OF EDUCATION:NOT FINISHED HIGH SCHOOL 10TH GRADE LEARNING BARRIERS / SPECIAL NEEDS CHANGE FROM LAST VISIT?NO BARRIERS TO LEARNING?NO HEARING IMPAIRED?NO VISION IMPAIRED?YES :CORRECTIVE LENSES COGNITIVELY IMPAIRED?NO READINESS TO LEARN?NO LEARNING PREFERENCES?NO LEARNING CAPABILITIES PRESENT?NO EMOTIONAL BARRIERS?NO SPECIAL DEVICES?NO INSTRUCTIONAL SYSTEMS DESIGNER NEEDED?NO DOMESTIC VIOLENCE DO YOU FEEL SAFE IN YOUR ENVIRONMENT?YES 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 DIET: SUPPOSED TO BEING A HEART HEALTHY DIET. EXERCISE: WALKS, BIKES. MARITAL STATUS: , ONE CHILD. - HAS THE PATIENT BEEN EDUCATED REGARDING HIS/HER PLAN OF CARE?YES HAS THE PATIENT BEEN EDUCATED REGARDING PAIN, THE RISK FOR PAIN, THE IMPORTANCE OF EFFECTIVE PAIN MANAGEMENT, AND THE PAIN ASSESSMENT PROCESS?YES ADVANCE DIRECTIVE ADVANCE DIRECTIVE DISCUSSED WITH PATIENT:YES 05/10/20 PT STATES HE DOESN'T HAVE ANY ADVANCED DIRECTIVES AND HE DECLINES HCP INFORMATION AT THIS TIME. MOVED FROM [facility] IN 2005-BORN THERE. REVIEW OF SYSTEMS CONSTITUTIONAL: ANY RECENT FEVER NO . CHILLS NO . WEIGHT CHANGE OF UNKNOWN REASONS NO . GASTROENTEROLOGY: NEW UNEXPLAINABLE CHANGES IN BOWEL CONTROL NO . CONSTIPATION NO . GENITOURINARY: ANY NEW CHANGE IN BLADDER CONTROL? NO . NEUROLOGY: NEW ONSET DIZZINESS OR NEUROLOGICAL CHANGES NOT MENTIONED NO . NEW NUMBNESS OR PAIN PATTERNS NOT MENTIONED AND PERTINENT TO TODAY'S VISIT NO . CARDIOLOGY: NEW CHEST PRESSURE NO . PATIENT DENIES NO . RESPIRATORY: UNEXPLAINABLE COUGH NO . NEW SHORTNESS OF BREATH NO . VITAL SIGNS WT 333.4 LBS, HT 70.00", BMI 47.83 INDEX, BP 159/79 MM HG, HR 77 /MIN, RR 18 /MIN, TEMP 97.0 F, OXYGEN SAT % 98%, SAFE IN ENV? (Y/N) YES, NA INITIALS MD 10:38T.ELISHA MARCOS. EXAMINATION GENERAL EXAMINATION: GENERALAWAKE,ALERT ,PLEASANT . PSYCHAFFECT NORMAL . LUNGS:LUNG BACH ARE CLEAR TO AUSCULTATION BILATERALLY. GOOD MOVEMENT OF AIR . HEART:S1, S2 IN A REGULAR RATE AND RHYTHM. NO SIGNIFICANT MURMURS, RUBS OR GALLOPS NOTED . ASSESSMENTS OTHER CHRONIC PAIN - G89.29 (PRIMARY) SACROILIITIS, NOT ELSEWHERE CLASSIFIED - M46.1 TREATMENT OTHER CHRONIC PAIN CONTINUE TIZANIDINE HCL TABLET, 4 MG, 1 TABLET NEEDED, ORALLY, THREE TIMES A DAY, NOTES: 06/04/2020 CONTINUE CYMBALTA CAPSULE DELAYED RELEASE PARTICLES, 20 MG, 2 CAPSULES, ORALLY, AT BEDTIME CONTINUE METHOCARBAMOL TABLET, 500 MG, 1.5 TABLETS, ORALLY, THREE TIMES A DAY CONTINUE MELOXICAM TABLET, 7.5 MG, 1 TAB, ORALLY, BID, NOTES: 06/04/2020 CONTINUE HYDROCODONE-ACETAMINOPHEN TABLET, 10-325 MG, 1 TABLET NEEDED, ORALLY, EVERY 6 HRS PRN MDD2 #60 TABS SHOULD LAST 30 DAYS, NOTES: 06/04/2020 PAIN PROCEDURE LOGDATE OF PROCEDURE1PROCEDURE:BILATERAL SACROILIAC JOINT BLOCKAMOUNT OF PRE SEDATEVALIUM 10MG,OXYCODONE 10MGRESULT:MARKED REDUCTION IN PAIN CONTINUES TODAY NOTES: RECOMMEND WALKING AND HOME EXERCISE AND STRETCHING. ADVISED PATIENT TO BRING IN HIS PAIN MEDICATION TO ALL VISITS. , ISTOP REGISTRY REVIEWED AND DEMONSTRATES COMPLLIANCE. RECENT URINE TOXICOLOGY REVIEWED. NO UNAUTHORIZED MEDICATIONS. NO ILLICIT SUBSTANCES AND PRESCRIBED MEDICATIONS WERE PRESENT. PROCEDURE CODES [id number] ESTABILISHED PATIENT [facility] FACILITY CHARGE DISPOSITION & COMMUNICATION FOLLOW UP 3 MONTHS (REASON: MED MGMNT/DOES WELL WITH [facility]) ELECTRONICALLY SIGNED BY LIZBETH GUTIERREZ ON 06/27/2020 AT 04:11 PM EDT DISCLAIMER : THIS IS A VISIT SUMMARY EXTRACTED FROM THE [employer] CHART. IT IS NOT A COPY OF THE [employer] PROGRESS NOTE. PAT
== END ==
LOC: M PAIN 10:30
PROVIDERS: ATTEND Nurse Practitioner Family
DX: G89.29 Other chronic pain (principal); M46.1 Sacroiliitis, not elsewhere classified; I10 Essential (primary) hypertension; E78.5 Hyperlipidemia, unspecified; K21.9 Gastro-esophageal reflux disease without esophagitis; J44.9 Chronic obstructive pulmonary disease, unspecified; E66.01 Morbid (severe) obesity due to excess calories; E11.42 Type 2 diabetes mellitus with diabetic polyneuropathy; I73.00 Raynaud's syndrome without gangrene; M51.16 Intervertebral disc disorders with radiculopathy, lumbar region; Z87.891 Personal history of nicotine dependence; Z79.84 Long term (current) use of oral hypoglycemic drugs; Z79.1 Long term (current) use of non-steroidal anti-inflammatories (NSAID); Z79.891 Long term (current) use of opiate analgesic; Z79.899 Other long term (current) drug therapy; Z88.8 Allergy status to other drugs, medicaments and biological substances; Z68.42 Body mass index [BMI] 45.0-49.9, adult

== ENCOUNTER → 2020-09-26 | Outpatient (CLI) | payer BC ==
--- NOTE | 2020-09-28 04:46 | ECWPNPC ---
PATIENT NAME: SRINATH GUPTA : 1970 GENDER: MALE VISIT DATE: 09/26/2020 DISCHARGE DATE: 09/26/20924 VISIT LOCKED DATE TIME: PHYSICIAN: BOOKER DEAN PHYSICIAN PAGER NO: ACTIVE RESOURCE: BOOKER DEAN REASON FOR APPOINTMENT 1. MED MGMNT/DOES WELL WITH [facility] HISTORY OF PRESENT ILLNESS DEPRESSION SCREENING: PHQ-2 (2015 EDITION) LITTLE INTEREST OR PLEASURE IN DOING THINGS?NOT AT ALL FEELING DOWN, DEPRESSED, OR HOPELESS?NOT AT ALL TOTAL SCORE0 GENERAL: HERE FOR FOLLOW-UP AND MEDICATION MANAGEMENT OF CHRONIC LOW BACK PAIN. DOING FAIRLY WELL. HE WILL BE GOING ON A LONG ROAD TRIP FOR WORK AND HE FEELS HIS PAIN WILL BE INCREASED WHEN HE RETURNS. RESPONDS WELL TO BILATERAL SACROILIAC JOINT BLOCKS IN THE PAST. FINDS CURRENT MEDICATION HELPFUL AT REDUCING PAIN AND KEEPING HIM FUNCTIONAL. DENIES ADVERSE SIDE EFFECTS OF MEDICATION. PATIENT BROUGHT IN HIS MEDICATION BUT DID NOT BRING IN HIS PILLBOXES WITH THE MAJORITY OF THE MEDICATION IN IT. I'VE ADVISED HIM TO BRING THE PILLBOXES ALONG WITH THE PILL BOTTLES TO EVERY APPOINTMENT IN THE FUTURE PER OUR CLINIC POLICY. -. FALL RISK SCREENING: SCREENING : NO FALLS REPORTED IN THE LAST YEAR. PAIN SCREENING: PATIENT HAS A COMPLAINT OF ACUTE OR CHRONIC PAIN :YES LOCATION OF PAIN:LOW BACK INTENSITY OF PAIN (SCALE OF 1 TO 10):4 WHAT DOES YOUR PAIN FEEL LIKE:ACHING, CONTINOUS, SHOOTING DURATION:CONTINOUS, CONSTANT, ALL DAY PAIN IS INCREASED BY:ACTIVITIES, PROLONGED STANDING, OTHERS BENDING PAIN IS DECREASED BY:USE OF PAIN MEDICATIONS NURSING NOTE: -. PAIN CENTER INTAKE QUESTIONS: DO YOU HAVE A HISTORY OF MRSA? :NO DO YOU TAKE A BLOOD THINNERS? :NO DO YOU HAVE ANY BLEEDING DISORDERS? :NO ANY NEW NUMBNESS OR WEAKNESS IN YOUR LEGS OR ARMS? :NO ANY PACEMAKER,DEFIBRILLATOR, OR DORSAL COLUMN STIMULATOR? :NO DO YOU HAVE ANY RASHES OR OPEN SORES? :NO ARE YOU ALLERGIC TO IV DYE? :NO ARE YOU DIABETIC? :YES ANY NEW PROBLEMS WITH YOUR MEDICATIONS? :NO HAVE YOU RECEIVED A VACCINE IN THE PAST 30 DAYS? :YES IF SO WHAT VACCINE AND WHEN? 1ST COVID 06/16/2020 DO YOU PLAN TO RECEIVE A VACCINE IN THE NEXT 21 DAYS? :YES 2ND COVID 07/07/2020 DO YOU NEED ANY PRESCRIPTION? :NO DO YOU TAKE ANY IMMUNOSUPPRESSIVE MEDICATIONS? :NO IS THERE A CHANCE YOU COULD BE ? :NO ARE YOU BREAST FEEDING? :NO CURRENT MEDICATIONS TAKING ASPIRIN 81 MG TABLET DELAYED RELEASE 1 TABLET ORALLY ONCE A DAY TAKING MULTIVITAMINS 1000 MG TABLET 1 TAB ORALLY ONCE A DAY TAKING GLUCOMETER DIRECTED _ ONCE DAILY TAKING NYSTATIN [id number] UNIT/GM POWDER 1 APPLICATION TO AFFECTED AREA EXTERNALLY TWICE A DAY TAKING MAY HAVE - - NEBULIZER FOR COPD EXACERBATION ORALLY EVERY 6 HOURS NEEDED TAKING MUCINEX 600 MG TABLET EXTENDED RELEASE 12 HOUR 1 TABLET NEEDED ORALLY EVERY 12 HRS TAKING ALBUTEROL SULFATE (2.5 MG/3ML) 0.083% NEBULIZATION SOLUTION 3 ML NEEDED INHALATION EVERY 8 HRS TAKING MICONAZOLE NITRATE 2 % CREAM 1 APPLICATION TO AFFECTED AREA EXTERNALLY TWICE A DAY TAKING TRULICITY 0.75 MG/0.5ML SOLUTION PEN-INJECTOR 1 INJECTION SUBCUTANEOUS WEEK TAKING CHLORTHALIDONE 25MG TABLET 1 TABLET IN THE MORNING WITH FOOD ORALLY EVERY MORNING TAKING METFORMIN HCL ER 500 MG TABLET EXTENDED RELEASE 24 HOUR TAKE 3 TABLETS BY MOUTH ONCE DAILY IN THE MORNING AND 2 TABLETS IN THE EVENING ORALLY DAILY, NOTES: 06/04/2020 TAKING DULOXETINE HCL 60 MG CAPSULE DELAYED RELEASE PARTICLES TAKE 1 CAPSULE BY MOUTH AT BEDTIME ORALLY DAILY TAKING ZETIA 10 MG TABLET 1 TABLET ORALLY ONCE A DAY, NOTES: HASN'T STARTED YET TAKING GEMFIBROZIL 600 MG TABLET 1 TABLET 30 MINUTES BEFORE MORNING AND EVENING MEALS ORALLY TWICE A DAY TAKING OMEPRAZOLE 40 MG CAPSULE DELAYED RELEASE 1 CAPSULE 30 MINUTES BEFORE MORNING MEAL ORALLY ONCE A DAY TAKING GLIMEPIRIDE 1 MG TABLET 1 TABLET ORALLY BID TAKING LOSARTAN POTASSIUM 100 MG TABLET 1 TABLET ORALLY ONCE A DAY TAKING ANORO ELLIPTA 62.5-25 MCG/INH AEROSOL POWDER BREATH ACTIVATED INHALE 1 PUFF BY MOUTH ONCE DAILY INHALATION DAILY TAKING VITAMIN B12 1 MG TABLET 1 TABLET ORALLY ONCE A DAY TAKING NASACORT ALLERGY 24HR 55 MCG/ACT AEROSOL 1 PUFF IN EACH NOSTRIL NASALLY ONCE A DAY TAKING PEPCID 20MG TABLET 1 TABLET ORALLY TWICE A DAY TAKING METHOCARBAMOL 750 MG TABLET 1.5 TABLETS ORALLY THREE TIMES A DAY TAKING MELOXICAM 7.5 MG TABLET 1 TAB ORALLY BID TAKING ATORVASTATIN CALCIUM 80 MG TABLET 1 TABLET ORALLY ONCE A DAY TAKING COMBIVENT RESPIMAT 20-100 MCG/ACT AEROSOL 1 PUFF INHALATION FOUR TIMES DAILY, NEEDED TAKING ANORO ELLIPTA UMECLIDINIUM 62.5 MCG AND VILANTEROL 25 MCG INHALATION POWDER 1 INHALATION ORAL ONCE DAILY TAKING FLUOXETINE HCL 40 MG CAPSULE 1 TABLET IN THE MORNING ORALLY ONCE A DAY TAKING CHLORTHALIDONE 25 MG TABLET 1 TABLET IN THE MORNING WITH FOOD ORALLY EVERY MORNING TAKING LOSARTAN POTASSIUM 100 MG TABLET 1 TABLET ORALLY ONCE A DAY TAKING METFORMIN HCL ER 500 MG TABLET EXTENDED RELEASE 24 HOUR 3 TABLETS IN AM, 2 IN PM ORALLY BID TAKING INVOKANA 100 MG TABLET 1 TABLET ORALLY ONCE A DAY TAKING DICLOFENAC SODIUM 1 % GEL 1 APPLICATION TO AFFECTED AREA TRANSDERMAL EVERY 4 HOURS NEEDED TAKING CYMBALTA 20 MG CAPSULE DELAYED RELEASE PARTICLES 2 CAPSULES ORALLY AT BEDTIME TAKING HYDROCODONE-ACETAMINOPHEN 10-325 MG TABLET 1 TABLET NEEDED ORALLY EVERY 6 HRS PRN MDD2 #60 TABS SHOULD LAST 30 DAYS, NOTES: 06/04/2020 TAKING SINGULAIR 10 MG TABLET 1 TABLET ORALLY QHS TAKING TIZANIDINE HCL 4 MG TABLET 1 TABLET NEEDED ORALLY THREE TIMES A DAY NOT-TAKING NORCO 10-325 MG TABLET 1 TABLET NEEDED ORALLY FOR PAIN (THIS PRESCRIPTION SHOULD LAST 1 MONTH) EVERY 6 HOURS NEEDED MDD2 NOT-TAKING METHOCARBAMOL 500 MG TABLET 1.5 TABLETS ORALLY THREE TIMES A DAY NOT-TAKING GABAPENTIN 300 MG CAPSULE 1 CAPSULE ORALLY BID MEDICATION LIST REVIEWED AND RECONCILED WITH THE PATIENT PAST MEDICAL HISTORY HYPERTENSION-08/2016 NST LOW RISK, GOOD EXERCISE TOLERANCE-ANTECOL/ MILD CONCENTRIC [id number] HYPERLIPIDEMIA 2B GERD COPD-02/2012 FEV1 3.83 OBESITY, MORBID PRIOR NICOTINE ADDICTION-SMOKED 20 YEARS 1 1/2 PPD, QUIT IN 2006 T2DM NID C PERIPHERAL NEUROPATHY BLE PERIPHERAL EDEMA 2 MEDICAL NON-COMPLIANCE L SHOULDER OA 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 -CHELSEA, -SSA/SSB BY XRAY L2/3, 4/5, 5/ BULGES ALL C MINIMAL SAC COMPRESSION BY 03/2014 MRI THORACIC [id number] 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 CTS-08/10/14 BUE NCS C SEVERE R, MODERATE-SEVERE L CTS-ILDA S/P 10/2014 CTR-[facility]IR OSTEOARTHRITIS ALLERGIC RHINITIS-03/2016 - ZONE 1 PANEL 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 COMPRESSION BY 11/2015 MRI-[facility] MILD CONCENTRIC LVH, CVP 10, NORMAL VIRIDIANA/SYS FUNCTION BY 08/2016 TTE-ANTECOL ALLERGIES TRILIPIX: AGITATION - SIDE EFFECTS TRIPLE ANTIBIOTIC: RASH /SWELLING - ALLERGY NIACIN: BURNING - ALLERGY SOCIAL HISTORY GENERAL: TOBACCO USE ARE YOU A:FORMER SMOKER HOW LONG HAS IT BEEN SINCE YOU LAST SMOKED?> 10 YEARS LATEX QUESTIONNAIRE LATEX ALLERGY : HAVE YOU EVER DEVELOPED ANY TYPE OF REACTION AFTER HANDLING LATEX PRODUCTS SUCH RUBBER GLOVES, CONDOMS, DIAPHRAGMS, BALLOONS, SOCKS, OR UNDERWEAR?NO LATEX ALLERGY : HAVE YOU EVER DEVELOPED ANY TYPE OF REACTION DURING OR AFTER DENTAL APPOINTMENT, VAGINAL/RECTAL EXAMINATION, SURGICAL PROCEDURE, OR ANY OTHER EXPOSURE?NO LATEX RISK : HAVE YOU EVER HAD ANY DIFFICULTY BREATHING OR HIVES AFTER EATING OR HANDLING ANY FRUITS, OR VEGETABLES; SUCH KIWI, BANANAS, STONE FRUITS, OR CHESTNUTSNO LATEX RISK : DO YOU HAVE A PREVIOUS PERSONAL HISTORY OF MORE THAN NINE SURGERIES, SPINA BIFIDA, OR REPEATED CATHERIZATIONS? NO LATEX RISK : ARE YOU FREQUENTLY EXPOSED TO LATEX PRODUCTS IN YOUR OCCUPATION?NO DATE ASKED : 09/26/2020 ALCOHOL USE: YES, VERY LITTLE. BMI CARE GOAL FOLLOW-UP ABOVE NORMAL BMI FOLLOW-UP GIVING ENCOURAGEMENT TO EXERCISE. ALCOHOL SCREENING DID YOU HAVE A DRINK CONTAINING ALCOHOL IN THE PAST YEAR?YES HOW OFTEN DID YOU HAVE SIX OR MORE DRINKS ON ONE OCCASION IN THE PAST YEAR?NEVER (0 POINTS) HOW MANY DRINKS DID YOU HAVE ON A TYPICAL DAY WHEN YOU WERE DRINKING IN THE PAST YEAR?1 OR 2 (0 POINTS) HOW OFTEN DID YOU HAVE A DRINK CONTAINING ALCOHOL IN THE PAST YEAR?MONTHLY OR LESS (1 POINT) POINTS1 INTERPRETATIONNEGATIVE RECREATIONAL DRUG USE DRUG USE?NO CAFFEINE CAFFEINE USE?YES SEXUAL HX HAD SEX IN THE LAST 12 MONTHS (VAGINAL, ORAL, OR ANAL)?NO HAVE YOU EVER HAD AN STD?NO HIV / HEP-C SCREENING HIV TEST OFFERED TO PATIENT:YES DATE OFFERED:07/30/2016 TEST ACCEPTED:NO HEP-C TEST OFFERED TO PATIENT:YES DATE OFFERED:07/30/2016 REASON:PATIENT DECLINED TEST ACCEPTED:NO REASON:PATIENT DECLINED ANGLICAN [id number] YAZIDI LANGUAGE LANGUAGES SPOKEN:ITALIAN EDUCATION LEVEL OF EDUCATION:NOT FINISHED HIGH SCHOOL 10TH GRADE LEARNING BARRIERS / SPECIAL NEEDS CHANGE FROM LAST VISIT?NO BARRIERS TO LEARNING?NO HEARING IMPAIRED?NO VISION IMPAIRED?YES :CORRECTIVE LENSES COGNITIVELY IMPAIRED?NO READINESS TO LEARN?NO LEARNING PREFERENCES?NO LEARNING CAPABILITIES PRESENT?NO EMOTIONAL BARRIERS?NO SPECIAL DEVICES?NO SENIOR ACCOUNTING ASSOCIATE NEEDED?NO DOMESTIC VIOLENCE DO YOU FEEL SAFE IN YOUR ENVIRONMENT?YES 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 DIET: SUPPOSED TO BEING A HEART HEALTHY DIET. EXERCISE: WALKS, BIKES. MARITAL STATUS: , ONE CHILD. - HAS THE PATIENT BEEN EDUCATED REGARDING HIS/HER PLAN OF CARE?YES HAS THE PATIENT BEEN EDUCATED REGARDING PAIN, THE RISK FOR PAIN, THE IMPORTANCE OF EFFECTIVE PAIN MANAGEMENT, AND THE PAIN ASSESSMENT PROCESS?YES ADVANCE DIRECTIVE ADVANCE DIRECTIVE DISCUSSED WITH PATIENT:YES 05/10/20 PT STATES HE DOESN'T HAVE ANY ADVANCED DIRECTIVES AND HE DECLINES HCP INFORMATION AT THIS TIME. MOVED FROM [facility] IN 2006-BORN THERE. REVIEW OF SYSTEMS CONSTITUTIONAL: ANY RECENT FEVER NO . CHILLS NO . WEIGHT CHANGE OF UNKNOWN REASONS NO . GASTROENTEROLOGY: NEW UNEXPLAINABLE CHANGES IN BOWEL CONTROL NO . CONSTIPATION NO . GENITOURINARY: ANY NEW CHANGE IN BLADDER CONTROL? NO . NEUROLOGY: NEW ONSET DIZZINESS OR NEUROLOGICAL CHANGES NOT MENTIONED NO . NEW NUMBNESS OR PAIN PATTERNS NOT MENTIONED AND PERTINENT TO TODAY'S VISIT NO . CARDIOLOGY: NEW CHEST PRESSURE NO . PATIENT DENIES NO . RESPIRATORY: UNEXPLAINABLE COUGH NO . NEW SHORTNESS OF BREATH NO . VITAL SIGNS WT 329.0 LBS, HT 70.00", BMI 47.20 INDEX, BP 146/73 MM HG, HR 94 /MIN, RR 18 /MIN, TEMP 95.8 F, OXYGEN SAT % 95%, SAFE IN ENV? (Y/N) YES, NA INITIALS AW 0901T.ELISHA MA PATIENT STATED THAT HE HAD COFFEE THIS MORNING. EXAMINATION GENERAL EXAMINATION: GENERALAWAKE,ALERT ,PLEASANT . PSYCHAFFECT NORMAL . LUNGS:LUNG BACH ARE CLEAR TO AUSCULTATION BILATERALLY. GOOD MOVEMENT OF AIR . HEART:S1, S2 IN A REGULAR RATE AND RHYTHM. NO SIGNIFICANT MURMURS, RUBS OR GALLOPS NOTED . ASSESSMENTS BILATERAL SACROILIITIS - M46.1 (PRIMARY) CHRONIC PRESCRIPTION OPIATE USE - Z79.891 TREATMENT BILATERAL SACROILIITIS CONTINUE METHOCARBAMOL TABLET, 750 MG, 1.5 TABLETS, ORALLY, THREE TIMES A DAY CONTINUE MELOXICAM TABLET, 7.5 MG, 1 TAB, ORALLY, BID CONTINUE HYDROCODONE-ACETAMINOPHEN TABLET, 10-325 MG, 1 TABLET NEEDED, ORALLY, EVERY 6 HRS PRN MDD2 #60 TABS SHOULD LAST 30 DAYS, NOTES: 06/04/2020 NOTES: ISTOP REGISTRY REVIEWED AND DEMONSTRATES COMPLLIANCE. BRINGS IN MEDICATIONS WHICH IS APPROPRIATE FOR WHAT WAS DISPENSED. RECENT URINE TOXICOLOGY REVIEWED. NO UNAUTHORIZED MEDICATIONS. NO ILLICIT SUBSTANCES AND PRESCRIBED MEDICATIONS WERE PRESENT. PROCEDURE CODES FA211 ESTABILISHED PATIENT [facility] CHARGE DISPOSITION & COMMUNICATION FOLLOW UP 6 WEEKS (REASON: MED MGMNT/UTOX/CONSIDER BILAT. SIJ) ELECTRONICALLY SIGNED BY LIZBETH GUTIERREZ ON 09/27/2020 AT 12:43 PM EDT DISCLAIMER : THIS IS A VISIT SUMMARY EXTRACTED FROM THE [employer] CHART. IT IS NOT A COPY OF THE [employer] PROGRESS NOTE. MTDD
== END ==
LOC: M PAIN 09:00
PROVIDERS: ATTEND Nurse Practitioner Family
DX: M46.1 Sacroiliitis, not elsewhere classified (principal); I10 Essential (primary) hypertension; E78.5 Hyperlipidemia, unspecified; K21.9 Gastro-esophageal reflux disease without esophagitis; J44.9 Chronic obstructive pulmonary disease, unspecified; E66.01 Morbid (severe) obesity due to excess calories; E11.42 Type 2 diabetes mellitus with diabetic polyneuropathy; M19.012 Primary osteoarthritis, left shoulder; I73.00 Raynaud's syndrome without gangrene; M51.16 Intervertebral disc disorders with radiculopathy, lumbar region; Z79.891 Long term (current) use of opiate analgesic; Z87.891 Personal history of nicotine dependence; Z68.42 Body mass index [BMI] 45.0-49.9, adult; Z79.84 Long term (current) use of oral hypoglycemic drugs; Z79.899 Other long term (current) drug therapy; Z79.82 Long term (current) use of aspirin; Z88.1 Allergy status to other antibiotic agents; Z88.8 Allergy status to other drugs, medicaments and biological substances

== ENCOUNTER → 2020-10-12 | Outpatient (CLI) | payer OTHER, BC ==
[2020-10-12 16:45] LABS: HEMATOCRIT 40.1 % (42.0-52.0); HEMOGLOBIN 13.3 g/dl (13.5-17.5); MEAN CORPUSCULAR HEMOGLOBIN 30.9 pg (27.0-33.0); MEAN CORPUSCULAR HGB CONC 33.2 g/dl (32.0-36.5); MEAN CORPUSCULAR VOLUME 93.3 fl (80.0-96.0); PLATELET COUNT, AUTOMATED 246 10^3/uL (150-450); WHITE BLOOD COUNT 11.1 10^3/uL (4.0-10.0)
[2020-10-12 17:02] LABS: ALBUMIN 3.5 GM/DL (3.2-5.2); ALT/SGPT 60 U/L (12-78); BILIRUBIN,TOTAL 0.5 MG/DL (0.2-1.0); BLOOD UREA NITROGEN 24 MG/DL (7-18); CARBON DIOXIDE LEVEL 27 MEQ/L (21-32); CHLORIDE LEVEL 94 MEQ/L (98-107); CREATININE FOR GFR 1.16 MG/DL (0.70-1.30); GLOMERULAR FILTRATION RATE > 60.0 (>60); GLUCOSE, FASTING 219 MG/DL (70-100); POTASSIUM SERUM 3.7 MEQ/L (3.5-5.1); SODIUM LEVEL 134 MEQ/L (136-145); TOTAL PROTEIN 7.4 GM/DL (6.4-8.2)
[2020-10-12 17:15] LABS: INR 1.03; PROTHROMBIN TIME 13.7 SECONDS (12.5-14.3)
[2020-10-12 17:16] LABS: PARTIAL THROMBOPLASTIN TIME 32.4 SECONDS (24.2-38.5)
== END ==
LOC: M PLALAB 12:05
PROVIDERS: ATTEND Physician Assistant
DX: Z01.818 Encounter for other preprocedural examination (principal)

== ENCOUNTER → 2020-12-20 | Outpatient (CLI) | payer BC ==
[~2020-12-20] MED LIST changes: +ANOR1AER INH; +ASPI81CH33 PO; +ATOR80TA59 PO; -BUPIVACAINE HCL 0.25% 30ML VIAL As Ordered ONE; +CHLO125TA PO; +COMBAER6 INH; +DULO1CAP4 PO; +EZET10TA21 PO; +FAMO20TA PO; +FLUO40CA PO; +GABA-282 PO; +GLIM1TAB4 PO; +HYDR-4517 PO; +INVO100T PO; -ISOVUE-M 300 61% 15ML VIAL As Ordered ONE; -LIDOCAINE 1% SDV 30ML VIAL As Ordered ONE; +LOPI600T PO; +LOSA100T45 PO; +METF-838 PO; +METH-1164 PO; +MONT10TA97 PO; +OMEP40CA5 PO; +TIZA10TA PO; +TOPI25TA10 PO; -TRIAMCINOLONE ACETONIDE SUSP 40 MG/ML VIAL (J3301) As Ordered ONE; +TRUL0.5I SQ; +ZETI10TA16 PO; -diazePAM 5MG TABLET As Ordered ONE; -oxyCODONE 5MG TAB As Ordered ONE
== END ==
LOC: M PAIN 09:15
PROVIDERS: ATTEND Anesthesiology
DX: M51.16 Intervertebral disc disorders with radiculopathy, lumbar region (principal); I10 Essential (primary) hypertension; E78.5 Hyperlipidemia, unspecified; K21.9 Gastro-esophageal reflux disease without esophagitis; J44.9 Chronic obstructive pulmonary disease, unspecified; E66.01 Morbid (severe) obesity due to excess calories; E11.42 Type 2 diabetes mellitus with diabetic polyneuropathy; I73.00 Raynaud's syndrome without gangrene; Z88.8 Allergy status to other drugs, medicaments and biological substances; Z79.1 Long term (current) use of non-steroidal anti-inflammatories (NSAID); Z79.84 Long term (current) use of oral hypoglycemic drugs; Z79.82 Long term (current) use of aspirin; Z79.891 Long term (current) use of opiate analgesic; Z79.899 Other long term (current) drug therapy

== ENCOUNTER 2020-12-26 00:15 | Emergency (ER) | payer BC ==
[~2020-12-26] VITALS: Ht 182.9 cm; Wt 146.2 kg
[2020-12-26 02:11] LABS: BASO # 0.1 10^3/uL (0.0-0.2); BASO % 0.7 % (0.0-1.0); EOS # 0.2 10^3/uL (0.0-0.5); EOS % 1.8 % (0.0-3.0); HEMOGLOBIN 14.1 g/dl (13.5-17.5); LYMPH # 2.6 10^3/uL (1.5-5.0); LYMPH % 30.8 % (24.0-44.0); MEAN CORPUSCULAR HEMOGLOBIN 30.8 pg (27.0-33.0); MEAN CORPUSCULAR HGB CONC 34.4 g/dl (32.0-36.5); MEAN CORPUSCULAR VOLUME 89.5 fl (80.0-96.0); MONO % 11.6 % (2.0-8.0); NEUTROPHILS # 4.5 10^3/uL (1.5-8.5); NEUTROPHILS % 54.7 % (36.0-66.0); PLATELET COUNT, AUTOMATED 252 10^3/uL (150-450); RED BLOOD COUNT 4.58 10^6/uL (4.30-6.10); WHITE BLOOD COUNT 8.3 10^3/uL (4.0-10.0)
[2020-12-26] MEDS ORDERED: CHLO125TA PO (02:17)
[2020-12-26] MEDS ORDERED: FLUO40CA PO (02:17)
[2020-12-26] MEDS ORDERED: HYDR-4517 PO (02:17)
[2020-12-26] MEDS ORDERED: ANOR1AER INH (02:17)
[2020-12-26] MEDS ORDERED: TRUL0.5I SQ (02:17)
[2020-12-26] MEDS ORDERED: GLIM1TAB4 PO (02:17)
[2020-12-26] MEDS ORDERED: EZET10TA21 PO (02:17)
[2020-12-26] MEDS ORDERED: INVO100T PO (02:17)
[2020-12-26] MEDS ORDERED: GABA-282 PO (02:17)
[2020-12-26] MEDS ORDERED: LOSA100T50 PO (02:17)
[2020-12-26] MEDS ORDERED: FAMO20TA PO (02:17)
[2020-12-26] MEDS ORDERED: METH-1164 PO (02:17)
[2020-12-26] MEDS ORDERED: METF-838 PO ×2 (02:17)
[2020-12-26] MEDS ORDERED: ZETI10TA16 PO (02:17)
[2020-12-26] MEDS ORDERED: LOPI600T PO (02:17)
[2020-12-26] MEDS ORDERED: COMBAER6 INH (02:17)
[2020-12-26] MEDS ORDERED: TIZA4TAB4 PO (02:17)
[2020-12-26] MEDS ORDERED: DULO1CAP4 PO (02:17)
[2020-12-26] MEDS ORDERED: OMEP-221 PO (02:17)
[2020-12-26] MEDS ORDERED: TOPI25TA10 PO (02:17)
[2020-12-26] MEDS ORDERED: ATOR80TA59 PO (02:17)
[2020-12-26] MEDS ORDERED: MONT10TA10 PO (02:17)
[2020-12-26] MEDS ORDERED: ASPI81CH33 PO (02:17)
[2020-12-26 02:30] LABS: PROTHROMBIN TIME 13.6 SECONDS (12.7-14.5)
[2020-12-26 02:31] LABS: PARTIAL THROMBOPLASTIN TIME 33.4 SECONDS (25.9-37.0)
[2020-12-26 02:51] LABS: ALBUMIN 3.9 GM/DL (3.2-5.2); ALT/SGPT 42 U/L (12-78); BILIRUBIN,DIRECT < 0.1 MG/DL (0.0-0.2); BILIRUBIN,TOTAL 0.3 MG/DL (0.2-1.0); BLOOD UREA NITROGEN 11 MG/DL (7-18); CALCIUM LEVEL 8.9 MG/DL (8.5-10.1); CARBON DIOXIDE LEVEL 30 MEQ/L (21-32); CHLORIDE LEVEL 99 MEQ/L (98-107); CK-MB VALUE MASS 2.3 NG/ML (<3.6); CPK CREATINE PHOSPHOKINASE 268 U/L (39-308); CREATININE FOR GFR 0.73 MG/DL (0.70-1.30); GLOMERULAR FILTRATION RATE > 60.0 (>60); GLUCOSE, FASTING 128 MG/DL (70-100); LIPASE 91 U/L (73-393); MB/CK RELATIVE INDEX 0.86 (< OR =4); NT-PRO BNP 110 PG/ML (<125); POTASSIUM SERUM 3.7 MEQ/L (3.5-5.1); SODIUM LEVEL 137 MEQ/L (136-145); TOTAL PROTEIN 7.3 GM/DL (6.4-8.2); TROPONIN I < 0.02 NG/ML (< 0.10)
--- NOTE | 2020-12-26 04:00 | REPVR ---
PROCEDURE INFORMATION: Exam: XR Chest Exam date and time: 12/26/2020 1:45 AM Age: 50 years old Clinical indication: Pain; Other: Not specified; Additional info: Chest pain TECHNIQUE: Imaging protocol: XR of the chest. Views: 1 view. COMPARISON: CR CHEST 2 VIEW 08/28/2018 8:45 AM FINDINGS: Lungs: Lungs are well aerated. Mild elevation or eventration of the right hemidiaphragm. No evidence of airspace consolidation. Pleural spaces: No significant pleural effusions. No pneumothorax. Heart/Mediastinum: Enlargement of the cardiac silhouette. Pulmonary vasculature is unremarkable. Bones/joints: Bones are stable. Old right clavicle deformity. Degenerative change within the spine and shoulders. IMPRESSION: Cardiomegaly. No evidence of pulmonary edema or lobar pneumonia. Electronically signed by: Jacob Olivier On 12/26/2020 03:59:43 AM
[2020-12-26 05:12] LABS: CK-MB VALUE MASS 1.7 NG/ML (<3.6); CPK CREATINE PHOSPHOKINASE 228 U/L (39-308); MB/CK RELATIVE INDEX 0.75 (< OR =4); TROPONIN I < 0.02 NG/ML (< 0.10)
[2020-12-26 05:45] VITALS: BP 148/72
--- NOTE | 2020-12-26 13:57 | ECGEPIP ---
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
--- NOTE | 2020-12-26 13:59 | ECGEPIP ---
[facility] - ED Test Date: 2020-12-26 Pat Name: SRINATH GUPTA Department: Room: - Gender: Male Parts Finisher: [facility] : 1970 Requested By: STEPHANIE Burton Order Number: [id number] Reading MD: Keila Aleman Measurements Intervals [place] Rate: 83 P: 40 MS: 170 QRS: 9 QRSD: 100 T: 90 QT: 408 QTc: 479 Interpretive Statements Sinus rhythm with frequent premature ventricular complexes Nonspecific T wave abnormality similar 12/26/20 Electronically Signed on 12-26-2020 13:59:31 EDT by Keila Aleman
== END 2020-12-26 06:00 | disposition home or self-care (01) ==
LOC: M ED 00:15
DX: R07.89 Other chest pain (principal); E11.9 Type 2 diabetes mellitus without complications; J45.909 Unspecified asthma, uncomplicated; K21.9 Gastro-esophageal reflux disease without esophagitis; I51.7 Cardiomegaly; Z88.1 Allergy status to other antibiotic agents; Z79.899 Other long term (current) drug therapy; Z79.82 Long term (current) use of aspirin; Z79.84 Long term (current) use of oral hypoglycemic drugs

== ENCOUNTER → 2021-01-16 | Outpatient (CLI) | payer BC ==
[~2021-01-16] MED LIST changes: -LOSA100T45 PO; +LOSA100T50 PO; +MONT10TA10 PO; -MONT10TA97 PO; +OMEP-221 PO; -OMEP40CA5 PO; -TIZA10TA PO; +TIZA4TAB4 PO
[2021-01-16 16:21] LABS: BASO # 0.1 10^3/uL (0.0-0.2); BASO % 0.6 % (0.0-1.0); EOS # 0.1 10^3/uL (0.0-0.5); HEMATOCRIT 45.5 % (42.0-52.0); LYMPH # 3.2 10^3/uL (1.5-5.0); LYMPH % 39.1 % (24.0-44.0); MEAN CORPUSCULAR HEMOGLOBIN 30.5 pg (27.0-33.0); MEAN CORPUSCULAR VOLUME 92.5 fl (80.0-96.0); MONO # 0.5 10^3/uL (0.0-0.8); MONO % 5.7 % (2.0-8.0); NEUTROPHILS # 4.4 10^3/uL (1.5-8.5); NEUTROPHILS % 53.2 % (36.0-66.0); PLATELET COUNT, AUTOMATED 351 10^3/uL (150-450); RED BLOOD COUNT 4.92 10^6/uL (4.30-6.10); WHITE BLOOD COUNT 8.2 10^3/uL (4.0-10.0)
[2021-01-16 16:55] LABS: ALBUMIN 4.1 GM/DL (3.2-5.2); ALT/SGPT 42 U/L (12-78); BILIRUBIN,TOTAL 0.4 MG/DL (0.2-1.0); BLOOD UREA NITROGEN 15 MG/DL (7-18); CALCIUM LEVEL 9.5 MG/DL (8.5-10.1); CARBON DIOXIDE LEVEL 29 MEQ/L (21-32); CHLORIDE LEVEL 102 MEQ/L (98-107); GLOMERULAR FILTRATION RATE > 60.0 (>60); GLUCOSE, FASTING 183 MG/DL (70-100); POTASSIUM SERUM 3.9 MEQ/L (3.5-5.1); SODIUM LEVEL 137 MEQ/L (136-145); TOTAL PROTEIN 7.4 GM/DL (6.4-8.2)
[2021-01-16 18:17] LABS: HEMOGLOBIN A1c 7.5 %
== END ==
LOC: M WUC 13:35
PROVIDERS: ATTEND Physician Assistant Medical
DX: E11.8 Type 2 diabetes mellitus with unspecified complications (principal); I10 Essential (primary) hypertension

== ENCOUNTER → 2021-04-27 | Outpatient (CLI) | payer BC ==
[~2021-04-27] MED LIST changes: +LOSA100T45 PO; -LOSA100T50 PO; -MONT10TA10 PO; +MONT10TA97 PO; -OMEP-221 PO; +OMEP40CA5 PO; +TIZA10TA PO; -TIZA4TAB4 PO
== END ==
LOC: M PAIN 09:45
PROVIDERS: ATTEND Anesthesiology
DX: M79.10 Myalgia, unspecified site (principal); M79.18 Myalgia, other site; M54.50 Low back pain, unspecified; M47.816 Spondylosis without myelopathy or radiculopathy, lumbar region; I10 Essential (primary) hypertension; E78.5 Hyperlipidemia, unspecified; K21.9 Gastro-esophageal reflux disease without esophagitis; J44.9 Chronic obstructive pulmonary disease, unspecified; E66.01 Morbid (severe) obesity due to excess calories; E11.42 Type 2 diabetes mellitus with diabetic polyneuropathy; I73.00 Raynaud's syndrome without gangrene; M19.012 Primary osteoarthritis, left shoulder; Z87.891 Personal history of nicotine dependence; Z79.891 Long term (current) use of opiate analgesic; Z88.1 Allergy status to other antibiotic agents; Z88.8 Allergy status to other drugs, medicaments and biological substances; Z68.42 Body mass index [BMI] 45.0-49.9, adult

== ENCOUNTER → 2021-05-14 | Outpatient (CLI) | payer BC ==
[2021-05-14 12:35] LABS: BASO # 0.1 10^3/uL (0.0-0.2); EOS # 0.1 10^3/uL (0.0-0.5); EOS % 1.3 % (0.0-3.0); HEMATOCRIT 41.5 % (42.0-52.0); HEMOGLOBIN 13.5 g/dl (13.5-17.5); LYMPH % 28.6 % (24.0-44.0); MEAN CORPUSCULAR HEMOGLOBIN 30.3 pg (27.0-33.0); MEAN CORPUSCULAR HGB CONC 32.5 g/dl (32.0-36.5); MEAN CORPUSCULAR VOLUME 93.3 fl (80.0-96.0); MONO # 0.5 10^3/uL (0.0-0.8); NEUTROPHILS # 4.2 10^3/uL (1.5-8.5); NEUTROPHILS % 61.7 % (36.0-66.0); PLATELET COUNT, AUTOMATED 288 10^3/uL (150-450); RED BLOOD COUNT 4.45 10^6/uL (4.30-6.10); WHITE BLOOD COUNT 6.8 10^3/uL (4.0-10.0)
[2021-05-14 12:56] LABS: C REACTIVE PROTEIN QUANTITATIV < 0.30 MG/DL (0.00-0.30); RHEUMATOID FACTOR QUANT < 10.0 IU/ML (<15.0); URIC ACID 4.2 MG/DL (3.5-7.2)
[2021-05-14 12:58] LABS: ERYTHROCYTE SEDIMENTATION RATE 9 mm/hr (0-20)
== END ==
LOC: M WUC 08:53
PROVIDERS: ATTEND Physician Assistant Medical
DX: M13.0 Polyarthritis, unspecified (principal)

== ENCOUNTER → 2021-08-02 | Outpatient (CLI) | payer BC | LOC: M PAIN 09:30 | PROVIDERS: ATTEND Nurse Practitioner Family | DX: M79.10 Myalgia, unspecified site (principal); I10 Essential (primary) hypertension; E78.5 Hyperlipidemia, unspecified; K21.9 Gastro-esophageal reflux disease without esophagitis; J44.9 Chronic obstructive pulmonary disease, unspecified; E66.01 Morbid (severe) obesity due to excess calories; E11.42 Type 2 diabetes mellitus with diabetic polyneuropathy; M19.012 Primary osteoarthritis, left shoulder; I73.00 Raynaud's syndrome without gangrene; M51.16 Intervertebral disc disorders with radiculopathy, lumbar region; J30.9 Allergic rhinitis, unspecified; Z87.891 Personal history of nicotine dependence; Z68.41 Body mass index [BMI] 40.0-44.9, adult; Z88.1 Allergy status to other antibiotic agents; Z88.8 Allergy status to other drugs, medicaments and biological substances; Z79.891 Long term (current) use of opiate analgesic; Z79.82 Long term (current) use of aspirin; Z79.84 Long term (current) use of oral hypoglycemic drugs; Z79.899 Other long term (current) drug therapy ==

== ENCOUNTER → 2021-10-10 | Outpatient (CLI) | payer BC | LOC: M PAIN 09:30 | PROVIDERS: ATTEND Nurse Practitioner Family | DX: M79.10 Myalgia, unspecified site (principal); I10 Essential (primary) hypertension; E78.5 Hyperlipidemia, unspecified; K21.9 Gastro-esophageal reflux disease without esophagitis; J44.9 Chronic obstructive pulmonary disease, unspecified; E66.01 Morbid (severe) obesity due to excess calories; E11.42 Type 2 diabetes mellitus with diabetic polyneuropathy; R60.0 Localized edema; J30.9 Allergic rhinitis, unspecified; M19.012 Primary osteoarthritis, left shoulder; I73.00 Raynaud's syndrome without gangrene; M51.16 Intervertebral disc disorders with radiculopathy, lumbar region; Z79.891 Long term (current) use of opiate analgesic; M51.34 Other intervertebral disc degeneration, thoracic region; Z87.891 Personal history of nicotine dependence; Z79.84 Long term (current) use of oral hypoglycemic drugs; Z79.899 Other long term (current) drug therapy; Z68.41 Body mass index [BMI] 40.0-44.9, adult ==

== ENCOUNTER → 2021-10-17 | Outpatient (CLI) | payer BC ==
[2021-10-17 12:04] LABS: BASO # 0.1 10^3/uL (0.0-0.2); BASO % 1.1 % (0.0-1.0); EOS # 0.2 10^3/uL (0.0-0.5); EOS % 2.9 % (0.0-3.0); HEMATOCRIT 41.4 % (42.0-52.0); HEMOGLOBIN 13.4 g/dl (13.5-17.5); LYMPH # 2.3 10^3/uL (1.5-5.0); LYMPH % 35.6 % (24.0-44.0); MEAN CORPUSCULAR HEMOGLOBIN 30.1 pg (27.0-33.0); MEAN CORPUSCULAR HGB CONC 32.4 g/dl (32.0-36.5); MONO # 0.5 10^3/uL (0.0-0.8); MONO % 8.1 % (2.0-8.0); NEUTROPHILS # 3.4 10^3/uL (1.5-8.5); PLATELET COUNT, AUTOMATED 277 10^3/uL (150-450); RED BLOOD COUNT 4.45 10^6/uL (4.30-6.10); WHITE BLOOD COUNT 6.6 10^3/uL (4.0-10.0)
[2021-10-17 14:52] LABS: ALT/SGPT 36 U/L (12-78); BILIRUBIN,TOTAL 0.4 MG/DL (0.2-1.0); BLOOD UREA NITROGEN 11 MG/DL (7-18); CALCIUM LEVEL 8.9 MG/DL (8.5-10.1); CARBON DIOXIDE LEVEL 30 MEQ/L (21-32); CHLORIDE LEVEL 104 MEQ/L (98-107); CHOLESTEROL LEVEL 106 MG/DL (<200); CHOLESTEROL RISK RATIO 3.785 (<5); CREATININE FOR GFR 0.72 MG/DL (0.70-1.30); GLOMERULAR FILTRATION RATE > 60.0 (>56); GLUCOSE, FASTING 120 MG/DL (70-100); HDL CHOLESTEROL 28 MG/DL (>40); LDL CHOLESTEROL 39 MG/DL (<100); NON-HDL-C 78 MG/DL; POTASSIUM SERUM 4.4 MEQ/L (3.5-5.1); SODIUM LEVEL 137 MEQ/L (136-145); TRIGLYCERIDES LEVEL 194 MG/DL (<150)
[2021-10-17 22:23] LABS: HEMOGLOBIN A1c 6.9 %
== END ==
LOC: M WUC 08:16
PROVIDERS: ATTEND Physician Assistant Medical
DX: E11.8 Type 2 diabetes mellitus with unspecified complications (principal); E78.5 Hyperlipidemia, unspecified; I10 Essential (primary) hypertension

== ENCOUNTER → 2022-01-10 | Outpatient (CLI) | payer BC | LOC: M PAIN 08:30 | PROVIDERS: ATTEND Nurse Practitioner Family | DX: M51.16 Intervertebral disc disorders with radiculopathy, lumbar region (principal); I10 Essential (primary) hypertension; E78.5 Hyperlipidemia, unspecified; K21.9 Gastro-esophageal reflux disease without esophagitis; J44.9 Chronic obstructive pulmonary disease, unspecified; E66.01 Morbid (severe) obesity due to excess calories; E11.42 Type 2 diabetes mellitus with diabetic polyneuropathy; R60.0 Localized edema; M19.012 Primary osteoarthritis, left shoulder; I73.00 Raynaud's syndrome without gangrene; M51.34 Other intervertebral disc degeneration, thoracic region; J30.9 Allergic rhinitis, unspecified; Z87.891 Personal history of nicotine dependence; Z79.82 Long term (current) use of aspirin; Z79.84 Long term (current) use of oral hypoglycemic drugs; Z79.891 Long term (current) use of opiate analgesic; Z88.1 Allergy status to other antibiotic agents; Z88.8 Allergy status to other drugs, medicaments and biological substances; Z68.41 Body mass index [BMI] 40.0-44.9, adult ==

== ENCOUNTER → 2022-01-18 | Outpatient (CLI) | payer BC | LOC: M WUC 13:05 | PROVIDERS: ATTEND Nurse Practitioner Family | DX: M51.16 Intervertebral disc disorders with radiculopathy, lumbar region (principal) ==

== ENCOUNTER → 2022-04-02 | Outpatient (CLI) | payer BC ==
[2022-04-02 11:55] LABS: BASO # 0.1 10^3/uL (0.0-0.2); BASO % 1.1 % (0.0-1.0); EOS # 0.2 10^3/uL (0.0-0.5); EOS % 2.2 % (0.0-3.0); HEMATOCRIT 38.6 % (42.0-52.0); HEMOGLOBIN 12.6 g/dl (13.5-17.5); LYMPH # 2.7 10^3/uL (1.5-5.0); LYMPH % 32.5 % (24.0-44.0); MEAN CORPUSCULAR HGB CONC 32.6 g/dl (32.0-36.5); MEAN CORPUSCULAR VOLUME 95.1 fl (80.0-96.0); MONO # 0.6 10^3/uL (0.0-0.8); MONO % 7.1 % (2.0-8.0); NEUTROPHILS # 4.6 10^3/uL (1.5-8.5); NEUTROPHILS % 56.9 % (36.0-66.0); PLATELET COUNT, AUTOMATED 291 10^3/uL (150-450); RED BLOOD COUNT 4.06 10^6/uL (4.30-6.10); WHITE BLOOD COUNT 8.2 10^3/uL (4.0-10.0)
[2022-04-02 12:23] LABS: ALBUMIN 3.9 G/DL (3.2-5.2); ALKALINE PHOSPHATASE 81 U/L (46-116); ALT/SGPT 21 U/L (7.0-40); AST/SGOT 24 U/L (<34); BILIRUBIN,TOTAL 0.3 MG/DL (0.3-1.2); BLOOD UREA NITROGEN 15 MG/DL (9-23); CALCIUM LEVEL 9.2 MG/DL (8.5-10.1); CARBON DIOXIDE LEVEL 27 MMOL/L (20-31); CHLORIDE LEVEL 104 MMOL/L (98-107); CHOLESTEROL LEVEL 105 MG/DL (<200); CHOLESTEROL RISK RATIO 3.07 (<5); CREATININE FOR GFR 0.75 MG/DL (0.70-1.30); GLOMERULAR FILTRATION RATE > 60.0 (>56); GLUCOSE, FASTING 118 MG/DL (60-100); HDL CHOLESTEROL 34.1 MG/DL (>40); LDL CHOLESTEROL 51.9 MG/DL (<100); NON-HDL-C 71 MG/DL; POTASSIUM SERUM 4.4 MMOL/L (3.5-5.1); SODIUM LEVEL 140 MMOL/L (136-145); TOTAL PROTEIN 6.6 G/DL (5.7-8.2); TRIGLYCERIDES LEVEL 95 MG/DL (<150)
[2022-04-02 12:24] LABS: FREE T4 0.91 NG/DL (0.89-1.76); THYROID STIMULATING HORMONE 0.959 uIU/ML (0.55-4.78); VITAMIN B12 LEVEL 320 PG/ML (211-911)
[2022-04-02 13:23] LABS: HEMOGLOBIN A1c 5.6 % (4.0-6.0)
== END ==
LOC: M WUC 08:48
PROVIDERS: ATTEND Physician Assistant Medical
DX: E78.5 Hyperlipidemia, unspecified (principal); E11.8 Type 2 diabetes mellitus with unspecified complications; F41.9 Anxiety disorder, unspecified; E53.8 Deficiency of other specified B group vitamins; I10 Essential (primary) hypertension

== ENCOUNTER → 2022-04-14 | Outpatient (CLI) | payer BC | LOC: M LABSMTC 09:48 | PROVIDERS: ATTEND Anesthesiology | DX: Z01.812 Encounter for preprocedural laboratory examination (principal); Z20.822 Contact with and (suspected) exposure to COVID-19 ==

== ENCOUNTER → 2022-04-19 | Outpatient (CLI) | payer BC ==
[~2022-04-19] MED LIST changes: +ISOVUE-M 300 61% 15ML VIAL As Ordered ONE; +LIDOCAINE 1% SDV 30ML VIAL As Ordered ONE; +diazePAM 5MG TABLET As Ordered ONE; +methylPREDNISolone SUSP 40MG/ML 1ML VIAL (DEPO MEDROL) As Ordered ONE; +oxyCODONE 5MG TAB As Ordered ONE
== END ==
LOC: M PAIN 08:15
PROVIDERS: ATTEND Anesthesiology
DX: M51.16 Intervertebral disc disorders with radiculopathy, lumbar region (principal); I10 Essential (primary) hypertension; E78.5 Hyperlipidemia, unspecified; K21.9 Gastro-esophageal reflux disease without esophagitis; J44.9 Chronic obstructive pulmonary disease, unspecified; E66.01 Morbid (severe) obesity due to excess calories; E11.42 Type 2 diabetes mellitus with diabetic polyneuropathy; R60.0 Localized edema; M19.012 Primary osteoarthritis, left shoulder; I73.00 Raynaud's syndrome without gangrene; M51.34 Other intervertebral disc degeneration, thoracic region; J30.9 Allergic rhinitis, unspecified; Z87.891 Personal history of nicotine dependence; Z79.82 Long term (current) use of aspirin; Z79.84 Long term (current) use of oral hypoglycemic drugs; Z79.891 Long term (current) use of opiate analgesic; Z88.1 Allergy status to other antibiotic agents; Z88.8 Allergy status to other drugs, medicaments and biological substances; Z68.41 Body mass index [BMI] 40.0-44.9, adult

== ENCOUNTER → 2022-05-20 | Outpatient (CLI) | payer BC ==
[~2022-05-20] MED LIST changes: -ISOVUE-M 300 61% 15ML VIAL As Ordered ONE; -LIDOCAINE 1% SDV 30ML VIAL As Ordered ONE; -diazePAM 5MG TABLET As Ordered ONE; -methylPREDNISolone SUSP 40MG/ML 1ML VIAL (DEPO MEDROL) As Ordered ONE; -oxyCODONE 5MG TAB As Ordered ONE
== END ==
LOC: M PAIN 14:45
PROVIDERS: ATTEND Nurse Practitioner Family
DX: G89.29 Other chronic pain (principal); M51.16 Intervertebral disc disorders with radiculopathy, lumbar region; E11.42 Type 2 diabetes mellitus with diabetic polyneuropathy; E78.5 Hyperlipidemia, unspecified; I10 Essential (primary) hypertension; K21.9 Gastro-esophageal reflux disease without esophagitis; J44.9 Chronic obstructive pulmonary disease, unspecified; E66.01 Morbid (severe) obesity due to excess calories; J30.9 Allergic rhinitis, unspecified; Z87.891 Personal history of nicotine dependence; I73.00 Raynaud's syndrome without gangrene; M47.814 Spondylosis without myelopathy or radiculopathy, thoracic region; Z79.82 Long term (current) use of aspirin; Z79.891 Long term (current) use of opiate analgesic; Z79.84 Long term (current) use of oral hypoglycemic drugs; Z79.899 Other long term (current) drug therapy; Z88.8 Allergy status to other drugs, medicaments and biological substances

== ENCOUNTER → 2022-08-06 | Outpatient (CLI) | payer BC ==
[~2022-08-06] MED LIST changes: -LOSA100T45 PO; +LOSA100T46 PO
== END ==
LOC: M PAIN 10:15
PROVIDERS: ATTEND Nurse Practitioner Family
DX: M51.16 Intervertebral disc disorders with radiculopathy, lumbar region (principal); G89.29 Other chronic pain; I10 Essential (primary) hypertension; K21.9 Gastro-esophageal reflux disease without esophagitis; E11.42 Type 2 diabetes mellitus with diabetic polyneuropathy; Z87.891 Personal history of nicotine dependence; Z88.1 Allergy status to other antibiotic agents; Z88.8 Allergy status to other drugs, medicaments and biological substances; Z79.51 Long term (current) use of inhaled steroids; Z79.82 Long term (current) use of aspirin; Z79.84 Long term (current) use of oral hypoglycemic drugs; Z79.85 Long-term (current) use of injectable non-insulin antidiabetic drugs; Z79.899 Other long term (current) drug therapy

== ENCOUNTER → 2022-12-05 | Outpatient (CLI) | payer BC ==
[~2022-12-05] MED LIST changes: +EZET10TA58 PO; -ZETI10TA16 PO
== END ==
LOC: M PAIN 17:00
PROVIDERS: ATTEND Nurse Practitioner Family
DX: M51.16 Intervertebral disc disorders with radiculopathy, lumbar region (principal); I10 Essential (primary) hypertension; E78.5 Hyperlipidemia, unspecified; K21.9 Gastro-esophageal reflux disease without esophagitis; J44.9 Chronic obstructive pulmonary disease, unspecified; E66.01 Morbid (severe) obesity due to excess calories; E11.42 Type 2 diabetes mellitus with diabetic polyneuropathy; M19.012 Primary osteoarthritis, left shoulder; I73.00 Raynaud's syndrome without gangrene; M51.34 Other intervertebral disc degeneration, thoracic region; Z87.891 Personal history of nicotine dependence; Z79.82 Long term (current) use of aspirin; Z79.84 Long term (current) use of oral hypoglycemic drugs; Z79.85 Long-term (current) use of injectable non-insulin antidiabetic drugs; Z79.899 Other long term (current) drug therapy; Z79.891 Long term (current) use of opiate analgesic; Z88.8 Allergy status to other drugs, medicaments and biological substances; Z68.36 Body mass index [BMI] 36.0-36.9, adult

== ENCOUNTER → 2023-01-02 | Outpatient (CLI) | payer BC | LOC: M PAIN 16:30 | PROVIDERS: ATTEND Nurse Practitioner Family | DX: M51.16 Intervertebral disc disorders with radiculopathy, lumbar region (principal); I10 Essential (primary) hypertension; E78.5 Hyperlipidemia, unspecified; K21.9 Gastro-esophageal reflux disease without esophagitis; J44.9 Chronic obstructive pulmonary disease, unspecified; E66.01 Morbid (severe) obesity due to excess calories; E11.42 Type 2 diabetes mellitus with diabetic polyneuropathy; M19.012 Primary osteoarthritis, left shoulder; I73.00 Raynaud's syndrome without gangrene; M51.34 Other intervertebral disc degeneration, thoracic region; Z87.891 Personal history of nicotine dependence; Z79.82 Long term (current) use of aspirin; Z79.84 Long term (current) use of oral hypoglycemic drugs; Z79.85 Long-term (current) use of injectable non-insulin antidiabetic drugs; Z79.899 Other long term (current) drug therapy; Z79.891 Long term (current) use of opiate analgesic; Z88.8 Allergy status to other drugs, medicaments and biological substances; Z68.36 Body mass index [BMI] 36.0-36.9, adult ==

== ENCOUNTER 2023-01-04 21:12 | Emergency (ER) | payer BC ==
[~2023-01-04] VITALS: Ht 182.9 cm; Wt 121.4 kg
[2023-01-04 21:24] VITALS: TEMP 97.9
[2023-01-04] MEDS ORDERED: NS 1,000 ML IV ONE (21:25)
[2023-01-04] MEDS ORDERED: ISOVUE-370 76% 100ML VIAL As Ordered ONE (21:30)
[2023-01-04 22:10] LABS: VENOUS BASE EXCESS -1.2 (-2.0-2.0); VENOUS HCO3 25.8 MMOL/L (23.0-27.0); VENOUS O2 SATURATION 65.2 % (60.0-80.0); VENOUS PARTIAL PRESSURE CO2 52.7 mmHg (38.0-50.0); VENOUS PARTIAL PRESSURE O2 36.5 mmHg (30.0-50.0); VENOUS PH 7.308 UNITS (7.330-7.430); VENOUS STANDARD HCO3 22.8 MMOL/L; VENOUS TOTAL CO2 27.4 MMOL/L (24.0-28.0)
[2023-01-04 22:13] LABS: BASO # 0.1 10^3/uL (0.0-0.2); BASO % 0.7 % (0.0-1.0); EOS # 0.1 10^3/uL (0.0-0.5); EOS % 1.3 % (0.0-3.0); HEMATOCRIT 39.5 % (42.0-52.0); HEMOGLOBIN 13.3 g/dl (13.5-17.5); LYMPH # 2.8 10^3/uL (1.5-5.0); LYMPH % 32.5 % (24.0-44.0); MEAN CORPUSCULAR HEMOGLOBIN 31.1 pg (27.0-33.0); MEAN CORPUSCULAR HGB CONC 33.7 g/dl (32.0-36.5); MEAN CORPUSCULAR VOLUME 92.5 fl (80.0-96.0); MONO # 0.5 10^3/uL (0.0-0.8); MONO % 5.8 % (2.0-8.0); NEUTROPHILS # 5.2 10^3/uL (1.5-8.5); NEUTROPHILS % 59.4 % (36.0-66.0); PLATELET COUNT, AUTOMATED 275 10^3/uL (150-450); RED BLOOD COUNT 4.27 10^6/uL (4.30-6.10); WHITE BLOOD COUNT 8.7 10^3/uL (4.0-10.0)
[2023-01-04 22:14] LABS: HEMATOCRIT 36.9 % (42.0-52.0); HEMOGLOBIN 12.4 g/dl (13.5-17.5); MEAN CORPUSCULAR HEMOGLOBIN 31.3 pg (27.0-33.0); MEAN CORPUSCULAR HGB CONC 33.6 g/dl (32.0-36.5); MEAN CORPUSCULAR VOLUME 93.2 fl (80.0-96.0); PLATELET COUNT, AUTOMATED 242 10^3/uL (150-450); RED BLOOD COUNT 3.96 10^6/uL (4.30-6.10); WHITE BLOOD COUNT 10.7 10^3/uL (4.0-10.0)
[2023-01-04 22:28] LABS: INR 1.07; PROTHROMBIN TIME 13.6 SECONDS (12.5-14.5)
[2023-01-04 22:29] LABS: PARTIAL THROMBOPLASTIN TIME 25.6 SECONDS (24.8-34.2)
[2023-01-04 22:39] LABS: CK-MB VALUE MASS 2.4 NG/ML (<3.6); LIPASE 43 U/L (12-53)
[2023-01-04 22:40] LABS: ETHYL ALCOHOL (ETHANOL) < 0.003 % (0.000-0.010)
[2023-01-04 22:41] LABS: ALBUMIN 3.8 G/DL (3.2-5.2); ALKALINE PHOSPHATASE 75 U/L (46-116); ALT/SGPT 56 U/L (7.0-40); AMYLASE 118 U/L (30-118); AST/SGOT 53 U/L (<34); BILIRUBIN,DIRECT < 0.1 MG/DL (<0.4); BILIRUBIN,TOTAL 0.3 MG/DL (0.3-1.2); BLOOD UREA NITROGEN 17 MG/DL (9-23); CALCIUM LEVEL 8.3 MG/DL (8.5-10.1); CARBON DIOXIDE LEVEL 28 MMOL/L (20-31); CHLORIDE LEVEL 109 MMOL/L (98-107); CREATININE FOR GFR 0.74 MG/DL (0.70-1.30); GLOMERULAR FILTRATION RATE > 60.0 (>56); GLUCOSE, FASTING 146 MG/DL (60-100); POTASSIUM SERUM 3.6 MMOL/L (3.5-5.1); SODIUM LEVEL 143 MMOL/L (136-145); TOTAL PROTEIN 6.1 G/DL (5.7-8.2)
[2023-01-04 22:45] LABS: CPK CREATINE PHOSPHOKINASE 255 U/L (46-171); MB/CK RELATIVE INDEX 0.94 (< OR =4)
[2023-01-04] MEDS ORDERED: KETOROLAC 30 MG/ML 1ML VIAL IV ONE (23:00)
[2023-01-04 23:30] VITALS: BP 118/58; O2SAT 98
== END 2023-01-04 23:42 | disposition short-term general hospital (02) ==
LOC: EDBD 21:12 → M ED 21:12
DX: S01.312A Laceration without foreign body of left ear, initial encounter (principal); S12.041A Nondisplaced lateral mass fracture of first cervical vertebra, initial encounter for closed fracture; S12.491A Other nondisplaced fracture of fifth cervical vertebra, initial encounter for closed fracture; S12.500A Unspecified displaced fracture of sixth cervical vertebra, initial encounter for closed fracture; V47.5XXA Car driver injured in collision with fixed or stationary object in traffic accident, initial encounter; Z88.1 Allergy status to other antibiotic agents; Z88.8 Allergy status to other drugs, medicaments and biological substances; Z79.52 Long term (current) use of systemic steroids; Z79.82 Long term (current) use of aspirin; Z79.811 Long term (current) use of aromatase inhibitors; Z79.4 Long term (current) use of insulin; Z79.899 Other long term (current) drug therapy
CPT/HCPCS: 70450; 70486; 71045; 71260; 72125; 73030; 73080; 73564; 74177; 80047; 80048; 80076; 82077; 82150; 82550; 82553; 82803; 83605; 83690; 84484; 85025; 85027; 85610; 85730; 86850; 86900; 86901; 93005; 93041; 94760; 96374; 99285; J1885; Q9967

== ENCOUNTER → 2023-01-17 | Outpatient (REF) | payer BC ==
[2023-01-17 17:21] LABS: BASO # 0.1 10^3/uL (0.0-0.2); BASO % 1.1 % (0.0-1.0); EOS # 0.1 10^3/uL (0.0-0.5); EOS % 1.4 % (0.0-3.0); HEMATOCRIT 39.1 % (42.0-52.0); LYMPH # 2.3 10^3/uL (1.5-5.0); LYMPH % 34.5 % (24.0-44.0); MEAN CORPUSCULAR HEMOGLOBIN 31.3 pg (27.0-33.0); MEAN CORPUSCULAR HGB CONC 33.2 g/dl (32.0-36.5); MONO # 0.5 10^3/uL (0.0-0.8); MONO % 7.2 % (2.0-8.0); NEUTROPHILS # 3.6 10^3/uL (1.5-8.5); NEUTROPHILS % 55.6 % (36.0-66.0); PLATELET COUNT, AUTOMATED 336 10^3/uL (150-450); RED BLOOD COUNT 4.16 10^6/uL (4.30-6.10); WHITE BLOOD COUNT 6.5 10^3/uL (4.0-10.0)
[2023-01-17 17:39] LABS: HEMOGLOBIN A1c 5.6 % (4.0-6.0)
[2023-01-17 17:47] LABS: ALKALINE PHOSPHATASE 143 U/L (46-116); ALT/SGPT 25 U/L (7.0-40); AST/SGOT 17 U/L (<34); BILIRUBIN,TOTAL 0.5 MG/DL (0.3-1.2); BLOOD UREA NITROGEN 17 MG/DL (9-23); CALCIUM LEVEL 9.3 MG/DL (8.5-10.1); CARBON DIOXIDE LEVEL 31 MMOL/L (20-31); CHLORIDE LEVEL 103 MMOL/L (98-107); CHOLESTEROL LEVEL 92 MG/DL (<200); CHOLESTEROL RISK RATIO 2.41 (<5); CREATININE FOR GFR 0.79 MG/DL (0.70-1.30); GLOMERULAR FILTRATION RATE > 60.0 (>56); GLUCOSE, FASTING 105 MG/DL (60-100); HDL CHOLESTEROL 38.1 MG/DL (>40); LDL CHOLESTEROL 41.1 MG/DL (<100); NON-HDL-C 53.9 MG/DL; POTASSIUM SERUM 3.8 MMOL/L (3.5-5.1); SODIUM LEVEL 141 MMOL/L (136-145); TOTAL PROTEIN 6.6 G/DL (5.7-8.2); TRIGLYCERIDES LEVEL 64 MG/DL (<150)
== END ==
LOC: M LABWUC 16:32
PROVIDERS: ATTEND Physician Assistant Medical
DX: E78.5 Hyperlipidemia, unspecified (principal); I10 Essential (primary) hypertension; E11.8 Type 2 diabetes mellitus with unspecified complications

== ENCOUNTER → 2023-01-20 | Outpatient (CLI) | payer OTHER | LOC: M RAD 10:18 | PROVIDERS: ATTEND Physician Assistant Surgical | DX: S80.02XA Contusion of left knee, initial encounter (principal); W18.30XA Fall on same level, unspecified, initial encounter; Y92.009 Unspecified place in unspecified non-institutional (private) residence as the place of occurrence of the external cause ==

== ENCOUNTER → 2023-01-21 | Outpatient (CLI) | payer OTHER ==
[2023-01-21 11:52] LABS: BASO # 0.1 10^3/uL (0.0-0.2); BASO % 1.2 % (0.0-1.0); EOS # 0.1 10^3/uL (0.0-0.5); EOS % 1.9 % (0.0-3.0); HEMATOCRIT 39.1 % (42.0-52.0); LYMPH # 2.6 10^3/uL (1.5-5.0); LYMPH % 39.5 % (24.0-44.0); MEAN CORPUSCULAR HGB CONC 33.2 g/dl (32.0-36.5); MEAN CORPUSCULAR VOLUME 93.1 fl (80.0-96.0); MONO # 0.4 10^3/uL (0.0-0.8); MONO % 6.5 % (2.0-8.0); NEUTROPHILS # 3.3 10^3/uL (1.5-8.5); NEUTROPHILS % 50.7 % (36.0-66.0); PLATELET COUNT, AUTOMATED 334 10^3/uL (150-450); WHITE BLOOD COUNT 6.5 10^3/uL (4.0-10.0)
== END ==
LOC: M RAD 11:17
PROVIDERS: ATTEND Physician Assistant Medical
DX: M54.50 Low back pain, unspecified (principal); M25.511 Pain in right shoulder

== ENCOUNTER → 2023-02-25 | Outpatient (REF) | payer OTHER ==
[2023-02-25 18:36] LABS: SOURCE, BODY FLUID RT KNEE; SYNOVIAL FLUID COLOR ORANGE (COLORLESS)
[2023-02-25 18:39] LABS: CRYSTALS, BODY FLUID NONE SEEN (NONE SEEN); SOURCE, BODY FLUID CRYSTALS RT KNEE
[2023-02-25 18:42] LABS: SOURCE, BODY FLUID GLUCOSE RT KNEE
== END ==
LOC: M LAB REF 18:07
PROVIDERS: ATTEND Physician Assistant Surgical
DX: M25.461 Effusion, right knee (principal)

== ENCOUNTER → 2023-03-06 | Outpatient (CLI) | payer OTHER | LOC: M PAIN 17:00 | PROVIDERS: ATTEND Nurse Practitioner Family | DX: M51.16 Intervertebral disc disorders with radiculopathy, lumbar region (principal); G89.29 Other chronic pain; I10 Essential (primary) hypertension; E78.5 Hyperlipidemia, unspecified; K21.9 Gastro-esophageal reflux disease without esophagitis; J44.9 Chronic obstructive pulmonary disease, unspecified; E66.01 Morbid (severe) obesity due to excess calories; E11.42 Type 2 diabetes mellitus with diabetic polyneuropathy; M19.012 Primary osteoarthritis, left shoulder; I73.00 Raynaud's syndrome without gangrene; M47.814 Spondylosis without myelopathy or radiculopathy, thoracic region; Z87.891 Personal history of nicotine dependence; Z79.82 Long term (current) use of aspirin; Z79.84 Long term (current) use of oral hypoglycemic drugs; Z79.891 Long term (current) use of opiate analgesic; Z79.899 Other long term (current) drug therapy; Z88.8 Allergy status to other drugs, medicaments and biological substances; Z68.38 Body mass index [BMI] 38.0-38.9, adult ==

== ENCOUNTER → 2023-05-08 | Outpatient (CLI) | payer OTHER | LOC: M PLAIMG 13:13 | PROVIDERS: ATTEND Physician Assistant Medical | DX: S12.091D Other nondisplaced fracture of first cervical vertebra, subsequent encounter for fracture with routine healing (principal); S12.400D Unspecified displaced fracture of fifth cervical vertebra, subsequent encounter for fracture with routine healing; S14.106D Unspecified injury at C6 level of cervical spinal cord, subsequent encounter ==

== ENCOUNTER → 2023-06-02 | Outpatient (CLI) | payer OTHER | LOC: M PAIN 14:45 | PROVIDERS: ATTEND Nurse Practitioner Family | DX: M51.16 Intervertebral disc disorders with radiculopathy, lumbar region (principal); Z79.891 Long term (current) use of opiate analgesic; G89.29 Other chronic pain; I10 Essential (primary) hypertension; E78.5 Hyperlipidemia, unspecified; K21.9 Gastro-esophageal reflux disease without esophagitis; J44.9 Chronic obstructive pulmonary disease, unspecified; E66.01 Morbid (severe) obesity due to excess calories; E11.42 Type 2 diabetes mellitus with diabetic polyneuropathy; M19.012 Primary osteoarthritis, left shoulder; M47.816 Spondylosis without myelopathy or radiculopathy, lumbar region; M47.814 Spondylosis without myelopathy or radiculopathy, thoracic region; Z87.891 Personal history of nicotine dependence; Z79.82 Long term (current) use of aspirin; Z79.84 Long term (current) use of oral hypoglycemic drugs; Z79.899 Other long term (current) drug therapy; Z88.8 Allergy status to other drugs, medicaments and biological substances; Z68.38 Body mass index [BMI] 38.0-38.9, adult ==

== ENCOUNTER → 2023-07-07 | Outpatient (CLI) | payer OTHER | LOC: M RAD 14:34 | PROVIDERS: ATTEND Physician Assistant Surgical | DX: M79.662 Pain in left lower leg (principal); M22.42 Chondromalacia patellae, left knee ==

== ENCOUNTER → 2023-07-09 | Outpatient (CLI) | payer OTHER | LOC: M RAD 09:23 | PROVIDERS: ATTEND Physician Assistant Surgical | DX: S80.02XA Contusion of left knee, initial encounter (principal); W18.30XA Fall on same level, unspecified, initial encounter; Y92.009 Unspecified place in unspecified non-institutional (private) residence as the place of occurrence of the external cause ==

== ENCOUNTER → 2023-08-20 | Outpatient (CLI) | payer OTHER ==
[~2023-08-20] MED LIST changes: -GLIM1TAB4 PO; +GLIM1TAB84 PO
== END ==
LOC: M PLAIMG 15:05
PROVIDERS: ATTEND Physician Assistant Medical
DX: M25.531 Pain in right wrist (principal)

== ENCOUNTER → 2023-09-02 | Outpatient (CLI) | payer OTHER | LOC: M PAIN 09:00 | PROVIDERS: ATTEND Nurse Practitioner Family | DX: M51.16 Intervertebral disc disorders with radiculopathy, lumbar region (principal); Z79.891 Long term (current) use of opiate analgesic; G89.29 Other chronic pain; I10 Essential (primary) hypertension; E78.5 Hyperlipidemia, unspecified; K21.9 Gastro-esophageal reflux disease without esophagitis; J44.9 Chronic obstructive pulmonary disease, unspecified; E66.01 Morbid (severe) obesity due to excess calories; E11.42 Type 2 diabetes mellitus with diabetic polyneuropathy; M19.012 Primary osteoarthritis, left shoulder; I73.00 Raynaud's syndrome without gangrene; M47.816 Spondylosis without myelopathy or radiculopathy, lumbar region; M47.814 Spondylosis without myelopathy or radiculopathy, thoracic region; Z87.891 Personal history of nicotine dependence; Z79.82 Long term (current) use of aspirin; Z79.84 Long term (current) use of oral hypoglycemic drugs; Z79.899 Other long term (current) drug therapy; Z68.41 Body mass index [BMI] 40.0-44.9, adult; Z88.8 Allergy status to other drugs, medicaments and biological substances ==

== ENCOUNTER → 2023-10-20 | Outpatient (CLI) | payer OTHER | LOC: M PAIN 14:45 | PROVIDERS: ATTEND Nurse Practitioner Family | DX: M51.16 Intervertebral disc disorders with radiculopathy, lumbar region (principal); Z79.891 Long term (current) use of opiate analgesic; I10 Essential (primary) hypertension; E11.9 Type 2 diabetes mellitus without complications; J44.9 Chronic obstructive pulmonary disease, unspecified; E78.5 Hyperlipidemia, unspecified; Z79.02 Long term (current) use of antithrombotics/antiplatelets; Z79.82 Long term (current) use of aspirin; Z79.84 Long term (current) use of oral hypoglycemic drugs; Z79.899 Other long term (current) drug therapy; Z88.1 Allergy status to other antibiotic agents ==

== ENCOUNTER → 2023-11-24 | Outpatient (CLI) | payer OTHER | LOC: M PAIN 09:00 | PROVIDERS: ATTEND Nurse Practitioner Family | DX: M51.16 Intervertebral disc disorders with radiculopathy, lumbar region (principal); Z79.891 Long term (current) use of opiate analgesic; G89.29 Other chronic pain; I10 Essential (primary) hypertension; E78.2 Mixed hyperlipidemia; K21.9 Gastro-esophageal reflux disease without esophagitis; J44.9 Chronic obstructive pulmonary disease, unspecified; E66.01 Morbid (severe) obesity due to excess calories; E11.42 Type 2 diabetes mellitus with diabetic polyneuropathy; I73.00 Raynaud's syndrome without gangrene; M47.816 Spondylosis without myelopathy or radiculopathy, lumbar region; M47.814 Spondylosis without myelopathy or radiculopathy, thoracic region; Z79.82 Long term (current) use of aspirin; Z79.899 Other long term (current) drug therapy; Z79.84 Long term (current) use of oral hypoglycemic drugs; Z88.1 Allergy status to other antibiotic agents; Z88.8 Allergy status to other drugs, medicaments and biological substances ==

== ENCOUNTER → 2024-01-13 | Outpatient (CLI) | payer OTHER ==
[~2024-01-13] MED LIST changes: +GABA-1172 PO; -GABA-282 PO
== END ==
LOC: M PLAIMG 11:40 → M PLALAB 11:40
PROVIDERS: ATTEND Physician Assistant Medical
DX: J40 Bronchitis, not specified as acute or chronic (principal); J44.9 Chronic obstructive pulmonary disease, unspecified

== ENCOUNTER 2024-01-17 23:49 | Emergency (ER) | payer OTHER ==
[~2024-01-17] VITALS: Ht 175.3 cm; Wt 139.5 kg
[2024-01-17 23:51] VITALS: TEMP 99.1
[2024-01-18] MEDS: IPRATROPIUM 0.5MG/ALBUTEROL 2.5MG INH SOL UD 3ML (DUONEB) NEB PRN (03:18)
[2024-01-18 03:24] LABS: VENOUS BASE EXCESS 1.6 (-2.0-2.0); VENOUS HCO3 28.6 MMOL/L (23.0-27.0); VENOUS O2 SATURATION 73.2 % (60.0-80.0); VENOUS PARTIAL PRESSURE CO2 55.3 mmHg (38.0-50.0); VENOUS PARTIAL PRESSURE O2 41.1 mmHg (30.0-50.0); VENOUS PH 7.331 UNITS (7.330-7.430); VENOUS STANDARD HCO3 25.3 MMOL/L; VENOUS TOTAL CO2 30.3 MMOL/L (24.0-28.0)
[2024-01-18 03:30] LABS: BASO # 0.1 10^3/uL (0.0-0.2); EOS # 0.7 10^3/uL (0.0-0.5); EOS % 7.2 % (0.0-3.0); HEMATOCRIT 37.3 % (42.0-52.0); HEMOGLOBIN 12.3 g/dl (13.5-17.5); LYMPH # 2.5 10^3/uL (1.5-5.0); LYMPH % 25.8 % (24.0-44.0); MEAN CORPUSCULAR HEMOGLOBIN 30.9 pg (27.0-33.0); MEAN CORPUSCULAR VOLUME 93.7 fl (80.0-96.0); MONO # 0.8 10^3/uL (0.0-0.8); MONO % 8.6 % (2.0-8.0); NEUTROPHILS # 5.4 10^3/uL (1.5-8.5); NEUTROPHILS % 55.8 % (36.0-66.0); PLATELET COUNT, AUTOMATED 252 10^3/uL (150-450); RED BLOOD COUNT 3.98 10^6/uL (4.30-6.10); WHITE BLOOD COUNT 9.6 10^3/uL (4.0-10.0)
[2024-01-18] MEDS: methylPREDNISolone 125MG 2ML VIAL IV ONE (03:55)
[2024-01-18 03:58] LABS: ALKALINE PHOSPHATASE 98 U/L (46-116); ALT/SGPT 36 U/L (7.0-40); AST/SGOT 25 U/L (<34); BILIRUBIN,DIRECT < 0.1 MG/DL (<0.4); BILIRUBIN,TOTAL 0.3 MG/DL (0.3-1.2); BLOOD UREA NITROGEN 16 MG/DL (9-23); CALCIUM LEVEL 9.9 MG/DL (8.5-10.1); CARBON DIOXIDE LEVEL 30 MMOL/L (20-31); CHLORIDE LEVEL 107 MMOL/L (98-107); CK-MB VALUE MASS 1.7 NG/ML (<3.6); GLOMERULAR FILTRATION RATE > 60.0 (>56); GLUCOSE, FASTING 190 MG/DL (60-100); POTASSIUM SERUM 4.3 MMOL/L (3.5-5.1); SODIUM LEVEL 143 MMOL/L (136-145); THYROID STIMULATING HORMONE 2.651 uIU/ML (0.55-4.78); THYROXINE (T4) 8.8 UG/DL (4.5-10.9); TOTAL PROTEIN 6.9 G/DL (5.7-8.2)
[2024-01-18 04:06] LABS: CPK CREATINE PHOSPHOKINASE 603 U/L (46-171); MB/CK RELATIVE INDEX 0.28 (< OR =4)
[2024-01-18] MEDS ORDERED: ISOVUE-370 76% 100ML VIAL As Ordered ONE (04:18)
[2024-01-18] MEDS ORDERED: LEVO750T14 PO (05:31)
[2024-01-18 05:45] VITALS: BP 125/60; O2SAT 93
[2024-01-18] MEDS: LevoFLOXacin 750 MG TABLET PO ONE (05:47)
== END 2024-01-18 05:58 | disposition home or self-care (01) ==
LOC: M ED 23:49
DX: J18.9 Pneumonia, unspecified organism (principal); E11.9 Type 2 diabetes mellitus without complications; E78.5 Hyperlipidemia, unspecified; K21.9 Gastro-esophageal reflux disease without esophagitis; Z86.79 Personal history of other diseases of the circulatory system; Z88.1 Allergy status to other antibiotic agents; Z88.8 Allergy status to other drugs, medicaments and biological substances; Z79.52 Long term (current) use of systemic steroids; Z79.82 Long term (current) use of aspirin; Z79.811 Long term (current) use of aromatase inhibitors; Z79.4 Long term (current) use of insulin; Z79.899 Other long term (current) drug therapy
CPT/HCPCS: 71046; 71275; 80048; 80076; 82550; 82553; 82803; 83605; 83880; 84436; 84443; 84484; 85025; 87040; 87486; 87581; 87633; 87798; 93005; 93041; 94640; 94760; 96374; 99285; J2919; Q9967

== ENCOUNTER → 2024-01-20 | Outpatient (CLI) | payer OTHER ==
[~2024-01-20] MED LIST changes: +LEVO750T14 PO
== END ==
LOC: M PAIN 17:00
PROVIDERS: ATTEND Nurse Practitioner Family
DX: M51.16 Intervertebral disc disorders with radiculopathy, lumbar region (principal); Z79.891 Long term (current) use of opiate analgesic; G89.29 Other chronic pain; I10 Essential (primary) hypertension; E78.2 Mixed hyperlipidemia; K21.9 Gastro-esophageal reflux disease without esophagitis; J44.9 Chronic obstructive pulmonary disease, unspecified; E66.01 Morbid (severe) obesity due to excess calories; E11.42 Type 2 diabetes mellitus with diabetic polyneuropathy; M19.012 Primary osteoarthritis, left shoulder; I73.00 Raynaud's syndrome without gangrene; M47.816 Spondylosis without myelopathy or radiculopathy, lumbar region; M47.814 Spondylosis without myelopathy or radiculopathy, thoracic region; Z87.891 Personal history of nicotine dependence; Z79.82 Long term (current) use of aspirin; Z79.84 Long term (current) use of oral hypoglycemic drugs; Z79.52 Long term (current) use of systemic steroids; Z79.899 Other long term (current) drug therapy; Z88.1 Allergy status to other antibiotic agents; Z88.8 Allergy status to other drugs, medicaments and biological substances; Z68.41 Body mass index [BMI] 40.0-44.9, adult

== ENCOUNTER → 2024-05-11 | Outpatient (CLI) | payer BC ==
[~2024-05-11] MED LIST changes: -LEVO750T14 PO; +LEVO75TAB PO
[2024-05-11 16:26] LABS: PLATELET COUNT, AUTOMATED 326 10^3/uL (150-450)
[2024-05-11 16:49] LABS: INR 1.06; PARTIAL THROMBOPLASTIN TIME 29.5 SECONDS (24.8-34.2); PROTHROMBIN TIME 14.1 SECONDS (12.5-14.5)
== END ==
LOC: M WUC 14:23
PROVIDERS: ATTEND Physician Assistant Surgical
DX: Z01.818 Encounter for other preprocedural examination (principal)

== ENCOUNTER → 2024-07-20 | Outpatient (REF) | payer BC ==
[2024-07-20 13:23] LABS: BASO # 0.1 10^3/uL (0.0-0.2); BASO % 1.3 % (0.0-1.0); EOS # 0.3 10^3/uL (0.0-0.5); EOS % 4.9 % (0.0-3.0); HEMATOCRIT 37.4 % (42.0-52.0); HEMOGLOBIN 12.2 g/dl (13.5-17.5); LYMPH # 2.4 10^3/uL (1.5-5.0); LYMPH % 40.8 % (24.0-44.0); MEAN CORPUSCULAR HEMOGLOBIN 31.2 pg (27.0-33.0); MEAN CORPUSCULAR HGB CONC 32.6 g/dl (32.0-36.5); MEAN CORPUSCULAR VOLUME 95.7 fl (80.0-96.0); MONO # 0.5 10^3/uL (0.0-0.8); MONO % 7.8 % (2.0-8.0); NEUTROPHILS # 2.7 10^3/uL (1.5-8.5); PLATELET COUNT, AUTOMATED 232 10^3/uL (150-450); RED BLOOD COUNT 3.91 10^6/uL (4.30-6.10); WHITE BLOOD COUNT 5.9 10^3/uL (4.0-10.0)
[2024-07-20 13:28] LABS: PARTIAL THROMBOPLASTIN TIME 30.4 SECONDS (24.8-34.2); PROTHROMBIN TIME 13.5 SECONDS (12.5-14.5)
[2024-07-20 13:30] LABS: ALBUMIN 3.9 G/DL (3.2-5.2); ALKALINE PHOSPHATASE 99 U/L (40-129); ALT/SGPT 38 U/L (7.0-40); AST/SGOT 25 U/L (<34); BILIRUBIN,TOTAL 0.2 MG/DL (0.3-1.2); BLOOD UREA NITROGEN 8 MG/DL (9-23); CALCIUM LEVEL 8.4 MG/DL (8.5-10.1); CARBON DIOXIDE LEVEL 26 MMOL/L (20-31); CHLORIDE LEVEL 108 MMOL/L (98-107); CHOLESTEROL LEVEL 127 MG/DL (<200); CHOLESTEROL RISK RATIO 5.35 (<5); GLOMERULAR FILTRATION RATE > 90.0 (>56); GLUCOSE, FASTING 148 MG/DL (60-100); HDL CHOLESTEROL 23.7 MG/DL (>40); LDL CHOLESTEROL 26.7 MG/DL (<100); NON-HDL-C 103.3 MG/DL; POTASSIUM SERUM 4.1 MMOL/L (3.5-5.1); SODIUM LEVEL 142 MMOL/L (136-145); TOTAL PROTEIN 6.1 G/DL (5.7-8.2); TRIGLYCERIDES LEVEL 383 MG/DL (<150)
[2024-07-20 13:32] LABS: THYROID STIMULATING HORMONE 3.351 uIU/ML (0.55-4.78); VITAMIN B12 LEVEL 1119 PG/ML (211-911)
[2024-07-20 13:33] LABS: FREE T4 1.13 NG/DL (0.89-1.76)
[2024-07-20 13:45] LABS: HEMOGLOBIN A1c 7.4 % (4.0-6.0)
[2024-07-21 09:59] LABS: IRON (FE) 70 UG/DL (65-175)
== END ==
LOC: M SFHCPLAZ 08:17
PROVIDERS: ATTEND Physician Assistant Medical
DX: M17.10 Unilateral primary osteoarthritis, unspecified knee (principal); E53.8 Deficiency of other specified B group vitamins; I10 Essential (primary) hypertension; F41.9 Anxiety disorder, unspecified; E11.8 Type 2 diabetes mellitus with unspecified complications; E78.5 Hyperlipidemia, unspecified

== ENCOUNTER → 2024-08-02 | Outpatient (CLI) | payer BC ==
[~2024-08-02] MED LIST changes: +TOPI-256 PO; -TOPI25TA10 PO
[2024-08-02 13:21] LABS: HEMATOCRIT 44.8 % (42.0-52.0); HEMOGLOBIN 15.1 g/dl (13.5-17.5); MEAN CORPUSCULAR HEMOGLOBIN 30.6 pg (27.0-33.0); MEAN CORPUSCULAR HGB CONC 33.7 g/dl (32.0-36.5); MEAN CORPUSCULAR VOLUME 90.7 fl (80.0-96.0); PLATELET COUNT, AUTOMATED 276 10^3/uL (150-450); RED BLOOD COUNT 4.94 10^6/uL (4.30-6.10); WHITE BLOOD COUNT 6.6 10^3/uL (4.0-10.0)
[2024-08-02 13:27] LABS: ERYTHROCYTE SEDIMENTATION RATE 13 mm/hr (0-20)
[2024-08-02 13:36] LABS: INR 0.95
[2024-08-02 14:00] LABS: ALBUMIN 4.1 G/DL (3.2-5.2); ALKALINE PHOSPHATASE 116 U/L (40-129); ALT/SGPT 38 U/L (7.0-40); AST/SGOT 19 U/L (<34); BILIRUBIN,TOTAL 0.4 MG/DL (0.3-1.2); BLOOD UREA NITROGEN 10 MG/DL (9-23); CALCIUM LEVEL 9.5 MG/DL (8.5-10.1); CARBON DIOXIDE LEVEL 27 MMOL/L (20-31); CHLORIDE LEVEL 104 MMOL/L (98-107); CREATININE FOR GFR 0.69 MG/DL (0.70-1.30); GLOMERULAR FILTRATION RATE > 90.0 (>56); GLUCOSE, FASTING 186 MG/DL (60-100); POTASSIUM SERUM 4.3 MMOL/L (3.5-5.1); SODIUM LEVEL 141 MMOL/L (136-145); TOTAL PROTEIN 7.2 G/DL (5.7-8.2)
== END ==
LOC: M RAD 12:43
PROVIDERS: ATTEND Orthopaedic Surgery
DX: Z01.818 Encounter for other preprocedural examination (principal)

== ENCOUNTER 2024-08-22 11:14 | Emergency (ER) | payer BC ==
[~2024-08-22] VITALS: Ht 182.9 cm; Wt 135.2 kg
[2024-08-22 11:26] VITALS: TEMP 96.9
[2024-08-22] MEDS ORDERED: HYDR-3713 (11:37)
[2024-08-22 12:11] LABS: BASO # 0.1 10^3/uL (0.0-0.2); EOS # 0.6 10^3/uL (0.0-0.5); EOS % 8.1 % (0.0-3.0); HEMOGLOBIN 11.1 g/dl (13.5-17.5); LYMPH # 1.8 10^3/uL (1.5-5.0); LYMPH % 25.8 % (24.0-44.0); MEAN CORPUSCULAR HEMOGLOBIN 30.5 pg (27.0-33.0); MEAN CORPUSCULAR HGB CONC 33.6 g/dl (32.0-36.5); MEAN CORPUSCULAR VOLUME 90.7 fl (80.0-96.0); MONO # 0.6 10^3/uL (0.0-0.8); NEUTROPHILS # 4.1 10^3/uL (1.5-8.5); NEUTROPHILS % 56.8 % (36.0-66.0); PLATELET COUNT, AUTOMATED 260 10^3/uL (150-450); RED BLOOD COUNT 3.64 10^6/uL (4.30-6.10); WHITE BLOOD COUNT 7.1 10^3/uL (4.0-10.0)
[2024-08-22 12:15] LABS: ERYTHROCYTE SEDIMENTATION RATE 40 mm/hr (0-20)
[2024-08-22 12:28] LABS: INR 0.95; PARTIAL THROMBOPLASTIN TIME 27.3 SECONDS (24.8-34.2); PROTHROMBIN TIME 12.9 SECONDS (12.5-14.5)
[2024-08-22] MEDS: ACETAMINOPHEN 500 MG TAB PO ONE (12:31)
[2024-08-22 13:25] VITALS: BP 150/87; O2SAT 99
== END 2024-08-22 13:26 | disposition home or self-care (01) ==
LOC: M ED 11:14
DX: G89.18 Other acute postprocedural pain (principal); S70.11XA Contusion of right thigh, initial encounter; Y92.9 Unspecified place or not applicable; Y93.9 Activity, unspecified; Y99.9 Unspecified external cause status; I10 Essential (primary) hypertension; K21.9 Gastro-esophageal reflux disease without esophagitis; J44.9 Chronic obstructive pulmonary disease, unspecified; F41.9 Anxiety disorder, unspecified; Z88.1 Allergy status to other antibiotic agents; Z79.1 Long term (current) use of non-steroidal anti-inflammatories (NSAID); Z79.51 Long term (current) use of inhaled steroids; Z79.84 Long term (current) use of oral hypoglycemic drugs; Z79.899 Other long term (current) drug therapy

== ENCOUNTER → 2024-10-07 | Outpatient (CLI) | payer BC ==
[~2024-10-07] MED LIST changes: +HYDR-3713; +ISOVUE-370 76% 100 ML VIAL As Ordered ONE
== END ==
LOC: M RAD 07:52
PROVIDERS: ATTEND Physician Assistant
DX: M48.02 Spinal stenosis, cervical region (principal); H53.2 Diplopia; I65.23 Occlusion and stenosis of bilateral carotid arteries; J01.20 Acute ethmoidal sinusitis, unspecified; M50.221 Other cervical disc displacement at C4-C5 level; M25.78 Osteophyte, vertebrae
CPT/HCPCS: 70496; 70498; 72125; 72141; Q9967

== ENCOUNTER → 2024-10-21 | Outpatient (CLI) | payer BC ==
[~2024-10-21] MED LIST changes: -ISOVUE-370 76% 100 ML VIAL As Ordered ONE
== END ==
LOC: M RAD 15:33 → M LAB 15:33
PROVIDERS: ATTEND Physician Assistant
DX: M50.00 Cervical disc disorder with myelopathy, unspecified cervical region (principal)

== ENCOUNTER → 2024-11-29 | Outpatient (CLI) | payer OTHER | LOC: M RAD 11:28 | PROVIDERS: ATTEND Orthopaedic Surgery | DX: R22.41 Localized swelling, mass and lump, right lower limb (principal); M79.604 Pain in right leg ==

== ENCOUNTER → 2024-12-27 | Outpatient (CLI) | payer OTHER ==
[~2024-12-27] MED LIST changes: -EZET10TA21 PO; +EZET10TA57 PO
[2024-12-27 12:34] LABS: PLATELET COUNT, AUTOMATED 268 10^3/uL (150-450)
[2024-12-27 12:50] LABS: INR 0.99
[2024-12-27 13:00] LABS: ALT/SGPT 61 U/L (7.0-40); AST/SGOT 49 U/L (<34); CALCIUM LEVEL 9.5 MG/DL (8.5-10.1); CARBON DIOXIDE LEVEL 29 MMOL/L (20-31); CHLORIDE LEVEL 100 MMOL/L (98-107); CREATININE FOR GFR 0.74 MG/DL (0.70-1.30); ERYTHROCYTE SEDIMENTATION RATE 14 mm/hr (0-20); GLOMERULAR FILTRATION RATE > 90.0 (>56); POTASSIUM SERUM 3.8 MMOL/L (3.5-5.1); SODIUM LEVEL 137 MMOL/L (136-145)
== END ==
LOC: M RAD 11:11
PROVIDERS: ATTEND Orthopaedic Surgery
DX: Z01.818 Encounter for other preprocedural examination (principal)

== ENCOUNTER → 2025-03-15 | Outpatient (CLI) | payer OTHER, BC ==
[2025-03-15 13:51] LABS: ESTIMATED AVERAGE GLUCOSE 203.0 MG/DL (60-110)
[2025-03-15 14:01] LABS: ALT/SGPT 44 U/L (7.0-40); AST/SGOT 33 U/L (<34); CALCIUM LEVEL 8.7 MG/DL (8.5-10.1); CARBON DIOXIDE LEVEL 30 MMOL/L (20-31); CHLORIDE LEVEL 102 MMOL/L (98-107); CREATININE FOR GFR 0.73 MG/DL (0.70-1.30); GLOMERULAR FILTRATION RATE > 90.0 (>56); POTASSIUM SERUM 3.8 MMOL/L (3.5-5.1); SODIUM LEVEL 140 MMOL/L (136-145)
== END ==
LOC: M WUC 10:20
PROVIDERS: ATTEND Physician Assistant Medical
DX: E11.8 Type 2 diabetes mellitus with unspecified complications (principal)

== ENCOUNTER → 2025-03-25 | Outpatient (CLI) | payer BC ==
[2025-03-25 17:31] LABS: ALT/SGPT 46 U/L (7.0-40); AST/SGOT 30 U/L (<34); BASO # 0.1 10^3/uL (0.0-0.2); BASO % 1.4 % (0.0-1.0); CALCIUM LEVEL 9.6 MG/DL (8.5-10.1); CARBON DIOXIDE LEVEL 31 MMOL/L (20-31); CHLORIDE LEVEL 102 MMOL/L (98-107); CREATININE FOR GFR 0.72 MG/DL (0.70-1.30); EOS # 0.3 10^3/uL (0.0-0.5); EOS % 4.7 % (0.0-3.0); GLOMERULAR FILTRATION RATE > 90.0 (>56); LYMPH # 2.6 10^3/uL (1.5-5.0); LYMPH % 37.2 % (24.0-44.0); MONO # 0.5 10^3/uL (0.0-0.8); MONO % 7.0 % (2.0-8.0); NEUTROPHILS # 3.5 10^3/uL (1.5-8.5); NEUTROPHILS % 49.4 % (36.0-66.0); PLATELET COUNT, AUTOMATED 284 10^3/uL (150-450); POTASSIUM SERUM 4.8 MMOL/L (3.5-5.1); SODIUM LEVEL 143 MMOL/L (136-145)
[2025-03-25 18:08] LABS: ESTIMATED AVERAGE GLUCOSE 194.0 MG/DL (60-110)
[2025-03-25 18:20] LABS: INR 1.0
== END ==
LOC: M WUC 14:26
PROVIDERS: ATTEND Physician Assistant Medical
DX: E11.8 Type 2 diabetes mellitus with unspecified complications (principal); I10 Essential (primary) hypertension